=== PATIENT | male | born 1950 | race Caucasian/White ===

== ENCOUNTER → 2018-08-16 | Outpatient (CLI) | payer MEDICARE, BC ==
[~2018-08-16] MED LIST: ASPI-1471 PO; AZIT-17 PO; CALC-515 PO; FLU60SYR IM; FLUT10SP; FLUT16SP19 NS; FLUT16SP20 NS; LORA-629 PO; LORA-674 PO; MULT-817 PO; MULT1CAP59 PO; OMEP-218 PO; PANT40TA65 PO; PER PO; PRED20TA6 PO; SENN-187 PO; TAMS0.4C70 PO; TAMS0.4C76 PO
[2018-08-16 16:26] LABS: PLATELET COUNT, AUTOMATED 292 K/uL (150-450)
--- NOTE | 2018-08-16 16:27 | RADIOLOGY IMAGING REPORT ---
FACILITY: [facility] - [place] PATIENT NAME: Leon Villagomez : 1950 MR: [id number] V: [id number] EXAM DATE: [id number] ORDERING PHYSICIAN: ABDELRAHMAN MAURO TECHNOLOGIST: Location: [facility] Patient: Leon Villagomez : 1950 Visit/Account:[id number] Date of Sevice: 08/16/2018 Exam type: CHEST PA AND LAT History: Laryngitis, polio, cough, sore throat x2 months Comparison: January 10, 2017 Findings: Again noted is extensive scoliosis of the thoracic spine. The cardiac silhouette is normal in size. There is mild to moderate ectasia the thoracic aorta. There is hyperexpansion of the lung mcclelland. There is a subtle increase in the bronchovascular markin gs in the left lung base. There is no evidence of overt pulmonary edema or pleural effusions. IMPRESSION: 1. Subtle increase of the bronchovascular markings the left lung base. This could be projectional i n nature although the differential diagnosis would include subtle atelectasis or developing infiltrat e Report Dictated By: Donna Espinoza MD at 08/16/2018 4:20 PM Report E-Signed By: Donna Espinoza MD at 08/16/2018 4:22 PM WSN:[email or web address]
== END ==
LOC: LAB 15:49
PROVIDERS: ATTEND Internal Medicine
DX: J04.0 Acute laryngitis (principal); R09.02 Hypoxemia; A80.9 Acute poliomyelitis, unspecified
CPT/HCPCS: 71046; 82040; 82247; 82310; 82374; 82435; 82565; 82947; 84075; 84132; 84155; 84295; 84443; 84450; 84460; 84520; 85025

== ENCOUNTER 2018-08-21 11:17 | Inpatient (IN) | payer MEDICARE, BC ==
[~2018-08-21] VITALS: Ht 162.6 cm; Wt 46.8 kg
[2018-08-21] MEDS ORDERED: NS(*) 0.9% 1000 ML BAG 1,000 ML IV ONE ×2 (11:30→14:05)
[2018-08-21] MEDS ORDERED: ALBUTEROL/IPRATROPIUM 3 ML NEB ONE (11:33)
[2018-08-21 11:46] LABS: PLATELET COUNT, AUTOMATED 359 K/uL (150-450)
[2018-08-21] MEDS ORDERED: methylPREDNIS SUCC 125 MG/2ML IVP ONE (12:30)
--- NOTE | 2018-08-21 12:39 | EKG ---
FACILITY: [facility] [place] PATIENT NAME: TONIE BRODY : [id number] MR: [id number] V: [id number] EXAM DATE: ORDERING PHYSICIAN: WANDA ROWLAND TECHNOLOGIST: MEREDITH Morin Reason : RESPIARTORY Blood Pressure : / mmHG Vent. Rate : 117 BPM Atrial Rate : 117 BPM P-R Int : 122 ms QRS Dur : 080 ms QT Int : 340 ms P-R-T Axes : 073 070 061 degrees QTc Int : 474 ms Sinus tachycardia with occasional premature ventricular complexes Right atrial enlargement No obvious ST-T abnormalities, but some baseline artifact Compared to previous, now tachycardic and with PVC's Confirmed by EPIFANIO BROWN ([id number]) on 08/21/2018 1:31:26 PM Referred By: Confirmed By:EPIFANIO BROWN
--- NOTE | 2018-08-21 13:47 | RADIOLOGY IMAGING REPORT ---
FACILITY: [facility] PATIENT NAME: Leon Villagomez : 1950 MR: [id number] V: [id number] EXAM DATE: ORDERING PHYSICIAN: WANDA ROWLAND TECHNOLOGIST: [place] [facility] [place] Vill[place] : 1950 Visit/Account:[id number] Date of Sevice: 08/21/2018 Exam type: CHEST PA AND LAT History: SOB Comparison: August 16, 2018. Findings: Hyperexpansion of the lung mcclelland again seen. There is peribronchial thickening in the left lung bas e similar to the prior study. There is no evidence of focal infiltrates pleural effusions or pulmona ry edema the cardiac silhouette appears normal. There is mild to moderate ectasia the thoracic aorta . Extensive scoliosis thoracic spine again seen IMPRESSION: 1. Hyperexpansion the lung mcclelland. Peribronchial thickening the left lung base appears similar to the prior study Report Dictated By: Donna Espinoza MD at 08/21/2018 1:40 PM Report E-Signed By: Donna Espinoza MD at 08/21/2018 1:43 PM WSN:[email or web address]
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
[2018-08-21] MEDS ORDERED: IOPAMIDOL 76% 75 ML INFUS BTL 75 ML ONE (14:18)
[2018-08-21] MEDS ORDERED: NS(*) 0.9% 50 ML BAG 50 ML ONE (14:18)
--- NOTE | 2018-08-21 15:30 | RADIOLOGY IMAGING REPORT ---
FACILITY: [facility] [place] PATIENT NAME: Leon Villagomez : 1950 MR: [id number] V: [id number] EXAM DATE: ORDERING PHYSICIAN: WANDA ROWLAND TECHNOLOGIST: Location: [facility] [place] Patient: Leon Villagomez : 1950 Visit/Account:[id number] Date of Sevice: 08/21/2018 CTA CHEST WW/O CNTR (PULM ANG) COMPARISONS: None. ADDITIONAL PERTINENT HISTORY: Hypoxia and dyspnea TECHNIQUE: Multiple axial images are obtained from the lung apices through the upper abdomen during t he IV administration of contrast material. 2-D and 3-D reformatted images were obtained off the axial source data. One of the following dose optimization techniques was utilized in the performance of t his exam: Automated exposure control; adjustment of the mA and/or kV according to the patient's size; or use of an iterative reconstruction technique. Specific details can be referenced in the [facility]'s radiology CT exam operational policy. CONTRAST: 75mL of Isovue-370 FINDINGS: Lung parenchyma: Extensive background emphysematous change with scarring in both lung bases. Findings concerning for volume loss versus consolidation at the right lung base posteriorly Pleural spaces: Negative. Heart, mediastinum and raquel: Negative. Cardiopulmonary vasculature: The pulmonary arterial structures are well opacified with contrast mater ial and demonstrate no evidence of pulmonary emboli. Thoracic aorta demonstrates mild calcified and n oncalcified atherosclerotic plaque. Otherwise negative Central airways: Negative Thyroid, supra- clavicular, axillary regions: Negative. Surrounding soft tissues: Negative. Upper abdominal structures: Negative. Osseous structures: Scoliotic curvature convex to the left centered along the mid thoracic spine. No acute appearing bony abnormalities. IMPRESSION: 1. Extensive background emphysematous changes with findings concerning for potential developing infil trate at the right lung base. 2. No evidence of underlying pulmonary emboli. Report Dictated By: Troy Najera MD at 08/21/2018 3:16 PM Report E-Signed By: Troy Najera MD at 08/21/2018 3:26 PM WSN:[id number]
[2018-08-21 15:57] VITALS: BP_SYST 204; BP_SYST 205; BP_DIAS 116
[2018-08-21] MEDS ORDERED: ALBUTEROL 2.5 MG/3 ML NEB NEB PRN (16:05)
[2018-08-21] MEDS ORDERED: METOPROLOL TART 5 MG/5 ML VIAL IVP PRN (16:05)
[2018-08-21] MEDS ORDERED: ACETAMINOPHEN 325 MG TAB PO PRN (16:05)
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
[2018-08-21] MEDS: ALBUTEROL/IPRATROPIUM 3 ML NEB NEB SCH (17:19)
[2018-08-21] MEDS: TAMSULOSIN HCL 0.4 MG CAP PO SCH (17:55)
[2018-08-21] MEDS: methylPREDNIS SUCC 125 MG/2ML IVP SCH (17:55)
[2018-08-21 18:19] VITALS: BP 160/90
[2018-08-21] MEDS: LEVOFLOXACIN/D5W 750 MG/150 ML 150 ML IVPB SCH (18:44)
[2018-08-21] MEDS ORDERED: NS(*) 0.9% 250 ML BAG 250 ML ONE (18:47)
[2018-08-21] MEDS: guaiFENesin 600 MG TABCR PO SCH (19:51)
[2018-08-21 19:57] VITALS: BP 149/86
[2018-08-21 23:05] VITALS: BP 149/96
[2018-08-22] MEDS: methylPREDNIS SUCC 125 MG/2ML IVP SCH (01:26)
[2018-08-22 03:00] VITALS: BP 146/101
[2018-08-22] MEDS: ALBUTEROL/IPRATROPIUM 3 ML NEB NEB SCH ×2 (05:08→11:00)
[2018-08-22 05:49] LABS: PLATELET COUNT, AUTOMATED 291 K/uL (150-450)
[2018-08-22 07:06] VITALS: BP 140/96
[2018-08-22] MEDS: OXYMETAZOLINE SPRAY 15 ML BTL ENA PRN (09:47)
[2018-08-22] MEDS: TAMSULOSIN HCL 0.4 MG CAP PO SCH ×2 (09:49→20:28)
[2018-08-22] MEDS: PANTOPRAZOLE SOD 40 MG TABEC PO SCH (09:49)
[2018-08-22] MEDS: FLUTICASONE PROP 0.05% 16 GM SCH (09:49)
[2018-08-22] MEDS: predniSONE 20 MG TAB PO SCH (09:49)
[2018-08-22] MEDS: guaiFENesin 600 MG TABCR PO SCH ×2 (09:49→20:28)
[2018-08-22] MEDS: ENOXAPARIN 40 MG/0.4ML SYR SC SCH (09:54)
--- NOTE | 2018-08-22 10:43 | RADIOLOGY IMAGING REPORT ---
FACILITY: [facility] PATIENT NAME: Leon Villagomez : 1950 MR: [id number] V: [id number] EXAM DATE: ORDERING PHYSICIAN: EPIFANIO BROWN TECHNOLOGIST: Location: [facility] Patient: Leon Villagomez : 1950 Visit/Account:[id number] Date of Sevice: 08/22/2018 Chest with lateral, two views. HISTORY: Hypoxia. COMPARISON: 08/21/2018. The heart size is normal. The thoracic aorta is elongated and mildly ectatic. Central pulmonary art eries are enlarged. The lungs are voluminous. Interstitial markings are thickened bilaterally, unch anged. The right lateral and posterior costophrenic sulci are minimally blunted, unchanged. Moderat e scoliosis is present in the thoracolumbar spine. IMPRESSION: COPD. Aortic atherosclerosis. Small right pleural effusion or thickening, unchanged. Report Dictated By: Justin Braga MD at 08/22/2018 10:36 AM Report E-Signed By: Justin Braga MD at 08/22/2018 10:39 AM WSN:[id number]
[2018-08-22 10:53] VITALS: BP 148/91
[2018-08-22 13:43] VITALS: Ht 162.6 cm; Wt 46.8 kg
[2018-08-22 14:32] VITALS: BP 133/87
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
[2018-08-22] MEDS: LEVOFLOXACIN/D5W 750 MG/150 ML 150 ML IVPB SCH (17:22)
[2018-08-22] MEDS ORDERED: NS(*) 0.9% 1000 ML BAG 1,000 ML IV PRN (19:00)
[2018-08-22 20:07] VITALS: BP 154/111
[2018-08-22 23:16] VITALS: BP 161/100
[2018-08-23 03:26] VITALS: BP 169/105
[2018-08-23 06:02] LABS: PLATELET COUNT, AUTOMATED 281 K/uL (150-450)
[2018-08-23 07:36] VITALS: BP 140/93
[2018-08-23] MEDS: FLUTICASONE PROP 0.05% 16 GM SCH (08:47)
[2018-08-23] MEDS: ENOXAPARIN 40 MG/0.4ML SYR SC SCH (08:47)
[2018-08-23] MEDS: OXYMETAZOLINE SPRAY 15 ML BTL ENA PRN (08:47)
[2018-08-23] MEDS: TAMSULOSIN HCL 0.4 MG CAP PO SCH (08:48)
[2018-08-23] MEDS: guaiFENesin 600 MG TABCR PO SCH (08:48)
[2018-08-23] MEDS: predniSONE 20 MG TAB PO SCH (08:48)
[2018-08-23] MEDS: PANTOPRAZOLE SOD 40 MG TABEC PO SCH (08:48)
[2018-08-23] MEDS ORDERED: INFLUENZA VIRUS VAC 0.5ML SYR IM ONLY ONE (09:00)
[2018-08-23] MEDS ORDERED: DILTIAZEM CD 120 MG CAPCR PO SCH (09:40)
[2018-08-23 10:52] VITALS: BP 157/113
[2018-08-23] MEDS ORDERED: LEVO750T27 PO (16:12)
[2018-08-23] MEDS ORDERED: DILT120C18 PO (16:12)
[2018-08-23] MEDS ORDERED: PRED-1 PO (16:12)
[2018-08-23 16:19] VITALS: BP 143/121
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
[2018-08-23] MEDS: LEVOFLOXACIN/D5W 750 MG/150 ML 150 ML IVPB SCH (18:30)
--- NOTE | 2018-08-23 18:38 | Antimicrobial Stewardship ---
Antimicrobial Time Out Antimicrobial Stewardship MD Service: Hospitalist Indications: CAP (COPD EXACERBATION) Antimicrobial Used LEVAQUIN 750 MG IV DAILY Start Date: Aug 21, 2018 Culture Results: No Eligible for PO Conversion Eligable for PO Conversion: Yes Reviewed with Provider Reviewed w/ Provider on Rounds: No Comments Comments Patient is covered with Levaquin 750mg IV daily for COPD exacerbation and suspected pneumonia. Continue antibiotic therapy for 5-7 days and possible eval with EENT. JAMIL PHAN Aug 23, 2018 18:38
== END 2018-08-23 18:35 | disposition home or self-care (01) | DRG 194 ==
LOC: ER 11:51 → MED 15:30
PROVIDERS: ADMIT Internal Medicine; ATTEND Internal Medicine
DX: J15.9 Unspecified bacterial pneumonia (principal); J44.1 Chronic obstructive pulmonary disease with (acute) exacerbation; J44.0 Chronic obstructive pulmonary disease with (acute) lower respiratory infection; I10 Essential (primary) hypertension; R09.02 Hypoxemia; K21.9 Gastro-esophageal reflux disease without esophagitis; R00.0 Tachycardia, unspecified; N40.1 Benign prostatic hyperplasia with lower urinary tract symptoms; R33.8 Other retention of urine; T36.8X5A Adverse effect of other systemic antibiotics, initial encounter; M41.9 Scoliosis, unspecified; E78.5 Hyperlipidemia, unspecified; X08.8XXA Exposure to other specified smoke, fire and flames, initial encounter; Y92.230 Patient room in hospital as the place of occurrence of the external cause; Z86.12 Personal history of poliomyelitis; Z88.0 Allergy status to penicillin; Z88.8 Allergy status to other drugs, medicaments and biological substances; Z87.891 Personal history of nicotine dependence
CPT/HCPCS: 36415; 71046; 71275; 82040; 82247; 82310; 82374; 82435; 82565; 82947; 83880; 84075; 84132; 84155; 84295; 84450; 84460; 84484; 84520; 85025; 87040; 93005; 94640; 96361; 96374; 99285; J1650; J1956; J2930; J3490; J7030; J7050; J7512; Q9967

== ENCOUNTER 2018-09-02 03:37 | Inpatient (IN) | payer MEDICARE, BC ==
[2018-09-02] VITALS (31 sets, daily range): BP systolic 81–197; BP diastolic 51–131; Ht 162.6 cm; Wt 37.2 kg
[~2018-09-02] VITALS: Ht 162.6 cm; Wt 37.2 kg
[~2018-09-02 03:37] MED LIST changes: +DILT120C12 PO; +LEVO750T27 PO; +PRED-1 PO
--- NOTE | 2018-09-02 03:38 | ER Report ---
History and Physical Time Seen By MD: 03:38 HPI/ROS CHIEF COMPLAINT: Shortness of breath HISTORY OF PRESENT ILLNESS: 68-year-old male brought in by EMS from home. On arrival, he was cyanotic with a pulse ox in the 80s on his usual 4 L, which she was discharged on 10 days ago. Patient was treated for pneumonia and COPD exacerbation. He was discharged 3 days Levaquin and a prednisone taper. Patient was unable to speak to EMS about his symptoms. On arrival he is on EMS. BiPAP with a DuoNeb in progress. His color is improved significantly. Per EMS. His saturations are in the normal 90s. He is on 100% with a nebulizer in progress. Work of breathing is significantly improved per EMS. After approximately 40 minutes in the ER with serial nebulizer treatments. Patient able to speak with a hoarse voice. He states he did well after discharge until yesterday. He began to get short of breath. Patient denies chest pain REVIEW OF SYSTEMS: Respiratory: No cough, no dyspnea. Cardiovascular: No chest pain, no palpitations. Gastrointestinal: No vomiting, no abdominal pain. Musculoskeletal: No back pain. Allergies: Coded Allergies: Penicillins (Verified Allergy, Intermediate, HIVES, 09/06/11) meperidine (Verified Adverse Reaction, Intermediate, HARD TO URINATE, 09/06/11) Home Meds Active Scripts Prednisone 10 Mg Tab (PREDNISONE 10 MG TAB) 10 Mg Tablet, 10-40 MG PO QDAY, #30 TAB 4 pills daily for 3 days, then 3 a day for 3 days, then 2 a day for 3 days, then 1 a day for 3 days. Prov:EPIFANIO BROWN MD 08/23/18 Diltiazem Hcl (DILTIAZEM 24HR CD) 120 Mg Cap.er.24h, 120 MG PO QDAY, #30 Prov:EPIFANIO BROWN MD 08/23/18 Fluticasone Prop 50 Mcg Ns (FLONASE 50 MCG NS) 16 Gm [place].susp, 2 SPRAYS NS QDAY, #1 BOT Prov:ABDELRAHMAN MAURO MD 08/16/18 Pantoprazole Sodium (PANTOPRAZOLE SODIUM) 40 Mg Tablet.dr, 40 MG PO QDAY, #30 TAB.SR 2 Refills Prov:ABDELRAHMAN MAURO MD 07/24/18 Tamsulosin Hcl (TAMSULOSIN HCL) 0.4 Mg Cap.er.24h, 1 CAP PO BID, #180 CAP 4 Refills Patient must see provider for further refills Prov:ABDELRAHMAN MAURO MD 10/31/17 Reported Medications Multivitamin (DAILY ROXIE) 1 Each Tablet, 1 EACH PO QDAY 10/12/15 Discontinued Scripts Levofloxacin 750 Mg Tab (LEVOFLOXACIN 750 MG TAB) 750 Mg Tablet, 750 MG PO HS, #3 TAB Prov:EPIFANIO BROWN MD 08/23/18 Past Medical/Surgical History Recent bacterial pneumonia, COPD, GERD, hoarse voice Reviewed Nurses Notes: Yes Old Medical Records Reviewed: Yes Hx Smoking: Yes Smoking Status: Former Smoker Hx Substance Use Disorder: No Hx Alcohol Use: No Constitutional Vital Sign - Last 24 Hours 09/02/18 09/02/18 09/02/18 09/02/18 03:37 03:39 03:45 03:52 Temp 98.3 Pulse 113 123 110 Resp 18 22 17 B/P (MAP) 160/102 160/102 (121) Pulse Ox 92 98 O2 Delivery CPAP 09/02/18 09/02/18 09/02/18 09/02/18 03:57 04:04 04:07 04:22 Pulse 108 117 B/P (MAP) 139/100 (113) Pulse Ox 100 93 O2 Flow Rate 15.0 09/02/18 09/02/18 09/02/18 09/02/18 04:31 04:32 04:42 04:44 Pulse 111 120 Resp 36 18 B/P (MAP) 148/133 (138) Pulse Ox 96 O2 Flow Rate 10.0 09/02/18 09/02/18 09/02/18 09/02/18 04:57 05:00 05:12 05:20 Pulse 128 106 Resp 18 B/P (MAP) 133/80 (97) Pulse Ox 94 O2 Flow Rate 6.0 09/02/18 09/02/18 05:27 05:30 Pulse 100 B/P (MAP) 116/66 (83) Physical Exam Vital signs stable, tachycardia, mildly hypertensive, O2 saturation in the low 90s on 100%. Mom minimal work of breathing. EMS. BiPAP was continued General Appearance: The patient is alert, has no immediate need for airway protection and no current signs of toxicity. [ ] HEENT: Pupils equal and round no injection. Respiratory: Chest is non tender, decreased breath sounds bilaterally, faint expiratory wheezing noted, no Rales appreciated Cardiac: regular rate and rhythm, tachycardic Gastrointestinal: Abdomen is soft and non tender, no masses, bowel sounds normal. Musculoskeletal: Neck: Neck is supple and non tender. Extremities have full range of motion and are non tender. No edema, no calf tenderness Skin: No rashes or lesions. DIFFERENTIAL DIAGNOSIS: After history and physical exam differential diagnosis was considered for shortness of breath including but not limited to pulmonary infectious process, COPD, asthma, pulmonary embolus and congestive heart failure. Medical Decision Making Data Points Result Diagram: 09/02/18 1727 09/02/18 1727 Laboratory Hematology Test 09/02/18 03:25 D-Dimer Quantitative (PE/DVT) 0.48 ug/ml (0-0.50) B-Type Natriuretic Peptide 62 pg/ml (0-100) Chemistry Test 09/02/18 03:25 D-Dimer Quantitative (PE/DVT) 0.48 ug/ml (0-0.50) B-Type Natriuretic Peptide 62 pg/ml (0-100) Coagulation Test 09/02/18 03:25 D-Dimer Quantitative (PE/DVT) 0.48 ug/ml Microbiology Microbiology Date/Time Source Procedure Growth Status 09/02/18 04:33 Blood Peripheral Draw Blood Culture - Preliminary NO GROWTH SO FAR, SET LATE. REINCUBATED Resulted 09/02/18 04:26 Blood Peripheral Draw Blood Culture - Preliminary NO GROWTH SO FAR, SET LATE. REINCUBATED Resulted EKG/Imaging EKG Interpretation 12 lead EK 359 Rhythm: Sinus tachycardia, rate 1 24 bpm with premature superventricular complexes, occasional PVC [place]: normal QRS: normal ST segments: Diffuse nonspecific ST and T-wave changes, comparison to p revious EKG dated 08/21/18, no significant change Imaging X-ray: Single view portable chest x-ray was obtained. I viewed the images myself on the PACS system. My interpretation of the images is: There is a subtle infiltrate in the right lower lobe compared to previous chest x-ray dated 08/22/18. The radiologist interpretation had no clinically significant variation from this interpretation. ED Course/Re-evaluation Clinical Indication for ER IV: IV Access ED Course Patient was admitted to an examination room. H&P was done. The differential diagnoses was considered. On clinical examination. Patient with severe res piratory distress on arrival. He is on positive pressure ventilation by EMS. The DuoNeb and round and this improved his respiratory status. His saturations are in the 90s now. He was it, 70% on his 4 L on arrival of EMS. He was cyanotic for EMS. He's had IV Solu-Medrol 125 mg serial DuoNeb. Chest x-ray shows a hazy left lower lobe infiltrate that may be old or new., Patient has elevated white blood cell count, but likely secondary to steroids of 17,000. Patient was still significant work of breathing. He'll require admission. Case was discussed with hospitalist on-call 09/02/2018 5:04:57 am case discussed with Dr. Alex Manzo-Stephen hospitalist accepts the patient for admission. Decision to Disposition Date: Sep 02, 2018 Decision to Disposition Time: 04:13 Depart Departure Latest Vital Signs Vital Signs Date Time Temp Pulse Resp B/P (MAP) Pulse Ox O2 Delivery O2 Flow Rate FiO2 09/02/18 05:30 116/66 (83) 09/02/18 05:27 100 09/02/18 05:20 6.0 09/02/18 04:57 18 94 09/02/18 03:37 98.3 CPAP Impression: Primary Impression: COPD exacerbation Additional Impression: Respiratory distress Condition: Improved Disposition: Admitted from ER Referrals: ABDELRAHMAN MAURO MD (PCP) Problem Qualifiers ELSA DUFFY DO Sep 02, 2018 03:38
[2018-09-02] MEDS ORDERED: methylPREDNIS SUCC 125 MG/2ML IVP ONE (03:40)
[2018-09-02] MEDS: ALBUTEROL/IPRATROPIUM 3 ML NEB NEB SCH ×5 (03:45→12:37)
[2018-09-02 04:04] LABS: PLATELET COUNT, AUTOMATED 225 K/uL (150-450)
--- NOTE | 2018-09-02 04:55 | EKG ---
FACILITY: [facility] PATIENT NAME: TONIE BRODY : [id number] MR: [id number] V: [id number] EXAM DATE: ORDERING PHYSICIAN: ELSA DUFFY TECHNOLOGIST: BARBER Test Reason : DYSPNEA Blood Pressure : / mmHG Vent. Rate : 124 BPM Atrial Rate : 124 BPM P-R Int : 116 ms QRS Dur : 076 ms QT Int : 314 ms P-R-T Axes : 065 049 265 degrees QTc Int : 451 ms Sinus tachycardia with premature supraventricular complexes with occasional premature ventricular com plexes ST and T wave abnormality, consider inferior ischemia Abnormal ECG When compared with ECG of 02-SEP-2018 03:54, No significant change was found Confirmed by Alex Perdomo ([id number]) on 09/02/2018 6:05:40 AM Referred By: Confirmed By:Alex Mitchell
--- NOTE | 2018-09-02 05:01 | RADIOLOGY IMAGING REPORT ---
FACILITY: PATIENT NAME: Leon Villagomez : 1950 MR: [id number] V: [id number] EXAM DATE: ORDERING PHYSICIAN: ELSA DUFFY TECHNOLOGIST: Location: [facility] Patient: Leon Villagomez : 1950 Visit/Account:[id number] Date of Sevice: 09/02/2018 Exam type: CHEST SINGLE AP History: Respiratory distress Comparison: 08/22/2018. Findings: Patient is rotated with scoliosis. Lungs are well-expanded with some mild airspace disease at the right lung base potentially a small in filtrate. Small right-sided pleural effusion is chronic. No pneumothorax. Heart size is normal. Thoracic aorta is ectatic and rotated. The osseous structures demonstrate a scoliosis. IMPRESSION: 1. Small amount of airspace disease at the right lung base could represent a small infiltrate. 2. Chronic small right pleural effusion. 3. Ectatic thoracic aorta Report Dictated By: Driss Flowers MD at 09/02/2018 4:54 AM Report E-Signed By: Driss Flowers MD at 09/02/2018 4:57 AM WSN:[id number]
--- NOTE | 2018-09-02 05:47 | History & Physical ---
History of Present Illness Chief Complaint dyspnea History of Present Illness 68M presented with one day Hx of worsening dyspnea. Recently discharged on 08.23 after admission for COPD exacerbation secondary to pneumonia. Completed Levaquin and prednisone course on 08.26. Reports doing fairly well until day before admission, has increased SOB, cough productive brown sputum. Denies fever, shills, nausea, vomiting. He also is being worked up for profound hoarseness as an outpatient. In ER noted to be hypoxic requiring 10L by mask, some relief with breathing treatments. History Problems: (1) COPD (chronic obstructive pulmonary disease) Status: Chronic (2) Poliomyelitis Status: Chronic (3) Dysphagia Status: Chronic (4) Sore throat Status: Chronic Home Meds Active Scripts Levofloxacin 750 Mg Tab (LEVOFLOXACIN 750 MG TAB) 750 Mg Tablet, 750 MG PO HS, #3 TAB Prov:EPIFANIO BROWN MD 08/23/18 Prednisone 10 Mg Tab (PREDNISONE 10 MG TAB) 10 Mg Tablet, 10-40 MG PO QDAY, #30 TAB 4 pills daily for 3 days, then 3 a day for 3 days, then 2 a day for 3 days, then 1 a day for 3 days. Prov:EPIFANIO BROWN MD 08/23/18 Diltiazem Hcl (DILTIAZEM 24HR CD) 120 Mg Cap.er.24h, 120 MG PO QDAY, #30 Prov:EPIFANIO BROWN MD 08/23/18 Fluticasone Prop 50 Mcg Ns (FLONASE 50 MCG NS) 16 Gm [place].susp, 2 SPRAYS NS QDA Y, #1 BOT Prov:ABDELRAHMAN MAURO MD 08/16/18 Pantoprazole Sodium (PANTOPRAZOLE SODIUM) 40 Mg Tablet.dr, 40 MG PO QDAY, #30 TAB.SR 2 Refills Prov:ABDELRAHMAN MAURO MD 07/24/18 Tamsulosin Hcl (TAMSULOSIN HCL) 0.4 Mg Cap.er.24h, 1 CAP PO BID, #180 CAP 4 Refills Patient must see provider for further refills Prov:ABDELRAHMAN MAURO MD 10/31/17 Reported Medications Multivitamin (DAILY ROXIE) 1 Each Tablet, 1 EACH PO QDAY 10/12/15 Allergies: Coded Allergies: Penicillins (Verified Allergy, Intermediate, HIVES, 09/06/11) meperidine (Verified Adverse Reaction, Intermediate, HARD TO URINATE, 09/06/11) Patient History: FH: dementia MOTHER, , Age:85 FH: leukemia FATHER, , Age:75 Hx Smoking: Yes Smoking Status: Former Smoker Caffeine Intake: Coffee Caffeine/Cups Per Day: 2 CUPS PER DAY Hx Alcohol Use: No Hx Substance Use Disorder: No Review of Systems Constitutional: No Fever Cardiovascular: No Chest Pain, No Palpitations Respiratory: Shortness of Breath, Cough, Wheezing Exam Vital Signs Vital Signs Date Time Temp Pulse Resp B/P (MAP) Pulse Ox O2 Delivery O2 Flow Rate FiO2 09/02/18 05:20 6.0 09/02/18 04:44 120 18 09/02/18 04:22 93 09/02/18 03:57 139/100 (113) 09/02/18 03:37 98.3 CPAP General Appearance: Alert, Awake, Afebrile (increased work of breathing, chronically ill appearing, cachectic) Neuro: No Gross deficits (generalized weakness) ENT: Normal Cardiovascular: Other (tachycardic) Respiratory: Other (wheezing, L lower lobe rhonchi, 10L via mask) GI: Abd Soft and Non-Tender Extremities: Soft and Non Tender, Warm, Pulses Integumentary: Skin Intact without Lesion / Mass Medical Decision Making Data Points Result Diagram: 09/02/18 0325 09/02/18 0325 EKG / Imaging EKG Interpretation sinus tachycardia with 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 Small amount of airspace disease at the right lung base could represent a small infiltrate. 2. Chronic small right pleural effusion. 3. Ectatic thoracic aorta Assessment and Plan Problems: (1) Acute on chronic respiratory failure with hypoxemia Assessment & Plan: No acute process identified in chest xray, EKG no acute changes, afebrile. Increased sputum and O2 needs. Will begin breathing treatments, steroid and antibiotic. Swallow evaluation ordered, suspect that aspiration may be triggering exacerbation of COPD. (2) Dysphagia Status: Chronic Assessment & Plan: Swallow evaluation. (3) Poliomyelitis Status: Chronic Assessment & Plan: Chronic bilateral weakness. Venous Thromboembolism Antithrombotics Is Pt On Any Antithrombotics?: Yes Exam Sepsis Risk: No Definite Risk SMILEY DONELL CARPENTER DO Sep 02, 2018 05:47
[2018-09-02] MEDS ORDERED: FLUSH 10 ML SYR IVP PRN (05:50)
[2018-09-02] MEDS ORDERED: INFLUENZA VIRUS VAC 0.5ML SYR IM ONLY ONE (05:50)
[2018-09-02] MEDS ORDERED: ONDANSETRON 4 MG/2 ML VIAL IVP PRN (05:50)
[2018-09-02] MEDS ORDERED: ACETAMINOPHEN 325 MG TAB PO PRN (05:50)
[2018-09-02] MEDS ORDERED: ALBUTEROL 2.5 MG/3 ML NEB NEB PRN (06:05)
[2018-09-02] MEDS: NS(*) 0.9% 1000 ML BAG 1,000 ML IV PRN ×2 (06:23→15:41)
[2018-09-02] MEDS ORDERED: CEFEPIME HCL 2 GM VIAL IVP SCH (07:00)
[2018-09-02] MEDS: CEFEPIME HCL 2 GM VIAL IVP SCH ×2 (08:14→20:24)
[2018-09-02] MEDS: PANTOPRAZOLE SOD 40 MG TABEC PO SCH (08:21)
[2018-09-02] MEDS: DILTIAZEM CD 120 MG CAPCR PO SCH (08:25)
[2018-09-02] MEDS: TAMSULOSIN HCL 0.4 MG CAP PO SCH (08:25)
[2018-09-02] MEDS: ENOXAPARIN 30 MG/0.3 ML SYR SC SCH (08:25)
--- NOTE | 2018-09-02 08:35 | Miscellaneous Provider Note ---
Miscellaneous Provider Note Note He reports some minor improvements in his symptoms already this AM. He has cefepime ordered for possible healthcare associated pulmonary infection. He is listed as having an allergy to PCN (hives). Will monitor very closely for any potential reaction. JEANNE STEELE MD Sep 02, 2018 08:35
[2018-09-02] MEDS: methylPREDNIS SUCC 125 MG/2ML IVP SCH ×2 (12:15→20:24)
--- NOTE | 2018-09-02 13:31 | Medical Nutrition Therapy ---
Nutrition Anthropometrics Height (Inches): 64.00 Height (Calculated Centimeters: 162.696139 Weight (Pounds): 96 Weight (Calculated Kilograms): 43.602 Ezio Nutrition Score: Probably Inadequate Ezio Nutrition Risk Score: 18 Dietary Referral Nutrition Risk Factors: Significantly Underwt. Nutrition Risk Comment: Lives alone. Physical Findings Physical Appearance: Underweight BMI<19 Skin Appearance Skin Appearance: Edema Edema Location Modifier: Edema Location: Type of Edema: Degree of Edema: Gastrointestinal Symptoms GI Symtoms: Tube Present: Bowel Sounds: Recent Bowel Pattern: Stool Characteristics: Nutritional Diagnosis Nutritional Risk Acuity 2: Swallowing Problem Nutritional Risk Acuity 3: COPD Unstable Past Medical History: BPH (benign prostatic hyperplasia), Scoliosis, Hyperlipidemia, GERD, Poliomyelitis Nutritional Acuity: 2-Moderate Nutrition Diagnosis: Inadequate Food Intake Nutrition Etiology: Physiological Causes Nutrition Problem/Etiology/Sym: Inadequate oral intake related to physiological causes as evidenced by BMI 16.5. Adjusted Energy Requirement Re: 1610 ([id number] (HB: IBW X 1.3-1.5)) Protein Requirement: 60 (1 g/kg IBW) Fluid Requirement: 1770 Diet Type: Diet as Tolerated LIBAN/REG Nutrition Intervention: Encourage intake Nutrition Monitoring & Eval RD Patient Assessment Time: [address] Assessment Type: RD Assessment Patient Nutrition Acuity: 2-Moderate Follow Up Date: Sep 05, 2018 Nutritional Comment: 09/02 Pt readmitted from 08/23 when he was treated for bacterial pneumonia. He is now going to be treated for acute resp failure. Long time hx of smoking. Nursing reporting swallowing problems, so JEWELRY SALESPERSON has been consulted to determine if modifications to food textures is needed. Curretly on LIBAN with intake of 50% of one meal. BMI very low at 16.5. Notable labs include Na 135, creatinine .6 and glc 145. Will cont to monitor and encourage intake. -HARRISON AGUIRRE Sep 02, 2018 13:31
[2018-09-02] MEDS: FLUTICASONE PROP 0.05% 16 GM SCH (16:21)
--- NOTE | 2018-09-02 17:13 | Miscellaneous Provider Note ---
Miscellaneous Provider Note Note Mr. Villagomez developed tachycardia, tachypnea, increased O2 requirement. His exam is notable for diffuse expiratory wheezes with diminished air movement. He is unable to speak more than one very soft word. Will transfer to the ICU, place on BiPAP, modify respiratory treatments as needed. If he does not respond fairly qu ickly, may need to consider intubation/mechanical ventilation. JEANNE STEELE MD Sep 02, 2018 17:13
[2018-09-02] MEDS ORDERED: LEVALBUTEROL 0.63 MG/3 ML NEB ONE (17:21)
[2018-09-02 17:32] LABS: PLATELET COUNT, AUTOMATED 196 K/uL (150-450)
[2018-09-02] MEDS ORDERED: VANCOMYCIN(*) 1 GM VIAL 1 GM, VANCOMYCIN (*) 0.5 GM VIAL 0.25 GM in NS(*) 0.9% 250 ML B... IVPB ONE (18:00)
--- NOTE | 2018-09-02 18:05 | RADIOLOGY IMAGING REPORT ---
FACILITY: [facility] PATIENT NAME: Leon Villagomez : 1950 MR: [id number] V: [id number] EXAM DATE: ORDERING PHYSICIAN: JEANNE STEELE TECHNOLOGIST: Location: [facility] Patient: Leon Villagomez : 1950 Visit/Account:[id number] Date of Sevice: 09/02/2018 Examination: CHEST SINGLE AP Comparison: Same day and earlier. History: hypoxia/tachypnea Findings: Background chronic hyperexpansion and interstitial thickening. Increased streaky density in the right more so than left infrahilar lung. No pneumothorax or effusion. Cardiac and hilar contour size is unchanged. Thoracolumbar scoliosis. IMPRESSION: Increased streaky density in the right greater than left infrahilar lung. This could be atelectasis a lthough correlation with any evidence of a superimposed aspiration or worsening bronchitis is recomme nded. Report Dictated By: Sandro Mcfadden MD at 09/02/2018 5:59 PM Report E-Signed By: Sandro Mcfadden MD at 09/02/2018 6:02 PM WSN:[id number]
[2018-09-03] VITALS (56 sets, daily range): BP systolic 90–152; BP diastolic 56–102
[2018-09-03] MEDS ORDERED: VANCOMYCIN HCL(*) 0.750 GM ADD 0.75 GM in NS(*) 0.9% 250 ML ADDVAN BAG 250 ML IVPB SCH (02:00)
[2018-09-03] MEDS: methylPREDNIS SUCC 125 MG/2ML IVP SCH ×3 (04:08→19:55)
[2018-09-03 05:20] LABS: PLATELET COUNT, AUTOMATED 168 K/uL (150-450)
[2018-09-03] MEDS: PANTOPRAZOLE SOD 40 MG TABEC PO SCH (05:42)
[2018-09-03] MEDS: NS(*) 0.9% 1000 ML BAG 1,000 ML IV PRN ×2 (08:03→21:35)
[2018-09-03] MEDS: ENOXAPARIN 30 MG/0.3 ML SYR SC SCH (08:22)
[2018-09-03] MEDS: TAMSULOSIN HCL 0.4 MG CAP PO SCH (08:22)
[2018-09-03] MEDS: FLUTICASONE PROP 0.05% 16 GM SCH (08:22)
[2018-09-03] MEDS: DILTIAZEM CD 120 MG CAPCR PO SCH (08:22)
[2018-09-03] MEDS: CEFEPIME HCL 2 GM VIAL IVP SCH ×2 (08:23→19:54)
--- NOTE | 2018-09-03 10:07 | Hospitalist Progress Note ---
Subjective Progress Notes Subjective This patient was admitted for COPD. He was transferred to the ICU after developing increased respiratory distress. Patient Complains of: Cardiovascular: No: Chest Pain Respiratory: No: Shortness of Breath Physical Exam Vital Signs Date Time Temp Pulse Resp B/P (MAP) Pulse Ox O2 Delivery O2 Flow Rate FiO2 09/03/18 09:30 121 27 134/86 (102) 97 High-Flow Nasal Cannula 5.0 09/03/18 08:00 98.2 50.0 l Intake and Output 09/03/18 06:59 Intake Total 2409 ml Output Total 850 ml Balance 1559 ml Intake Oral 240 ml IV Total 2169 ml Output Urine Total 850 ml # Voids 100 Cardiovascular: Regular Rate and Rhythm Respiratory: Clear to Auscultation Result Diagram: 09/03/1815 09/03/18 05 Imaging Chest x-ray reviewed. Monitor Interpretation: Sinus Tachycardia Assessment and Plan Problems: (1) Acute on chronic respiratory failure with hypoxemia Assessment & Plan: He did develop increased respiratory distress shortly after admission. He was transferred to the ICU and placed on BiPAP. He responded wel l, and has now weaned to nasal canula. (2) COPD exacerbation Status: Acute Assessment & Plan: He is on treatment with nebulizers and IV steroids. He is also on empiric treatment with cefepime. (3) Dysphagia Status: Chronic Assessment & Plan: A speech therapy consult is ordered. He also has follow up with Dr. Thompson. (4) Poliomyelitis Status: Chronic Assessment & Plan: Chronic bilateral weakness. Exam Sepsis Risk: Sepsis Risk ROMAN SKELTON DO Sep 03, 2018 10:07
--- NOTE | 2018-09-03 11:49 | Antimicrobial Stewardship ---
Antimicrobial Stewardship Empiricly appropriate: Yes (Started on Vancomycin and Cefepime) Significant PMH: Yes (COPD, recent discharge from [facility] with pneumonia 08/21-08/23) Support empiric regimen: Yes Approriate Cultures done: Yes (Blood Cx x 2 are pending) Renal/Hepatic dosing: Yes Monitored for Toxicities: Yes Determine cumulative duration: Day 1- 09/02/18 Determine standard duration: COPD/Pneumonia - 5-7 days depending on progress Comment 68 yo M with history of pneumonia s/p inpatient stay 08/21 - 08/23, discharged on steroid taper and levofloxacin, who presented to the ED with SOB, cyanosis, sats in the 70s. Started on Vancomycin, cefepime (PCN allergy). Afebrile WBC 16-15 Chest xray shows infiltrates---could be from pneumonia earlier in August, may not be a new infiltrate Lactate 2.2, 2.1 Plan stop Vancomycin and continue Cefepime 2g IV Q12H, continue methylprednisone 80 mg IV Q8H. Plan for a minimum of 5-7 days. Jerri Whitfield, PharmD, BCOP JERRI WHITFIELD Sep 03, 2018 11:26
[2018-09-04] VITALS (34 sets, daily range): BP systolic 101–161; BP diastolic 68–110
[2018-09-04] MEDS ORDERED: SALINE 0.65% NAS SPR 44 ML BTL ONE (00:22)
[2018-09-04] MEDS: methylPREDNIS SUCC 125 MG/2ML IVP SCH (03:50)
[2018-09-04 05:16] LABS: PLATELET COUNT, AUTOMATED 153 K/uL (150-450)
--- NOTE | 2018-09-04 06:25 | RADIOLOGY IMAGING REPORT ---
FACILITY: [facility] [place] PATIENT NAME: Leon Villagomez : 1950 MR: [id number] V: [id number] EXAM DATE: [id number] ORDERING PHYSICIAN: ROMAN SKELTON TECHNOLOGIST: [place] [facility] [place] Patient: Leon Villagomez : 1950 Visit/Account:[id number] Date of Sevice: 09/04/2018 Exam type: CHEST SINGLE AP History: Pneumonia Comparison: 09/02/2018. Findings: There is improved aeration of the right lung base likely resolving infiltrate. Chronic pleural thicke christopher at the right lung base is noted. Left lung is well-expanded and clear. Patient is rotated but the heart size is normal. Thoracic aorta is ectatic. The osseous structures demonstrate a scoliosis. IMPRESSION: 1. Improved aeration at the right lung base likely a resolving infiltrate. 2. Chronic pleural thickening at the right lung base. Report Dictated By: Driss Flowers MD at 09/04/2018 6:18 AM Report E-Signed By: Driss Flowers MD at 09/04/2018 6:21 AM WSN:[id number]
[2018-09-04] MEDS: PANTOPRAZOLE SOD 40 MG TABEC PO SCH (06:38)
[2018-09-04] MEDS: CEFEPIME HCL 2 GM VIAL IVP SCH (08:46)
[2018-09-04] MEDS ORDERED: predniSONE 20 MG TAB PO SCH (09:00)
[2018-09-04] MEDS: FLUTICASONE PROP 0.05% 16 GM SCH (09:51)
[2018-09-04] MEDS: DILTIAZEM CD 120 MG CAPCR PO SCH (09:51)
[2018-09-04] MEDS: ENOXAPARIN 30 MG/0.3 ML SYR SC SCH (09:51)
[2018-09-04] MEDS: TAMSULOSIN HCL 0.4 MG CAP PO SCH (09:51)
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
[2018-09-04] MEDS: LEVALBUTEROL 0.63 MG/3 ML NEB NEB PRN ×2 (13:20→15:31)
--- NOTE | 2018-09-04 13:50 | Hospitalist Progress Note ---
Subjective Progress Notes Subjective 68M admitted with acute on chronic hypoxic respiratory failure. DIANA overnight, respiratory status improving. an to move out of ICU today. Patient Complains of: Neurological: Other Respiratory: Cough, Shortness of Breath Gastrointestinal: No Nausea, No Vomiting Physical Exam Vital Signs Date Time Temp Pulse Resp B/P (MAP) Pulse Ox O2 Delivery O2 Flow Rate FiO2 09/04/18 13:20 130 20 09/04/18 13:20 94 High-Flow Nasal Cannula 3.5 09/04/18 11:00 145/109 (121) 09/04/18 10:00 99.0 09/04/18 02:22 50.0 Intake and Output 09/04/18 06:59 Intake Total 2622 ml Output Total 1025 ml Balance 1597 ml Intake Oral 740 ml IV Total 1882 ml Output Urine Total 1025 ml General Appearance: Alert, Awake, Afebrile ENT: Normal Cardiovascular: Normal Rhythm & Peripheral Pulses (tachycardic) Respiratory: Other (4L visa NC) GI: Soft and Non-Tender Extremities: Soft and Non Tender, Warm, Pulses, Perfused; No Edema Integumentary: Skin Intact without Lesion / Mass Result Diagram: 09/04/18 0504 09/04/18 0504 Monitor Interpretation: Sinus Tachycardia Assessment and Plan Problems: (1) Acute on chronic respiratory failure with hypoxemia Assessment & Plan: He did develop increased respiratory distress shortly after admission. He was transferred to the ICU and placed on BiPAP. He responded well, and has now weaned to nasal canula[facility]one. (2) COPD exacerbation Status: Acute Assessment & Plan: He is on treatment with nebulizers and steroids. Will observe off antibiotics, plan to discharge tomorrow if no deterioration in clinical status. (3) Dysphagia Status: Chronic Assessment & Plan: A speech therapy consult is ordered, [facility] [place]. He also has follow up with Dr. Thompson 12.19 @ 1100. Plan to discharge if stable tomorrow to make appointment. (4) Poliomyelitis Status: Chronic Assessment & Plan: Chronic bilateral weakness. Exam Sepsis Risk: Sepsis Risk BALJIT CARPENTERDONELL Sep 04, 2018 13:50
[2018-09-04] MEDS ORDERED: IPRA4AER IH (14:00)
[2018-09-04] MEDS ORDERED: PRED-1 PO (14:00)
[2018-09-04] MEDS ORDERED: ALB18R INH (14:01)
--- NOTE | 2018-09-04 16:23 | EKG ---
FACILITY: [facility] - [place] PATIENT NAME: TONIE BRODY : [id number] MR: [id number] V: [id number] EXAM DATE: ORDERING PHYSICIAN: DONELL CARPENTER TECHNOLOGIST: Test Reason : Blood Pressure : / mmHG Vent. Rate : 121 BPM Atrial Rate : 121 BPM P-R Int : 126 ms QRS Dur : 080 ms QT Int : 326 ms P-R-T Axes : 061 041 204 degrees QTc Int : 462 ms Sinus tachycardia with occasional premature ventricular complexes ST and T wave abnormality, consider inferior ischemia Abnormal ECG When compared with ECG of 02-SEP-2018 03:55, premature supraventricular complexes are no longer present T wave inversion no longer evident in Anterior leads Confirmed by Donell Perdomo ([id number]) on 09/04/2018 10:55:38 PM Referred By: Confirmed By:Donell Carpenter
[2018-09-04] MEDS ORDERED: MELATONIN 3 MG TAB PO PRN (19:05)
[2018-09-05] VITALS (34 sets, daily range): BP systolic 99–162; BP diastolic 63–116
[2018-09-05] MEDS: PANTOPRAZOLE SOD 40 MG TABEC PO SCH (06:00)
[2018-09-05 07:18] LABS: PLATELET COUNT, AUTOMATED 146 K/uL (150-450)
--- NOTE | 2018-09-05 08:24 | Hospitalist Progress Note ---
Subjective Progress Notes Subjective He reports feeling overall better. He did get some sleep. No concerns from staff. Physical Exam Vital Signs Date Time Temp Pulse Resp B/P (MAP) Pulse Ox O2 Delivery O2 Flow Rate FiO2 09/05/18 07:38 93 Oxy Mask 6.0 09/05/18 07:31 97.9 09/05/18 07:30 94 15 135/99 (111) 09/05/18 00:57 45.0 Intake and Output 09/05/18 07:00 Intake Total 693 ml Output Total 825 ml Balance -132 ml Intake Oral 340 ml IV Total 353 ml Output Urine Total 825 ml # Voids 4 General Appearance: Alert, Awake, No Acute Distress Cardiovascular: Other (Regular, borderline tachy.) Respiratory: Other (Trace exp wheezing diffusely. Moving air to bases bilaterally) Extremities: No Edema Integumentary: No Jaundice, No Cyanosis Result Diagram: 09/05/18 0709/05/18 0709 Monitor Interpretation: Sinus Tachycardia Assessment and Plan Problems: (1) Acute on chronic respiratory failure with hypoxemia Assessment & Plan: He did develop increased respiratory distress shortly after admission. He was transferred to the ICU and placed on BiPAP. He initially did well and was moved to the floor, but was moved back yesterday to the ICU because of increased WOB/hypoxia. He is feeling better this morning. Will discuss with Radiology about appropriate imaging to evaluate the hoarseness for concern for more of an upper airway issue contributing to the respiratory distress. Also, will discuss with Dr. Thompson (ENT). (2) COPD exacerbation Status: Acute Assessment & Plan: He is on treatment with nebulizers and steroids. Will observe off antibiotics. See above. (3) Dysphagia Status: Chronic Assessment & Plan: A speech therapy has evaluated him and recommend a MBS, which has been ordered. (4) Tachycardia Status: Acute Assessment & Plan: He has had intermittent sinus tachycardia during a previous admission that was not been responsive to fluid boluses. Looking back at his PCP visits, he has had low grade tachycardia, also. He denies palpitations. We started diltiazem to treat the tachycardia and elevated BP. His TSH is wnl. He should get an echo as an outpatient, but will defer that to his PCP. (5) Poliomyelitis Status: Chronic Assessment & Plan: Chronic bilateral weakness. Exam Sepsis Risk: Sepsis Risk EPIFANIO BROWN MD Sep 05, 2018 08:24
[2018-09-05] MEDS: FLUTICASONE PROP 0.05% 16 GM SCH (08:28)
[2018-09-05] MEDS: DILTIAZEM CD 120 MG CAPCR PO SCH (08:28)
[2018-09-05] MEDS: TAMSULOSIN HCL 0.4 MG CAP PO SCH (08:28)
[2018-09-05] MEDS: predniSONE 20 MG TAB PO SCH (08:29)
[2018-09-05] MEDS: ENOXAPARIN 30 MG/0.3 ML SYR SC SCH (08:31)
[2018-09-05] MEDS ORDERED: IOPAMIDOL 76% 50 ML INFUS BTL 100 ML ONE (11:25)
[2018-09-05] MEDS: MORPHINE 2 MG/ML SYR IVP PRN (11:55)
--- NOTE | 2018-09-05 15:56 | RADIOLOGY IMAGING REPORT ---
[place] [facility] [place] NAME: Leon Villagomez : 1950 MR: [id number] V: [id number] EXAM DATE: ORDERING PHYSICIAN: EPIFANIO BROWN TECHNOLOGIST: Location: Patient: Loen Villagomez : 1950 Visit/Account:[id number] Date of Sevice: 09/05/2018 EXAMINATION: CT neck with IV contrast HISTORY: Hoarseness for 2 months, respiratory distress. COMPARISON: CTA chest from 08/21/2018. TECHNIQUE: Spiral scan was obtained from the hard palate through the upper chest during injection o f nonionic iodinated intravenous contrast. Sagittal and coronal reformatted images are also submitte d. CONTRAST: 75 mL of IV Isovue-370. One of the following dose optimization techniques was utilized in the performance of this exam: Autom ated exposure control; adjustment of the mA and/or kV according to the patient's size; or use of an i terative reconstruction technique. Specific details can be referenced in the facility's radiology C T exam operational policy. FINDINGS: Masses/lesions: There is an enhancing mass of the glottis involving the right vocal cord. Slight mot ion artifact through this area, but the lesion measures at least 2.9 x 1.7 cm (image 330 series 5) by 1.6 cm (image 37 series 3). There is abnormal thickening of the anterior commissure measuring 10 mm, and there is abnormal enhancement of the left vocal cord. The lesion extends slightly into the right laryngeal ventricle. There is enlargement of the right piriform sinus and medialization of the right aryepiglottic fold. There is patchy lysis of the right arytenoid cartilage and there is patchy scler osis and lysis of the right anterior tracheal cartilage. There is enhancement through the wall of the thyroid cartilage anteriorly, right greater than left. There is severe fatty atrophy of the right muscles of mastication. Airway: Normal. Vessels: Moderate atherosclerotic calcifications of the aortic arch and bilateral carotid bulbs. Vas cular structures are patent. Musculoskeletal/body wall: Rightward curvature the cervical spine and leftward curvature of the thora cic spine with extensive degenerative changes of the cervical spine. 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 Lymph nodes: Negative. Visualized orbits/brain/paranasal sinuses: Visualized intracranial contents are normal. There is nasa l septal deviation to the left. Upper chest: Moderate emphysema of the visualized lung apices. IMPRESSION: 1. Enhancing mass of the larynx, measuring at least 2.9 x 1.7 x 1.6 cm, centered in the right vocal c ord, with extension across the anterior commissure to the left vocal cord, into the right laryngeal v entricle, and through the thyroid cartilage anteriorly bilaterally, right greater than left. 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 2. No evidence of metastatic lymph nodes in the neck. 3. Severe fatty atrophy of the right muscles of mastication. A message regarding these findings was left with Merced[place], nurse for EPIFANIO BROWN at 09/05/2018 3:49 P M. Report Dictated By: Malka Hernandez MD at 09/05/2018 3:32 PM Report E-Signed By: Malka Hernandez MD at 09/05/2018 3:52 PM WSN:[id number]
--- NOTE | 2018-09-05 16:32 | CONSULTATION ---
EVENT DATE: September 05, 2018 REQUESTING PHYSICIAN Taye Corbett MD CONSULTING PHYSICIAN Cecil Thompson MD REASON FOR CONSULTATION Hoarseness. HISTORY OF PRESENT ILLNESS This is a 68-year-old gentleman with previous history of tobacco use and underlying COPD, who was readmitted to the hospital three days ago with a COPD exacerbation and possible pneumonia. The patient has had hoarseness for the past two months. He is tolerating a regular diet without difficulty. He underwent a bedside swallow evaluation here which was not concerning for aspiration. The patient has a history of polio. PAST MEDICAL HISTORY As above. 1. Hypercholesterolemia. 2. Gastroesophageal reflux. 3. Hypertension. 4. COPD. MEDICATIONS 1. Protonix. 2. Prednisone. 3. Xopenex. 4. Flonase. 5. Flomax. 6. Cardizem. 7. Lovenox. ALLERGIES PENICILLIN, MEPERIDINE. SOCIAL HISTORY As above. FAMILY HISTORY Noncontributory. REVIEW OF SYSTEMS As above. PHYSICAL EXAMINATION GENERAL: Frail. No acute distress. Tolerating oral secretions. Hoarse. No stridor. VITAL SIGNS: Temperature 98.1, pulse 102, blood pressure 142/86, oxygen saturation 91% on 6L. HEAD AND FACE: Normocephalic, atraumatic. No gross lesions or scars. EARS: External ears are unremarkable. EYES: Extraocular movements intact. Sclerae white. Conjunctivae pink. NOSE: External nose unremarkable. Midline septum. Moist mucous membranes. ORAL CAVITY AND PHARYNX: Edentulous. Moist mucous membranes. Floor of mouth, base of tongue soft. NECK: Soft, supple. Midline trachea. No palpable lymphadenopathy. PROCEDURE PERFORMED Flexible laryngoscopy. The patient verbally consented to the procedure. The right nasal cavity was initially decongested and anesthetized with lidocaine and Afrin spray. Scope was introduced into the right nasal cavity. The right nasal cavity, nasopharynx, oropharynx, and hypopharynx were clear. No pooled secretions. Diminutive epiglottis with mass effect. Right vocal fold immobile in medium position. Left fold mobile. Adequate glottic closure. RADIOLOGY CT of the neck with contrast. I evaluated the images with the radiologist, Dr. Espinoza. This is remarkable for a possible right glottic mass. There is no noted adenopathy. The film will be reviewed by the neuroradiologist for final report. ASSESSMENT 1. Dysphonia. 2. Possible right glottic mass. PLAN I recommended that we proceed to the operating room for direct laryngoscopy and tracheoscopy and possible biopsy. Risks of injury to the lips, oral cavity, pharynx, larynx, and those associated with anesthesia discussed. The patient would like to discuss this option more with his daughter and will let me know if they elect to proceed. We have tentatively scheduled OR time for Monday. Please call with any interval questions or concerns. BENYD
[2018-09-06] VITALS (36 sets, daily range): BP systolic 107–176; BP diastolic 47–105
[2018-09-06] MEDS: PANTOPRAZOLE SOD 40 MG TABEC PO SCH (06:28)
--- NOTE | 2018-09-06 08:18 | Hospitalist Progress Note ---
Subjective Progress Notes Subjective He reports no significant changes. Persistent dyspnea/weakness. Physical Exam Vital Signs Date Time Temp Pulse Resp B/P (MAP) Pulse Ox O2 Delivery O2 Flow Rate FiO2 09/06/18 06:30 109 44 176/79 (111) 90 Bi-PAP 45.0 09/06/18 03:30 97.8 09/05/18 19:00 6.0 Intake and Output 09/06/18 07:00 Intake Total 1310 ml Output Total 977 ml Balance 333 ml Intake Oral 1310 ml Output Urine Total 977 ml # Voids 1 # Bowel Movements 1 General Appearance: Alert, Awake Neuro: Other (chronic generalized weakness/atrophy in virtually all muscle groups) Neck: No Masses Cardiovascular: Regular Rate and Rhythm Respiratory: Other (expiratory wheezes throughout/diminished breath sounds bilaterally) GI: Soft and Non-Tender Extremities: Warm, Perfused Result Diagram: 09/05/18 0709/05/18 07 Monitor Interpretation: Other (Sinus tachycardia intermittently) Assessment and Plan Problems: (1) Acute on chronic respiratory failure with hypoxemia Assessment & Plan: He did develop increased respiratory distress shortly after admission. He was transferred to the ICU and placed on BiPAP. He initially did well and was moved to the floor, but was moved back to the ICU because of increased WOB/hypoxia. CT scan of soft-tissue neck shows changes worrisome for laryngeal malignancy and is probably a major component in his respiratory difficulties. Dr. Thompson (ENT) has seen Mr. Villagomez and plans on biopsy in OR tomorrow. (2) COPD exacerbation Status: Acute Assessment & Plan: He is on treatment with nebulizers and steroids. He is now off antibiotics. (3) Dysphagia Status: Chronic Assessment & Plan: Speech therapy has evaluated him and recommended a MBS, which was ordered, but Mr. Villagomez did not wish to pursue. (4) Tachycardia Status: Acute Assessment & Plan: Improved. Probably related to respiratory compromise/hypoxia. He has had intermittent sinus tachycardia. Looking back at his PCP visits, he has had low grade tachycardia, also. He denies palpitations. We started diltiazem to treat the tachycardia and elevated BP. His TSH is in normal range. May consider echocardiogram as well. (5) Poliomyelitis Status: Chronic Assessment & Plan: Chronic bilateral weakness. Exam Sepsis Risk: Sepsis Risk JEANNE STEELE MD Sep 06, 2018 08:18
[2018-09-06] MEDS: DILTIAZEM CD 120 MG CAPCR PO SCH (08:45)
[2018-09-06] MEDS: FLUTICASONE PROP 0.05% 16 GM SCH (08:46)
[2018-09-06] MEDS: TAMSULOSIN HCL 0.4 MG CAP PO SCH (08:46)
[2018-09-06] MEDS: predniSONE 20 MG TAB PO SCH (08:46)
--- NOTE | 2018-09-06 11:39 | Medical Nutrition Therapy ---
Nutrition Anthropometrics Height (Inches): 64.00 Height (Calculated Centimeters: 162.977796 Weight (Pounds): 91 Weight (Calculated Kilograms): 41.277 Ezio Nutrition Score: Probably Inadequate Ezio Nutrition Risk Score: 14 Dietary Referral Nutrition Risk Factors: Significantly Underwt. Nutrition Risk Comment: Lives alone. Physical Findings Physical Appearance: Underweight BMI<19 Skin Appearance Skin Appearance: Edema Edema Location Modifier: Edema Location: Type of Edema: Degree of Edema: Gastrointestinal Symptoms GI Symtoms: Tube Present: Bowel Sounds: Recent Bowel Pattern: Stool Characteristics: Nutritional Diagnosis Nutritional Risk Acuity 2: Pr Appetite > 3d Nutritional Risk Acuity 3: COPD Unstable Past Medical History: BPH (benign prostatic hyperplasia), Scoliosis, Hyperlipidemia, GERD, Poliomyelitis Nutritional Acuity: 2-Moderate Nutrition Diagnosis: Inadequate Food Intake Nutrition Etiology: Physiological Causes Nutrition Problem/Etiology/Sym: Inadequate oral intake related to physiological causes as evidenced by BMI 16.5. Adjusted Energy Requirement Re: 1610 ([id number] (HB: IBW X 1.3-1.5)) Protein Requirement: 60 (1 g/kg IBW) Fluid Requirement: 1770 Diet Type: Diet as Tolerated LIBAN/REG Nutrition Intervention: Encourage intake Additional Diet Restrictions: PROVIDE NUTR SUPPLMENT WITH EACH MEAL Diet Comment To RSA: PUT PROTEIN POWDER IN APPROPRIATE FOODS. Nutrition Monitoring & Eval Nutrition Goals: Eat 75-100% Meal, Drink > 1500 cc/day Nutrition Follow-Up: Poor Intake RD Patient Assessment Time: [address] Assessment Type: RD Assessment Patient Nutrition Acuity: 2-Moderate Follow Up Date: Sep 09, 2018 Nutritional Comment: 09/02 Pt readmitted from 08/23 when he was treated for bacterial pneumonia. He is now going to be treated for acute resp failure. Long time hx of smoking. Nursing reporting swallowing problems, so [employer] has been consulted to determine if modifications to food textures is needed. Curretly on LIBAN with intake of 50% of one meal. BMI very low at 16.5. Notable labs include Na 135, creatinine .6 and glc 145. Will cont to monitor and encourage intake. -EK 09/06 Pt cont on regular diet. Intake average 30% of small portions. will provide nutr supplment tid and protein powder in appropriate foods. Pt was evaluated by [facility] and no dietary modifications were recommended. Pt does hav increased respiratory distress and hypoxia which may be affecting intake. Alb has declined to 2.5 . Will attempt nutrtion physical assessment if pt allows. Cont to monitor and encourage intake. CHLOE MONTES Sep 06, 2018 11:39
[2018-09-06] MEDS: [UNRECOGNIZED DRUG - OTHER] TP SCH ×2 (12:04→21:17)
[2018-09-07] VITALS (43 sets, daily range): BP systolic 73–209; BP diastolic 49–193
[2018-09-07] MEDS: PANTOPRAZOLE SOD 40 MG TABEC PO SCH (05:22)
[2018-09-07 05:31] LABS: PLATELET COUNT, AUTOMATED 111 K/uL (150-450)
[2018-09-07] MEDS ORDERED: KCL (*) 20 MEQ/100 ML PREMIX 100 ML IV SCH (08:00)
[2018-09-07] MEDS ORDERED: NORMOSOL R SOLN(*) 1000 ML BAG 1,000 ML IV ONE ×2 (08:00→16:22)
[2018-09-07] MEDS: [UNRECOGNIZED DRUG - OTHER] TP SCH ×2 (08:41→19:37)
[2018-09-07] MEDS: FLUTICASONE PROP 0.05% 16 GM SCH (08:41)
[2018-09-07] MEDS ORDERED: PROPOFOL EMUL(*) 10MG/ML 20 ML 20 ML ONE (09:25)
[2018-09-07] MEDS ORDERED: LIDOCAINE MPF 1% 5 ML VIAL ONE (09:28)
[2018-09-07] MEDS ORDERED: NS 0.9% 20 ML SDV 20 ML ONE (09:32)
[2018-09-07] MEDS ORDERED: REMIFENTANIL HCL 1 MG VIAL ONE (09:38)
--- NOTE | 2018-09-07 09:45 | NUR ---
0945 SBAR RECEVED FROM MERVIN DECKER IN ICU, PT TRANSFERRED TO PREOP ROOM 5 VIA CART 0951 PT BECOMING MORE ANXIOUS, ASKING FOR BIPAP. SPOKE WITH MERVIN DECKER, PLAN MADE TO HAVE CARDIOPULMONARY BRING BIPAP TO PREOP ROOM FOR PT. 0953 DISCUSSED PLAN WITH PT, PT SAID, HE DOES NOT WANT THE SURGERY, JUST WANTS HIS BIPAP. 0955 IV INFILTRATED TO RIGHT AC, IV DC'D WITH CATH INTACT. DR TSE IN ROOM, DISCUSSING SURGERY PROCESS WITH PT, PT AND DR TSE DECIDED TO TALK TO DR GAXIOLA TO DISCUSS PROCEDURE AGAIN BEFORE PROCEEING. CARDIOPULMONARY IN ROOM, PT PLACED ON BIPAP 1005 18G IV STARTED IN RIGHT UPPER ARM WITH LIDOCAINE AT INSERTION SITE, IV INFUSING WELL, POTASSIUM RUNNING ON PUMP WITHOUT DIFFICULTY. 1006 DR G[address]A AND DR TSE AT PT'S BEDSIDE, DISCUSSING PLAN OF CARE/PROCEDURE WITH PT. AFTER DISCUSSION, PT AGREED TO PROCEDURE.
[2018-09-07] MEDS ORDERED: LIDOCAINE/SOD BICARB 8.4% SYR ONE (09:59)
--- NOTE | 2018-09-07 10:10 | Hospitalist Progress Note ---
Subjective Progress Notes Subjective This patient was admitted for COPD exacerbation. He had no acute events overnight. Patient Complains of: Cardiovascular: No: Chest Pain Respiratory: Shortness of Breath Physical Exam Vital Signs Date Time Temp Pulse Resp B/P (MAP) Pulse Ox O2 Delivery O2 Flow Rate FiO2 09/07/18 07:30 94 High-Flow Nasal Cannula 3.0 09/07/18 07:29 45.0 09/07/18 06:00 93 15 112/78 (89) 09/07/18 04:00 98.0 Intake and Output 09/07/18 07:00 Intake Total 900 ml Output Total 875 ml Balance 25 ml Intake Oral 900 ml Output Urine Total 875 ml Cardiovascular: Regular Rate and Rhythm Respiratory: Clear to Auscultation Result Diagram: 09/07/1851709/07/18517 Item Value Date Time Blood Culture - Final Complete 09/02/18 0433 Blood Peripheral Draw NO GROWTH AFTER 5 DAYS IN BOTH THE AE... Blood Culture - Final Complete 09/02/18 0426 Blood Peripheral Draw NO GROWTH AFTER 5 DAYS IN BOTH THE AE... Monitor Interpretation: Other (Sinus tachycardia intermittently) Assessment and Plan Problems: (1) Acute on chronic respiratory failure with hypoxemia Assessment & Plan: He did develop increased respiratory distress shortly after admission. He was transferred to the ICU and placed on BiPAP. He initially did well and was moved to the floor, but was moved back to the ICU because of increased hypoxia. (2) Laryngeal mass Assessment & Plan: This is likely contributing to his respiratory distress. A CT scan has shown the mass to be centered in the right vocal cord. He is scheduled for biopsy in the operating room today. (3) COPD exacerbation Status: Acute Assessment & Plan: He is on treatment with nebulizers and steroids. He is now off antibiotics. (4) Dysphagia Status: Chronic Assessment & Plan: Speech therapy has evaluated him and recommended a MBS, which was ordered, but Mr. Villagomez did not wish to pursue. (5) Tachycardia Status: Acute Assessment & Plan: Improved. Probably related to respiratory compromise/hypoxia. He has had intermittent sinus tachycardia. Looking back at his PCP visits, he has had low grade tachycardia, also. He denies palpitations. We started diltiazem to treat the tachycardia and elevated BP. (6) Poliomyelitis Status: Chronic Assessment & Plan: Chronic bilateral weakness. Exam Sepsis Risk: Sepsis Risk ROMAN SKELTON DO Sep 07, 2018 10:10
[2018-09-07] MEDS ORDERED: OXYMETAZOLINE SPRAY 15 ML BTL ONE ×2 (10:20→10:45)
[2018-09-07] MEDS ORDERED: DEXAMETHASONE SOD PHOS 10MG/ML ONE (10:37)
[2018-09-07] MEDS ORDERED: ONDANSETRON 4 MG/2 ML VIAL ONE (10:37)
--- NOTE | 2018-09-07 11:10 | Post Operative Note ---
Operative Note - ENT Operative Day Date: Sep 07, 2018 Physicians Surgeon: Jay Anesthesia: GETA Diagnosis Pre-Op Diagnosis: right glottic mass Post-Op Diagnosis: same Procedure Procedure(s): direct laryngoscopy and biopsy of right glottic mass Specimen Removed:(Maybe N/A): right glottic mass biopsy Complications: none Fluids Fluids: see anesthesia note Estimated Blood Loss: negligible NAZ GAXIOLA JR, MD Sep 07, 2018 11:10
[2018-09-07] MEDS ORDERED: METOPROLOL TART 5 MG/5 ML VIAL ONE (11:17)
[2018-09-07] MEDS ORDERED: NS(*) 0.9% 1000 ML BAG 1,000 ML ONE (11:21)
[2018-09-07] MEDS ORDERED: NALOXONE HCL 0.4 MG/ML VIAL ONE (11:29)
[2018-09-07] MEDS: DILTIAZEM(*) 5 MG/ML 5ML IVP 125 MG in NS(*) 0.9% 100 ML BAG 100 ML IV SCH (12:00)
--- NOTE | 2018-09-07 12:14 | OPERATIVE REPORT 1 ---
EVENT DATE: September 07, 2018 SURGEON: Cecil Thompson MD ANESTHESIOLOGIST: Tao Post MD ANESTHESIA: General endotracheal. PREOPERATIVE DIAGNOSIS Right glottic mass. POSTOPERATIVE DIAGNOSIS Right glottic mass. PROCEDURE PERFORMED Direct laryngoscopy and biopsy of right glottic mass. INDICATIONS Please refer to the preoperative note. DESCRIPTION OF PROCEDURE The patient was positively identified in the preoperative suite. Risks again explained including but are not limited to, injury to the lips, oral cavity, pharynx, larynx and those associated with anesthesia. He acknowledged understanding of those risks. He was then brought back to the operative suite, placed supine on the operating table, and anesthesia was administered. Once asleep, the patient was positioned, prepped and draped in the usual sterile fashion. A video direct laryngoscope was carefully introduced in the patient's oral cavity. The oral cavity was cleared. The base of the tongue and vallecula were clear. The bilateral pyriform sinuses were clear. The patient was noted to have a right glottic lesion incorporating the vocal cord and extending into the aryepiglottic fold with mass effect. The telescope was introduced through the vocal folds and the subglottis was evaluated. This was not notable for tumor extension. Shoe Repairer Helper biopsies of the right glottic mass were obtained and sent for permanent pathology. Hemostasis was obtained with a cottonoid containing Afrin solution. The patient was then turned to anesthesia for emergence. ESTIMATED BLOOD LOSS Negligible. COMPLICATIONS None. MTDD
--- NOTE | 2018-09-07 12:32 | NUR ---
1054- received call from or nurse that pt was to come straight from or to icu, icu nurse inquired why pt won't go to pacu first as pt isn't intubated and isn't trach per or report or nurse stated no pt is neither, or nurse informed that icu nurse is going to call housekeeper home to find out what the procedure is icu nurse obtained phone number to call back. 1056- attempted to call housekeeper home no answer, called jacek asked what is policy and procedure for or pt coming back to icu unintubated or trach and icu nurse was told pt has to go to recovery, at the same time jacek received a phone call from or asking same questions, and again or nurse instructed on policy and procedure.1057-called back to or nurse and told or nurse what was relayed to icu nurse per jacek or nurse stated ok we are extubating pt right now. and phone called 1058 - both housekeeper home and r.t. in icu , r.t. instructed from housekeeper home to go to or with bipap as or nurse naima had returned the machine after pt went into or procedure. r.t. left the icu with the bipap machine 1104-r.t came back to icu stating " the or crew is coming down the [place] with the pt right now." pt arrived to room 2260 with oxy mask in place with Dr Ortega and 4 or nurses who moved him from or bed to icu bed, pt placed on bipap as o2 sats 81% on oxy mask at 15 liters, pt placed on 100% fio2 with resp rate at 23 on pt's own breathing 15/6. Dr Ortega remained at bedside all nurses left except one pacu nurse, dr Srivastava notified of pt's return and condition heart rate 153 b/p 192/106 1115-metoprolol 5mg ivp given over 5 minutes, pt at this time eyes pinpoint pt not following commands no change in vs at this time. 1126- blood sugar 113 1129- narcan 0.2 mg ivp given at this time. 1132 pt more responsive following commands 1135-dr ortega left icu, dr srivastava at bedside. pacu nurse remains at bedside. recovering pt at this time. cardizem gtt started at 3mg/hr for heart rate in the 140's
--- NOTE | 2018-09-07 14:16 | NUR ---
1315 NOTICED THAT PT ABD VERY DISTENDED BLADDER SCAN > 200 ATTEMPTED MACKENZIE CATHETER NO SUCCESS ATTEMPTED CAUDA CATHETER STILL NO SUCCESS MODERATE BLOOD CLOTS PRESENT, ATTEMPTED TO IRRIGATE NO SUCCESS NOTIFIED DR SKELTON, AND NOTIFIED DR BOLANOS AWAITING ON DR BOLANOS'S ARRIVAL. PT CONTINUES TO GRAB AT PENIS AND IS THRASHING AROUND IN HIS BED. PT IS ABLE TO FOLLOW COMMANDS., Addendum: 09/07/18 at 1530 by MERVIN OZUNA RN bladder scan showed >999 x2
[2018-09-07] MEDS ORDERED: LIDOCAINE 2% 200MG/10ML UROJET TOP PRN (14:45)
[2018-09-07] MEDS ORDERED: LIDOCAINE 2% 200MG/10ML UROJET TP ONE (14:45)
--- NOTE | 2018-09-07 15:30 | NUR ---
called dr salmon's clinic awaiting his arrival
[2018-09-07] MEDS ORDERED: LEVOFLOXACIN/D5W 750 MG/150 ML 150 ML IVPB ONE (16:00)
--- NOTE | 2018-09-07 16:07 | NUR ---
DR BOLANOS AT BEDSIDE ATTEMPTED X2 TO GET A MACKENZIE IN NO SUCCESS DR OLEA NOTIFIED OF PT GOING BACK TO OR FOR A CYSTOSCOPE R.T. NOTIFIED AND ALSO CALLED ELIZABETH PT'S DAUGHTER. STARTED LEVOFLOXACIN PRE OP AWAITING OR'S ARRIVAL
--- NOTE | 2018-09-07 16:25 | NUR ---
PT TO OR
--- NOTE | 2018-09-07 16:45 | NUR ---
pt back from or, awake no pain medication given per anesthesia, dr salmon did a flexible cystoscopy placement of catheter via seldinger techinique
--- NOTE | 2018-09-07 17:14 | ENT Progress Note ---
Subjective Progress Notes Subjective Patient is status post direct laryngoscopy this morning. 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 Discussed treatment options with patient and his daughter, including total laryngectomy with postoperative chemoRT, tracheotomy with chemoRT with possible salvage laryngectomy, and comfort care. Discussed that total laryngectomy affords best prognosis. Patient elects for tracheotomy. Case discussed with Dr. Varma, who is covering surgery this weekend. He graciously agrees to visit the patient and place the tracheotomy tube in my absence. I will be out of town until 09/17. I will be happy to coordinate his outpatient chemoRT and follow up. Please do not hesitate to call me with questions [phone]. Plan discussed with Dr. Lamar. Exam Sepsis Risk: Sepsis Risk NAZ GAXIOLA JR, MD Sep 07, 2018 17:14
--- NOTE | 2018-09-07 17:18 | Hospitalist Progress Note ---
Physical Exam Vital Signs Date Time Temp Pulse Resp B/P (MAP) Pulse Ox O2 Delivery O2 Flow Rate FiO2 09/07/18 14:00 149 28 155/141 (146) 92 100.0 09/07/18 13:00 Bi-PAP 09/07/18 11:45 97.4 09/07/18 07:30 3.0 Intake and Output 09/07/18 07:00 Intake Total 900 ml Output Total 875 ml Balance 25 ml Intake Oral 900 ml Output Urine Total 875 ml Result Diagram: 09/07/1851709/07/18517 Monitor Interpretation: Other (Sinus tachycardia intermittently) Assessment and Plan Problems: (1) Acute on chronic respiratory failure with hypoxemia Assessment & Plan: He did develop increased respiratory distress shortly after admission. He was transferred to the ICU and placed on BiPAP. He initially did well and was moved to the floor, but was moved back to the ICU because of increased hypoxia. (2) Laryngeal mass Assessment & Plan: This is likely contributing to his respiratory distress. A CT scan has shown the mass to be centered in the right vocal cord. He is scheduled for biopsy in the operating room today. Dr. Thompson did speak with him this evening. The patient has squamous cell carcinoma. He has decided to have a tracheostomy and trial of radiation therapy. (3) COPD exacerbation Status: Acute Assessment & Plan: He is on treatment with nebulizers and steroids. He is now off antibiotics. (4) Dysphagia Status: Chronic Assessment & Plan: Speech therapy has evaluated him and recommended a MBS, wh ich was ordered, but Mr. Villagomez did not wish to pursue. (5) Tachycardia Status: Acute Assessment & Plan: Improved. Probably related to respiratory compromise/hypoxia. He has had intermittent sinus tachycardia. Looking back at his PCP visits, he has had low grade tachycardia, also. He denies palpitations. We started diltiazem to treat the tachycardia and elevated BP. (6) Poliomyelitis Status: Chronic Assessment & Plan: Chronic bilateral weakness. (7) Urinary retention Assessment & Plan: He did develop urinary retention and gross hematuria this afternoon. Nursing tried to pass a Espinosa without success. Dr. Kirkpatrick was consulted, and ended up having to take him back to the OR for cystoscopy guided catheter placement. He did recommend that we continue levofloxacin for a 3 day period. He also recommended checking with urology before removing the catheter. Exam Sepsis Risk: Sepsis Risk NAFISA,ROMAN DO Sep 07, 2018 17:18
--- NOTE | 2018-09-07 17:29 | CONSULTATION ---
EVENT DATE: September 07, 2018 REASON FOR CONSULTATION Espinosa catheter placement. HISTORY OF PRESENT ILLNESS The patient is a 68-year-old white male with a history of COPD who is currently in the ICU following biopsy of an epiglottal mass. The nurses attempted a Espinosa catheter and were unsuccessful. By report, it kept curling in his urethra. He has blood dripping from the penis per attempt. They have tried multiple sizes ranging from standard 16-Ku[place]i catheter up to 18-[place]i coude. The patient does have a history of BPH and is currently on Flomax. PAST MEDICAL HISTORY 1. COPD. 2. Gastroesophageal reflux disease. 3. Hypercholesterolemia. 4. Chronic back pain. 5. Right epiglottal mass. PAST SURGICAL HISTORY 1. Several orthopedic surgeries of wrist and bilateral feet. 2. Bilateral inguinal herniae. 3. Colonoscopy. 4. Removal of localized skin cancer. SOCIAL HISTORY Patient lives in [place], [place]. He is a smoker. PREADMISSION MEDICINES 1. Diltiazem. 2. Nystatin. 3. Protonix. 4. Flomax. 5. Multivitamins. 6. Albuterol inhaler. ALLERGIES PENICILLIN and DEMEROL. PHYSICAL EXAMINATION GENERAL: Patient is a thin, white male examined in the Intensive Care Unit. He is on a BiPAP machine and appears mildly tachypneic. ABDOMEN: Distended lower abdomen consistent with bladder. He had no upper abdominal masses. GENITOURINARY: His testes are descended bilaterally. His penis is without lesions. He does have blood at the meatus. PROCEDURE PERFORMED At this point, the patient was prepped and draped. Lidocaine jelly 10 mL was instilled into the urethra. I attempted to place 18-, 20-, and 14-Ku[place]i coude catheters. All advanced down the urethra to approximately the level of the bulbar urethra/membranous urethra where each curled and would not be advanced after multiple attempts. At this point, the procedure was abandoned, and we plan to move forward in the operating room. IMPRESSION A 68-year-old white male with a poor airway with laryngeal mass, status post biopsy today, now in acute urinary retention with Espinosa trauma to the urethra. It is unclear whether this is regular benign prostatic hypertrophy or stricture disease with current trauma and false passage. I had a discussion with the patient and his daughter, Dev, by phone, and informed both of the plan. We plan to go to the operating room for placement. PLAN We will proceed to the operating room where under IV sedation and observation, we will perform a flexible cystoscopy with attempt to pass this false passage into the bladder and then placed a Espinosa with the Seldinger technique. If this is unsuccessful, we will plan to do a punch suprapubic tube. The patient is currently not a candidate for general anesthetic to perform an open SP tube. If that would be required, he would need to be transferred to [place] for possible interventional radiologist placement of a suprapubic catheter. AMADOR
--- NOTE | 2018-09-07 17:50 | OPERATIVE REPORT 1 ---
EVENT DATE: September 07, 2018 SURGEON: Ehsan Kirkpatrick MD ANESTHESIOLOGIST: Tao Post MD ANESTHESIA: IV sedation and monitoring. PREOPERATIVE DIAGNOSES 1. Acute urinary retention. 2. History of Espinosa trauma and inability to place Espinosa catheter. POSTOPERATIVE DIAGNOSES 1. Acute urinary retention. 2. History of Espinosa trauma and inability to place Espinosa catheter. PROCEDURES PERFORMED 1. Flexible cystoscopy. 2. Espinosa catheter placement using Seldinger technique. ESTIMATED BLOOD LOSS 5 mL INTRAVENOUS FLUIDS Crystalloids. DRAINS 18-[place]i Councill Espinosa catheter. PATHOLOGY None. COMPLICATIONS None. CONDITION Patient taken back to ICU in a stable condition. STATEMENT OF MEDICAL NECESSITY Patient is a 68-year-old white male who is status post laryngeal biopsy and went into acute urinary retention. Nurses were unable to place a Espinosa catheter, and myself, I was unable to place a 14-, 18-, and 22-Omani coude. He is, therefore, being brought to the operating room for planned anesthetic cystoscopy with attempted Espinosa catheter placement and/or SP tube as indicated. DESCRIPTION OF OPERATION PERFORMED Patient was brought to the operating room. He was prepped and draped while on the [facility] in a supine position. Following this, the flexible cystoscope was introduced into the patient's urethra and under video imaging was guided down to the bulbar urethra. There was some shaggy-appearing mucosa and a small amount of bleeding. At this point, I was able to negotiate past this anteriorly into the prostatic urethra and into the bladder. At this point, an Amplatz Super Stiff wire was advanced into the lumen of the cystoscope. The scope was then removed, and this wire was used to place an 18-[place]i Councill- type catheter using the Seldinger technique into the bladder. He was noted to have good return of urine upon the catheter entering the bladder. Fluid 10 mL was placed in the balloon, and the wire was removed. His catheter was placed to gravity drainage. He had greater than 500 mL of dark yellow urine drained. The patient is symptomatically improved shortly after Espinosa catheter placement. At this point, he was transferred back to the ICU in stable condition. [facility]
[2018-09-07] MEDS: methylPREDNIS SUCC 125 MG/2ML IVP SCH (19:36)
[2018-09-08] VITALS (55 sets, daily range): BP systolic 100–160; BP diastolic 63–108
[2018-09-08] MEDS: methylPREDNIS SUCC 125 MG/2ML IVP SCH ×3 (00:52→17:45)
[2018-09-08] MEDS: NS(*) 0.9% 1000 ML BAG 1,000 ML IV PRN (04:39)
[2018-09-08 05:08] LABS: PLATELET COUNT, AUTOMATED 94 K/uL (150-450)
[2018-09-08] MEDS ORDERED: PANTOPRAZOLE SOD 40 MG IV VIAL IVP ONE (06:15)
[2018-09-08] MEDS ORDERED: NORMOSOL R SOLN(*) 1000 ML BAG 1,000 ML IV ONE (07:00)
[2018-09-08] MEDS: [UNRECOGNIZED DRUG - OTHER] TP SCH ×2 (08:57→21:00)
[2018-09-08] MEDS: FLUTICASONE PROP 0.05% 16 GM SCH (09:00)
[2018-09-08] MEDS ORDERED: PANTOPRAZOLE SOD 40 MG IV VIAL IVP SCH (09:00)
--- NOTE | 2018-09-08 09:24 | General Surgery Consultation ---
History of Present Illness Requesting Physician Dr. Cecil Thompson Reason for Consult Trach and PEG Chief Complaint Laryngeal cancer History of Present Illness This 68 year old male with COPD was admitted for exacerbation and found to be hoarse. He has had significant weight loss. He had CT neck that showed a laryngeal mass. He was evaluated by Dr. Thompson and found to have a T4A laryngeal cancer that is compromising his airway. Dr. Thompson discussed with patient and his family the options of laryngectomy versus tracheostomy and PEG followed by radiation therapy. Bill has decided he would like to have the Trach and PEG, followed by XRT. He has been on BiPAP overnight. He denies any complaints at this time but is hungry. History Unable To Obtain Past Medical: Unable to Obtain/Update (Patient on BiPAP) Home Meds Active Scripts Albuterol Sulfate (VENTOLIN HFA) 18 Gm Inh, 2 PUFF INH Q4-6H for 30 Days, #1 INH Prov:DONELL VALVERDE DO 09/04/18 Ipratropium/Albuterol Sulfate (COMBIVENT RESPIMAT INHAL SPRAY) 4 Gm Aer.w.adap, 1 EACH IH QID for 14 Days, #1 INHALER Prov:DONELL VALVERDE DO 09/04/18 Prednisone 10 Mg Tab (PREDNISONE 10 MG TAB) 10 Mg Tablet, 10 MG PO QDAY for 24 Days, #84 TAB Take 6 tablets x 4days then reduce dosage by 1 tablet every 4 days dosing 60, 50, 40, 30, 20, 10 mg respectively. Prov:DONELL VALVERDE DO 09/04/18 Diltiazem Hcl (DILTIAZEM 24HR CD) 120 Mg Cap.er.24h, 120 MG PO QDAY, #30 Prov:EPIFANIO BROWN MD 08/23/18 Fluticasone Prop 50 Mcg Ns (FLONASE 50 MCG NS) 16 Gm [place].susp, 2 SPRAYS NS QDA Y, #1 BOT Prov:ABDELRAHMAN MAURO MD 08/16/18 Pantoprazole Sodium (PANTOPRAZOLE SODIUM) 40 Mg Tablet.dr, 40 MG PO QDAY, #30 TAB.SR 2 Refills Prov:ABDELRAHMAN MAURO MD 07/24/18 Tamsulosin Hcl (TAMSULOSIN HCL) 0.4 Mg Cap.er.24h, 1 CAP PO BID, #180 CAP 4 Refills Patient must see provider for further refills Prov:ABDELRAHMAN MAURO MD 10/31/17 Reported Medications Multivitamin (DAILY ROXIE) 1 Each Tablet, 1 EACH PO QDAY 10/12/15 Discontinued Scripts Prednisone 10 Mg Tab (PREDNISONE 10 MG TAB) 10 Mg Tablet, 10-40 MG PO QDAY, #30 TAB 4 pills daily for 3 days, then 3 a day for 3 days, then 2 a day for 3 days, then 1 a day for 3 days. Prov:EPIFANIO BROWN MD 08/23/18 Levofloxacin 750 Mg Tab (LEVOFLOXACIN 750 MG TAB) 750 Mg Tablet, 750 MG PO HS, #3 TAB Prov:EPIFANIO BROWN MD 08/23/18 Allergies: Coded Allergies: Penicillins (Verified Allergy, Intermediate, HIVES, 09/06/11) meperidine (Verified Adverse Reaction, Intermediate, HARD TO URINATE, 09/06/11) Family History: FH: dementia MOTHER, , Age:85 FH: leukemia FATHER, , Age:75 Review of Systems Constitutional: Weight Loss ENT: Other (Hoarseness) Respiratory: Shortness of Breath, Wheezing Exam Vital Signs Vital Signs Date Time Temp Pulse Resp B/P (MAP) Pulse Ox O2 Delivery O2 Flow Rate FiO2 09/08/18 08:30 98.3 94 14 129/94 (106) 87 Bi-PAP 50.0 09/07/18 07:30 3.0 General Appearance: Alert, Awake, No Acute Distress, Afebrile Neuro: No Gross deficits Eyes: PERRLA ENT: Other (Not examined as patient had complete exam by Dr. 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 Thompson has discussed treatment options in detail with the patient and they have decided to proceed with tracheostomy followed by XRT rather than proceeding with laryngectomy at this time. I have discussed the procedure of tracheostomy and PEG with the patient as well as the risks and possible complications. Informed consent obtained. Time Spent: > 30 min Venous Thromboembolism VTE Risk Physician Assess for VTE Risk: Yes Patient's VTE Risk: High VTE Diagnostic Test 2 Days Prior to Admit: No Antithrombotics Is Pt On Any Antithrombotics?: No Prophylaxis Tx Contraindicated Pharmacological Contraindicati: Surgical Contraindication Problem Qualifiers (1) Malnutrition: Malnutrition type: protein-calorie malnutrition Protein-calorie malnutrition severity: severe Qualified Codes: E43 - Unspecified severe protein-calorie malnutrition EZRA FREITAS MD Sep 08, 2018 09:24
[2018-09-08] MEDS ORDERED: MIDAZOLAM 2 MG/2 ML VIAL ONE (11:56)
[2018-09-08] MEDS: DILTIAZEM(*) 5 MG/ML 5ML IVP 125 MG in NS(*) 0.9% 100 ML BAG 100 ML IV SCH (12:00)
--- NOTE | 2018-09-08 13:07 | Post Operative Progress Note ---
Post Operative Progress Note Date: Sep 08, 2018 Time: 13:04 Surgeon: leonides Clinical Coder: HA Anesthesia: Local and Sedation Pre-Op Diagnosis: Advanced SCC laryngeal cancer and severe malnutrition Post-Op Diagnosis: same Procedure(s): Awake tracheostomy under local PEG tube placement Specimen Removed:(May be N/A): none Complications: none Estimated Blood Loss: < 2 ml Date OP Note Dictated: Sep 08, 2018 EZRA FREITAS MD Sep 08, 2018 13:07
[2018-09-08] MEDS: MORPHINE 2 MG/ML SYR IVP PRN (13:23)
--- NOTE | 2018-09-08 14:05 | OPERATIVE REPORT 1 ---
EVENT DATE: September 08, 2018 SURGEON: Wil Varma MD GLASS PROCESSING WORKER: BRIANNE PREOPERATIVE DIAGNOSIS 1. Advanced laryngeal squamous cell carcinoma. 2. Severe malnutrition. POSTOPERATIVE DIAGNOSIS 1. Advanced laryngeal squamous cell carcinoma. 2. Severe malnutrition. PROCEDURE PERFORMED 1. Open, awake, tracheostomy utilizing an 8 mm Shiley cuffed tracheostomy tube. 2. Percutaneous endoscopic gastrostomy tube placement. DESCRIPTION OF PROCEDURE Mr. Villagomez was taken from the intensive care unit to the operating room on BiPAP in a sitting position. He was positioned on the operating room table. He was provided some IV sedation. The neck was then prepped and draped in the usual sterile fashion. Using 1% Xylocaine with Epinephrine, the skin and subcutaneous tissue were infiltrated. Once local anesthesia was obtained at this level, incision was made down to the platysma muscle area. Under direct visualization, the platysmal layer was infiltrated with local anesthesia. This was then incised with Bovie cauterization. A Weitlaner retractor was placed in the wound. The strap muscles were then infiltrated with local anesthetic. They were divided in the midline and retracted laterally. An anterior jugular branch was noted and it was controlled with Bovie cauterization. This then exposed the trachea below the thyroid isthmus. Using the Kittner the anterior surface of the trachea was better delineated. A trach hook was then placed in the first tracheal ring with superior cephalad traction. The tracheotomy was then performed between the second and third tracheal rings in an inferior based flap fashion. An 0 Silk suture was placed in the tracheal flap. The #8 Shiley cuffed tracheostomy tube was then inserted in the trachea. The inner cannula was placed. The balloon was inflated and the patient attached to the anesthesia circuit with good end title CO2 return. The patient tolerated this well. Adequate hemostasis was noted. The inferior tracheal flap suture was then tapped to his anterior chest. The tracheostomy tube was secured with 0 Silk sutures laterally. In addition a trach tie was placed. Once this was completed, attention was then turned towards percutaneous endoscopic gastrostomy tube placement. The abdomen was prepped and draped in the usual sterile fashion. Endoscope was then passed per os. There was some evidence of gastritis present. The stomach was fully insufflated. Good transillumination was noted in the left upper quadrant. The introducer needle and sheath were then inserted under direct visualization. The wire was then inserted through this catheter and a snare through the endoscope then grasped the wire. The wire was then brought out with the scope per os. The pull type gastrostomy tube was then secured to this wire and using the wire, the tube was then pulled per os through the abdominal wall until the bumper was against the anterior stomach. The securing device was attached. A clamp was attached to the tube and the tube cut and connected to the connecting tubing system. The patient tolerated this well. The G-tube will be left to drainage for the overnight and tube feeding will begin in the morning. The patient was then transported back to the intensive care unit in stable condition. AMADOR
--- NOTE | 2018-09-08 14:21 | Hospitalist Progress Note ---
Subjective Progress Notes Subjective 68M admitted for GOODMAN, DIANA overnight to have trach and PEG today. Patient Complains of: Respiratory: Shortness of Breath Gastrointestinal: No Nausea, No Vomiting Physical Exam Vital Signs Date Time Temp Pulse Resp B/P (MAP) Pulse Ox O2 Delivery O2 Flow Rate FiO2 09/08/18 14:00 100 12 128/85 (99) 79 CPAP 50.0 09/08/18 11:30 98.1 09/07/18 07:30 3.0 Intake and Output 09/08/18 07:00 Intake Total 2264.1 ml Output Total 1700 ml Balance 564.1 ml Intake Oral 0 ml IV Total 2264.1 ml Output Urine Total 1700 ml General Appearance: Alert, Awake, No Acute Distress Neuro: No Gross deficits ENT: Normal Cardiovascular: Normal Rhythm & Peripheral Pulses Respiratory: Other (On BiPAP) GI: Soft and Non-Tender Extremities: Soft and Non Tender, Warm, Pulses, Perfused Integumentary: Skin Intact without Lesion / Mass Result Diagram: 09/08/18 0459 09/08/18 0459 Monitor Interpretation: Other (Sinus tachycardia intermittently) Assessment and Plan Problems: (1) Acute on chronic respiratory failure with hypoxemia Assessment & Plan: He did develop increased respiratory distress shortly after admission. He was transferred to the ICU and placed on BiPAP. He initially did well and was moved to the floor, but was moved back to the ICU because of increased hypoxia. To OR for trach on 09.08.2018. (2) Laryngeal mass Assessment & Plan: This is likely contributing to his respiratory distress. A CT scan has shown the mass to be centered in the right vocal cord, underwent biopsy. Dr. Thompson did speak with him. The patient has squamous cell carcinoma. He has decided to have a tracheostomy, PEG and trial of radiation therapy. (3) COPD exacerbation Status: Acute Assessment & Plan: He is on treatment with nebulizers and steroids. He is now off antibiotics. (4) Dysphagia Status: Chronic Assessment & Plan: Speech therapy has evaluated him and recommended a MBS, which was ordered, but Mr. Villagomez did not wish to pursue. (5) Tachycardia Status: Acute Assessment & Plan: Improved. Probably related to respiratory compromise/hypoxia. He has had intermittent sinus tachycardia. Looking back at his PCP visits, he has had low grade tachycardia, also. He denies palpitations. We started diltiazem to treat the tachycardia and elevated BP. (6) Poliomyelitis Status: Chronic Assessment & Plan: Chronic bilateral weakness. (7) Urinary retention Assessment & Plan: He did develop urinary retention and gross hematuria. Nursing tried to pass a Espinosa without success. Dr. Kirkpatrick was consulted, and ended up having to take him back to the OR for cystoscopy guided catheter placement. He did recommend that we continue levofloxacin for a 3 day period through 12.24. He also recommended checking with urology before removing the catheter. Exam Sepsis Risk: No Definite Risk SMILEY DONELL CARPENTER DO Sep 08, 2018 14:21
[2018-09-08] MEDS: LEVOFLOXACIN/D5W 750 MG/150 ML 150 ML IVPB SCH (16:11)
[2018-09-09] VITALS (48 sets, daily range): BP systolic 111–158; BP diastolic 67–108
[2018-09-09] MEDS: methylPREDNIS SUCC 125 MG/2ML IVP SCH ×3 (00:33→17:49)
[2018-09-09] MEDS: NS(*) 0.9% 1000 ML BAG 1,000 ML IV PRN ×2 (00:37→19:33)
[2018-09-09 05:36] LABS: PLATELET COUNT, AUTOMATED 103 K/uL (150-450)
--- NOTE | 2018-09-09 08:16 | RADIOLOGY IMAGING REPORT ---
FACILITY: [facility] PATIENT NAME: Leon Villagomez : 1950 MR: [id number] V: [id number] EXAM DATE: ORDERING PHYSICIAN: EZRA FREITAS TECHNOLOGIST: Location: [facility] Patient: Leon Villagomez : 1950 Visit/Account:[id number] Date of Sevice: 09/08/2018 CHEST SINGLE AP Indication: s/p tracheostomy Comparison: Chest x-ray 09/04/2018. Findings: Lungs: There is a new tracheostomy tube which appears in good position. The lungs are clear. Mediastinum/pulmonary vasculature: Heart size and pulmonary vasculature are normal. Bones/soft tissues: Gastrostomy tube is noted. IMPRESSION: New tracheostomy tube, which appears in good position. Report Dictated By: Bjorn Marino at 09/09/2018 8:11 AM Report E-Signed By: Bjorn Marino at 09/09/2018 8:12 AM WSN:[id number]
[2018-09-09] MEDS ORDERED: HYDROGEN PEROXID 3% 473 ML BTL TP PRN (08:35)
--- NOTE | 2018-09-09 08:54 | Hospitalist Progress Note ---
Subjective Progress Notes Subjective He is wanting eat and wondering when he can go home. No problems overnight. Physical Exam Vital Signs Date Time Temp Pulse Resp B/P (MAP) Pulse Ox O2 Delivery O2 Flow Rate FiO2 09/09/18 06:30 87 12 146/83 (104) 96 T-piece 50.0 09/09/18 03:30 98.1 09/07/18 07:30 3.0 Intake and Output 09/09/18 07:00 Intake Total 815 ml Output Total 1050 ml Balance -235 ml IV Total 815 ml Output Urine Total 1050 ml General Appearance: Alert, Awake, No Acute Distress Neck: Other (Trach in place. Dressing covering surrounding skin) GI: Other (PEG tube in place without erythema extending past dressing) Extremities: No Edema Result Diagram: 09/09/1852209/09/18522 Monitor Interpretation: Other (Sinus tachycardia intermittently) Assessment and Plan Problems: (1) Acute on chronic respiratory failure with hypoxemia Assessment & Plan: He did develop increased respiratory distress shortly after admission. He was transferred to the ICU and placed on BiPAP. He initially did well and was moved to the floor, but was moved back to the ICU because of increased hypoxia and work of breathing. He is doing well with the tracheostomy. See below. (2) Laryngeal mass Assessment & Plan: This is likely contributing to his respiratory distress. A CT scan has shown the mass to be centered in the right vocal cord, and he underwent biopsy on 09/07. The patient has squamous cell carcinoma. Dr. Thompson did speak with him. He had decided to have a tracheostomy/PEG which was done on 09/08. He is interested in a trial of radiation therapy, which we will pursue tomorrow (Monday). (3) COPD exacerbation Status: Acute Assessment & Plan: He is on treatment with nebulizers and steroids. He is now off antibiotics and will decrease steroids. (4) Dysphagia Status: Chronic Assessment & Plan: Speech therapy has evaluated him and recommended a MBS, which was ordered, but Mr. Villagomez did not wish to pursue. (5) Tachycardia Status: Acute Assessment & Plan: Improved. Probably related to respiratory co mpromise/hypoxia. He has had intermittent sinus tachycardia. Looking back at his PCP visits, he has had low grade tachycardia, also. He denies palpitations. We started diltiazem to treat the tachycardia and elevated BP. (6) Poliomyelitis Status: Chronic Assessment & Plan: Chronic bilateral weakness. (7) Urinary retention Assessment & Plan: He did develop urinary retention and gross hematuria. Nursing tried to pass a Espinosa without success. Dr. Kirkpatrick was consulted, and ended up having to take him back to the OR for cystoscopy guided catheter placement on 09/07. He did recommend that we continue levofloxacin for a 3 day period through 09.10. He also recommended checking with urology before removing the catheter. Exam Sepsis Risk: No Definite Risk EPIFANIO BROWN MD Sep 09, 2018 08:54
[2018-09-09] MEDS ORDERED: PANTOPRAZOLE SOD 40 MG IV VIAL IVP SCH (09:00)
--- NOTE | 2018-09-09 09:13 | Medical Nutrition Therapy ---
Nutrition Anthropometrics Height (Inches): 64.00 Height (Calculated Centimeters: 162.877182 Weight (Pounds): 88 Weight (Calculated Kilograms): 39.916 Ezio Nutrition Score: Probably Inadequate Ezio Nutrition Risk Score: 14 Dietary Referral Nutrition Risk Factors: Significantly Underwt. Nutrition Risk Comment: Lives alone. Physical Findings Physical Appearance: Underweight BMI<19 Skin Appearance Skin Appearance: Edema Edema Location Modifier: Edema Location: Type of Edema: Degree of Edema: Gastrointestinal Symptoms GI Symtoms: Tube Present: PEG Bowel Sounds: Recent Bowel Pattern: Stool Characteristics: Nutritional Diagnosis Nutritional Risk Acuity 2: Pr Appetite > 3d, Tube Feed Stable Nutritional Risk Acuity 3: COPD Unstable Past Medical History: BPH (benign prostatic hyperplasia), Scoliosis, Hyperlipidemia, GERD, Poliomyelitis Nutritional Acuity: 2-Moderate Nutrition Diagnosis: Inadequate Food Intake Nutrition Etiology: Physiological Causes Nutrition Problem/Etiology/Sym: Inadequate oral intake related to physiological causes as evidenced by BMI 16.5. Energy Requirement: 1412.4 (Miff-St J. 1.2 stress factor (needs range from 9338-8002.5) recommend lower due to refeeding risk) Protein Requirement: 63 (47.90-79.832g (1 or 2 g/kg)) Fluid Requirement: 975 (25 mL/kcal (this is really low-may recommend increase in fluids)) Diet Type: NPO (Nothing by Mouth), Tube Feeding (TF) Additional Diet Restrictions: PROVIDE NUTR SUPPLMENT WITH EACH MEAL Diet Comment To RSA: PUT PROTEIN POWDER IN APPROPRIATE FOODS. Nutritional Support Recommended Enteral / Parental: Tube Feeding Recommended Tube Feeding Formu: Jevity 1cal/ml-Standard Recommended Feeding Route: PEG Recommended Rate: 44 mL/hr Recommended Goal Rate: 59 mL/hr Recommended Duration: 24 (24 hours) Recommended Feeding Comment: Start with a very low rate due to *refeeding* risk. Increase as tolerated Recommended Calories: 1412 Recommended Protein: 63 (recommend range of 47-79 g) Recommended Lipids Calories: 580 (respiratory failure guidelines recommend 1.5- 2 g/kg protein and rest of kcals even between CHO and fat) Total Recommended Calories: 1412 Nutrition Monitoring & Eval RD Patient Assessment Time: [address] Assessment Type: RD Assessment Patient Nutrition Acuity: 2-Moderate Follow Up Date: Sep 10, 2018 Nutritional Comment: 09/02 Pt readmitted from 12/6 when he was treated for bacterial pneumonia. He is now going to be treated for acute resp failure. Long time hx of smoking. Nursing reporting swallowing problems, so GLAZE HANDLER has been consulted to determine if modifications to food textures is needed. Curretly on LIBAN with intake of 50% of one meal. BMI very low at 16.5. Notable labs include Na 135, creatinine .6 and glc 145. Will cont to monitor and encourage intake. -EK 09/06 Pt cont on regular diet. Intake average 30% of small portions. will provide nutr supplment tid and protein powder in appropriate foods. Pt was evaluated by [facility] and no dietary modifications were recommended. Pt does hav increased respiratory distress and hypoxia which may be affecting intake. Alb has declined to 2.5 . Will attempt nutrtion physical assessment if pt allows. Cont to monitor and encourage intake. BK 09/09-MD recommends tubefeeding. PEG has been placed as of 09/08. Pt as risk of refeeding syndrome. Kcals needs range from 1177 to 1765.5. Recommend 1412 kcal using [place]-St. Jeor, 1.1 TEF, and 1.2 stress factor. Protein needs for respiratory failure are high, at 1.5-2 g/kg. Recommend 47-79 g protein, 63 g is the mean value between the two. Recommend TF goal rate of 59 mL/hr, begining with 44mL/hr (25% of recommended rate to meet needs) to reduce risk of refeeding syndrome. 44mL/hr will provide 1056 kcal and 46.5 g of protein. Increase rate as tolerated. Overfeeding during respiratory failure can be deleterious (Kirby Kaufman, and Chidi, 2012), so caution is advised. Labs of significance include: WBC 14.6 H, RBC 3.92, Hgb 13.0, and Hct 38.3, which are all low. Albumin of 2.5 and total protein of 5.0 are low and could indicate poor nutritional status or physiological stress. POC2 of 41 and HCO3 of 28 are both elevated. Creatinine of 0.5 is low, BUN of 36 is high CO2 of 31 and Cl of 109 are both high. Monitor: glucose, Mg, K, and Ph due to refeeding risk.-NAVDEEP JEFFERSON Sep 09, 2018 09:13
[2018-09-09] MEDS: FLUTICASONE PROP 0.05% 16 GM SCH (09:32)
[2018-09-09] MEDS: [UNRECOGNIZED DRUG - OTHER] TP SCH ×2 (09:32→21:08)
[2018-09-09] MEDS: DILTIAZEM(*) 5 MG/ML 5ML IVP 125 MG in NS(*) 0.9% 100 ML BAG 100 ML IV SCH (12:00)
--- NOTE | 2018-09-09 14:39 | General Surgery Progress Note ---
Subjective Progress Notes Subjective Feeling better, no complaints Physical Exam Vital Signs Date Time Temp Pulse Resp B/P (MAP) Pulse Ox O2 Delivery O2 Flow Rate FiO2 09/09/18 11:20 94 Heated Aerosol 30.0 09/09/18 10:30 77 15 137/91 (106) 09/09/18 08:00 98.0 09/07/18 07:30 3.0 Intake and Output 09/09/18 07:00 Intake Total 815 ml Output Total 1050 ml Balance -235 ml IV Total 815 ml Output Urine Total 1050 ml General Appearance: Alert, Awake, No Acute Distress, Afebrile Neck: Other (trach site looks good, small amount of serous drainage as expected for POD #!) GI: Soft and Non-Tender, Other (PEG site looks good. TF running.) Result Diagram: 09/09/1852209/09/18522 Monitor Interpretation: Other (Sinus tachycardia intermittently) Assessment and Plan Problems: (1) Malnutrition Assessment & Plan: 09/08/2018: Will place PEG and start tube feeding 09/09/2108: PEG site looks good, Nutritional therapist consult appreciated. Jevity running at 44 ml/hr. Check phos in am as he is at high risk for refeeding syndrome. Advance to TOP as tolerated. (2) Squamous cell carcinoma of larynx Status: Acute Assessment & Plan: 09/08/2018: Dr. Thompson has discussed treatment options in detail with the patient and they have decided to proceed with tracheostomy followed by XRT rather than proceeding with laryngectomy at this time. I have discussed the procedure of tracheostomy and PEG with the patient as well as the risks and possible complications. Informed consent obtained. 09/09/2018: Trach site looks good. On trach collar. Okay to deflate balloon since he is not on positive pressure. Hospitalist to contact radiation oncologist and oncologist tomorrow to discuss initiation of chemoXRT. Time Spent: < 30 min Exam Sepsis Risk: No Definite Risk Problem Qualifiers (1) Malnutrition: Malnutrition type: protein-calorie malnutrition Protein-calorie malnutrition severity: severe Qualified Codes: E43 - Unspecified severe protein-calorie malnutrition EZRA FREITAS MD Sep 09, 2018 14:39
[2018-09-09] MEDS: LEVOFLOXACIN/D5W 750 MG/150 ML 150 ML IVPB SCH (16:05)
[2018-09-10] VITALS (40 sets, daily range): BP systolic 86–166; BP diastolic 50–123
[2018-09-10] MEDS: methylPREDNIS SUCC 125 MG/2ML IVP SCH (00:36)
[2018-09-10] MEDS ORDERED: POTASSIUM CHL PWDR 20 MEQ PKT PO ONE (08:20)
--- NOTE | 2018-09-10 08:40 | Hospitalist Progress Note ---
Subjective Progress Notes Subjective 68M admitted with COPD exacerbation found to have laryngeal Ca. DIANA overnight tolerating trach and PEG well. Patient Complains of: Respiratory: Cough; No: Shortness of Breath Gastrointestinal: No Nausea, No Vomiting Physical Exam Vital Signs Date Time Temp Pulse Resp B/P (MAP) Pulse Ox O2 Delivery O2 Flow Rate FiO2 09/10/18 07:44 92 Heated Aerosol 30.0 09/10/18 06:30 97.8 91 20 144/89 (107) 09/07/18 07:30 3.0 Intake and Output 09/10/18 06:59 Intake Total 2569 ml Output Total 800 ml Balance 1769 ml IV Total 1439 ml Tube Feeding 1029 ml Tube Irrigant 101 ml Output Urine Total 800 ml General Appearance: Alert, Awake, No Acute Distress, Afebrile Neuro: No Gross deficits ENT: Normal Cardiovascular: Normal Rhythm & Peripheral Pulses Respiratory: Clear to Auscultation (30% FIO2) GI: Soft and Non-Tender Extremities: Soft and Non Tender, Warm, Pulses, Perfused Result Diagram: 09/09/18 0523 09/10/18 0503 Monitor Interpretation: Other (Sinus tachycardia intermittently) Assessment and Plan Problems: (1) Acute on chronic respiratory failure with hypoxemia Assessment & Plan: He did develop increased respiratory distress shortly after admission. He was transferred to the ICU and placed on BiPAP. He initially did well and was moved to the floor, but was moved back to the ICU because of increa sed hypoxia and work of breathing. He is doing well with the tracheostomy. See below. (2) Laryngeal mass Assessment & Plan: This is likely contributing to his respiratory distress. A CT scan has shown the mass to be centered in the right vocal cord, and he underwent biopsy on 09/07. The patient has squamous cell carcinoma. Dr. Thompson did speak with him. He had decided to have a tracheostomy/PEG which was done on 09/08. He is interested in a trial of radiation therapy, which we will pursue after the holidays if he chooses to remain in [place]. (3) COPD exacerbation Status: Acute Assessment & Plan: He is on treatment with nebulizers and steroids. He is now off antibiotics and will decrease steroids. (4) Dysphagia Status: Chronic Assessment & Plan: Speech therapy has evaluated him and recommended a MBS, w hich was ordered, but Mr. Hernando did not wish to pursue. (5) Tachycardia Status: Acute Assessment & Plan: Improved. Probably related to respiratory compromise/hypoxia. He has had intermittent sinus tachycardia. Looking back at his PCP visits, he has had low grade tachycardia, also. He denies palpitations. We started diltiazem to treat the tachycardia and elevated BP. (6) Poliomyelitis Status: Chronic Assessment & Plan: Chronic bilateral weakness. (7) Urinary retention Assessment & Plan: He did develop urinary retention and gross hematuria. Nursing tried to pass a Espinosa without success. Dr. Kirkpatrick was consulted, and ended up having to take him back to the OR for cystoscopy guided catheter placement on 09/07. He did recommend that we continue levofloxacin for a 3 day period through 09.10. He also recommended checking with urology before removing the catheter. Exam Sepsis Risk: No Definite Risk SMILEY DONELL CARPENTER DO Sep 10, 2018 08:40
[2018-09-10] MEDS: predniSONE 20 MG TAB PO SCH (08:47)
[2018-09-10] MEDS: ENOXAPARIN 30 MG/0.3 ML SYR SC SCH (08:49)
[2018-09-10] MEDS: FLUTICASONE PROP 0.05% 16 GM SCH (08:50)
[2018-09-10] MEDS ORDERED: PANTOPRAZOLE SOD 40 MG TABEC PO SCH (09:00)
--- NOTE | 2018-09-10 09:00 | General Surgery Progress Note ---
Subjective Progress Notes Subjective no complaints Physical Exam Vital Signs Date Time Temp Pulse Resp B/P (MAP) Pulse Ox O2 Delivery O2 Flow Rate FiO2 09/10/18 07:44 92 Heated Aerosol 30.0 09/10/18 06:30 97.8 91 20 144/89 (107) 09/07/18 07:30 3.0 Intake and Output 09/10/18 07:00 Intake Total 2569 ml Output Total 800 ml Balance 1769 ml IV Total 1439 ml Tube Feeding 1029 ml Tube Irrigant 101 ml Output Urine Total 800 ml General Appearance: Alert, Awake, No Acute Distress, Afebrile Neck: Other (trach site clean) GI: Soft and Non-Tender, Other (PEG tube site clean, TF's runnnin) Result Diagram: 09/09/18 0523 09/10/18 0503 Phos 2.1 Monitor Interpretation: Other (Sinus tachycardia intermittently) Assessment and Plan Problems: (1) Malnutrition Assessment & Plan: 09/08/2018: Will place PEG and start tube feeding 09/09/2108: PEG site looks good, Nutritional therapist consult appreciated. Jevity running at 44 ml/hr. Check phos in am as he is at high risk for refeeding syndrome. Advance to TOP as tolerated. 09/10/2018: Tolerating TF's. replace potassium and Phos (2) Squamous cell carcinoma of larynx Status: Acute Assessment & Plan: 09/08/2018: Dr. Thompson has discussed treatment options in detail with the patient and they have decided to proceed with tracheostomy followed by XRT rather than proceeding with laryngectomy at this time. I have discussed the procedure of tracheostomy and PEG with the patient as well as the risks and possible complications. Informed consent obtained. 09/09/2018: Trach site looks good. On trach collar. Okay to deflate balloon since he is not on positive pressure. Hospitalist to contact radiation oncologist and oncologist tomorrow to discuss initiation of chemoXRT. 09/10/2018: no new issues (3) Hypokalemia Assessment & Plan: replace and recheck (4) Hypophosphatemia Assessment & Plan: replace and recheck Exam Sepsis Risk: No Definite Risk Problem Qualifiers (1) Malnutrition: Malnutrition type: protein-calorie malnutrition Protein-calorie malnutrition severity: severe Qualified Codes: E43 - Unspecified severe protein-calorie malnutrition EZRA FREITAS MD Sep 10, 2018 09:00
--- NOTE | 2018-09-10 09:09 | Medical Nutrition Therapy ---
Nutrition Anthropometrics Height (Inches): 64.00 Height (Calculated Centimeters: 162.137234 Weight (Pounds): 86 Weight (Calculated Kilograms): 39.207 Ezio Nutrition Score: Probably Inadequate Ezio Nutrition Risk Score: 14 Dietary Referral Nutrition Risk Factors: Significantly Underwt. Nutrition Risk Comment: Lives alone. Physical Findings Physical Appearance: Underweight BMI<19 Skin Appearance Skin Appearance: Edema Edema Location Modifier: Edema Location: Type of Edema: Degree of Edema: Gastrointestinal Symptoms GI Symtoms: Tube Present: PEG Bowel Sounds: Recent Bowel Pattern: Stool Characteristics: Nutritional Diagnosis Nutritional Risk Acuity 2: Pr Appetite > 3d, Tube Feed Stable Nutritional Risk Acuity 3: COPD Unstable Past Medical History: BPH (benign prostatic hyperplasia), Scoliosis, Hyperlipidemia, GERD, Poliomyelitis Nutritional Acuity: 2-Moderate Nutrition Diagnosis: Inadequate Food Intake Nutrition Etiology: Physiological Causes Nutrition Problem/Etiology/Sym: Inadequate oral intake related to physiological causes as evidenced by BMI 16.5. Energy Requirement: 1412.4 (Miff-St J. 1.2 stress factor (needs range from 8056-7901.5) recommend lower due to refeeding risk) Protein Requirement: 63 (47.90-79.832g (1 or 2 g/kg)) Fluid Requirement: 1170 (30ml/kg) Diet Type: NPO (Nothing by Mouth), Tube Feeding (TF) Additional Diet Restrictions: PROVIDE NUTR SUPPLMENT WITH EACH MEAL Diet Comment To RSA: PUT PROTEIN POWDER IN APPROPRIATE FOODS. Nutritional Support Current Enteral / Parental: Tube Feeding Tube Feeding Formulas: Jevity 1cal/ml-Standard Tube Feeding Supplement Streng: Full Feeding Route: PEG Current Duration: 24 Current Calories: 1272 Current Protein: 53 Total Current Calories: 1272 Recommended Rate: recommend 50ml free H2O X 4 Nutrition Monitoring & Eval Nutritional Goals Comment: TF will meet nutr needs. RD Patient Assessment Time: [address] Assessment Type: RD Re-Assessment Patient Nutrition Acuity: 2-Moderate Follow Up Date: Sep 12, 2018 Nutritional Comment: 09/02 Pt readmitted from 08/23 when he was treated for bacterial pneumonia. He is now going to be treated for acute resp failure. Long time hx of smoking. Nursing reporting swallowing problems, so FRAUD REPRESENTATIVE has been consulted to determine if modifications to food textures is needed. Curretly on LIBAN with intake of 50% of one meal. BMI very low at 16.5. Notable labs include Na 135, creatinine .6 and glc 145. Will cont to monitor and encourage intake. -EK 09/06 Pt cont on regular diet. Intake average 30% of small portions. will provide nutr supplment tid and protein powder in appropriate foods. Pt was evaluated by SPL and no dietary modifications were recommended. Pt does hav increased respiratory distress and hypoxia which may be affecting intake. Alb has declined to 2.5 . Will attempt nutrtion physical assessment if pt allows. Cont to monitor and encourage intake. BK 09/09-MD recommends tubefeeding. PEG has been placed as of 09/08. Pt as risk of refeeding syndrome. Kcals needs range from 1177 to 1765.5. Recommend 1412 kcal using [place]-St. Jeor, 1.1 TEF, and 1.2 stress factor. Protein needs for respiratory failure are high, at 1.5-2 g/kg. Recommend 47-79 g protein, 63 g is the mean value between the two. Recommend TF goal rate of 59 mL/hr, begining with 44mL/hr (25% of recommended rate to meet needs) to reduce risk of refeeding syndrome. 44mL/hr will provide 1056 kcal and 46.5 g of protein. Increase rate as tolerated. Overfeeding during respiratory failure can be deleterious (Kirby Kaufman, and Chidi, 2012), so caution is advised. Labs of significance include: WBC 14.6 H, RBC 3.92, Hgb 13.0, and Hct 38.3, which are all low. Albumin of 2.5 and total protein of 5.0 are low and could indicate poor nutritional status or physiological stress. POC2 of 41 and HCO3 of 28 are both elevated. Creatinine of 0.5 is low, BUN of 36 is high CO2 of 31 and Cl of 109 are both high. Monitor: glucose, Mg, K, and Ph due to refeeding risk.-AKG 09/10 Pt recieving 50ml/hr Jevity tolerating well. Concur that 60ml/hr would be desired final rate however recommend cont at 50ml/hr at this time. Phos low at 2.1, K+ low at 3.3, possibly indicating refeeding syndrome. Alb declined to 2.2. Cont to monitor . Recommend check Mg for refeeding syndrom. If Phos, K+, Mg cont to decline, recommend reduce TF. Jevity at 50 ml/hr meets 90% est kcal needs, 84% est protein needs, 85% est fluid needs. Recommend additonal 20ml H2O if pt taken off IV fluids. CHLOE MONTES Sep 10, 2018 09:09
[2018-09-10] MEDS: [UNRECOGNIZED DRUG - OTHER] TP SCH ×2 (09:44→21:20)
[2018-09-10] MEDS ORDERED: NS 0.9% IVPB ONE (10:00)
[2018-09-10] MEDS ORDERED: POTASSIUM PHOS IVPB ONE (10:00)
[2018-09-10] MEDS: LEVOFLOXACIN/D5W 750 MG/150 ML 150 ML IVPB SCH (16:01)
[2018-09-11] VITALS (20 sets, daily range): BP systolic 115–159; BP diastolic 73–106
--- NOTE | 2018-09-11 07:23 | Hospitalist Progress Note ---
Subjective Progress Notes Subjective Doing very well this morning with no complaints. Tolerates tube feedings well. Breathing easily and minimal sputum. O2 is at 28%. Main issues are evaluation for ECF, Speech therapy eval and radiation oncology consult all of which will start tomorrow. Physical Exam Vital Signs Date Time Temp Pulse Resp B/P (MAP) Pulse Ox O2 Delivery O2 Flow Rate FiO2 09/11/18 06:00 78 16 118/91 (100) 95 Heated Aerosol 28.0 09/10/18 23:00 98.3 09/07/18 07:30 3.0 Intake and Output 09/11/18 07:00 Intake Total 1998 ml Output Total 4000 ml Balance -2002 ml IV Total 823 ml Tube Feeding 1030 ml Tube Irrigant 145 ml Output Urine Total 4000 ml General Appearance: Alert, Awake, No Acute Distress, Afebrile Cardiovascular: Other (S1S2 are soft. Occasional PVBs.) Respiratory: Other (Few scattered ronchi. ) GI: Soft and Non-Tender, Other (Good BS. ) Psych: Alert & Oriented X3, Appropriate Mood & Affect Result Diagram: 09/09/18 0523 09/11/18 0506 Monitor Interpretation: Other (Sinus tachycardia intermittently) Assessment and Plan Problems: (1) Acute on chronic respiratory failure with hypoxemia Assessment & Plan: He did develop increased respiratory distress shortly after admission. He was transferred to the ICU and placed on BiPAP. He initially did well and was moved to the floor, but was moved back to the ICU because of increased hypoxia and work of breathing. He is doing well with the tracheostom y. Resp status is excellent. Pending radiation oncology consult. (2) Laryngeal mass Assessment & Plan: This is contributing to his respiratory distress. A CT scan has shown the mass to be centered in the right vocal cord, and he underwent biopsy on 09/07. The patient has squamous cell carcinoma. Dr. Thompson did speak with him. He had decided to have a tracheostomy/PEG which was done on 09/08. He is interested in a trial of radiation therapy, which we will pursue after the holidays if he chooses to remain in [place]. (3) COPD exacerbation Status: Acute Assessment & Plan: He is on treatment with nebulizers and steroids. He is now off antibiotics and will decrease steroids. (4) Dysphagia Status: Chronic Assessment & Plan: Speech therapy has evaluated him and recommended a MBS, which was ordered, but Mr. Villagomez did not wish to pursue. (5) Tachycardia Status: Acute Assessment & Plan: Improved. Probably related to respiratory compromise/hypo dulce maria. He has had intermittent sinus tachycardia. Looking back at his PCP visits, he has had low grade tachycardia, also. He denies palpitations. We started diltiazem to treat the tachycardia and elevated BP. (6) Poliomyelitis Status: Chronic Assessment & Plan: Chronic bilateral weakness. (7) Urinary retention Assessment & Plan: He did develop urinary retention and gross hematuria. Simba grande tried to pass a Espinosa without success. Dr. Kirkpatrick was consulted, and ended up having to take him back to the OR for cystoscopy guided catheter placement on 09/07. He did recommend that we continue levofloxacin for a 3 day period through 09.10. He also recommended checking with urology before removing the catheter. Time Spent on Plan of Care: > 30 min Exam Sepsis Risk: No Definite Risk SUSY PERALTA MD FACP Sep 11, 2018 07:23
--- NOTE | 2018-09-11 07:57 | Medical Nutrition Therapy ---
Nutrition Anthropometrics Height (Inches): 64.00 Height (Calculated Centimeters: 162.938315 Weight (Pounds): 86 Weight (Calculated Kilograms): 39.207 Ezio Nutrition Score: Probably Inadequate Ezio Nutrition Risk Score: 14 Dietary Referral Nutrition Risk Factors: Significantly Underwt. Nutrition Risk Comment: Lives alone. Physical Findings Physical Appearance: Underweight BMI<19 Skin Appearance Skin Appearance: Edema Edema Location Modifier: Edema Location: Type of Edema: Degree of Edema: Gastrointestinal Symptoms GI Symtoms: Tube Present: PEG Bowel Sounds: Recent Bowel Pattern: Stool Characteristics: Nutritional Diagnosis Nutritional Risk Acuity 1: Tube Feed Unstable Nutritional Risk Acuity 2: Pr Appetite > 3d Nutritional Risk Acuity 3: COPD Unstable Past Medical History: BPH (benign prostatic hyperplasia), Scoliosis, Hyperlipidemia, GERD, Poliomyelitis Nutritional Acuity: 1-High Nutrition Diagnosis: Inadequate Food Intake Nutrition Etiology: Physiological Causes Nutrition Problem/Etiology/Sym: Inadequate oral intake related to physiological causes as evidenced by BMI 16.5. Energy Requirement: 1412.4 (Miff-St J. 1.2 stress factor (needs range from 1939-3173.5) recommend lower due to refeeding risk) Protein Requirement: 63 (47.90-79.832g (1 or 2 g/kg)) Fluid Requirement: 1170 (30ml/kg) Diet Type: NPO (Nothing by Mouth), Tube Feeding (TF) Nutritional Support Current Enteral / Parental: Tube Feeding Tube Feeding Formulas: Jevity 1cal/ml-Standard Tube Feeding Supplement Streng: Full Feeding Route: PEG Rate: 40 Current Duration: 24 Current Calories: 1018 Current Protein: 43 Total Current Calories: 1018 Recommended Tube Feeding Formu: Jevity 1cal/ml-Standard Recommended Tube Feeding Formu: gradually increase to final rate of 60 ml/hr Tube Feeding Supplement Streng: Full Recommended Feeding Route: PEG Recommended Duration: 24 Recommended Calories: 1526 Recommended Protein: 64 Nutrition Monitoring & Eval Nutritional Goals Comment: TF will meet nutr needs until oral intake can meet needs RD Patient Assessment Time: [address] Assessment Type: RD Re-Assessment Patient Nutrition Acuity: 1-High Follow Up Date: Sep 12, 2018 Nutritional Comment: 09/02 Pt readmitted from 08/23 when he was treated for bacterial pneumonia. He is now going to be treated for acute resp failure. Long time hx of smoking. Nursing reporting swallowing problems, so OPHTHALMOLOGY SURGICAL TECHNICIAN has been consulted to determine if modifications to food textures is needed. Curretly on LIBAN with intake of 50% of one meal. BMI very low at 16.5. Notable labs include Na 135, creatinine .6 and glc 145. Will cont to monitor and encourage intake. -EK 09/06 Pt cont on regular diet. Intake average 30% of small portions. will provide nutr supplment tid and protein powder in appropriate foods. Pt was evaluated by SPL and no dietary modifications were recommended. Pt does hav increased respiratory distress and hypoxia which may be affecting intake. Alb has declined to 2.5 . Will attempt nutrtion physical assessment if pt allows. Cont to monitor and encourage intake. BK 09/09-MD recommends tubefeeding. PEG has been placed as of 09/08. Pt as risk of refeeding syndrome. Kcals needs range from 1177 to 1765.5. Recommend 1412 kcal using [place]-St. Jeor, 1.1 TEF, and 1.2 stress factor. Protein needs for respiratory failure are high, at 1.5-2 g/kg. Recommend 47-79 g protein, 63 g is the mean value between the two. Recommend TF goal rate of 59 mL/hr, begining with 44mL/hr (25% of recommended rate to meet needs) to reduce risk of refeeding syndrome. 44mL/hr will provide 1056 kcal and 46.5 g of protein. Increase rate as tolerated. Overfeeding during respiratory failure can be deleterious (Kirby Kaufman and Chidi, 2012), so caution is advised. Labs of significance include: WBC 14.6 H, RBC 3.92, Hgb 13.0, and Hct 38.3, which are all low. Albumin of 2.5 and total protein of 5.0 are low and could indicate poor nutritional status or physiological stress. POC2 of 41 and HCO3 of 28 are both elevated. Creatinine of 0.5 is low, BUN of 36 is high CO2 of 31 and Cl of 109 are both high. Monitor: glucose, Mg, K, and Ph due to refeeding risk.-AKG 09/10 Pt recieving 50ml/hr Jevity tolerating well. Concur that 60ml/hr would be desired final rate however recommend cont at 50ml/hr at this time. Phos low at 2.1, K+ low at 3.3, possibly indicating refeeding syndrome. Alb declined to 2.2. Cont to monitor . Recommend check Mg for refeeding syndrom. If Phos, K+, Mg cont to decline, recommend reduce TF. Jevity at 50 ml/hr meets 90% est kcal needs, 84% est protein needs, 85% est fluid needs. Recommend additonal 20ml H2O if pt taken off IV fluids. CURLY 09/11 jevity reduced to 40ml/hr. pt tolerating well with no residuals. Mg cont WNR at 2 but declined sligjhtly. Phos is now WNR at 2.5. K+ cont low but improved to 3.4. Pt recieving K+/Hos suppplement. [facility] of Nutr/Dietetics care manual recommend 20-25kcal/kg for inital TF of potential refeeding syndrome. Pt currently receiveing 25kcal/kg. Recommend cont 40ml/hr today then gradually increase to 60ml/hr which meets nutr needs if no s/s of refeeding. 60 ml/hr of jevity will provide 1200 ml H20 to meet fluid needs. CHLOE MONTES Sep 11, 2018 07:57
[2018-09-11] MEDS: [UNRECOGNIZED DRUG - OTHER] TP SCH ×2 (08:41→20:28)
[2018-09-11] MEDS: predniSONE 20 MG TAB PO SCH (08:41)
[2018-09-11] MEDS: FLUTICASONE PROP 0.05% 16 GM SCH (08:41)
[2018-09-11] MEDS: ENOXAPARIN 30 MG/0.3 ML SYR SC SCH (08:41)
[2018-09-11] MEDS ORDERED: POTASSIUM CHL PWDR 20 MEQ PKT PO ONE (09:00)
[2018-09-11] MEDS ORDERED: NS 0.9% IVPB ONE (11:30)
[2018-09-11] MEDS ORDERED: POTASSIUM PHOS IVPB ONE (11:30)
[2018-09-12] VITALS (34 sets, daily range): BP systolic 95–161; BP diastolic 58–122
[2018-09-12] MEDS: [UNRECOGNIZED DRUG - OTHER] TP SCH ×2 (08:37→20:40)
[2018-09-12] MEDS: TAMSULOSIN HCL 0.4 MG CAP FT SCH (08:37)
[2018-09-12] MEDS: ENOXAPARIN 30 MG/0.3 ML SYR SC SCH (08:37)
[2018-09-12] MEDS: predniSONE 20 MG TAB FT SCH (08:37)
[2018-09-12] MEDS: DOCUSATE SOD LIQ 100 MG/10 ML UDC FT SCH ×2 (08:38→20:40)
[2018-09-12] MEDS: FLUTICASONE PROP 0.05% 16 GM SCH (08:38)
--- NOTE | 2018-09-12 10:58 | Medical Nutrition Therapy ---
Nutrition Anthropometrics Height (Inches): 64.00 Height (Calculated Centimeters: 162.814518 Weight (Pounds): 84 Weight (Calculated Kilograms): 38.244 BMI: 14.5 Ezio Nutrition Score: Adequate Ezio Nutrition Risk Score: 15 Dietary Referral Nutrition Risk Factors: Significantly Underwt. Nutrition Risk Comment: Lives alone. Physical Findings Physical Appearance: Underweight BMI<19 Skin Appearance Skin Appearance: Edema Edema Location Modifier: Edema Location: Type of Edema: Degree of Edema: Gastrointestinal Symptoms GI Symtoms: Tube Present: PEG Bowel Sounds: Recent Bowel Pattern: Stool Characteristics: Nutrition/Food History Decreased Appetite, Difficulty Swallowing Nutritional Diagnosis Nutritional Risk Acuity 2: Pr Appetite > 3d, Tube Feed Stable Nutritional Risk Acuity 3: Cancer, COPD Unstable Past Medical History: BPH (benign prostatic hyperplasia), Scoliosis, Hyperlipidemia, GERD, Poliomyelitis Nutritional Acuity: 1-High Nutrition Diagnosis: Inadequate Food Intake Nutrition Etiology: Physiological Causes Nutrition Problem/Etiology/Sym: Inadequate oral intake related to physiological causes as evidenced by BMI 16.5. Energy Requirement: 1412.4 (Miff-St J. 1.2 stress factor (needs range from 6135-1529.5) recommend lower due to refeeding risk) Protein Requirement: 63 (47.90-79.832g (1 or 2 g/kg)) Fluid Requirement: 1170 (30ml/kg) Diet Type: NPO (Nothing by Mouth), Tube Feeding (TF) Nutritional Support Current Enteral / Parental: Tube Feeding Tube Feeding Formulas: Jevity 1cal/ml-Standard Tube Feeding Supplement Streng: Full Feeding Route: PEG Rate: 60 Current Duration: 24 Current Calories: 1526 Current Protein: 64 Total Current Calories: 1526 Recommended Tube Feeding Formu: Jevity 1cal/ml-Standard Recommended Tube Feeding Formu: gradually increase to final rate of 60 ml/hr Tube Feeding Supplement Streng: Full Recommended Feeding Route: PEG Recommended Duration: 24 Recommended Calories: 1526 Recommended Protein: 64 Nutrition Monitoring & Eval RD Patient Assessment Time: [address] Assessment Type: RD Re-Assessment Patient Nutrition Acuity: 2-Moderate Follow Up Date: Sep 14, 2018 Nutritional Comment: 09/02 Pt readmitted from 08/23 when he was treated for bacterial pneumonia. He is now going to be treated for acute resp failure. Long time hx of smoking. Nursing reporting swallowing problems, so NIGHT CLEANER has been consulted to determine if modifications to food textures is needed. Curretly on LIBAN with intake of 50% of one meal. BMI very low at 16.5. Notable labs include Na 135, creatinine .6 and glc 145. Will cont to monitor and encourage intake. -EK 09/06 Pt cont on regular diet. Intake average 30% of small portions. will provide nutr supplment tid and protein powder in appropriate foods. Pt was evaluated by SPL and no dietary modifications were recommended. Pt does hav increased respiratory distress and hypoxia which may be affecting intake. Alb has declined to 2.5 . Will attempt nutrtion physical assessment if pt allows. Cont to monitor and encourage intake. BK 09/09-MD recommends tubefeeding. PEG has been placed as of 09/08. Pt as risk of refeeding syndrome. Kcals needs range from 1177 to 1765.5. Recommend 1412 kcal using [place]-St. Jeor, 1.1 TEF, and 1.2 stress factor. Protein needs for respiratory failure are high, at 1.5-2 g/kg. Recommend 47-79 g protein, 63 g is the mean value between the two. Recommend TF goal rate of 59 mL/hr, begining with 44mL/hr (25% of recommended rate to meet needs) to reduce risk of refeeding syndrome. 44mL/hr will provide 1056 kcal and 46.5 g of protein. Increase rate as tolerated. Overfeeding during respiratory failure can be deleterious (Kirby Kaufman, and Chidi, 2012), so caution is advised. Labs of significance include: WBC 14.6 H, RBC 3.92, Hgb 13.0, and Hct 38.3, which are all low. Albumin of 2.5 and total protein of 5.0 are low and could indicate poor nutritional status or physiological stress. POC2 of 41 and HCO3 of 28 are both elevated. Creatinine of 0.5 is low, BUN of 36 is high CO2 of 31 and Cl of 109 are both high. Monitor: glucose, Mg, K, and Ph due to refeeding risk.-AKG 09/10 Pt recieving 50ml/hr Jevity tolerating well. Concur that 60ml/hr would be desired final rate however recommend cont at 50ml/hr at this time. Phos low at 2.1, K+ low at 3.3, possibly indicating refeeding syndrome. Alb declined to 2.2. Cont to monitor . Recommend check Mg for refeeding syndrom. If Phos, K+, Mg cont to decline, recommend reduce TF. Jevity at 50 ml/hr meets 90% est kcal needs, 84% est protein needs, 85% est fluid needs. Recommend additonal 20ml H2O if pt taken off IV fluids. BK 09/11 jevity reduced to 40ml/hr. pt tolerating well with no residuals. Mg cont WNR at 2 but declined sligjhtly. Phos is now WNR at 2.5. K+ cont low but improved to 3.4. Pt recieving K+/Hos suppplement. [facility] Nut[facility]/Diet[facility] care manual recommend 20-25kcal/kg for inital TF of potential refeeding syndrome. Pt currently receiveing 25kcal/kg. Recommend cont 40ml/hr today then gradually increase to 60ml/hr which meets nutr needs if no s/s of refeeding. 60 ml/hr of jevity will provide 1200 ml H20 to meet fluid needs. BK 09/12/18 Glu 105, K 3.8, Ph 2.9, Mg 2.0, Alb 2.6. Jevity 1.0 tube feeding increased to 60mL/hr. This provides 1526 Kcal, 64 grams protein, and 1202mL free water per 24 hours. Pt tolerating tube feeding with no residuals. Labs pertaining to refeeding syndrome are WNR at present. Follow labs, tube feeding tolerance, etc. -GENE MACIEL Sep 12, 2018 10:58
[2018-09-12 11:23] LABS: PLATELET COUNT, AUTOMATED 103 K/uL (150-450)
--- NOTE | 2018-09-12 11:52 | Hospitalist Progress Note ---
Subjective Progress Notes Subjective 68M admitted for hypoxic respiratory failure SCC of larynx. DIANA overnight discussed plan with Brandyn who believes starting therapy here is best option. Contacted [facility]. Patient Complains of: Respiratory: Cough Gastrointestinal: No Nausea, No Vomiting Physical Exam Vital Signs Date Time Temp Pulse Resp B/P (MAP) Pulse Ox O2 Delivery O2 Flow Rate FiO2 09/12/18 10:44 116 09/12/18 09:00 15 108/83 (91) 95 Cool Aerosol 28.0 09/12/18 08:00 98.7 Intake and Output 09/12/18 07:00 Intake Total 1992 ml Output Total 1900 ml Balance 92 ml IV Total 265 ml Tube Feeding 1502 ml Tube Irrigant 225 ml Output Urine Total 1900 ml # Bowel Movements 2 General Appearance: Alert, Awake, No Acute Distress, Afebrile ENT: Normal (+ trach) Cardiovascular: Normal Rhythm & Peripheral Pulses (tachycardic) Respiratory: Other (trach with 28% FiO2) GI: Soft and Non-Tender (+ PEG) Extremities: Soft and Non Tender, Warm, Pulses, Perfused Result Diagram: 09/09/18 0523 09/12/18 0506 Monitor Interpretation: Other (Sinus tachycardia intermittently) Assessment and Plan Problems: (1) Acute on chronic respiratory failure with hypoxemia Assessment & Plan: He did develop increased respiratory distress shortly after admission. He was transferred to the ICU and placed on BiPAP. He initially did well and was moved to the floor, but was moved back to the ICU because of increased hypoxia and work of breathing. He is doing well with the t racheostomy. Resp status is excellent. Pending oncology and radiation oncology consult. (2) Laryngeal mass Assessment & Plan: This is contributing to his respiratory distress. A CT scan has shown the mass to be centered in the right vocal cord, and he underwent biopsy on 09/07. The patient has squamous cell carcinoma. Dr. Thompson did speak with him. He had decided to have a tracheostomy/PEG which was done on 09/08. He is interested in a trial of radiation therapy, contacted [facility]. Dr Curran to see today and radiation oncology tomorrow. Will evaluate for ECF. (3) COPD exacerbation Status: Acute Assessment & Plan: He is on treatment with nebulizers and steroids. He is now off antibiotics and will decrease steroids. (4) Dysphagia Status: Chronic Assessment & Plan: Speech therapy has evaluated him and recommended a MBS, which was ordered, but Mr. Villagomez did not wish to pursue. (5) Tachycardia Status: Acute Assessment & Plan: Improved. Probably related to respiratory compromise/hypoxia. He has had intermittent sinus tachycardia. Looking back at his PCP visits, he has had low grade tachycardia, also. He denies palpitations. We started diltiazem to treat the tachycardia and elevated BP. (6) Poliomyelitis Status: Chronic Assessment & Plan: Chronic bilateral weakness. (7) Urinary retention Assessment & Plan: He did develop urinary retention and gross hematuria. Nursing tried to pass a Espinosa without success. Dr. Kirkpatrick was consulted, and ended up having to take him back to the OR for cystoscopy guided catheter placement on 09/07. He did recommend that we continue levofloxacin for a 3 day period through 09.10. He also recommended checking with urology before removing the catheter. Exam Sepsis Risk: Sepsis Risk DONELL VALVERDE DO Sep 12, 2018 11:52
[2018-09-12] MEDS: NYSTATIN 5 ML UDCUP PO SCH ×3 (13:28→20:40)
--- NOTE | 2018-09-12 13:55 | NUR ---
Occupational Therapy Impression OT evaluation completed with PT. Pt. would benefit from OT services 5x/week to increase independence in ADL activities. Occupational Therapy Goals 1. Pt. to perform toileting activities with Min A. 2. Pt. to perform grooming activities with MILNER. 3. Pt. to perform dressing activities with Min A. 4. Pt. to perform showering activities with Min A. Patient's Goal
[2018-09-12] MEDS ORDERED: IOPAMIDOL 76% 50 ML INFUS BTL 100 ML ONE (13:56)
--- NOTE | 2018-09-12 15:30 | RADIOLOGY IMAGING REPORT ---
FACILITY: [facility] [place] PATIENT NAME: Leon Villagomez : 1950 MR: [id number] V: [id number] EXAM DATE: [id number] ORDERING PHYSICIAN: DONELL CARPENTER TECHNOLOGIST: [place] [facility] [place]: Leon Villagomez : 1950 Visit/Account:[id number] Date of Sevice: 09/12/2018 CHEST/AB/PELV W/CONTRAST HISTORY: SCC larynx, staging ADDITIONAL HISTORY: None. TECHNIQUE: Following administration of IV contrast axial images acquired through the chest during th e pulmonary arterial phase. Thereafter, axial imaging performed Abdomen and pelvis during the portal venous phase. Coronal and sagittal reformatting was also performed. One of the following dose opti mization techniques was utilized in the performance of this exam: Automated exposure control; adjustm ent of the mA and/or kV according to the patient's size; or use of an iterative reconstruction techn ique. Specific details can be referenced in the facility's radiology CT exam operational policy. CONTRAST: 75 mL Isovue-370 COMPARISON: Comparison CT chest 08/21/[address] abdomen/pelvis 10/03/2011 FINDINGS: CHEST: NECK: See neck CT regarding a central neck mass at the level of the hypopharynx/proximal trachea whic h is only partially captured within the field of view. It measures approximately 3.3 cm transverse b y 3.2 cm AP and is completely effacing or invading the hypopharynx/trachea and esophagus. There are multiple focal areas of enhancement with a cystic areas. A component of necrosis or even abscess can not be excluded. There is a tracheostomy tube in place subjacent to this mass. Lungs/Pleura: There is developing bibasilar dependent pulmonary consolidation which is developed sin ce the previous study. There is advanced emphysematous changes with bulla most extensive in the uppe r lung zones. No pulmonary nodules are seen. Small amount of debris is noted in the trachea. Mediastinum/lymph nodes: Negative. Heart/vessels: No filling defects are seen in the pulmonary arterial tree. Thoracic aorta and great vessels extending from the aortic arch are unremarkable. Bones/soft tissues: There is mild levoconvex thoracic rotatory curvature. No focal bone lesions leila ntified concerning for metastatic disease. ABDOMEN AND PELVIS: Hepatobiliary: There are several cystic nonenhancing lesions scattered through the liver, largest lo cated in the right lobe measuring 3.2 x 2.7 cm and 15 Hounsfield units. These are seen on the previo us study with minimal interval enlargement and are compatible with hepatic cysts. Spleen: Negative. Pancreas: Negative. Adrenals: Negative. Kidneys ureters and bladder : Kidneys and ureters normal. There is a Espinosa catheter in place in the bladder. Genitalia: Prostate is mildly enlarged. There is increased density or enhancement of the central por tion of the prostate. . GI: Prominent amount of fecal material seen in the cecum and ascending colon and rectal vault. Div erticulosis noted in the sigmoid colon. Large and small bowel otherwise unremarkable. Gastrostomy t ube in place. Vessels/spaces/nodes: No evidence of adenopathy or ascites. Bones/soft tissues: Mild levoconvex curvature the lumbar spine. There are no bone lesions concernin g for malignancy. Additional findings: 1.2 cm low-density left thyroid nodule. IMPRESSION: Central mass in the neck either invading or effacing the trachea and esophagus as described above com patible with reported history of squamous cell carcinoma. See CT neck for further discussion. Developing bibasilar pulmonary dependent consolidation. Atelectasis favored over pneumonia. Negative for pulmonary embolus. Advanced centrilobular emphysema. No evidence of metastatic disease in the chest/abdomen/pelvis. Multiple hepatic cysts. Fecal retention in the ascending colon and rectal vault. Correlate with bowel habits. Mild thoracic lumbar scoliosis. Additional benign findings per above. Report Dictated By: Magdy Jones MD at 09/12/2018 3:01 PM Report E-Signed By: Jcarlos Jones MD at 09/12/2018 3:25 PM WSN:[id number]
[2018-09-12] MEDS ORDERED: NS(*) 0.9% 1000 ML BAG 1,000 ML IV ONE (15:55)
[2018-09-13] VITALS (30 sets, daily range): BP systolic 98–134; BP diastolic 63–105
--- NOTE | 2018-09-13 08:56 | Hospitalist Progress Note ---
Subjective Progress Notes Subjective He denies pain or nausea. He tolerating the tube feedings. Physical Exam Vital Signs Date Time Temp Pulse Resp B/P (MAP) Pulse Ox O2 Delivery O2 Flow Rate FiO2 09/13/18 06:30 80 13 110/67 (81) 96 Cool Aerosol 28.0 09/13/18 04:00 96.9 Intake and Output 09/13/18 06:59 Intake Total 1810 ml Output Total 1400 ml Balance 410 ml Tube Feeding 1485 ml Tube Irrigant 325 ml Output Urine Total 1400 ml # Bowel Movements 3 General Appearance: Alert, Awake, No Acute Distress Result Diagram: 09/12/18 1119 09/12/18 1119 Monitor Interpretation: Other (Sinus tachycardia intermittently) Assessment and Plan Problems: (1) Laryngeal mass Assessment & Plan: This is contributing to his respiratory distress. A CT scan has shown the mass to be centered in the right vocal cord, and he underwent biopsy on 09/07. The patient has squamous cell carcinoma. Dr. Thompson did speak with him. He had decided to have a tracheostomy/PEG which was done on 09/08. Dr Curran (oncology) saw the patient on 09/12. Dr. Johnson (radiation oncology to see today). Once there is a plan going forward for possible treatment then will be able to determine disposition. (2) Acute on chronic respiratory failure with hypoxemia Assessment & Plan: He did develop increased respiratory distress shortly after admission. He was transferred to the ICU and placed on BiPAP. He initially did well and was moved to the floor, but was moved back to the ICU because of increased hypoxia and work of breathing. He is doing well with the tracheostomy. Resp status is excellent. Pending oncology and radiation oncology consult. (3) Urinary retention Assessment & Plan: He did develop urinary retention and gross hematuria. Nursing tried to pass a Espinosa without success. Dr. Kirkpatrick was consulted, and ended up having to take him back to the OR for cystoscopy guided catheter placement on 09/07. He did recommend that we continue levofloxacin for a 3 day period through 09/10, which was done. He also recommended checking with urology before removing the catheter. (4) COPD exacerbation Status: Acute Assessment & Plan: He is on treatment with nebulizers and steroids. He is now off antibiotics and currently on prednisone 40mg a day. (5) Dysphagia Status: Chronic Assessment & Plan: Speech therapy has evaluated him and recommended a MBS, which was ordered, but Mr. Villagomez did not wish to pursue. (6) Tachycardia Status: Acute Assessment & Plan: Improved after tracheostomy. Probably related to respiratory compromise/hypoxia. He has had intermittent sinus tachycardia. Looking back at his PCP visits, he has had low grade tachycardia, also. He denies palpitations. He had been started on diltiazem to treat the tachycardia, but it was stopped because he was getting bradycardic with sleeping. (7) Poliomyelitis Status: Chronic Assessment & Plan: Chronic bilateral weakness. Exam Sepsis Risk: Sepsis Risk EPIFANIO BROWN MD Sep 13, 2018 08:56
[2018-09-13] MEDS: FLUTICASONE PROP 0.05% 16 GM SCH ×2 (09:00→09:22)
[2018-09-13] MEDS: NYSTATIN 5 ML UDCUP PO SCH ×4 (09:19→20:48)
[2018-09-13] MEDS: ENOXAPARIN 30 MG/0.3 ML SYR SC SCH (09:19)
[2018-09-13] MEDS: predniSONE 20 MG TAB FT SCH (09:21)
[2018-09-13] MEDS: DOCUSATE SOD LIQ 100 MG/10 ML UDC FT SCH ×2 (09:22→20:48)
[2018-09-13] MEDS: [UNRECOGNIZED DRUG - OTHER] TP SCH ×2 (10:08→20:48)
[2018-09-13] MEDS: TAMSULOSIN HCL 0.4 MG CAP FT SCH (11:39)
--- NOTE | 2018-09-13 13:56 | NUR ---
Physical Therapy Impression co-treat with OT and 2 ICU nurses present. Time split for billing purposes. PT inspected R) lateral malleolus with redness and no drainage noted. Applied mepilex border 3x3 dressing for paddind and protection in order to don pt's hiking boots for support with standing. Pt requires Min/Mod assist for bed mobility and to transfer supine to sit at edge of bed. Following suctioning, pt attempted to stand and was not able to. Pt then scooted to edge of bed, with seat portion of bed deflated. 2 person Mod assist for sit to stand with assist to straighten knees and hips. With Mod/Max assist for support and weight shifting, as well as walker management, pt was able to take 2 side steps along edge of bed with poor coordination. Pt notes that some of this is related to polio, but is aware that he is also currently weaker. HR did increase to 140's with some of this activity and pt was assisted back to supine position where HR returned easily to 120's. Physical Therapy Goals Patient's Goals
[2018-09-14 02:59] VITALS: BP 124/89
[2018-09-14 06:28] LABS: PLATELET COUNT, AUTOMATED 127 K/uL (150-450)
[2018-09-14 07:36] VITALS: BP 115/84
--- NOTE | 2018-09-14 07:57 | Hospitalist Progress Note ---
Subjective Progress Notes Subjective He has no complaints this morning. He had no acute events overnight. Patient Complains of: Cardiovascular: No: Chest Pain Respiratory: No: Shortness of Breath Physical Exam Vital Signs Date Time Temp Pulse Resp B/P (MAP) Pulse Ox O2 Delivery O2 Flow Rate FiO2 09/14/18 07:36 98.6 105 13 115/84 (94) 95 Trans-Tracheal 5.0 09/14/18 02:59 28.0 Intake and Output 09/14/18 07:00 Intake Total 3002 ml Output Total 2400 ml Balance 602 ml Tube Feeding 1493 ml Tube Irrigant 1509 ml Output Urine Total 2400 ml # Bowel Movements 1 General Appearance: Alert, Awake, No Acute Distress, Afebrile Cardiovascular: Regular Rate and Rhythm Respiratory: No Respiratory Distress Extremities: Warm, Perfused; No Edema Psych: Alert & Oriented X3, Appropriate Mood & Affect Result Diagram: 09/14/18 0535 09/14/18 0535 Monitor Interpretation: Other (Sinus tachycardia intermittently) Assessment and Plan Problems: (1) Laryngeal mass Assessment & Plan: This is contributing to his respiratory distress. A CT scan has shown the mass to be centered in the right vocal cord, and he underwent biopsy on 09/07. The patient has squamous cell carcinoma. Dr. Thompson did speak with him. He had decided to have a tracheostomy/PEG which was done on 09/08. Dr Curran (oncology) saw the patient on 09/12. Dr. Johnson saw patient 09/13. He will be fitted for mask and get CT done today for radiation treatment. (2) Acute on chronic respiratory failure with hypoxemia Assessment & Plan: He did develop increased respiratory distress shortly after admission. He was transferred to the ICU and placed on BiPAP. He initially did well and was moved to the floor, but was moved back to the ICU because of increased hypoxia and work of breathing. He is doing well with the tracheostomy. Resp status is excellent. Pending oncology and radiation oncology consult. (3) Urinary retention Assessment & Plan: He did develop urinary retention and gross hematuria. Nursing tried to pass a Dietrich without success. Dr. Kirkpatrick was consulted, and ended up having to take him back to the OR for cystoscopy guided catheter placement on 09/07. He did recommend that we continue levofloxacin for a 3 day period through 09/10, which was done. Dr. Kirkpatrick recommends that when patient is ambulatory, remove the catheter on a weekday in the morning, in case he would require OR time to replace the dietrich. He also recommended checking with urology before removing the catheter. He is on Flomax. (4) COPD exacerbation Status: Acute Assessment & Plan: He is on treatment with nebulizers and steroids. He is now off antibiotics and currently on prednisone 40mg a day. (5) Dysphagia Status: Chronic Assessment & Plan: Speech therapy has evaluated him and recommended a MBS, which was ordered, but Mr. Villagomez did not wish to pursue. (6) Tachycardia Status: Acute Assessment & Plan: Improved after tracheostomy. Probably related to respiratory compromise/hypoxia. He has had intermittent sinus tachycardia. Looking back at his PCP visits, he has had low grade tachycardia, also. He denies palpitations. He had been started on diltiazem to treat the tachycardia, but it was stopped because he was getting bradycardic with sleeping. (7) Poliomyelitis Status: Chronic Assessment & Plan: Chronic bilateral weakness. Exam Sepsis Risk: No Definite Risk [id number] HUERTA HUMAN RELATIONS TEACHER Sep 14, 2018 07:57
--- NOTE | 2018-09-14 08:49 | Medical Nutrition Therapy ---
Nutrition Anthropometrics Height (Inches): 64.00 Height (Calculated Centimeters: 162.302594 Weight (Pounds): 82 Weight (Calculated Kilograms): 37.195 BMI: 14.5 Ezio Nutrition Score: Adequate Ezio Nutrition Risk Score: 15 Dietary Referral Nutrition Risk Factors: Significantly Underwt. Nutrition Risk Comment: Lives alone. Physical Findings Physical Appearance: Underweight BMI<19 Skin Appearance Skin Appearance: Edema Edema Location Modifier: Edema Location: Type of Edema: Degree of Edema: Gastrointestinal Symptoms GI Symtoms: Tube Present: PEG Bowel Sounds: Recent Bowel Pattern: Stool Characteristics: Nutritional Diagnosis Nutritional Risk Acuity 2: Pr Appetite > 3d, Tube Feed Stable Nutritional Risk Acuity 3: Cancer, COPD Unstable Past Medical History: BPH (benign prostatic hyperplasia), Scoliosis, Hyperlipidemia, GERD, Poliomyelitis Nutritional Acuity: 1-High Nutrition Diagnosis: Inadequate Food Intake Nutrition Etiology: Physiological Causes Nutrition Problem/Etiology/Sym: Inadequate oral intake related to physiological causes as evidenced by BMI 16.5. Energy Requirement: 1412.4 (Miff-St J. 1.2 stress factor (needs range from 5628-9809.5) recommend lower due to refeeding risk) Protein Requirement: 63 (47.90-79.832g (1 or 2 g/kg)) Fluid Requirement: 1170 (30ml/kg) Diet Type: NPO (Nothing by Mouth), Tube Feeding (TF) Nutritional Support Current Enteral / Parental: Tube Feeding Tube Feeding Formulas: Jevity 1cal/ml-Standard Tube Feeding Supplement Streng: Full Feeding Route: PEG Rate: 60 Current Duration: 24 Current Calories: 1526 Current Protein: 64 Total Current Calories: 1526 Nutrition Monitoring & Eval Nutritional Goals Comment: TF will meet nutr needs RD Patient Assessment Time: [address] Assessment Type: RD Re-Assessment Patient Nutrition Acuity: 2-Moderate Follow Up Date: Sep 24, 2018 Nutritional Comment: 09/02 Pt readmitted from 08/23 when he was treated for bacterial pneumonia. He is now going to be treated for acute resp failure. Long time hx of smoking. Nursing reporting swallowing problems, so MEDICAL SUPERINTENDENT has been consulted to determine if modifications to food textures is needed. Curretly on LIBAN with intake of 50% of one meal. BMI very low at 16.5. Notable labs include Na 135, creatinine .6 and glc 145. Will cont to monitor and encourage intake. -EK 09/06 Pt cont on regular diet. Intake average 30% of small portions. will provide nutr supplment tid and protein powder in appropriate foods. Pt was evaluated by SPL and no dietary modifications were recommended. Pt does hav increased respiratory distress and hypoxia which may be affecting intake. Alb has declined to 2.5 . Will attempt nutrtion physical assessment if pt allows. Cont to monitor and encourage intake. BK 09/09-MD recommends tubefeeding. PEG has been placed as of 09/08. Pt as risk of refeeding syndrome. Kcals needs range from 1177 to 1765.5. Recommend 1412 kcal using [place]-St. Jeor, 1.1 TEF, and 1.2 stress factor. Protein needs for respiratory failure are high, at 1.5-2 g/kg. Recommend 47-79 g protein, 63 g is the mean value between the two. Recommend TF goal rate of 59 mL/hr, begining with 44mL/hr (25% of recommended rate to meet needs) to reduce risk of refeeding syndrome. 44mL/hr will provide 1056 kcal and 46.5 g of protein. Increase rate as tolerated. Overfeeding during respiratory failure can be deleterious (Kirby Kaufman, and Chidi, 2012), so caution is advised. Labs of significance include: WBC 14.6 H, RBC 3.92, Hgb 13.0, and Hct 38.3, which are all low. Albumin of 2.5 and total protein of 5.0 are low and could indicate poor nutritional status or physiological stress. POC2 of 41 and HCO3 of 28 are both elevated. Creatinine of 0.5 is low, BUN of 36 is high CO2 of 31 and Cl of 109 are both high. Monitor: glucose, Mg, K, and Ph due to refeeding risk.-AKG 09/10 Pt recieving 50ml/hr Jevity tolerating well. Concur that 60ml/hr would be desired final rate however recommend cont at 50ml/hr at this time. Phos low at 2.1, K+ low at 3.3, possibly indicating refeeding syndrome. Alb declined to 2.2. Cont to monitor . Recommend check Mg for refeeding syndrom. If Phos, K+, Mg cont to decline, recommend reduce TF. Jevity at 50 ml/hr meets 90% est kcal needs, 84% est protein needs, 85% est fluid needs. Recommend additonal 20ml H2O if pt taken off IV fluids. BK 09/11 jevity reduced to 40ml/hr. pt tolerating well with no residuals. Mg cont WNR at 2 but declined sligjhtly. Phos is now WNR at 2.5. K+ cont low but improved to 3.4. Pt recieving K+/Hos suppplement. [facility] of Nutr/Dietetics care manual recommend 20-25kcal/kg for inital TF of potential refeeding syndrome. Pt currently receiveing 25kcal/kg. Recommend cont 40ml/hr today then gradually increase to 60ml/hr which meets nutr needs if no s/s of refeeding. 60 ml/hr of jevity will provide 1200 ml H20 to meet fluid needs. BK 09/12/ Glu 105, K 3.8, Ph 2.9, Mg 2.0, Alb 2.6. Jevity 1.0 tube feeding increased to 60mL/hr. This provides 1526 Kcal, 64 grams protein, and 1202mL free water per 24 hours. Pt tolerating tube feeding with no residuals. Labs pertaining to refeeding syndrome are WNR at present. Follow labs, tube feeding tolerance, etc. -DRT Pt cont on Jevity at 60ml/hr, meeting nutr needs. Pt tolerating TF with minimal residuals. Labs pretaining to refeeding syndrom are WNR. Alb declined to 2.4. Will cont to monitor. CHLOE MONTES Sep 14, 2018 08:49
[2018-09-14] MEDS: NYSTATIN 5 ML UDCUP PO SCH ×4 (09:33→21:20)
[2018-09-14] MEDS: DOCUSATE SOD LIQ 100 MG/10 ML UDC FT SCH ×2 (09:33→21:20)
[2018-09-14] MEDS: [UNRECOGNIZED DRUG - OTHER] TP SCH ×2 (09:33→21:20)
[2018-09-14] MEDS: FLUTICASONE PROP 0.05% 16 GM SCH (09:34)
[2018-09-14] MEDS: ENOXAPARIN 30 MG/0.3 ML SYR SC SCH (09:34)
[2018-09-14] MEDS: TAMSULOSIN HCL 0.4 MG CAP FT SCH (09:34)
[2018-09-14] MEDS: predniSONE 20 MG TAB FT SCH (09:34)
[2018-09-14 11:39] VITALS: BP 101/68
--- NOTE | 2018-09-14 13:00 | NUR ---
Physical Therapy Impression Late Entry for visit completed 09/12/18. PT/OT co-eval completed. Pt fatigues easily and HR increased to 140's with sitting at edge of bed x 5 minutes. Pt very agreeable to participate but requires rest breaks for safety. Physical Therapy Goals 1. Pt to be Min/CGA for bed mobility and sit to/from supine transfers 2. Pt to be Min/CGA for sit to/from stand transfers with appropriate support for post-polio symptoms. 3. Pt to complete [id number] transfers with Min/CGA 4. Pt to ambulate with least restrictive device x 100' Patient's Goals
[2018-09-14 15:07] VITALS: BP 103/70
--- NOTE | 2018-09-14 16:27 | NUR ---
Physical Therapy Impression Attempted to see pt at 1355 and 1426. Pt highly tearful and reporting he has a significant fear of falling due to his R knee hyperextending causing many falls at home. Pt asked that therapy returned when his daughter was present. Spoke with pt's daughter regarding D/C plan and a potential need for a knee brace to improve pt's comfort and stability with standing. Due to the small size of pt's leg it may be difficult to find a brace that will fit, but will continue to work on this. Pt plans to D/C to his daughter's home outside of [place], [place] when he is strong enough to do so. Pt's daughter reports that she has no stairs in her home. Will continue to follow and promote mobility as able. Physical Therapy Goals Patient's Goals
[2018-09-14 20:01] VITALS: BP 104/81
[2018-09-14 22:37] VITALS: BP 121/81
[2018-09-15 03:36] VITALS: BP 131/76
[2018-09-15 05:46] LABS: PLATELET COUNT, AUTOMATED 159 K/uL (150-450)
[2018-09-15] MEDS: FLUTICASONE PROP 0.05% 16 GM SCH (09:00)
[2018-09-15 09:23] VITALS: BP 103/85
[2018-09-15] MEDS: TAMSULOSIN HCL 0.4 MG CAP FT SCH (09:28)
[2018-09-15] MEDS: NYSTATIN 5 ML UDCUP PO SCH ×4 (09:29→20:52)
[2018-09-15] MEDS: ENOXAPARIN 30 MG/0.3 ML SYR SC SCH (09:29)
[2018-09-15] MEDS: [UNRECOGNIZED DRUG - OTHER] TP SCH ×2 (09:29→20:52)
[2018-09-15] MEDS: predniSONE 20 MG TAB FT SCH (09:29)
[2018-09-15] MEDS: DOCUSATE SOD LIQ 100 MG/10 ML UDC FT SCH ×2 (09:29→20:51)
--- NOTE | 2018-09-15 10:57 | Hospitalist Progress Note ---
Subjective Progress Notes Subjective He reports doing "OK". Physical Exam Vital Signs Date Time Temp Pulse Resp B/P (MAP) Pulse Ox O2 Delivery O2 Flow Rate FiO2 09/15/18 09:40 93 Trans-Tracheal 5.0 28.0 09/15/18 09:23 98.6 103 16 103/85 (91) Intake and Output 09/15/18 07:00 Intake Total 1782 ml Output Total 2150 ml Balance -368 ml Tube Feeding 1014 ml Tube Irrigant 768 ml Output Urine Total 2150 ml # Bowel Movements 3 General Appearance: Alert, Awake Neuro: Other (chronic atrophy/generalized weakness in virtually all groups) Neck: Other (tracheostomy site looks clean/dry) Cardiovascular: Regular Rate and Rhythm Respiratory: Other (diminished breath sounds throughout with a few scattered rhonchi) GI: Soft and Non-Tender, Other (PEG site is clean and dry) Extremities: Warm, Perfused Psych: Alert & Oriented X3 Result Diagram: 09/15/1852009/15/18520 Assessment and Plan Problems: (1) Laryngeal mass Assessment & Plan: This is contributing to his respiratory distress. CT scan has shown the mass to be centered in the right vocal cord. 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 He decided to have a tracheostomy/PEG which was done on 09/08. Dr. Curran (oncology) and Dr. Johnson (Radiation Oncology) have net with the patient. Plan is for initiation of radiation treatment early next week. (2) Acute on chronic respiratory failure with hypoxemia Assessment & Plan: He did develop increased respiratory distress shortly after admission. He was transferred to the ICU and placed on BiPAP. He initially did well and was moved to the floor, but was moved back to the ICU because of increased hypoxia and work of breathing. He is doing rather well with the tracheostomy. I discussed having him start learning on how to take care of the tracheostomy, but he was rather reluctant at this time. (3) Urinary retention Assessment & Plan: He did develop urinary retention and gross hematuria. Nursing tried to pass a Espinosa without success. Dr. Kirkpatrick was consulted and ended up having to take him back to the OR for cystoscopy guided catheter placement on 09/07. He did recommend that we continue levofloxacin for a 3 day period through 09/10, which was done. Dr. Kirkpatrick recommends that when patient is ambulatory, remove the catheter on a weekday in the morning, in case he would require OR time to replace the Espinosa cath. He also recommended checking with u deejay before removing the catheter. He is currently on Flomax. (4) COPD exacerbation Status: Acute Assessment & Plan: He is on treatment with nebulizers and steroids. He is now off antibiotics and currently on prednisone 40mg a day - will plan on weaning. (5) Dysphagia Status: Chronic Assessment & Plan: Speech therapy has evaluated him and recommended a MBS, which was ordered, but Mr. Villagomez did not wish to pursue. (6) Tachycardia Status: Acute Assessment & Plan: Improved after tracheostomy. Probably related to respiratory compromise/hypoxia. He had been started on diltiazem to treat the tachycardia, but it was stopped because he was getting bradycardic with sleeping. (7) Poliomyelitis Status: Chronic Assessment & Plan: Chronic bilateral weakness. Exam Sepsis Risk: No Definite Risk JEANNE STEELE MD Sep 15, 2018 10:57
--- NOTE | 2018-09-15 12:08 | NUR ---
Physical Therapy Impression Pt. completed bed exercises. SpO2 to 77% while on O2. With rest this returned to high 80's. Pt. HR to 120 while completing ther ex. Physical Therapy Goals Patient's Goals
[2018-09-15 16:21] VITALS: BP 98/66
[2018-09-15 19:30] VITALS: BP 99/79
[2018-09-15] MEDS: ACETAMINOPHEN 160 MG/5 ML UDC FT PRN (20:55)
[2018-09-16 02:47] VITALS: BP 105/95
[2018-09-16 07:47] VITALS: BP 119/79
[2018-09-16] MEDS: FLUTICASONE PROP 0.05% 16 GM SCH (09:00)
--- NOTE | 2018-09-16 09:32 | Hospitalist Progress Note ---
Subjective Progress Notes Subjective This patient was admitted for COPD and upper airway obstruction. He had no acute events overnight. Patient Complains of: Cardiovascular: No: Chest Pain Respiratory: No: Shortness of Breath Physical Exam Vital Signs Date Time Temp Pulse Resp B/P (MAP) Pulse Ox O2 Delivery O2 Flow Rate FiO2 09/16/18 07:47 98.8 96 119/79 (92) 92 Trans-Tracheal 5.0 09/16/18 02:47 20 09/15/18 19:30 28.0 Intake and Output 09/16/18 07:00 Intake Total 2607 ml Output Total 2150 ml Balance 457 ml Tube Feeding 1497 ml Tube Irrigant 1110 ml Output Urine Total 2150 ml # Bowel Movements 1 Cardiovascular: Regular Rate and Rhythm Respiratory: Clear to Auscultation Result Diagram: 09/15/1852009/15/18520 Assessment and Plan Problems: (1) Laryngeal mass Assessment & Plan: This was contributing to his respiratory distress. CT scan has shown the mass to be centered in the right vocal cord. 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 He decided to have a tracheostomy/PEG which was done on 09/08. Dr. Curran (oncology) and Dr. Johnson (Radiation Oncology) have net with the patient. Plan is for initiation of radiation treatment early next week. (2) Acute on chronic respiratory failure with hypoxemia Assessment & Plan: He did develop increased respiratory distress shortly after admission. He was transferred to the ICU and placed on BiPAP. He initially did well and was moved to the floor, but was moved back to the ICU because of increased hypoxia and work of breathing. He is doing rather well with the tracheostomy. (3) Urinary retention Assessment & Plan: He did develop urinary retention and gross hematuria. Nursing tried to pass a Espinosa without success. Dr. Kirkpatrick was consulted and ended up having to take him back to the OR for cystoscopy guided catheter placement on 09/07. He did recommend that we continue levofloxacin for a 3 day period through 09/10, which was done. Dr. Kirkpatrick recommends that when patient is ambulatory, remove the catheter on a weekday in the morning, in case he would require OR time to replace the Espinosa cath. He is currently on Flomax. (4) COPD exacerbation Status: Acute Assessment & Plan: He is on treatment with nebulizers and steroids. He is now off antibiotics and currently weaning down on the prednisone. (5) Dysphagia Status: Chronic Assessment & Plan: Speech therapy has evaluated him and recommended a MBS, which was ordered, but Mr. Villagomez did not wish to pursue. (6) Tachycardia Status: Acute Assessment & Plan: Improved after tracheostomy. (7) Poliomyelitis Status: Chronic Assessment & Plan: Chronic bilateral weakness. Exam Sepsis Risk: No Definite Risk ROMAN SKELTON DO Sep 16, 2018 09:32
[2018-09-16] MEDS: ENOXAPARIN 30 MG/0.3 ML SYR SC SCH (09:35)
[2018-09-16] MEDS: [UNRECOGNIZED DRUG - OTHER] TP SCH ×2 (09:35→20:32)
[2018-09-16] MEDS: NYSTATIN 5 ML UDCUP PO SCH ×4 (09:36→20:32)
[2018-09-16] MEDS: DOCUSATE SOD LIQ 100 MG/10 ML UDC FT SCH ×2 (09:39→20:32)
[2018-09-16] MEDS: predniSONE 10 MG TAB FT SCH (09:45)
[2018-09-16 13:48] VITALS: BP 110/71
[2018-09-16] MEDS: ACETAMINOPHEN 160 MG/5 ML UDC FT PRN (19:22)
[2018-09-16 19:25] VITALS: BP 118/88
[2018-09-16] MEDS: TERAZOSIN HCL 1 MG CAP FT SCH (20:33)
[2018-09-16 22:53] VITALS: BP 113/68
--- NOTE | 2018-09-16 23:24 | NUR ---
0: Dietrich emptied, output averaged to 80ml/hr for last 6 hours, yellow color, cloudy. Catheter care performed. 2224: SHOEMAKING FINISHER emptied dietrich, urine bloody, approximate volume of 25ml for last 3 hours. 2239: Bladder scan of 0ml, catheter flushed easily, IV started.
[2018-09-16 23:55] VITALS: BP 120/69
[2018-09-17] MEDS: ACETAMINOPHEN 160 MG/5 ML UDC FT PRN (00:44)
[2018-09-17 05:49] LABS: PLATELET COUNT, AUTOMATED 205 K/uL (150-450)
[2018-09-17 06:33] VITALS: BP 90/73
--- NOTE | 2018-09-17 08:32 | Hospitalist Progress Note ---
Subjective Progress Notes Subjective Patient denies new complaints. Physical Exam Vital Signs Date Time Temp Pulse Resp B/P (MAP) Pulse Ox O2 Delivery O2 Flow Rate FiO2 09/17/18 06:33 97.9 114 20 90/73 (79) 94 Trans-Tracheal 5.0 09/16/18 23:55 28.0 Intake and Output 09/17/18 07:00 Intake Total 3286 ml Output Total 2225 ml Balance 1061 ml Tube Feeding 1401 ml Tube Irrigant 1885 ml Output Urine Total 2225 ml # Bowel Movements 2 General Appearance: Alert, Awake, No Acute Distress, Afebrile, Other (Cachectic.) Neuro: No Gross deficits Neck: Other (Trach site appeared clean and dry without redness or discharge.) Cardiovascular: Other (Tachycardic. Heart sounds were distant.) Respiratory: No Respiratory Distress, Clear to Auscultation (Anteriorly.) GI: Soft and Non-Tender, Other (PEG tube L upper abdomen appears clean and dry without redness or discharge.) Extremities: Warm, Perfused, Other (No edema.) Integumentary: Skin Intact without Lesion / Mass Psych: Alert & Oriented X3, Appropriate Mood & Affect Result Diagram: 09/17/1853609/17/18536 Assessment and Plan Problems: (1) Laryngeal mass Assessment & Plan: This was contributing to his respiratory distress. CT scan has shown the mass to be centered in the right vocal cord. 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 He decided to have a tracheostomy/PEG which was done on 09/08. Dr. Curran (oncology) and Dr. Johnson (Radiation Oncology) have net with the patient. Plan is set for initiation of radiation treatment Monday. He will go to have radiation and then go to ECF for ongoing ECF. (2) Acute on chronic respiratory failure with hypoxemia Assessment & Plan: He did develop increased respiratory distress shortly after admission. He was transferred to the ICU and placed on BiPAP. He initially did well and was moved to the floor, but was moved back to the ICU because of increased hypoxia and work of breathing. He is doing rather well with the tracheostomy. (3) Urinary retention Assessment & Plan: He did develop urinary retention and gross hematuria. Nursing tried to pass a Espinosa without success. Dr. Kirkpatrick was consulted and ended up having to take him back to the OR for cystoscopy guided catheter placement on 09/07. He did recommend that we continue levofloxacin for a 3 day period through 09/10, which was done. Dr. Kirkpatrick recommends that when patient i s ambulatory, remove the catheter on a weekday in the morning, in case he would require OR time to replace the Espinosa cath. He is currently on Hytrin. (4) COPD exacerbation Status: Acute Assessment & Plan: He is on treatment with nebulizers and steroids. He is now off antibiotics and currently weaning down on the prednisone. He was decreased to 30mg daily on 09/16 and will continue that dose today. Consider a decrease to 25mg on 09/18/18. (5) Dysphagia Status: Chronic Assessment & Plan: Speech therapy has evaluated him and recommended a MBS, which was ordered, but Mr. Villagomez did not wish to pursue. (6) Tachycardia Status: Acute Assessment & Plan: Persistent but slightly improved. (7) Poliomyelitis Status: Chronic Assessment & Plan: Chronic bilateral weakness. (8) Decreased urine output Status: Acute Assessment & Plan: The patient had decreased urine output overnight. He free water per PEG was increased and his urine output has picked up. Will need to monitor closely. Time Spent on Plan of Care: < 30 min Exam Sepsis Risk: No Definite Risk IVORY STEELE MD Sep 17, 2018 08:32
[2018-09-17] MEDS ORDERED: TAMSULOSIN HCL 0.4 MG CAP PO SCH (09:00)
[2018-09-17] MEDS: DOCUSATE SOD LIQ 100 MG/10 ML UDC FT SCH ×2 (09:12→21:07)
[2018-09-17] MEDS: predniSONE 10 MG TAB FT SCH (09:12)
[2018-09-17] MEDS: NYSTATIN 5 ML UDCUP PO SCH ×4 (09:12→21:07)
[2018-09-17] MEDS: [UNRECOGNIZED DRUG - OTHER] TP SCH ×2 (09:13→21:07)
[2018-09-17] MEDS: FLUTICASONE PROP 0.05% 16 GM SCH (09:13)
[2018-09-17] MEDS: ENOXAPARIN 30 MG/0.3 ML SYR SC SCH (09:13)
--- NOTE | 2018-09-17 11:28 | Medical Nutrition Therapy ---
Nutrition Anthropometrics Height (Inches): 64.00 Height (Calculated Centimeters: 162.162512 Weight (Pounds): 82 Weight (Calculated Kilograms): 37.195 BMI: 14.1 Ezio Nutrition Score: Adequate Ezio Nutrition Risk Score: 14 Dietary Referral Nutrition Risk Factors: Significantly Underwt. Nutrition Risk Comment: Lives alone. Physical Findings Physical Appearance: Underweight BMI<19 Skin Appearance Skin Appearance: Edema Edema Location Modifier: Edema Location: Type of Edema: Degree of Edema: Gastrointestinal Symptoms GI Symtoms: Constipation Tube Present: PEG Bowel Sounds: Recent Bowel Pattern: Stool Characteristics: Nutritional Diagnosis Nutritional Risk Acuity 2: Pr Appetite > 3d, Head/Neck/GI Cancer, Tube Feed Stable Nutritional Risk Acuity 3: Cancer, COPD Unstable Past Medical History: BPH (benign prostatic hyperplasia), Scoliosis, Hyperlipidemia, GERD, Poliomyelitis Nutritional Acuity: 1-High Nutrition Diagnosis: Inadequate Food Intake Nutrition Etiology: Physiological Causes Nutrition Problem/Etiology/Sym: Inadequate oral intake related to physiological causes as evidenced by BMI 16.5. Energy Requirement: 1412.4 (Miff-St J. 1.2 stress factor (needs range from 6785-2658.5) recommend lower due to refeeding risk) Protein Requirement: 63 (47.90-79.832g (1 or 2 g/kg)) Fluid Requirement: 1170 (30ml/kg) Diet Type: NPO (Nothing by Mouth), Tube Feeding (TF) Nutritional Support Current Enteral / Parental: Tube Feeding Tube Feeding Formulas: Jevity 1cal/ml-Standard Tube Feeding Supplement Streng: Full Feeding Route: PEG Rate: 60 Current Duration: 24 Current Calories: 1526 Current Protein: 64 Total Current Calories: 1526 Automatic H2O Flush (_ml every: 250 cc q 4 hours Nutrition Monitoring & Eval RD Patient Assessment Time: [address] Assessment Type: RD Re-Assessment Patient Nutrition Acuity: 2-Moderate Follow Up Date: Sep 24, 2018 Nutritional Comment: 09/02 Pt readmitted from 08/23 when he was treated for bacterial pneumonia. He is now going to be treated for acute resp failure. Long time hx of smoking. Nursing reporting swallowing problems, so VOICE NETWORK ENGINEER has been consulted to determine if modifications to food textures is needed. Curretly on LIBAN with intake of 50% of one meal. BMI very low at 16.5. Notable labs include Na 135, creatinine .6 and glc 145. Will cont to monitor and encourage intake. -EK 09/06 Pt cont on regular diet. Intake average 30% of small portions. will provide nutr supplment tid and protein powder in appropriate foods. Pt was evaluated by SPL and no dietary modifications were recommended. Pt does hav increased respiratory distress and hypoxia which may be affecting intake. Alb has declined to 2.5 . Will attempt nutrtion physical assessment if pt allows. Cont to monitor and encourage intake. BK 09/09-MD recommends tubefeeding. PEG has been placed as of 09/08. Pt as risk of refeeding syndrome. Kcals needs range from 1177 to 1765.5. Recommend 1412 kcal using [place]-St. Jeor, 1.1 TEF, and 1.2 stress factor. Protein needs for respiratory failure are high, at 1.5-2 g/kg. Recommend 47-79 g protein, 63 g is the mean value between the two. Recommend TF goal rate of 59 mL/hr, begining with 44mL/hr (25% of recommended rate to meet needs) to reduce risk of refeeding syndrome. 44mL/hr will provide 1056 kcal and 46.5 g of protein. Increase rate as tolerated. Overfeeding during respiratory failure can be deleterious (Kirby Kaufman, and Chidi, 2012), so caution is advised. Labs of significance include: WBC 14.6 H, RBC 3.92, Hgb 13.0, and Hct 38.3, which are all low. Albumin of 2.5 and total protein of 5.0 are low and could indicate poor nutritional status or physiological stress. POC2 of 41 and HCO3 of 28 are both elevated. Creatinine of 0.5 is low, BUN of 36 is high CO2 of 31 and Cl of 109 are both high. Monitor: glucose, Mg, K, and Ph due to refeeding risk.-AKG 09/10 Pt recieving 50ml/hr Jevity tolerating well. Concur that 60ml/hr would be desired final rate however recommend cont at 50ml/hr at this time. Phos low at 2.1, K+ low at 3.3, possibly indicating refeeding syndrome. Alb declined to 2.2. Cont to monitor . Recommend check Mg for refeeding syndrom. If Phos, K+, Mg cont to decline, recommend reduce TF. Jevity at 50 ml/hr meets 90% est kcal needs, 84% est protein needs, 85% est fluid needs. Recommend additonal 20ml H2O if pt taken off IV fluids. BK 09/11 jevity reduced to 40ml/hr. pt tolerating well with no residuals. Mg cont WNR at 2 but declined sligjhtly. Phos is now WNR at 2.5. K+ cont low but improved to 3.4. Pt recieving K+/Hos suppplement. [facility] of Nutr/Dietetics care manual recommend 20-25kcal/kg for inital TF of potential refeeding syndrome. Pt currently receiveing 25kcal/kg. Recommend cont 40ml/hr today then gradually increase to 60ml/hr which meets nutr needs if no s/s of refeeding. 60 ml/hr of jevity will provide 1200 ml H20 to meet fluid needs. BK 09/12/18 Glu 105, K 3.8, Ph 2.9, Mg 2.0, Alb 2.6. Jevity 1.0 tube feeding increased to 60mL/hr. This provides 1526 Kcal, 64 grams protein, and 1202mL free water per 24 hours. Pt tolerating tube feeding with no residuals. Labs pertaining to refeeding syndrome are WNR at present. Follow labs, tube feeding tolerance, etc. -KALA 1212/28 Pt cont on Jevity at 60ml/hr, meeting nutr needs. Pt tolerating TF with minimal residuals. Labs pretaining to refeeding syndrom are WNR. Alb declined to 2.4. Will cont to monitor. BK 09/17/18 Alb 2.3, Prealbumin 17.4, Low Na+. Continues to tolerate tube feeding without residuals. Follow TF tolerance, labs, etc. -GENE MACIEL Sep 17, 2018 11:28
--- NOTE | 2018-09-17 13:14 | ENT Progress Note ---
Subjective Progress Notes Subjective Patient is status post trach and PEG 09/08. He is much more comfortable. Biopsy from 09/07 SCC. Radiation and medical oncology consulted. Plan to transfer to extended care and begin RT on Mon. 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 He is status post trach and PEG on 09/08. Plan to transfer to extended care and start RT on Mon. Patient should follow up with me for man agement and surveillance following completion of RT. Please call with questions. Time Spent: < 30 min Exam Sepsis Risk: No Definite Risk NAZ GAXIOLA JR, MD Sep 17, 2018 13:14
--- NOTE | 2018-09-17 14:26 | NUR ---
Physical Therapy Impression Pt continues to demonstrate fear of falling but was agreeable to allow PT and OT to assist with transfer to commode using RW. Pt required Min A for supine<>sit and CGA to stand and pivot to commode using RW. Noted elevated HR throughout treatment from 120s-140s. Pt also with variable SO2 saturation with minimum noted in 70s, however, poor reading from puls-ox at times. Nursing present during PT treatment. Recommend short-term rehabilitation prior to returning home. Marjorie Skelton PTA has been attempting to find an appropriate knee brace, however, difficult due to Pt's need for a very small brace. PT will continue to look, however, may require custom brace. Physical Therapy Goals 1. Pt to be Min/CGA for bed mobility and sit to/from supine transfers 2. Pt to be Min/CGA for sit to/from stand transfers with appropriate support for post-polio symptoms. 3. Pt to complete hpehq-[id number]-[id number] transfers with Min/CGA 4. Pt to ambulate with least restrictive device x 100' Patient's Goals
--- NOTE | 2018-09-17 15:22 | NUR ---
Occupational Therapy Impression Pt progressing well towards OT goals. Assist x2 stand pivot to BSC and for toileting. Nursing present throughout. HR 120-140s, SpO2 WNL (difficult to obtain accurate reading). Continue POC. Occupational Therapy Goals 1. Pt. to perform toileting activities with Min A. 2. Pt. to perform grooming activities with MILNER. 3. Pt. to perform dressing activities with Min A. 4. Pt. to perform showering activities with Min A. Patient's Goal
--- NOTE | 2018-09-17 16:02 | SLP EVALUATION SUMMARY REPORT ---
SPEECH THERAPY EVALUATION The patient is a good candidate for Passy Eleno speech valve (PMV) following tracheostomy. The pt is not using a ventilator at this time. A physicians's order was obtained and ST submitted order request to materials for PMV 2000 (clear for home use) and PMV 2001 (purple for hospital use) on 09/12/18 and received today 09/17/18. Respiratory therapy present throughout the trial. Pt requested ST obtain verbal clarification from physician that cuff deflation was recommended saying he "would feel better." Verbal clarification was obtained from Dr. Aicha Nath. The pt was repositioned to semi-reclined. Suctioning was performed. Trach cuff was deflated and PMV 2001 was placed on the trach hub for approximately 1.5 minutes. Pt SPO2 decreased during this time from 100% to 94%. Pt instructed to breath in through trach and out through mouth but had difficulty coordinating and instead appeared to attempt inhale and exhaled through the mouth. He indicated that inhalation was easier than exhalation. Upon request, the patient attempted to phonate and was successful at producing a quiet, phonation for approximately 1-2 seconds. At approximately 1.5min the patient requested that the PMV be removed. Secretions management was good and no further suctioning was required. RT re-inflated the the trach cuff. The patient was provided with additional education and agreed to continue with PMV trials. The patient is expected to increase tolerance of PMV for speech and to improve functional swallow. ST will continue to work with patient for increasing use tolerance and indep use of PMV POC STG Pt will demonstrate indep. with application and removal of PMV given education Pt will demonstrate tolerance of PMV placement for at least 1 hour LTG Pt will demonstrate functional communication and safe swallow using PMV 2000 or 2001 Thank you for referring this patient Shameka Oliver MS, CCC-SENIOR WEB ARCHITECT Speech Therapy MTDD
[2018-09-17 16:40] VITALS: BP 125/75
[2018-09-17 19:14] VITALS: BP 100/70
[2018-09-17] MEDS: TERAZOSIN HCL 1 MG CAP FT SCH (21:08)
[2018-09-18] VITALS (8 sets, daily range): BP systolic 88–140; BP diastolic 42–82
[2018-09-18] MEDS: NYSTATIN 5 ML UDCUP PO SCH ×4 (08:52→21:21)
[2018-09-18] MEDS: ENOXAPARIN 30 MG/0.3 ML SYR SC SCH (08:52)
[2018-09-18] MEDS: predniSONE 20 MG TAB FT SCH (08:52)
[2018-09-18] MEDS: [UNRECOGNIZED DRUG - OTHER] TP SCH ×2 (08:53→21:21)
[2018-09-18] MEDS: FLUTICASONE PROP 0.05% 16 GM SCH (08:53)
[2018-09-18] MEDS: DOCUSATE SOD LIQ 100 MG/10 ML UDC FT SCH ×2 (09:02→21:21)
--- NOTE | 2018-09-18 10:33 | NUR ---
Physical Therapy Impression PT/OT co treat for patient safety. Pt required Chuck x2 for stand pivot transfer to/from chair, with assistance required for walker negotiation. Pt with a few instances of R) knee buckling, requiring block by PT. PT instruction for seated LE ther-ex in order to improve LE strength and endurance. Pt completed exercises against gravity with no difficulty, HR 120-140 bpm throughout session. SpO2 WNL. Physical Therapy Goals 1. Pt to be Min/CGA for bed mobility and sit to/from supine transfers 2. Pt to be Min/CGA for sit to/from stand transfers with appropriate support for post-polio symptoms. 3. Pt to complete ojeno-tjua-ephom transfers with Min/CGA 4. Pt to ambulate with least restrictive device x 100' Patient's Goals
--- NOTE | 2018-09-18 10:36 | Hospitalist Progress Note ---
Subjective Progress Notes Subjective This patient was admitted for COPD and upper airway obstruction. He had no acute events overnight. Patient Complains of: Cardiovascular: No: Chest Pain Respiratory: No: Shortness of Breath Physical Exam Vital Signs Date Time Temp Pulse Resp B/P (MAP) Pulse Ox O2 Delivery O2 Flow Rate FiO2 09/18/18 08:37 96 Trans-Tracheal 6.5 28.0 09/18/18 08:37 98.3 101 18 105/72 (83) Intake and Output 09/18/18 07:00 Intake Total 2986 ml Output Total 2025 ml Balance 961 ml Tube Feeding 1411 ml Tube Irrigant 1575 ml Output Urine Total 2025 ml # Bowel Movements 2 Cardiovascular: Regular Rate and Rhythm Respiratory: Clear to Auscultation Result Diagram: 09/17/1853609/17/18536 Assessment and Plan Problems: (1) Laryngeal mass Assessment & Plan: This was contributing to his respiratory distress. CT scan has shown the mass to be centered in the right vocal cord. 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 He decided to have a tracheostomy/PEG which was done on 09/08. Dr. Curran (oncology) and Dr. Johnson (Radiation Oncology) have net with the patient. Plan is set for initiation of radiation treatment Monday. He will go to have radiation and then go to [facility] for ongoing care. (2) Acute on chronic respiratory failure with hypoxemia Assessment & Plan: He did develop increased respiratory distress shortly after admission. He was transferred to the ICU and placed on BiPAP. He initially did well and was moved to the floor, but was moved back to the ICU because of increased hypoxia and work of breathing. He is doing rather well with the tracheostomy. (3) Urinary retention Assessment & Plan: He did develop urinary retention and gross hematuria. Nursing tried to pass a Espinosa without success. Dr. Kirkpatrick was consulted and ended up having to take him back to the OR for cystoscopy guided catheter placement on 09/07. He did recommend that we continue levofloxacin for a 3 day period through 09/10, which was done. Dr. Kirkpatrick recommends that when patient is ambulatory, remove the catheter on a weekday in the morning, in case he would require OR time to replace the Espinosa cath. He is currently on Hytrin. (4) COPD exacerbation Status: Acute Assessment & Plan: He is on treatment with nebulizers and steroids. He is now off antibiotics and currently weaning down on the prednisone. He was decreased to 30mg daily on 09/16 and will continue that dose today. Consider a decrease to 25mg on 09/18/18. (5) Dysphagia Status: Chronic Assessment & Plan: Speech therapy has evaluated him and recommended a MBS, which was ordered, but Mr. Villagomez did not wish to pursue. (6) Tachycardia Status: Acute Assessment & Plan: Persistent but slightly improved. (7) Poliomyelitis Status: Chronic Assessment & Plan: Chronic bilateral weakness. (8) Decreased urine output Status: Acute Assessment & Plan: Resolved. Exam Sepsis Risk: No Definite Risk ROMAN SKELTON DO Sep 18, 2018 10:36
--- NOTE | 2018-09-18 12:51 | NUR ---
Occupational Therapy Impression Pt progressing well towards OT goals. Assist x2 stand pivot to chair. Nursing present throughout. HR 120-140s, SpO2 WNL. Continue POC. Occupational Therapy Goals 1. Pt. to perform toileting activities with Min A. 2. Pt. to perform grooming activities with MILNER. 3. Pt. to perform dressing activities with Min A. 4. Pt. to perform showering activities with Min A. Patient's Goal
[2018-09-18] MEDS ORDERED: WATER STERILE IRRIG(*) 1000ML 1,000 ML ONE (16:03)
[2018-09-18] MEDS: TERAZOSIN HCL 1 MG CAP FT SCH (21:21)
[2018-09-19 04:01] VITALS: BP 99/73
[2018-09-19 08:00] VITALS: BP 103/62
[2018-09-19] MEDS: DOCUSATE SOD LIQ 100 MG/10 ML UDC FT SCH ×2 (09:06→21:00)
[2018-09-19] MEDS: ENOXAPARIN 30 MG/0.3 ML SYR SC SCH (09:06)
[2018-09-19] MEDS: [UNRECOGNIZED DRUG - OTHER] TP SCH (09:06)
[2018-09-19] MEDS: predniSONE 20 MG TAB FT SCH (09:06)
[2018-09-19] MEDS: FLUTICASONE PROP 0.05% 16 GM SCH (09:07)
[2018-09-19 11:03] VITALS: BP 100/42
--- NOTE | 2018-09-19 12:00 | NUR ---
Occupational Therapy Impression Pt politely declined PT/OT this date. Will follow-up tomorrow, pt agreeable with plan. Pt declined further needs at this time. Occupational Therapy Goals 1. Pt. to perform toileting activities with Min A. 2. Pt. to perform grooming activities with MILNER. 3. Pt. to perform dressing activities with Min A. 4. Pt. to perform showering activities with Min A. Patient's Goal
--- NOTE | 2018-09-19 12:53 | NUR ---
Physical Therapy Impression Pt politely declined PT tx today. Will follow-up tomorrow. Physical Therapy Goals 1. Pt to be Min/CGA for bed mobility and sit to/from supine transfers 2. Pt to be Min/CGA for sit to/from stand transfers with appropriate support for post-polio symptoms. 3. Pt to complete jsndj-ogjj-qhlul transfers with Min/CGA 4. Pt to ambulate with least restrictive device x 100' Patient's Goals
--- NOTE | 2018-09-19 13:24 | Hospitalist Progress Note ---
Subjective Progress Notes Subjective 68M admitted for acute hypoxic respiratory failure. Had mucous plug with hypoxia yesterday. Will watch today and possibly to ECF tomorrow or Monday. Patient Complains of: Cardiovascular: No: Chest Pain Respiratory: No: Cough, Congestion, Shortness of Breath Physical Exam Vital Signs Date Time Temp Pulse Resp B/P (MAP) Pulse Ox O2 Delivery O2 Flow Rate FiO2 09/19/18 11:03 99.1 111 14 100/42 (61) 96 Heated Aerosol 10.0 28.0 Intake and Output 09/19/18 07:00 Intake Total 2912 ml Output Total 1925 ml Balance 987 ml Tube Feeding 1534 ml Tube Irrigant 1378 ml Output Urine Total 1925 ml # Bowel Movements 1 General Appearance: Alert, Awake, No Acute Distress, Afebrile Neuro: No Gross deficits ENT: Normal Neck: Other (trach) Cardiovascular: Normal Rhythm & Peripheral Pulses Respiratory: No Respiratory Distress, Clear to Auscultation GI: Soft and Non-Tender Extremities: Soft and Non Tender, Warm, Pulses, Perfused; No Edema Integumentary: Skin Intact without Lesion / Mass Result Diagram: 09/17/1853609/17/18536 Assessment and Plan Problems: (1) Laryngeal mass Assessment & Plan: This was contributing to his respiratory distress. CT scan has shown the mass to be centered in the right vocal cord. 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 He decided to have a tracheostomy/PEG which was done on 09/08. Dr. Curran (oncology) and Dr. Johnson (Radiation Oncology) have net with the patient. Plan is set for initiation of radiation treatment September 24. We will discharge to EC after stabilized and before radiation begins. (2) Acute on chronic respiratory failure with hypoxemia Assessment & Plan: He did develop increased respiratory distress shortly after admission. He was transferred to the ICU and placed on BiPAP, now post tracheostomy. He is doing rather well with the tracheostomy other than one incident of mucous plugging.. (3) Urinary retention Assessment & Plan: He did develop urinary retention and gross hematuria. Nursing tried to pass a Espinosa without success. Dr. Kirkpatrick was consulted and ended up having to take him back to the OR for cystoscopy guided catheter placement on 09/07. He did recommend that we continue levofloxacin for a 3 day period through 09/10, which was done. Dr. Kirkpatrick recommends that when patient is ambulatory, remove the catheter on a weekday in the morning, in case he would require OR time to replace the Espinosa cath. He is currently on Hytrin. (4) COPD exacerbation Status: Acute Assessment & Plan: He is on treatment with nebulizers and steroids. He is now off antibiotics and currently weaning down on the prednisone. (5) Dysphagia Status: Chronic Assessment & Plan: Speech therapy has evaluated him and recommended a MBS, which was ordered, but Mr. Villagomez did not wish to pursue. Now post PEG placement. (6) Tachycardia Status: Acute Assessment & Plan: Persistent but slightly improved. (7) Poliomyelitis Status: Chronic Assessment & Plan: Chronic bilateral weakness. (8) Decreased urine output Status: Acute Assessment & Plan: Resolved. Exam Sepsis Risk: No Definite Risk DONELL VALVERDE DO Sep 19, 2018 13:24
[2018-09-19 15:18] VITALS: BP 111/62
[2018-09-19] MEDS: NS 0.9% NEB 3 ML SOLN INH SCH ×3 (17:27→21:39)
[2018-09-19 19:47] VITALS: BP 111/69
[2018-09-19] MEDS: TERAZOSIN HCL 1 MG CAP FT SCH (21:00)
[2018-09-19] MEDS: ACETAMINOPHEN 160 MG/5 ML UDC FT PRN (21:01)
[2018-09-20 02:20] VITALS: BP 101/64
[2018-09-20] MEDS ORDERED: WATER STERILE IRRIG(*) 1000ML 1,000 ML ONE (07:00)
[2018-09-20 07:41] VITALS: BP 111/77
[2018-09-20] MEDS ORDERED: Hydrogen Peroxide TP (08:15)
[2018-09-20] MEDS ORDERED: ENOX30DI5 SC (08:15)
[2018-09-20] MEDS ORDERED: DOCU50LI30 FT (08:15)
[2018-09-20] MEDS ORDERED: ACEEL FT (08:15)
[2018-09-20] MEDS ORDERED: LEVA0.6320 NEB (08:15)
[2018-09-20] MEDS ORDERED: PRED-1 FT (08:15)
[2018-09-20] MEDS ORDERED: TERA1CAP38 FT (08:15)
--- NOTE | 2018-09-20 08:22 | Transfer Summary (ECF/SWB) ---
Transfer Summary (F/[facility]) Problems: (1) Laryngeal mass Assessment & Plan: This was contributing to his respiratory distress. CT scan has shown the mass to be centered in the right vocal cord. 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 He decided to have a tracheostomy/PEG which was done on 09/08/18. Dr. Curran (oncology) and Dr. Johnson (Radiation Oncology) have met with the patient/family. Plan is set for initiation of radiation treatment September 24. We will transfer to [facility]. (2) Acute on chronic respiratory failure with hypoxemia Assessment & Plan: He did develop increased respiratory distress shortly after admission. He was transferred to the ICU and placed on BiPAP. He has now had tracheostomy placed prior to radiation. He is doing rather well with the tracheostomy other than one incident of mucous plugging. Cardiopulmonary has been working with him. General Surgery will follow as well. (3) Urinary retention Assessment & Plan: He did develop urinary retention and gross hematuria. Nursing tried to pass a Espinosa cath without success. Dr. Kirkpatrick was consulted and ended up having to take him back to the OR for cystoscopy guided catheter placement on 09/07. He did recommend that we continue levofloxacin for a 3 day period through 09/10, which was done. Dr. Kirkpatrick recommends that when patient is ambulatory, remove the catheter on a weekday in the morning, in case he would require OR time to replace the Espinosa cath. He is currently on Flomax. (4) COPD exacerbation Status: Acute Assessment & Plan: He is on treatment with nebulizers and steroids. He is now off antibiotics and currently weaning down on the prednisone. (5) Dysphagia Status: Chronic Assessment & Plan: Speech therapy has evaluated him and recommended a MBS, which was ordered, but Mr. Villagomez did not wish to pursue. Now post PEG placement. (6) Tachycardia Status: Acute Assessment & Plan: Persistent but slightly improved. (7) Poliomyelitis Status: Chronic Assessment & Plan: Chronic bilateral weakness. (8) Decreased urine output Status: Acute Assessment & Plan: Resolved. Latest Vital Signs Vital Signs Date Time Temp Pulse Resp B/P (MAP) Pulse Ox O2 Delivery O2 Flow Rate FiO2 09/20/18 07:41 97.5 110 111/77 (88) 95 Heated Aerosol 10.0 21.0 09/20/18 02:20 16 Result Diagram: 09/17/18 0537 09/20/18 0535 Condition: Improved Current Condition Stable. Time Spent: > 30 min Disposition: [facility] Treatment Goals and Plan Patient requires long term and is ready for admission to [facility]. Any change in condition is described below. Services Required: PT, OT, Other (Radiation therapy. group home for tracheostomy care.) JEANNE STEELE MD Sep 20, 2018 08:22
[2018-09-20] MEDS: DOCUSATE SOD LIQ 100 MG/10 ML UDC FT SCH (08:45)
[2018-09-20] MEDS: ENOXAPARIN 30 MG/0.3 ML SYR SC SCH (08:45)
[2018-09-20] MEDS: FLUTICASONE PROP 0.05% 16 GM SCH ×2 (08:46→08:52)
[2018-09-20] MEDS ORDERED: predniSONE 10 MG TAB FT SCH (09:00)
== END 2018-09-20 10:20 | DRG 11 ==
LOC: ER 03:59 → MED 05:32 → ICU 15:01 → MED 09-04 11:15 → ICU 09-04 17:30 → MED 09-13 14:40
PROVIDERS: ADMIT Internal Medicine; ATTEND Internal Medicine
PROC: 5A09457 Assistance with Respiratory Ventilation, 24-96 Consecutive Hours, Continuous Positive Airway Pressure (ICD-10-PCS; 2018-09-02)
PROC: 0CJS8ZZ Inspection of Larynx, Via Natural or Artificial Opening Endoscopic (ICD-10-PCS; 2018-09-05)
PROC: 0T9B80Z Drainage of Bladder with Drainage Device, Via Natural or Artificial Opening Endoscopic (ICD-10-PCS; 2018-09-07)
PROC: 0CBS8ZX Excision of Larynx, Via Natural or Artificial Opening Endoscopic, Diagnostic (ICD-10-PCS; principal; 2018-09-07 10:21)
PROC: 0DH63UZ Insertion of Feeding Device into Stomach, Percutaneous Approach (ICD-10-PCS; 2018-09-08)
PROC: 3E0G76Z Introduction of Nutritional Substance into Upper GI, Via Natural or Artificial Opening (ICD-10-PCS; 2018-09-08)
PROC: 0B110F4 Bypass Trachea to Cutaneous with Tracheostomy Device, Open Approach (ICD-10-PCS; 2018-09-08 12:01)
DX: C32.0 Malignant neoplasm of glottis (principal); J96.21 Acute and chronic respiratory failure with hypoxia; E43 Unspecified severe protein-calorie malnutrition; J44.1 Chronic obstructive pulmonary disease with (acute) exacerbation; I47.1 Supraventricular tachycardia; Z68.1 Body mass index [BMI] 19.9 or less, adult; K21.9 Gastro-esophageal reflux disease without esophagitis; R31.9 Hematuria, unspecified; E87.6 Hypokalemia; E83.39 Other disorders of phosphorus metabolism; I10 Essential (primary) hypertension; N40.1 Benign prostatic hyperplasia with lower urinary tract symptoms; R33.8 Other retention of urine; E78.5 Hyperlipidemia, unspecified; T17.990A Other foreign object in respiratory tract, part unspecified in causing asphyxiation, initial encounter; R49.0 Dysphonia; R13.10 Dysphagia, unspecified; B91 Sequelae of poliomyelitis; M62.81 Muscle weakness (generalized); Z88.0 Allergy status to penicillin; Z88.8 Allergy status to other drugs, medicaments and biological substances; Z87.891 Personal history of nicotine dependence
CPT/HCPCS: 31575; 36415; 36416; 36600; 70491; 71045; 71260; 74177; 82040; 82247; 82310; 82374; 82435; 82565; 82803; 82947; 82948; 83605; 83735; 83880; 84075; 84100; 84132; 84134; 84155; 84295; 84450; 84460; 84484; 84520; 85025; 85379; 86850; 86900; 86901; 87040; 88305; 88331; 93005; 94640; 94660; 97162; 97167; 99201; 99284; A4218; A4338; C1758; C1769; C9113; J0692; J1100; J1650; J1956; J2001; J2250; J2270; J2310; J2405; J2704; J2930; J3370; J3480; J3490; J7030; J7050; J7512; J7613; J7614; Q9967

== ENCOUNTER 2018-09-12 11:42 | Outpatient (RCR) | payer MEDICARE, BC ==
[2018-09-02 13:18] VITALS: BMI 16.5
[~2018-09-12 11:42] MED LIST changes: +ALB18R INH; +IPRA4AER IH
--- NOTE | 2018-09-12 14:55 | ONCOLOGY CONSULTATION ---
EVENT DATE: September 12, 2018 CONSULTING PROVIDER Alex Mitchell, DO REASON FOR CONSULTATION Newly diagnosed head and neck cancer (squamous cell carcinoma). CHIEF COMPLAINT Weakness, shortness of breath. HISTORY OF PRESENT ILLNESS Mr. Villagomez is a 68-year-old gentleman with a history of polio as well as COPD. Upon review of the records, he had been hospitalized and subsequently discharged on August 23 after treatment for COPD exacerbation/pneumonia. He had completed a course of antibiotic and corticosteroid on August 26. There is also note of him undergoing outpatient workup for hoarseness. In any case, the patient again presented on September 02 with worsened shortness of breath. He was found to be hypoxic in the Emergency Department, requiring 10L of O2. He underwent a CT of the neck on September 05, and this study, unfortunately, revealed an enhancing mass of the larynx measuring at least 2.9 x 1.7 x 1.6 cm, centered in the right vocal cord. There was extension across the anterior commissure to the left vocal cord and into the right laryngeal ventricle and through the thyroid cartilage anteriorly bilaterally. 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 There is no evidence of metastatic lymph nodes in the neck. The patient subsequently underwent placement of a trach tube as well as a feeding tube. He is currently in the Intensive Care Unit, receiving tube feeds and close attention to his airway. Today, the patient reports that he is in no significant pain. He feels that he is now breathing much more comfortably. He states that his weight usually runs about 100 pounds, and per staff, he has lost about 10 pounds while here. PAST MEDICAL HISTORY 1. History of smoking. 2. COPD with recent exacerbation and pneumonia. 3. Polio myelitis. CURRENT MEDICATIONS 1. Albuterol. 2. Combivent. 3. Prednisone. 4. Diltiazem. 5. Fluticasone. 6. Pantoprazole. 7. Tamsulosin. 8. Multivitamin. ALLERGIES PENICILLINS and DEMEROL. SOCIAL HISTORY Patient does have a history of smoking. I am unaware of any history of alcohol abuse or illicit drug use. FAMILY HISTORY There is a reported family history of dementia in his mother and leukemia in his father. VITAL SIGNS Patient is afebrile at 98.7, blood pressure 108/83, respirations 15, heart rate 116, oxygen saturation 95% on 28% FiO2 by trach collar. PHYSICAL EXAMINATION GENERAL: Patient is alert and oriented times three, in no apparent distress, lying in the ICU bed. He is interactive and seems to be mentating well. He is unable to phonate due to trach. He does mouth words. He is cachectic. HEENT: Anicteric sclerae. NEUROLOGIC: Chronic contractures and generalized weakness. MUSCULOSKELETAL: No edema, clubbing, or cyanosis. Extremity exam reveals wasted extremities, without erythema or tenderness. LABORATORY STUDIES AND IMAGING Reviewed per the [facility] record. 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 I had a good visit with Mr. Villagomez at bedside today. We were joined by nursing staff for the entirety of our visit, and they helped very much with communication. We spent time today reviewing his medical history as well as his recent surgical procedure for placement of tracheostomy, biopsy of the laryngeal mass, and placement of feeding tube. He seems to have done quite well with all of these. We discussed his new diagnosis of squamous cell carcinoma and that despite having what appears to be a right locally advanced primary tumor, he does not have obvious lymphadenopathy in the neck on his recent CT scan. We discussed staging as it relates to prognosis and treatment decision making. I have recommended that he undergo a CT scan of the chest, abdomen, and pelvis for this purpose. We moved on to discuss potential treatment. At this point, I am very concerned about his poor performance status. He has lost a significant percentage of his body weight, which was not substantial to begin with. I am uncertain about his baseline status in terms of activities of daily living with his history of polio. At this point, I would gauge his reserve to be very poor, and systemic therapy for treatment of his newly diagnosed squamous cell carcinoma is not currently advisable. That said, he is now with a more stable airway and with a feeding tube, actively getting tube feeds. There is potential for general improvement in his performance status. I am skeptical that he will ever be able to receive cytotoxic chemotherapy, though we could consider cetuximab if the patient is deemed to be a treatment candidate from a radiation oncology standpoint. I have recommended that he visit with Radiation Oncology as soon as possible and that he continue on his current dose of steroid for the time being unless there is substantial contraindication from a medical perspective. I will plan to see the patient again when I am back in [place], and we will be sure that Cancer Center staff is aware of his situation. When the time comes, I will review any plan for treatment with Radiation Oncology, but the patient will certainly have a long road to recovery from here, and this will be made more difficult by active anticancer therapy. Thank you very much, Dr. Anais Mitchell, for allowing me to take part in the care of this very pleasant gentleman. Please do not hesitate to call with any questions or concerns. AMADOR
[2018-09-20] MEDS ORDERED: ACEEL FT (08:15)
[2018-09-20] MEDS ORDERED: Hydrogen Peroxide TP (08:15)
[2018-09-20] MEDS ORDERED: TERA1CAP38 FT (08:15)
[2018-09-20] MEDS ORDERED: PRED-1 FT (08:15)
[2018-09-20] MEDS ORDERED: LEVA0.6320 NEB (08:15)
[2018-09-20] MEDS ORDERED: ENOX30DI5 SC (08:15)
[2018-09-20] MEDS ORDERED: DOCU50LI30 FT (08:15)
--- NOTE | 2018-09-21 09:43 | NUR ---
Pt could not complete the HADS form as it is, instead, SW asked the patient to rate levels of anxiety and depression on scale from 0 (worst) to 10 (best). Pt stated 0 for both measures.
--- NOTE | 2018-10-12 12:00 | NUR ---
SW faxed referral for follow up care to [facility].
[2018-10-21] MEDS ORDERED: TAMS0.4C70 PO (14:18)
== END 2018-10-26 11:50 | disposition home or self-care (01) ==
LOC: ONC 11:42
PROVIDERS: ATTEND Internal Medicine Medical Oncology
DX: C32.9 Malignant neoplasm of larynx, unspecified (principal); Z93.0 Tracheostomy status; Z96.89 Presence of other specified functional implants; R53.1 Weakness; R06.02 Shortness of breath; J44.9 Chronic obstructive pulmonary disease, unspecified; Z87.891 Personal history of nicotine dependence

== ENCOUNTER 2018-09-20 10:20 | Inpatient (IN) | payer MEDICARE, BC ==
[~2018-09-20] VITALS: Ht 162.6 cm; Wt 41.7 kg
[~2018-09-20 10:20] MED LIST changes: +ACEEL FT; +DOCU50LI30 FT; +ENOX30DI5 SC; +Hydrogen Peroxide TP; +LEVA0.6320 NEB; +PRED-1 FT; +TERA1CAP38 FT
[2018-09-20] MEDS ORDERED: HYDROGEN PEROXID 3% 473 ML BTL TP PRN (11:04)
[2018-09-20] MEDS ORDERED: LEVALBUTEROL 0.63 MG/3 ML NEB NEB PRN (11:10)
[2018-09-20 11:14] VITALS: BP 117/73
--- NOTE | 2018-09-20 11:26 | Consultant Pharmacy Review ---
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 IVORY CARIAS Sep 20, 2018 11:26
--- NOTE | 2018-09-20 11:57 | General Surgery Progress Note ---
Subjective Progress Notes Subjective no acute events. pt tolerating trach and tube feeds well. i was asked to see the pt to exchange the trach. Physical Exam Vital Signs Date Time Temp Pulse Resp B/P (MAP) Pulse Ox O2 Delivery O2 Flow Rate FiO2 09/20/18 11:14 98.3 109 14 117/73 (88) 95 Trans-Tracheal 10.0 21.0 General Appearance: Alert, Awake, No Acute Distress Neck: Other (trach in place) GI: Other (abd soft/nd, peg in place) Assessment and Plan Problems: (1) Laryngeal mass Assessment & Plan: pt tolerating the trach well and communicating fine. will wait at least 2 wks for tract to mature prior to considering replacement. will further discuss goals of replacement trach prior to replacement. KARI REDD Sep 20, 2018 11:57
--- NOTE | 2018-09-20 12:52 | ECF H&P BLANK ---
[facility] H&P UPDATE History of Present Illness Chief Complaint dyspnea History of Present Illness 68M presented with one day Hx of worsening dyspnea. Recently discharged on 08.23 after admission for COPD exacerbation secondary to pneumonia. Completed Levaquin and prednisone course on 08.26. Reports doing fairly well until day before admission, has increased SOB, cough productive brown sputum. Denies fever, shills, nausea, vomiting. He also is being worked up for profound hoarseness as an outpatient. In ER noted to be hypoxic requiring 10L by mask, some relief with breathing treatments. History Problems: (1) COPD (chronic obstructive pulmonary disease) Status: Chronic (2) Poliomyelitis Status: Chronic (3) Dysphagia Status: Chronic (4) Sore throat Status: Chronic Home Meds Active Scripts Levofloxacin 750 Mg Tab (LEVOFLOXACIN 750 MG TAB) 750 Mg Tablet, 750 MG PO HS, #3 TAB Prov:EPIFANIO BROWN MD 08/23/18 Prednisone 10 Mg Tab (PREDNISONE 10 MG TAB) 10 Mg Tablet, 10-40 MG PO QDAY, #30 TAB 4 pills daily for 3 days, then 3 a day for 3 days, then 2 a day for 3 days, then 1 a day for 3 days. Prov:EPIFANIO BROWN MD 08/23/18 Diltiazem Hcl (DILTIAZEM 24HR CD) 120 Mg Cap.er.24h, 120 MG PO QDAY, #30 Prov:EPIFANIO BROWN MD 08/23/18 Fluticasone Prop 50 Mcg Ns (FLONASE 50 MCG NS) 16 Gm [place].susp, 2 SPRAYS NS QDAY, #1 BOT Prov:ABDELRAHMAN MAURO MD 08/16/18 Pantoprazole Sodium (PANTOPRAZOLE SODIUM) 40 Mg Tablet.dr, 40 MG PO QDAY, #30 TAB.SR 2 Refills Prov:ABDELRAHMAN MAURO MD 07/24/18 Tamsulosin Hcl (TAMSULOSIN HCL) 0.4 Mg Cap.er.24h, 1 CAP PO BID, #180 CAP 4 Refills Patient must see provider for further refills Prov:ABDELRAHMAN MAURO MD 10/31/17 Reported Medications Multivitamin (DAILY ROXIE) 1 Each Tablet, 1 EACH PO QDAY 10/12/15 Allergies: Coded Allergies: Penicillins (Verified Allergy, Intermediate, HIVES, 09/06/11) meperidine (Verified Adverse Reaction, Intermediate, HARD TO URINATE, 09/06/11) Patient History: FH: dementia MOTHER, , Age:85 FH: leukemia FATHER, , Age:75 Hx Smoking: Yes Smoking Status: Former Smoker Caffeine Intake: Coffee Caffeine/Cups Per Day: 2 CUPS PER DAY Hx Alcohol Use: No Hx Substance Use Disorder: No Review of Systems Constitutional: No Fever Cardiovascular: No Chest Pain, No Palpitations Respiratory: Shortness of Breath, Cough, Wheezing Exam Vital Signs Vital Signs Date Time Temp Pulse Resp B/P (MAP) Pulse Ox O2 Delivery O2 Flow Rate FiO2 09/02/18 05:20 6.0 09/02/18 04:44 120 18 09/02/18 04:22 93 09/02/18 03:57 139/100 (113) 09/02/18 03:37 98.3 CPAP General Appearance: Alert, Awake, Afebrile (increased work of breathing, chronically ill appearing, cachectic) Neuro: No Gross deficits (generalized weakness) ENT: Normal Cardiovascular: Other (tachycardic) Respiratory: Other (wheezing, L lower lobe rhonchi, 10L via mask) GI: Abd Soft and Non-Tender Extremities: Soft and Non Tender, Warm, Pulses Integumentary: Skin Intact without Lesion / Mass Medical Decision Making Data Points Result Diagram: 09/02/18 0325 09/02/18 0325 EKG / Imaging EKG Interpretation 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 Small amount of airspace disease at the right lung base could represent a small infiltrate. 2. Chronic small right pleural effusion. 3. Ectatic thoracic aorta Assessment and Plan Problems: (1) Acute on chronic respiratory failure with hypoxemia Assessment & Plan: No acute process identified in chest xray, EKG no acute changes, afebrile. Increased sputum and O2 needs. Will begin breathing treatment s, steroid and antibiotic. Swallow evaluation ordered, suspect that aspiration may be triggering exacerbation of COPD. (2) Dysphagia Status: Chronic Assessment & Plan: Swallow evaluation. (3) Poliomyelitis Status: Chronic Assessment & Plan: Chronic bilateral weakness. Venous Thromboembolism Antithrombotics Is Pt On Any Antithrombotics?: Yes Exam Sepsis Risk: No Definite Risk DONELL VALVERDE DO Sep 02, 2018 05:47 <Electronically signed by DONELL CARPENTER DO> D/ [id number] MARC/ERIKA CC: Mr. Villagomez will be admitted to [facility] for ongoing care with tracheostomy care, radiation therapy, rehabilitative therapy, nutritional therapy. JEANNE STEELE MD Sep 20, 2018 12:52
--- NOTE | 2018-09-20 14:45 | NUR ---
Physical Therapy Impression PT ECF eval complete. Pt requires Chuck x2 for stand pivot and STS transfers with one person assist at the patient's R) knee to prevent hyperextension. Pt requires Chuck for walker negotiation with pivot transfers. Pt tolerated ambulation x5' with use of RW and assist at the R) knee to prevent hyperextension. Pt on 2L O2 via trach with SpO2 WNL throughout session. Pt reports fear of LOB d/t R) knee instability as a limiting factor for mobility. Pt will benefit from skilled rehab to include PT services in order to increase tolerance to functional mobility and decrease need of assistance from others prior to d/c. Physical Therapy Goals 1: Pt to complete bed mobility with Fabricio and no use of bed rail 2: Pt to complete transfers with Fabricio and least restrictive AD from a variety of surfaces. 3: Pt to ambulate 100' with Fabricio and least restrictive AD 4: Pt to asc/desc 4 steps with railing and CGA 5: Pt to asc/desc 1 platform step with CGA. Patient's Goals
[2018-09-20 15:40] VITALS: BP 148/80
--- NOTE | 2018-09-20 16:12 | NUR ---
Occupational Therapy Impression OT evaluation completed with PT. Please refer to reports for details regarding plan of care and goals. Occupational Therapy Goals 1. Pt. to perform LB dressing activities with Min A. 2. Pt. to perform toileting activities with Mod I. 3. Pt. to perform showering activities with Min A. 4. Pt. to improve Jayme Index of ADL score by 2 points. 5. Pt. to grooming activities with I. Patient's Goal
--- NOTE | 2018-09-20 16:24 | PT ECF NOTE ---
Type of Note: Initial Note Primary Medical Diagnosis: Acute respiratory failure, squamous cell carcinoma with laryngeal mass Physical Therapy Evaluation Date: 09/20/18 SUBJECTIVE: Prior Hospitalization: 09/02/18-09/20/18 Prior Level of Function: I) with no AD Prior Living Status: Multilevel house, Alone Community Services: Support adequate Home Accessibility: One step into home, 2 steps in home Equipment Owned: None per patient report Medical Complications/Past Medical History: Poliomyelitis, COPD, see EMR for details Psychosocial Support: Supportive daughter, living in [place] Pain Scale (0-10): 0 OBJECTIVE: Strength: Right Lower Extremity: DF: 3+/4 Knee flexion: 3+/5 Knee extension: 3+/5 Hip flexion: <3/5 Left Lower Extremity: DF: 3+/4 Knee flexion: 3+/5 Knee extension: 3+/5 Hip flexion: <3/5 ROM: WFL, pt reports frequent hyperextension of R) knee at baseline Sensation: WNL Other Neuro findings: Poliomyelitis Bed Mobility: SBA with bed rail Transfers: Chuck x 2 with RW Gait: 5' with RW, Chuck x 2 Stairs: Not tested ASSESSMENT: PT/OT ECF co eval complete. Pt requires Chuck x2 for stand pivot and STS transfers with one person assist at the patient's R) knee to prevent hyperextension. Pt requires Chuck for walker negotiation with pivot transfers. Pt tolerated ambulation x5' with use of RW and assist at the R) knee to prevent hyperextension. Pt on 2L O2 via trach with SpO2 WNL throughout session. Pt reports fear of LOB d/t R) knee instability as a limiting factor for mobility. Pt will benefit from skilled rehab to include PT services in order to increase tolerance to functional mobility and decrease need of assistance from others prior to d/c. Problem List/Current Limitations: Decreased activity doroteo Decreased strength Decreased ROM Decreased balance Short Term Goals: 1: Pt to complete bed mobility with Fabricio and no use of bed rail 2: Pt to complete transfers with Fabricio and least restrictive AD from a variety of surfaces. 3: Pt to ambulate 100' with Fabricio and least restrictive AD 4: Pt to asc/desc 4 steps with railing and CGA 5: Pt to asc/desc 1 platform step with CGA. Senior Living Goals: Pt to demonstrate increased independence with functional mobility and decreased need of assistance from others Patient Goals: "Return home alone for a bit and then go to my daughter's home in [place]" Rehabilitation Prognosis: Fair Barriers for Discharge: Mobility impairments as baseline level of function, new cancer diagnosis PLAN: The patient will benefit from skilled physical therapy services 5 times per week for 2 weeks including: Therapeutic Exercise Therapeutic Activities Transfer Training Gait Training Stair Training Manual Therapy Safety Training Neuromuscular Re-educ. Pt/Caregiver Training Bed Mobility Thank you for this referral. If you have any questions, concerns, or comments about this report or plan, please contact me at . Merary Jorge, PT, DPT MTDD
--- NOTE | 2018-09-20 16:32 | OT ECF NOTE ---
Type of Note: Initial Note Primary Medical Diagnosis: Squamous Cell Carcinoma, laryngeal mass (PEG tube placement/ trach placement). Occupational Therapy Evaluation Date: 09-20-18 SUBJECTIVE: Prior Hospitalization: [facility] Med/ICU from 09/02/18 to 09/20/18. Prior Level of Function: Pt. states that he was living alone prior to admission to [facility] Med/ ICU. Prior Living Status: Multilevel house Alone Community Services: Support adequate Home Accessibility: One step into home Equipment Owned: Unknown at this time. Medical Complications/Past Medical History: Please refer to reports for details. Psychosocial Support: Supportive daughter. Pain Scale (0-10): No pain noted during IE. OBJECTIVE: Strength: MMT: Right Left Shoulder Flexion [*] [*] Elbow Flexion [*] [*] Wrist Extension [*] [*] Heading And Priming Operator [*] [*] (5= normal, 4= good, 3= fair, 2= poor, 1= trace) ROM: Both upper extremities WFL Functional Transfer: Assistive Device: Front wheeled walker Gait belt Transfer Ability: Minimum assistance 2-person assist ADL: Upper body dressing: Assistive device: Upper body dressing ability: Lower body dressing: Assistive device: Lower body dressing ability: Moderate assistance Toileting: Assistive device: Bedside Commode Toileting ability: Maximum assistance Grooming/hygiene: N/T Assistive device: Grooming ability: Bathing: N/T Assistive device: Bathing ability: Standardized Assessment: Jayme Index of Activities of Daily Living- Pt. scored 3/20 on this Index upon initial evaluation. ASSESSMENT: Pt. is a 68 year old male who has recently been diagnosed with squamous cell carcinoma (laryngeal mass). Pt. was admitted to [facility] ICU on 09/02/18 and has undergone a PEG tube placement and a tracheostomy. Pt. admitted to [facility] ECF for continued rehab and to undergo 7 weeks of radiation through the [facility]. Pt. states that he will d/c to home alone 'for a bit," before moving to daughter's home in [place] to reside. Pt. will reside on one level at daughter's home. Problem List/Current Limitations: Decreased activity tolerance Decreased strength Decreased ROM Decreased balance Generalized weakness Short Term Goals: 1. Pt. to perform LB dressing activities with Min A. 2. Pt. to perform toileting activities with Mod I. 3. Pt. to perform showering activities with Min A. 4. Pt. to improve Jayme Index of ADL score by 2 points. 5. Pt. to grooming activities with I. Granite Countertop Installer Goals: Return home. Patient Goals: "return home alone for a bit" and then to daughters home in [place]. Rehabilitation Prognosis: Fair Barriers to Discharge: medical issues PLAN: The patient will benefit from skilled occupational therapy services 5 times per week for 2 weeks including: Thank you for this referral. If you have any questions, concerns, or comments about this report or plan, please contact me at . Geno Corbett, OTR/L Occupational Therapist [facility]
[2018-09-20] MEDS: TERAZOSIN HCL 1 MG CAP FT SCH (20:42)
[2018-09-20] MEDS: DOCUSATE SOD LIQ 100 MG/10 ML UDC FT SCH (20:42)
[2018-09-21 07:30] VITALS: BP 107/57
[2018-09-21 08:20] VITALS: Ht 162.6 cm; Wt 41.7 kg
--- NOTE | 2018-09-21 08:46 | Medical Nutrition Therapy ---
Nutrition Anthropometrics Height (Inches): 64 (from med unit) Weight (Pounds): 84 Weight (Calculated Kilograms): 38.329 BMI: 14.4 Ezio Nutrition Score: Probably Inadequate Ezio Nutrition Risk Score: 15 Dietary Referral Nutrition Risk Factors: Significantly Underwt., Tube Feeding Nutrition Risk Comment: Lives alone. Physical Findings Physical Appearance: Underweight BMI<19 Skin Appearance Skin Appearance: Edema Edema Location Modifier: Edema Location: Type of Edema: Degree of Edema: Gastrointestinal Symptoms GI Symtoms: Weight Changes Tube Present: PEG Bowel Sounds: Recent Bowel Pattern: Stool Characteristics: Nutritional Diagnosis Nutritional Risk Acuity 1: %IBW < 74% Nutritional Risk Acuity 2: Pr Appetite > 3d, Tube Feed Stable Nutritional Risk Acuity 3: Cancer, COPD Unstable Past Medical History: BPH (benign prostatic hyperplasia), Scoliosis, Hyperlipidemia, GERD, Poliomyelitis Nutritional Acuity: 1-High Nutrition Diagnosis: Inadequate Food Intake, Increased Nutrient Needs Nutrition Etiology: Physiological Causes Nutrition Problem/Etiology/Sym: Inadequate oral intake related to physiological causes as evidenced by BMI 14.4. 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 Energy Requirement: 1700 (M- St J 1-1.5 SF = 4193-1121) Protein Requirement: 68 (1.5- 3gm/kg = 59-76gm) Fluid Requirement: 1140 (30ml/kg) Diet Type: NPO (Nothing by Mouth), Tube Feeding (TF) Nutrition Intervention: Cont diet as ordered, Nutrition support Nutritional Support Current Enteral / Parental: Tube Feeding Tube Feeding Formulas: Jevity 1cal/ml-Standard Current Tube Feeding Formula C: 60 ml/hr Tube Feeding Supplement Streng: Full Feeding Route: PEG Current Duration: 24 Current Calories: 1526 Current Protein: 64 Recommended Tube Feeding Formu: Jevity 1cal/ml-Standard Tube Feeding Supplement Streng: Full Recommended Feeding Route: PEG Recommended Rate: Jevity 70 ml/hr Recommended Duration: 24 Recommended Calories: 1780 Recommended Protein: 74 Nutrition Monitoring & Eval Nutritional Goals Comment: TF will meet nutr needs. RD Patient Assessment Time: [address] Assessment Type: RD Assessment Patient Nutrition Acuity: 1-High Follow Up Date: Sep 25, 2018 Nutritional Comment: 09/21 Pt admitted with dx laryngeal CA. Pt currently NPO with TF. BMI sinificantly underwt with dx of malnutrition per Dr Varma ( 09/08). Pt was placed on TF and monitored for s/s refeeding syndrome. Pt was started slowly on TF and did not show s/s of refeeding. Pt has lost significant wt since admission to med floor. Admitted at 96#, current wt 84#. (12.5%) Recommend increase TF to avoid further wt loss and ensure nutr needs are being met. Will cont to monitor. depending on where pt discharges, pt may be able to handle bolis feeding for home use better that pump infusion. CHLOE MONTES Sep 21, 2018 08:20
[2018-09-21] MEDS: FLUTICASONE PROP 0.05% 16 GM SCH ×2 (09:00→09:03)
[2018-09-21] MEDS: DOCUSATE SOD LIQ 100 MG/10 ML UDC FT SCH ×2 (09:02→20:55)
[2018-09-21] MEDS: predniSONE 10 MG TAB FT SCH (09:03)
[2018-09-21] MEDS: ENOXAPARIN 30 MG/0.3 ML SYR SC SCH (09:03)
--- NOTE | 2018-09-21 12:50 | Medical Nutrition Therapy ---
Nutrition Anthropometrics Height (Inches): 64 (from med unit) Height (Calculated Centimeters: 162.815554 Weight (Pounds): 84 Weight (Calculated Kilograms): 38.329 BMI: 14.4 Ezio Nutrition Score: Probably Inadequate Ezio Nutrition Risk Score: 15 Dietary Referral Nutrition Risk Factors: Significantly Underwt., Tube Feeding Nutrition Risk Comment: Lives alone. Physical Findings Physical Appearance: Underweight BMI<19 Skin Appearance Skin Appearance: Edema Edema Location Modifier: Edema Location: Type of Edema: Degree of Edema: Gastrointestinal Symptoms GI Symtoms: Weight Changes Tube Present: PEG Bowel Sounds: Recent Bowel Pattern: Stool Characteristics: Nutritional Diagnosis Nutritional Risk Acuity 1: %IBW < 74% Nutritional Risk Acuity 2: Pr Appetite > 3d, Tube Feed Stable Nutritional Risk Acuity 3: Cancer, COPD Unstable Past Medical History: BPH (benign prostatic hyperplasia), Scoliosis, Hyperlipidemia, GERD, Poliomyelitis Nutritional Acuity: 1-High Nutrition Diagnosis: Inadequate Food Intake, Increased Nutrient Needs Nutrition Etiology: Physiological Causes Nutrition Problem/Etiology/Sym: Inadequate oral intake related to physiological causes as evidenced by BMI 14.4. 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 Energy Requirement: 1700 (M- St J 1-1.5 SF = 8868-6145) Protein Requirement: 68 (1.5- 3gm/kg = 59-76gm) Fluid Requirement: 1140 (30ml/kg) Diet Type: NPO (Nothing by Mouth), Tube Feeding (TF) Nutrition Intervention: Cont diet as ordered, Nutrition support Nutritional Support Current Enteral / Parental: Tube Feeding Tube Feeding Formulas: Jevity 1cal/ml-Standard Current Tube Feeding Formula C: Jevity 70 ml/hr Tube Feeding Supplement Streng: Full Feeding Route: PEG Current Duration: 24 Current Calories: 1780 Current Protein: 74 Recommended Rate: Jevity 70 ml/hr Nutrition Monitoring & Eval RD Patient Assessment Time: [address] Assessment Type: Nutrition Support Consult Patient Nutrition Acuity: 1-High Follow Up Date: Sep 25, 2018 Nutritional Comment: 09/21 Pt admitted with dx laryngeal CA. Pt currently NPO with TF. BMI sinificantly underwt with dx of malnutrition per Dr Varma ( 09/08). Pt was placed on TF and monitored for s/s refeeding syndrome. Pt was started slowly on TF and did not show s/s of refeeding. Pt has lost significant wt since admission to med floor. Admitted at 96#, current wt 84#. (12.5%) Recommend increase TF to avoid further wt loss and ensure nutr needs are being met. Will cont to monitor. Depending on where pt discharges, pt may be able to handle bolis feeding for home use better that pump infusion. BK 09/21 TF increased to 70ml/hr. This will meet 100% of kcal and protein needs in the mid-range of his est nutritional needs. Will cont to monitor. CHLOE MONTES Sep 21, 2018 12:50
--- NOTE | 2018-09-21 14:24 | NUR ---
Physical Therapy Impression Pt with improving tolerance to activity and less fear with mobility. This PT able to find an elbow sleeve which way work to brace R knee to provide improved stability during ambulation. Will order and try. Physical Therapy Goals 1: Pt to complete bed mobility with Fabricio and no use of bed rail 2: Pt to complete transfers with Fabricio and least restrictive AD from a variety of surfaces. 3: Pt to ambulate 100' with Fabricio and least restrictive AD 4: Pt to asc/desc 4 steps with railing and CGA 5: Pt to asc/desc 1 platform step with CGA. Patient's Goals
[2018-09-21 16:10] VITALS: BP 102/61
[2018-09-21] MEDS: TERAZOSIN HCL 1 MG CAP FT SCH (20:55)
[2018-09-22 07:32] VITALS: BP 107/64
[2018-09-22] MEDS: FLUTICASONE PROP 0.05% 16 GM SCH (08:58)
[2018-09-22] MEDS: predniSONE 10 MG TAB FT SCH (08:59)
[2018-09-22] MEDS: ENOXAPARIN 30 MG/0.3 ML SYR SC SCH (08:59)
[2018-09-22] MEDS: DOCUSATE SOD LIQ 100 MG/10 ML UDC FT SCH ×2 (08:59→20:44)
[2018-09-22 16:05] VITALS: BP 113/69
[2018-09-22] MEDS: TERAZOSIN HCL 1 MG CAP FT SCH (20:44)
[2018-09-23 07:39] VITALS: BP 105/66
[2018-09-23] MEDS: FLUTICASONE PROP 0.05% 16 GM SCH (08:34)
[2018-09-23] MEDS: DOCUSATE SOD LIQ 100 MG/10 ML UDC FT SCH ×2 (08:34→21:32)
[2018-09-23] MEDS: predniSONE 10 MG TAB FT SCH (08:34)
[2018-09-23] MEDS: ENOXAPARIN 30 MG/0.3 ML SYR SC SCH (08:35)
[2018-09-23 15:42] VITALS: BP 103/63
[2018-09-23] MEDS: ACETAMINOPHEN 160 MG/5 ML UDC FT PRN (21:35)
[2018-09-23] MEDS: TERAZOSIN HCL 1 MG CAP FT SCH (21:35)
[2018-09-23] MEDS: NYSTATIN 100,000 U/GM PWD 15GM TP SCH (21:35)
[2018-09-24 07:25] VITALS: BP 118/63
[2018-09-24] MEDS: FLUTICASONE PROP 0.05% 16 GM SCH (08:42)
[2018-09-24] MEDS: DOCUSATE SOD LIQ 100 MG/10 ML UDC FT SCH ×2 (08:50→21:12)
[2018-09-24] MEDS: predniSONE 10 MG TAB FT SCH (08:50)
[2018-09-24] MEDS: ENOXAPARIN 30 MG/0.3 ML SYR SC SCH (08:51)
[2018-09-24] MEDS: NYSTATIN 100,000 U/GM PWD 15GM TP SCH ×2 (08:51→21:12)
--- NOTE | 2018-09-24 14:53 | NUR ---
Occupational Therapy Impression Min A bed mobility. Min Ax2 sit<>stand with RW. CGA ambulation 2x20ft with RW. Pt with significant improvement for ambulation tolerance this date. Continue POC. Occupational Therapy Goals 1. Pt. to perform LB dressing activities with Min A. 2. Pt. to perform toileting activities with Mod I. 3. Pt. to perform showering activities with Min A. 4. Pt. to improve Jayme Index of ADL score by 2 points. 5. Pt. to grooming activities with I. Patient's Goal
--- NOTE | 2018-09-24 15:28 | NUR ---
Physical Therapy Impression Pt required Min A for bed mobility, Min-Mod A to stand from bed and wheelchair. Pt ambulated total of 40' with 1 seated rest break. Noted bilateral knee hyperextension. Pt requesting knee brace for R knee which has been ordered. Pt may also benefit from bilateral custom AFOs. Will evaluate for this. Pt with improved tolerance to activity today. Physical Therapy Goals 1: Pt to complete bed mobility with Fabricio and no use of bed rail 2: Pt to complete transfers with Fabricio and least restrictive AD from a variety of surfaces. 3: Pt to ambulate 100' with Fabricio and least restrictive AD 4: Pt to asc/desc 4 steps with railing and CGA 5: Pt to asc/desc 1 platform step with CGA. Patient's Goals
[2018-09-24 19:10] VITALS: BP 109/73
[2018-09-24] MEDS: TERAZOSIN HCL 1 MG CAP FT SCH (21:12)
[2018-09-25] MEDS: ACETAMINOPHEN 160 MG/5 ML UDC FT PRN ×2 (00:28→17:50)
[2018-09-25 08:00] VITALS: BP 104/71
[2018-09-25] MEDS: ENOXAPARIN 30 MG/0.3 ML SYR SC SCH (08:52)
[2018-09-25] MEDS: predniSONE 10 MG TAB FT SCH (08:52)
[2018-09-25] MEDS: DOCUSATE SOD LIQ 100 MG/10 ML UDC FT SCH ×2 (08:52→21:23)
[2018-09-25] MEDS: NYSTATIN 100,000 U/GM PWD 15GM TP SCH ×2 (08:53→21:23)
[2018-09-25] MEDS: FLUTICASONE PROP 0.05% 16 GM SCH (09:00)
--- NOTE | 2018-09-25 09:30 | Medical Nutrition Therapy ---
Nutrition Anthropometrics Height (Inches): 64.00 Height (Calculated Centimeters: 162.434606 Weight (Pounds): 85 Weight (Calculated Kilograms): 38.754 BMI: 14.4 Ezio Nutrition Score: Probably Inadequate Ezio Nutrition Risk Score: 15 Dietary Referral Nutrition Risk Factors: Significantly Underwt., Tube Feeding Nutrition Risk Comment: Lives alone. Physical Findings Physical Appearance: Underweight BMI<19 Skin Appearance Skin Appearance: Edema Edema Location Modifier: Edema Location: Type of Edema: Degree of Edema: Gastrointestinal Symptoms GI Symtoms: Weight Changes Tube Present: PEG Bowel Sounds: Recent Bowel Pattern: Stool Characteristics: Nutritional Diagnosis Nutritional Risk Acuity 1: %IBW < 74% Nutritional Risk Acuity 2: Pr Appetite > 3d, Tube Feed Stable Nutritional Risk Acuity 3: Cancer, COPD Unstable Past Medical History: BPH (benign prostatic hyperplasia), Scoliosis, Hyperlipidemia, GERD, Poliomyelitis Nutritional Acuity: 1-High Nutrition Diagnosis: Inadequate Food Intake, Increased Nutrient Needs Nutrition Etiology: Physiological Causes Nutrition Problem/Etiology/Sym: Inadequate oral intake related to physiological causes as evidenced by BMI 14.4. 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 Energy Requirement: 1700 (M- St J 1-1.5 SF = 2629-2616) Protein Requirement: 68 (1.5- 3gm/kg = 59-76gm) Fluid Requirement: 1140 (30ml/kg) Diet Type: NPO (Nothing by Mouth), Tube Feeding (TF) Nutrition Intervention: Cont diet as ordered, Nutrition support Nutritional Support Current Enteral / Parental: Tube Feeding Tube Feeding Formulas: Jevity 1cal/ml-Standard Current Tube Feeding Formula C: Jevity 70 ml/hr Tube Feeding Supplement Streng: Full Feeding Route: PEG Current Duration: 24 Current Calories: 1780 Current Protein: 74 Recommended Enteral / Parental: Tube Feeding Recommended Tube Feeding Formu: Jevity 1cal/ml-Standard Recommended Tube Feeding Formu: zjevity at80ml/hr Recommended Rate: Jevity 70 ml/hr Recommended Duration: 24 Recommended Calories: 2035 Recommended Protein: 85 Nutrition Monitoring & Eval RD Patient Assessment Time: [address] Assessment Type: RD Re-Assessment Patient Nutrition Acuity: 1-High Follow Up Date: Oct 02, 2018 Nutritional Comment: 09/21 Pt admitted with dx laryngeal CA. Pt currently NPO with TF. BMI sinificantly underwt with dx of malnutrition per Dr Varma ( 09/08). Pt was placed on TF and monitored for s/s refeeding syndrome. Pt was started slowly on TF and did not show s/s of refeeding. Pt has lost significant wt since admission to med floor. Admitted at 96#, current wt 84#. (12.5%) Recommend increase TF to avoid further wt loss and ensure nutr needs are being met. Will cont to monitor. Depending on where pt discharges, pt may be able to handle bolis feeding for home use better that pump infusion. BK 09/21 TF increased to 70ml/hr. This will meet 100% of kcal and protein needs in the mid-range of his est nutritional needs. Will cont to monitor. BK 09/25 Pt cont TF@ 70 ml/hr. Wt is stable but cont significanlty underwt. Pt tolerating TF with 0-10ml residuals. Recommend increase to 80l/hr to meet upper range of est kcal needs and protein at 2.1gm/kg. Will cont to monitor. CHLOE MONTES Sep 25, 2018 09:30
--- NOTE | 2018-09-25 11:15 | NUR ---
Physical Therapy Impression PT/OT co treat for pt safety. Pt demonstrating improved tolerance to functional activities. Pt tolerated ambulation 2x60' with use of RW and close w/c follow. Nikhil provided when pt demonstrated mild LOB d/t R) knee instability. SPO2 94% on 2L and pulse rate 124 bpm with activity. Pulse returned to 90-100 bpm after short rest break. Physical Therapy Goals 1: Pt to complete bed mobility with Fabricio and no use of bed rail 2: Pt to complete transfers with Fabricio and least restrictive AD from a variety of surfaces. 3: Pt to ambulate 100' with Fabricio and least restrictive AD 4: Pt to asc/desc 4 steps with railing and CGA 5: Pt to asc/desc 1 platform step with CGA. Patient's Goals
--- NOTE | 2018-09-25 11:47 | NUR ---
Occupational Therapy Impression SBA bed mobility. CGA/Min Ax1 sit<>stand with RW. CGA ambulation 2x60ft with RW. Occasional Min A during ambulation to maintain balance. VSS WNL. Occupational Therapy Goals 1. Pt. to perform LB dressing activities with Min A. 2. Pt. to perform toileting activities with Mod I. 3. Pt. to perform showering activities with Min A. 4. Pt. to improve Jayme Index of ADL score by 2 points. 5. Pt. to grooming activities with I. Patient's Goal
[2018-09-25 15:20] VITALS: BP 104/52
[2018-09-25] MEDS: TERAZOSIN HCL 1 MG CAP FT SCH (21:23)
[2018-09-26 07:40] VITALS: BP 122/64
[2018-09-26] MEDS: FLUTICASONE PROP 0.05% 16 GM SCH (09:00)
[2018-09-26] MEDS: predniSONE 10 MG TAB FT SCH (09:19)
[2018-09-26] MEDS: ENOXAPARIN 30 MG/0.3 ML SYR SC SCH (09:19)
[2018-09-26] MEDS: DOCUSATE SOD LIQ 100 MG/10 ML UDC FT SCH ×2 (09:19→20:32)
[2018-09-26] MEDS: NYSTATIN 100,000 U/GM PWD 15GM TP SCH ×2 (09:19→20:32)
--- NOTE | 2018-09-26 10:11 | NUR ---
Physical Therapy Impression Pt continues to improve with tolerance to activity. Initially Pt required Mod A to stand, however, this improved to CGA with verbal cueing for technique. Pt tolerated ambulating 110' x2 with RW, CGA, and 1 seated rest break. HR 130s and SO2 >90% on 2 L. Discussed with Pt that AFO evaluation will be closer to or just after discharge from ECF. Pt agreeable. Pt able to show this PT a online picture of previous AFO which was an in-shoe with metal uprights extending to just distal to knee. Physical Therapy Goals 1: Pt to complete bed mobility with Fabricio and no use of bed rail 2: Pt to complete transfers with Fabricio and least restrictive AD from a variety of surfaces. 3: Pt to ambulate 100' with Fabricio and least restrictive AD 4: Pt to asc/desc 4 steps with railing and CGA 5: Pt to asc/desc 1 platform step with CGA. Patient's Goals
--- NOTE | 2018-09-26 13:37 | NUR ---
Occupational Therapy Impression SBA supine to sit. CGA ambulation x70ft with RW. Mod A to manage LB clothing over catheter. CGA to pull clothing over hips in standing. Continue POC. Occupational Therapy Goals 1. Pt. to perform LB dressing activities with Min A. 2. Pt. to perform toileting activities with Mod I. 3. Pt. to perform showering activities with Min A. 4. Pt. to improve Jayme Index of ADL score by 2 points. 5. Pt. to grooming activities with I. Patient's Goal
--- NOTE | 2018-09-26 15:51 | General Surgery Progress Note ---
Subjective Progress Notes Subjective 68 yo m s/p trach placement. speech therapy would like this changed to a fenestrated trach. Physical Exam Vital Signs Date Time Temp Pulse Resp B/P (MAP) Pulse Ox O2 Delivery O2 Flow Rate FiO2 09/26/18 07:45 96 Heated Aerosol 10.0 21.0 09/26/18 07:40 99.1 98 12 122/64 (83) Intake and Output 09/26/18 07:00 Intake Total 3038 ml Output Total 2200 ml Balance 838 ml Tube Feeding 1513 ml Tube Irrigant 1525 ml Output Urine Total 2200 ml # Bowel Movements 1 General Appearance: No Acute Distress Neck: Other (trach in place) Assessment and Plan Problems: (1) Laryngeal mass Assessment & Plan: pt tolerating the trach well and communicating fine. will wait at least 2 wks for tract to mature prior to considering replacement. will further discuss goals of replacement trach prior to replacement. 09/26: spoke with speech therapy. they would like a fenestrated trach. i will exchange trach likely tomorrow. KARI REDD Sep 26, 2018 15:51
--- NOTE | 2018-09-26 15:58 | Hospitalist Progress Note ---
Subjective Progress Notes Subjective No new complaints. Physical Exam Vital Signs Date Time Temp Pulse Resp B/P (MAP) Pulse Ox O2 Delivery O2 Flow Rate FiO2 09/26/18 07:45 96 Heated Aerosol 10.0 21.0 09/26/18 07:40 99.1 98 12 122/64 (83) Intake and Output 09/26/18 06:59 Intake Total 3038 ml Output Total 2200 ml Balance 838 ml Tube Feeding 1513 ml Tube Irrigant 1525 ml Output Urine Total 2200 ml # Bowel Movements 1 General Appearance: Alert, Awake, No Acute Distress, Afebrile Neuro: No Gross deficits Neck: Other (Trach site clean and dry.) Cardiovascular: Regular Rate and Rhythm Respiratory: Clear to Auscultation GI: Soft and Non-Tender, Other (PEG site clean and dry.) Extremities: Warm, Perfused Psych: Alert & Oriented X3, Appropriate Mood & Affect Assessment and Plan Problems: (1) Laryngeal mass Status: Acute Assessment & Plan: This was contributing to his respiratory distress. CT scan has shown the mass to be centered in the right vocal cord. 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 He decided to have a tracheostomy/PEG which was done on 09/08/18. Dr. Curran (oncology) and Dr. Johnson (Radiation Oncology) have met with the patient/family. The patient started treatment September 24. He was transferred to [facility] for ongoing treatments and PT/OT. (2) Acute on chronic respiratory failure with hypoxemia Status: Acute Assessment & Plan: He did develop increased respiratory distress shortly after admission. He was transferred to the ICU and placed on BiPAP. He has now had tracheostomy placed prior to radiation. He is doing rather well with the tracheostomy other than one incident of mucous plugging. Cardiopulmonary has been working with him. General Surgery will follow as well. (3) Urinary retention Status: Acute Assessment & Plan: He did develop urinary retention and gross hematuria. Nursing tried to pass a Espinosa cath without success. Dr. Kirkpatrick was consulted and ended up having to take him back to the OR for cystoscopy guided catheter placement on 09/07. He did recommend that we continue levofloxacin for a 3 day period through 09/10, which was done. Dr. Kirkpatrick recommends that when patient is ambulatory, remove the catheter on a weekday in the morning, in case he would require OR time to replace the Espinosa cath. He is currently on Flomax. (4) COPD exacerbation Status: Acute Assessment & Plan: He is on treatment with nebulizers and steroids. He is now off antibiotics and currently weaning down on the prednisone. Currently on 5mg daily. (5) Dysphagia Status: Chronic Assessment & Plan: Speech therapy has evaluated him and recommended a MBS, which was ordered, but Mr. Villagomez did not wish to pursue. Now post PEG placement. (6) Tachycardia Status: Acute Assessment & Plan: Improved. Heart rate has been in the 90s on ECF. (7) Poliomyelitis Status: Chronic Assessment & Plan: Chronic bilateral weakness. Time Spent on Plan of Care: < 30 min IVORY STEELE MD Sep 26, 2018 15:58
[2018-09-26 17:30] VITALS: BP 103/68
[2018-09-26] MEDS: ACETAMINOPHEN 160 MG/5 ML UDC FT PRN (19:04)
[2018-09-26] MEDS: TERAZOSIN HCL 1 MG CAP FT SCH (20:32)
[2018-09-27 06:14] LABS: PLATELET COUNT, AUTOMATED 193 K/uL (150-450)
[2018-09-27 07:50] VITALS: BP 126/64
[2018-09-27] MEDS: FLUTICASONE PROP 0.05% 16 GM SCH (09:00)
--- NOTE | 2018-09-27 09:58 | NUR ---
Occupational Therapy Impression Min A supine to sit. CGA ambulation 4x25ft with RW. Incorporating turns and O2 tubing management. Mod A to thread LB clothing. CGA pulling clothing over hips. Mod A toileting. Improved tolerance and (I) for ambulation this date. Pt declining further needs at this time. Continue POC. Occupational Therapy Goals 1. Pt. to perform LB dressing activities with Min A. 2. Pt. to perform toileting activities with Mod I. 3. Pt. to perform showering activities with Min A. 4. Pt. to improve Jayme Index of ADL score by 2 points. 5. Pt. to grooming activities with I. Patient's Goal
[2018-09-27] MEDS: predniSONE 5 MG TAB PO SCH (10:00)
[2018-09-27] MEDS: ENOXAPARIN 30 MG/0.3 ML SYR SC SCH (10:00)
[2018-09-27] MEDS: NYSTATIN 100,000 U/GM PWD 15GM TP SCH ×2 (10:01→21:00)
[2018-09-27] MEDS: DOCUSATE SOD LIQ 100 MG/10 ML UDC FT SCH ×2 (10:01→21:00)
[2018-09-27] MEDS: ACETAMINOPHEN 160 MG/5 ML UDC FT PRN ×2 (10:08→19:23)
--- NOTE | 2018-09-27 10:36 | General Surgery Progress Note ---
Subjective Progress Notes Subjective no acute events. speech therapy feels pt would be more comfortable with a fenestrated trach. Physical Exam Vital Signs Date Time Temp Pulse Resp B/P (MAP) Pulse Ox O2 Delivery O2 Flow Rate FiO2 09/27/18 07:50 98.9 110 12 126/64 (84) 92 Heated Aerosol 10.0 21.0 Intake and Output 09/27/18 07:00 Intake Total 3454 ml Output Total 2175 ml Balance 1279 ml Tube Feeding 1991 ml Tube Irrigant 1463 ml Output Urine Total 2175 ml # Bowel Movements 1 General Appearance: No Acute Distress Neck: Other (trach in place) Result Diagram: 09/27/1860609/27/18606 Assessment and Plan Problems: (1) Laryngeal mass Status: Acute Assessment & Plan: pt tolerating the trach well and communicating fine. will wait at least 2 wks for tract to mature prior to considering replacement. will further discuss goals of replacement trach prior to replacement. 09/26: spoke with speech therapy. they would like a fenestrated trach. i will exchange trach likely tomorrow. 09/27: i exchanged trach for a fenestrated #8. no complications. KARI REDD Sep 27, 2018 10:36
--- NOTE | 2018-09-27 13:39 | NUR ---
Physical Therapy Impression Pt initially required modA to rise to stand from W/C with RW. PT provided step by step instruction with emphasis on pushing up from chair and patient was able to stand with CGA. Emphasis on obstacle negotiation and turns with ambulation today with trial of brace on R) knee, x100'. Pt with fair tolerance overall, but pt did have major LOB/buckling at end of ambulation bout, requiring mod-maxA to prevent fall. Pt reports overall fatigue as reason for imbalance today. He reports that he would prefer all therapy sessions prior to radiation if possible. Physical Therapy Goals 1: Pt to complete bed mobility with Fabricio and no use of bed rail 2: Pt to complete transfers with Fabricio and least restrictive AD from a variety of surfaces. 3: Pt to ambulate 100' with Fabricio and least restrictive AD 4: Pt to asc/desc 4 steps with railing and CGA 5: Pt to asc/desc 1 platform step with CGA. Patient's Goals
[2018-09-27 16:40] VITALS: BP 114/58
[2018-09-27] MEDS: CARBAMIDE PEROX 6.5% OT SOLN EACH EAR SCH (21:00)
[2018-09-27] MEDS: TERAZOSIN HCL 1 MG CAP FT SCH (21:00)
[2018-09-28 07:50] VITALS: BP 119/61
[2018-09-28] MEDS: ACETAMINOPHEN 160 MG/5 ML UDC FT PRN ×2 (08:05→16:22)
[2018-09-28] MEDS: NYSTATIN 100,000 U/GM PWD 15GM TP SCH ×2 (08:43→20:37)
[2018-09-28] MEDS: ENOXAPARIN 30 MG/0.3 ML SYR SC SCH (08:44)
[2018-09-28] MEDS: CARBAMIDE PEROX 6.5% OT SOLN EACH EAR SCH ×2 (08:44→20:37)
[2018-09-28] MEDS: DOCUSATE SOD LIQ 100 MG/10 ML UDC FT SCH ×2 (08:44→20:37)
[2018-09-28] MEDS: predniSONE 5 MG TAB PO SCH (08:44)
[2018-09-28] MEDS: FLUTICASONE PROP 0.05% 16 GM SCH (09:00)
--- NOTE | 2018-09-28 10:32 | NUR ---
Occupational Therapy Impression Pt agreeable to OT tx. Reporting "yesterday was too much for some reason." UB ther ex. CGA<>Min A sit<>stands x5. Improved sequencing with sit<>stands. Continue POC. Occupational Therapy Goals 1. Pt. to perform LB dressing activities with Min A. 2. Pt. to perform toileting activities with Mod I. 3. Pt. to perform showering activities with Min A. 4. Pt. to improve Jayme Index of ADL score by 2 points. 5. Pt. to grooming activities with I. Patient's Goal
--- NOTE | 2018-09-28 10:54 | Medical Nutrition Therapy ---
Nutrition Anthropometrics Height (Inches): 64.00 Height (Calculated Centimeters: 162.566534 Weight (Pounds): 86 Weight (Calculated Kilograms): 39.009 BMI: 14.4 Ezio Nutrition Score: Probably Inadequate Ezio Nutrition Risk Score: 15 Dietary Referral Nutrition Risk Factors: Significantly Underwt., Tube Feeding Nutrition Risk Comment: Lives alone. Physical Findings Physical Appearance: Underweight BMI<19 Skin Appearance Skin Appearance: Edema Edema Location Modifier: Both Edema Location: Foot Type of Edema: Degree of Edema: Gastrointestinal Symptoms GI Symtoms: Weight Changes Tube Present: PEG Bowel Sounds: Recent Bowel Pattern: Stool Characteristics: Nutritional Diagnosis Nutritional Risk Acuity 1: %IBW < 74% Nutritional Risk Acuity 2: Pr Appetite > 3d, Tube Feed Stable Nutritional Risk Acuity 3: Cancer, COPD Unstable Past Medical History: BPH (benign prostatic hyperplasia), Scoliosis, Hyperlipidemia, GERD, Poliomyelitis Nutritional Acuity: 1-High Nutrition Diagnosis: Inadequate Food Intake, Increased Nutrient Needs Nutrition Etiology: Physiological Causes Nutrition Problem/Etiology/Sym: Inadequate oral intake related to physiological causes as evidenced by BMI 14.4. 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 Energy Requirement: 1700 (M- St J 1-1.5 SF = 0198-1018) Protein Requirement: 68 (1.5- 3gm/kg = 59-76gm) Fluid Requirement: 1140 (30ml/kg) Diet Type: NPO (Nothing by Mouth), Tube Feeding (TF) Nutrition Intervention: Cont diet as ordered, Nutrition support Nutritional Support Current Enteral / Parental: Tube Feeding Tube Feeding Formulas: Jevity 1cal/ml-Standard Current Tube Feeding Formula C: Jevity 80 ml/hr Tube Feeding Supplement Streng: Full Feeding Route: PEG Current Duration: 24 Current Calories: 2034 Current Protein: 85 Recommended Enteral / Parental: Tube Feeding Recommended Tube Feeding Formu: Jevity 1cal/ml-Standard Recommended Tube Feeding Formu: zjevity at80ml/hr Recommended Rate: Jevity 70 ml/hr Recommended Duration: 24 Recommended Calories: 2034 Recommended Protein: 85 Nutrition Monitoring & Eval Nutritional Goals Comment: TF will meet nutrtional needs. RD Patient Assessment Time: [address] Assessment Type: RD Re-Assessment Patient Nutrition Acuity: 1-High Follow Up Date: Oct 02, 2018 Nutritional Comment: / Pt admitted with dx laryngeal CA. Pt currently NPO with TF. BMI sinificantly underwt with dx of malnutrition per Dr Varma ( 09/08). Pt was placed on TF and monitored for s/s refeeding syndrome. Pt was started slowly on TF and did not show s/s of refeeding. Pt has lost significant wt since admission to med floor. Admitted at 96#, current wt 84#. (12.5%) Recommend increase TF to avoid further wt loss and ensure nutr needs are being met. Will cont to monitor. Depending on where pt discharges, pt may be able to handle bolis feeding for home use better that pump infusion. BK 09/21 TF increased to 70ml/hr. This will meet 100% of kcal and protein needs in the mid-range of his est nutritional needs. Will cont to monitor. BK 09/25 Pt cont TF@ 70 ml/hr. Wt is stable but cont significanlty underwt. Pt tolerating TF with 0-10ml residuals. Recommend increase to 80l/hr to meet upper range of est kcal needs and protein at 2.1gm/kg. Will cont to monitor. BK 09/28 TF increased to 80l/hr which meets upper range of est kcal needs and protein at 2.1gm/kg. Pt tolerating TF well with 0-10ml residuals. Wt is stable at 86#. Pt cont very underwt. Goal is to ensure pt tolerating TF and recieving adequate TF to stablize wt with slow wt gain. Will cont to monitor. CHLOE MONTES Sep 28, 2018 10:54
--- NOTE | 2018-09-28 13:48 | SPEECH INITIAL EVALUATION ---
SPEECH THERAPY VOICE (PMV) EVALUATION Patient: Leon Villagomez : 1950 Date of Eval: 09-28-18 The patient's trach tube was replaced with an 8mm Shiley fenestrated tube on 09/27/18. This trach tube is not cuffed. He reports no pain with voice or swallow but did reports that the tube replacement "wore me out." Prior to receiving a fenestrated tube, the patient declined to trial the PMV as he had difficulty tolerating the increased respiratory effort required with valve in place. Nursing assisted with suctioning. Pt performed diaphragmatic breathing and relaxed breathing techniques with ST. A Daniele [place] (purple) 2001 speaking valve was placed on the trach hub without difficulty. The patient 's oxygen was monitored during relaxed breathing for approximately 1 minute. SP02 remained stable at 95-98%. Per ST instruction pt instructed to phonate 'ahh' on exhale which was difficulty for the patient to coordinate with breathing Patient asked direct questions and encouraged to answer verbally instead of in writing. Pt voice noticeably louder and more intelligible than without PMV. Very little to no actual phonation produced. Voice hoarse and largely aphonic which is consistent with vocal quality prior to trach placement Pt tolerated PMV for approximately 12min before requesting it be removed and reporting that "breathing is harder." SPO2 remained high between 95-98. Pt appeared fatigued following PMV trial. Secretions management throughout trial was good. Pt currently receiving all nutrition NPO. He reports he is hungry and would like to eat. An MBS is recommended prior to return to PO meals. Pt agrees to MBS and this will be tentatively scheduled for Monday10-01-18 . A physicians verbal order was received by ST from Dr. Corbett. SUMMARY The patient is expected to increase tolerance of PMV for speech and to improve functional swallow. ST will continue to work with patient for increasing use tolerance and indep use of PMV. Pt instructed to attempt 10-15minutes of PMV placement Sat/Sun. Education provided to patient regarding care and placement. An MBS is recommended. Prognosis: Excellent. Pt demonstrated increased tolerance of PMV with tube replacement. RECOMMENDATIONS 1. Modified Barium Swallow 2. ST 4xwk POC STG Pt will demonstrate indep. with application and removal of PMV given education Pt will demonstrate tolerance of PMV placement for at least 1 hour LTG Pt will demonstrate improved functional communication and safe swallow using PMV 1999 or 2000 Please contact extension [phone] to contact the [employer] Thank you for referring this patient Shameka Oliver MS, CCC-[employer] Speech Therapy [facility]
[2018-09-28 15:35] VITALS: BP 96/60
--- NOTE | 2018-09-28 16:47 | NUR ---
Physical Therapy Impression Pt participated in functional strengthening and endurance exercises in order to increase tolerance to activities of daily living. Physical Therapy Goals 1: Pt to complete bed mobility with Fabricio and no use of bed rail 2: Pt to complete transfers with Fabricio and least restrictive AD from a variety of surfaces. 3: Pt to ambulate 100' with Fabricio and least restrictive AD 4: Pt to asc/desc 4 steps with railing and CGA 5: Pt to asc/desc 1 platform step with CGA. Patient's Goals
[2018-09-28] MEDS: TERAZOSIN HCL 1 MG CAP FT SCH (20:37)
[2018-09-29] MEDS: ACETAMINOPHEN 160 MG/5 ML UDC FT PRN ×4 (01:18→21:05)
[2018-09-29 07:39] VITALS: BP 118/59
[2018-09-29] MEDS: FLUTICASONE PROP 0.05% 16 GM SCH (09:00)
[2018-09-29] MEDS: predniSONE 5 MG TAB PO SCH (09:15)
[2018-09-29] MEDS: CARBAMIDE PEROX 6.5% OT SOLN EACH EAR SCH ×2 (09:15→21:02)
[2018-09-29] MEDS: NYSTATIN 100,000 U/GM PWD 15GM TP SCH ×2 (09:16→21:02)
[2018-09-29] MEDS: DOCUSATE SOD LIQ 100 MG/10 ML UDC FT SCH ×2 (09:16→21:02)
[2018-09-29] MEDS: ENOXAPARIN 30 MG/0.3 ML SYR SC SCH (09:16)
[2018-09-29 15:30] VITALS: BP 103/65
[2018-09-29] MEDS: TERAZOSIN HCL 1 MG CAP FT SCH (21:02)
[2018-09-30] MEDS: ACETAMINOPHEN 160 MG/5 ML UDC FT PRN ×3 (04:14→20:46)
[2018-09-30 07:47] VITALS: BP 102/60
[2018-09-30] MEDS: CARBAMIDE PEROX 6.5% OT SOLN EACH EAR SCH ×2 (08:51→20:45)
[2018-09-30] MEDS: NYSTATIN 100,000 U/GM PWD 15GM TP SCH ×2 (08:52→20:45)
[2018-09-30] MEDS: ENOXAPARIN 30 MG/0.3 ML SYR SC SCH (08:52)
[2018-09-30] MEDS: DOCUSATE SOD LIQ 100 MG/10 ML UDC FT SCH ×2 (08:52→20:45)
[2018-09-30] MEDS: FLUTICASONE PROP 0.05% 16 GM SCH (08:52)
[2018-09-30] MEDS: predniSONE 5 MG TAB PO SCH (08:52)
[2018-09-30 17:10] VITALS: BP 113/71
[2018-09-30] MEDS: TERAZOSIN HCL 1 MG CAP FT SCH (20:45)
[2018-10-01 07:44] VITALS: BP 128/66
[2018-10-01] MEDS: DOCUSATE SOD LIQ 100 MG/10 ML UDC FT SCH ×2 (08:53→21:34)
[2018-10-01] MEDS: predniSONE 5 MG TAB PO SCH (08:53)
[2018-10-01] MEDS: CARBAMIDE PEROX 6.5% OT SOLN EACH EAR SCH ×2 (08:53→21:34)
[2018-10-01] MEDS: ENOXAPARIN 30 MG/0.3 ML SYR SC SCH (08:54)
[2018-10-01] MEDS: FLUTICASONE PROP 0.05% 16 GM SCH (08:54)
[2018-10-01] MEDS: NYSTATIN 100,000 U/GM PWD 15GM TP SCH ×2 (08:54→21:34)
[2018-10-01] MEDS: ACETAMINOPHEN 160 MG/5 ML UDC FT PRN ×3 (08:57→21:35)
[2018-10-01] MEDS ORDERED: BARIUM SULFATE 148 GM POWDER ONE (09:40)
[2018-10-01] MEDS ORDERED: BARIUM SULFATE 240 ML ORAL SUS (NECTAR) ONE (09:40)
--- NOTE | 2018-10-01 12:56 | SLP MODIFIED BARIUM SWALLOW ---
Speech Language Pathology Modified Barium Swallow Evaluation Report Date of Evaluation: 10-01-18 Patient Name: Leon Villagomez Patient :1950 Physician: Hospitalist Clinician: Shameka Oliver M.S., CCC-[employer] BACKGROUND The patient is a 68yr old male. Referred for an MBS by his physician to assess swallow structure and function for recommendation for return to PO intake following tracheostomy. Oxygen Supplementation: No Level of Consciousness: Non altered Cognitive/Linguistic: WNL Orientation: x4 Language: -expressive: nonaphasic -receptive: nonaphasic Speech: -non-apraxic -non-dysarthric Voice aphonic Non-verbal Oral Structure and Function: Full dentures. Pt wore upper/lowers during MBS MODIFIED BARIUM SWALLOW In conjunction with radiology, lateral view with trials of the following consistencies: thin barium liquid noncarbonated, nectar thick barium liquid, barium marked pureed, mechanical soft, and regular food consistencies, and a 1/2 cm barium pill. ORAL STAGE Thin Liquids: no evidence of dysphagia . WNL [place] Thick Liquids: no evidence of dysphagia. WNL. Pureed Foods: no evidence of dysphagia. WNL. Mechanical Soft Foods: no evidence of dysphagia . Regular Foods: no evidence of dysphagia. WNL . PHARYNGEAL STAGE Thin Liquid: significant stasis in pyriform sinus. Cleared with 2-3 cued effortful swallows. Pt reported no sensory awareness of stasis. Compensatory: 2-3 effortful swallows [place] Thick Liquids: stasis in pyriform sinus though quantity is stasis is reduced as compated to thin liquid trials. Majority cleared with 2-3 cued effortful swallows. Pt reported no sensory awareness of stasis. Compensatory:2-3 effortful swallows Pureed Food: stasis in pyriform sinus with quantity reduced as compared to liquid trials. Clears more successfully. Majority cleared with 1-2 cued effortful swallows over liquid trials. Cleared with 1-2 cued effortful swallows Compensatory: 1-2 effortful swallows Mechanical Soft Foods: stasis in pyriform sinus. Quantity similar to pureed trails. Clears with 2-3 cued effortful swallows Cleared with 1-2 cued effortful swallows Compensatory :1-2 effortful swallows. Regular Food Consistency: not trialed Successful Compensatory: multiple effortful swallows Unsuccessful Compensatory: chin tuck, PMV placement Penetration/Aspiration Scale (Rosenbek et al. 1996) All trials: Score of 1= Contrast does not enter airway ESOPHAGEAL STAGE Peristaltic movement appears to be WNL Cervical Esophagus: Materials witnessed clearing from cervical esophagus WNL. 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 Materials cleared with additional time and multiple swallows. GRACE: none witnessed. BARIUM PILL: 1/2 of 1cm barium pill taken with pureed solids. No oral. Cleared pharynx with cued 2nd swallows. Narrowing in middle 1/3 of esophagus caused pill and puree to hang. Cleared with cued 2-3 swallows. SUMMARY Aspiration Risk: Elevated d/t significant stasis in pyriform sinus following all liquids/food swallows and barium pill consistent with decreased UES opening d/t reduced anterior hyolaryngeal complex movement. . Patient reported no sensory awareness of stasis. Clears with cued 1-3 effortful swallows. Application of PMV (tach valve) did not improve swallow function. No laryngeal penetration or aspiration witnessed. Dysphagia Severity Rating Scale (Gramigna, 2006; Juan Luis et. al., 1990): 4- Moderate Dysphagia: significant potential for aspiration exists. Patient may eat certain consistencies (soft mechanical, wet, small bite size) by using specific techniques (multiple effortful swallows) to minimize potential for aspiration Supervision at mealtimes required to cue pt for multiple effortful swallows until he demonstrates consistent independence with this. Time for eating is significantly increased thus supplemental nutrition may be indicated. RECOMMENDATIONS 1. Diet Modifications: Food: Soft Mechanical: Soft/wet foods. Small bite size. Liquids: [place] thickened liquids with foods. H2O ok between meals following oral hygiene. 2. Pills: with purees 3. Supervision at mealtimes required to cue pt for multiple effortful swallows until he demonstrates consistent independence with this. 3. Speech Therapy: 4x week for pharyngeal dysphagia therapy program and pt education of compensatory strategies. Verbal and written education provided to pt and staff following evaluation. PLAN OF CARE Short Term Goals 1. Patient will receive education regarding safe swallow precautions, diet modification, and compensatory techniques and provide verbal demonstration of comprehension. 2.The patient will participate in pharyngeal dysphagia exercise based therapy program to address to improve swallow function and decrease penetration/aspiration risk as demonstrated on repeat MBS. Thank you for this referral. Please call [phone] (outpatient rehab) or [phone] (inpatient rehab) to contact the [employer]. Respectfully, Shameka Oliver M.S., [facility]-[employer] [facility]
--- NOTE | 2018-10-01 15:21 | NUR ---
Physical Therapy Impression Pt performed 2 sit<>stand transfers from the chair with CGA and good power generation noted in quads. Pt reports feeling stronger. Pt ambulated 170' with RW and CGA with wheelchair follow for Pt safety/comfort. Pt ambulated on 2 L O2 via trach. Pt's SO2 >90% and HR in 130s. Pt showed NuStep and encouraged him to try. Pt responded, "maybe tomorrow". Pt reports fatigue and requests session to end. Pt left in room with stationary bike. Physical Therapy Goals 1: Pt to complete bed mobility with Fabricio and no use of bed rail 2: Pt to complete transfers with Fabricio and least restrictive AD from a variety of surfaces. 3: Pt to ambulate 100' with Fabricio and least restrictive AD 4: Pt to asc/desc 4 steps with railing and CGA 5: Pt to asc/desc 1 platform step with CGA. Patient's Goals
[2018-10-01 15:27] VITALS: BP 111/66
--- NOTE | 2018-10-01 16:05 | Medical Nutrition Therapy ---
Nutrition Anthropometrics Height (Inches): 64.00 Height (Calculated Centimeters: 162.578167 Weight (Pounds): 91 Weight (Calculated Kilograms): 41.277 BMI: 15.6 Ezio Nutrition Score: Probably Inadequate Ezio Nutrition Risk Score: 15 Dietary Referral Nutrition Risk Factors: Significantly Underwt., Tube Feeding Nutrition Risk Comment: Lives alone. Physical Findings Physical Appearance: Underweight BMI<19 Skin Appearance Skin Appearance: Edema Edema Location Modifier: Both Edema Location: Foot Type of Edema: Degree of Edema: Gastrointestinal Symptoms GI Symtoms: Weight Changes Tube Present: PEG Bowel Sounds: Recent Bowel Pattern: Stool Characteristics: Nutritional Diagnosis Nutritional Risk Acuity 1: %IBW < 74% Nutritional Risk Acuity 2: Pr Appetite > 3d, Head/Neck/GI Cancer, Tube Feed Stable Nutritional Risk Acuity 3: COPD Unstable Past Medical History: BPH (benign prostatic hyperplasia), Scoliosis, Hyperlipidemia, GERD, Poliomyelitis Nutritional Acuity: 1-High Nutrition Diagnosis: Inadequate Food Intake, Increased Nutrient Needs Nutrition Etiology: Physiological Causes Nutrition Problem/Etiology/Sym: Inadequate oral intake related to physiological causes as evidenced by BMI 14.4. 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 Energy Requirement: 1700 (M- St J 1-1.5 SF = 4308-1180) Protein Requirement: 68 (1.5- 3gm/kg = 59-76gm) Fluid Requirement: 1140 (30ml/kg) Diet Type: Soft Mechanical, Thickened Liquid, Tube Feeding (TF) Nutrition Intervention: Cont diet as ordered, Nutrition support Food Likes: soft poached egg, soft scramled egg with cheese & katchup Additional Diet Restrictions: OFFER NUTR SUPPLEMENT Nutritional Support Current Enteral / Parental: Tube Feeding Tube Feeding Formulas: Jevity 1cal/ml-Standard Current Tube Feeding Formula C: Jevity 80 ml/hr Tube Feeding Supplement Streng: Full Feeding Route: PEG Current Duration: 24 Current Calories: 2035 Current Protein: 85 Nutrition Monitoring & Eval Nutrition Goals: Eat 50-100% Meal RD Patient Assessment Time: [address] Assessment Type: RD Re-Assessment Patient Nutrition Acuity: 1-High Follow Up Date: Oct 09, 2018 Nutritional Comment: 09/21 Pt admitted with dx laryngeal CA. Pt currently NPO with TF. BMI sinificantly underwt with dx of malnutrition per Dr Varma ( 09/08). Pt was placed on TF and monitored for s/s refeeding syndrome. Pt was started slowly on TF and did not show s/s of refeeding. Pt has lost significant wt since admission to med floor. Admitted at 96#, current wt 84#. (12.5%) Recommend increase TF to avoid further wt loss and ensure nutr needs are being met. Will cont to monitor. Depending on where pt discharges, pt may be able to handle bolis feeding for home use better that pump infusion. BK 09/21 TF increased to 70ml/hr. This will meet 100% of kcal and protein needs in the mid-range of his est nutritional needs. Will cont to monitor. BK 09/25 Pt cont TF@ 70 ml/hr. Wt is stable but cont significanlty underwt. Pt tolerating TF with 0-10ml residuals. Recommend increase to 80l/hr to meet upper range of est kcal needs and protein at 2.1gm/kg. Will cont to monitor. BK 09/28 TF increased to 80l/hr which meets upper range of est kcal needs and protein at 2.1gm/kg. Pt tolerating TF well with 0-10ml residuals. Wt is stable at 86#. Pt cont very underwt. Goal is to ensure pt tolerating TF and recieving adequate TF to stablize wt with slow wt gain. Will cont to monitor. BK 10/01 Diet advanced to mech soft, thicken liquids. Pt eating small amounts. Pt cont on TF. Wt is up 7% which is desired d/t BMI within underwt range. Recommend cont TF to ensure pt recieving adequate kcal and protein and to assist with wt gain. As pt able to eat more oral intake, may want to change TF to nocturnal feeding to increase daytime appeite. Will cont to monitor. CHLOE MONTES Oct 01, 2018 16:05
--- NOTE | 2018-10-01 16:06 | RADIOLOGY IMAGING REPORT ---
FACILITY: [facility] PATIENT NAME: Leon Villagomez : 1950 MR: [id number] V: [id number] EXAM DATE: ORDERING PHYSICIAN: EPIFANIO BROWN TECHNOLOGIST: Location: [facility] [place] Patient: Leon Villagomez : 1950 Visit/Account:[id number] Date of Sevice: 10/01/2018 Exam type: ESOPH VIDEO SWALLOWING History: Dysphagia Comparison: None. Findings: The modified barium swallow was performed by the speech pathologist. Fluoroscopic assistance was pro vided. The patient received thin barium and nectar thick barium barium tablet and various solids sub stances. The patient demonstrated moderate pharyngeal dysphasia. Please see speech pathologist repo rt for complete details. The fluoroscopy dose area product was 311.14 micro-Giang per meter squared IMPRESSION: 1. As above Report Dictated By: Donna Espinoza MD at 10/01/2018 4:02 PM Report E-Signed By: Donna Espinoza MD at 10/01/2018 4:02 PM WSN:[email or web address]
[2018-10-01] MEDS: TERAZOSIN HCL 1 MG CAP FT SCH (21:35)
[2018-10-02 08:00] VITALS: BP 117/64
[2018-10-02] MEDS: CARBAMIDE PEROX 6.5% OT SOLN EACH EAR SCH ×3 (09:00→20:29)
[2018-10-02] MEDS: FLUTICASONE PROP 0.05% 16 GM SCH (09:00)
[2018-10-02] MEDS: DOCUSATE SOD LIQ 100 MG/10 ML UDC FT SCH ×2 (09:31→20:30)
[2018-10-02] MEDS: ENOXAPARIN 30 MG/0.3 ML SYR SC SCH (09:32)
[2018-10-02] MEDS: predniSONE 5 MG TAB PO SCH (09:32)
[2018-10-02] MEDS: NYSTATIN 100,000 U/GM PWD 15GM TP SCH ×2 (09:33→20:29)
[2018-10-02] MEDS: ACETAMINOPHEN 160 MG/5 ML UDC FT PRN ×3 (09:46→23:45)
--- NOTE | 2018-10-02 11:47 | NUR ---
Occupational Therapy Impression UB ther ex with red theraband. CGA sit<>stands x5. Improved sequencing and (I) with sit<>stands. Min A step up to scale for weight. Continue POC. Occupational Therapy Goals 1. Pt. to perform LB dressing activities with Min A. 2. Pt. to perform toileting activities with Mod I. 3. Pt. to perform showering activities with Min A. 4. Pt. to improve Jayme Index of ADL score by 2 points. 5. Pt. to grooming activities with I. Patient's Goal
[2018-10-02 15:45] VITALS: BP 107/70
--- NOTE | 2018-10-02 15:46 | NUR ---
Physical Therapy Impression Pt declined mobility this am, requesting therapist return after radiation. Pt agreeable to participate in pm. Pt completed stand step transfers anabela chair <> W/C and W/C <> Nustep with FWW and CGA. Pt tolerated the Nustep at workload level one using B LE's only x 2:30 with a rest break after one minute. Pt seemingly frustrated by his lack of endurance, but was encouraged with his ability to perform transfers after ther. ex without difficulty. Cont. to progress LE strength and overall activity tolerance as able. Physical Therapy Goals 1: Pt to complete bed mobility with Fabricio and no use of bed rail 2: Pt to complete transfers with Fabricio and least restrictive AD from a variety of surfaces. 3: Pt to ambulate 100' with Fabricio and least restrictive AD 4: Pt to asc/desc 4 steps with railing and CGA 5: Pt to asc/desc 1 platform step with CGA. Patient's Goals
[2018-10-02] MEDS: TERAZOSIN HCL 1 MG CAP FT SCH (20:30)
[2018-10-03] MEDS: ACETAMINOPHEN 160 MG/5 ML UDC FT PRN ×3 (07:08→23:54)
[2018-10-03 08:00] VITALS: BP 96/58
[2018-10-03] MEDS: predniSONE 5 MG TAB PO SCH (08:23)
[2018-10-03] MEDS: ENOXAPARIN 30 MG/0.3 ML SYR SC SCH (08:23)
[2018-10-03] MEDS: DOCUSATE SOD LIQ 100 MG/10 ML UDC FT SCH ×2 (08:23→20:24)
[2018-10-03] MEDS: CARBAMIDE PEROX 6.5% OT SOLN EACH EAR SCH ×2 (09:00→20:24)
[2018-10-03] MEDS: NYSTATIN 100,000 U/GM PWD 15GM TP SCH ×2 (09:00→20:24)
[2018-10-03] MEDS: FLUTICASONE PROP 0.05% 16 GM SCH (09:00)
--- NOTE | 2018-10-03 14:29 | NUR ---
Physical Therapy Impression Pt requires extra time for functional mobility due to management of all lines/tubes safely. Pt able to perform multiple sit<>stand transfers with CGA each time demonstrating improved functional strength. Pt able to increase tolerance to NuStep to 4 minutes using both UEs and LEs. PT to continue to address functional strength and endurance in order to build tolerance to ADLs. Physical Therapy Goals 1: Pt to complete bed mobility with Fabricio and no use of bed rail 2: Pt to complete transfers with Fabricio and least restrictive AD from a variety of surfaces. 3: Pt to ambulate 100' with Fabricio and least restrictive AD 4: Pt to asc/desc 4 steps with railing and CGA 5: Pt to asc/desc 1 platform step with CGA. Patient's Goals
--- NOTE | 2018-10-03 14:54 | NUR ---
Ears irrigated with warmed NS, utilizing a syringe and angiocath catheter. No clumps of cerumen noted, ear canal visualized, some redness noted both ears, no occlusion noted. Will get MD to evaluate tomorrow.
--- NOTE | 2018-10-03 15:55 | NUR ---
Occupational Therapy Impression CGA sit<>stands x2. Dynamic standing balance [id number] reaching for items at various heights. Pt requiring extended rest breaks between bouts. No loss of balance. Set-up UB dressing. Continue POC. Occupational Therapy Goals 1. Pt. to perform LB dressing activities with Min A. 2. Pt. to perform toileting activities with Mod I. 3. Pt. to perform showering activities with Min A. 4. Pt. to improve Jayme Index of ADL score by 2 points. 5. Pt. to grooming activities with I. Patient's Goal
[2018-10-03 16:00] VITALS: BP 124/73
[2018-10-03] MEDS: TERAZOSIN HCL 1 MG CAP FT SCH (20:24)
[2018-10-04 05:57] LABS: PLATELET COUNT, AUTOMATED 283 K/uL (150-450)
[2018-10-04] MEDS: CARBAMIDE PEROX 6.5% OT SOLN EACH EAR SCH ×2 (09:00→19:05)
[2018-10-04] MEDS: FLUTICASONE PROP 0.05% 16 GM SCH (09:00)
[2018-10-04] MEDS: predniSONE 5 MG TAB PO SCH (09:10)
[2018-10-04] MEDS: ENOXAPARIN 30 MG/0.3 ML SYR SC SCH (09:11)
[2018-10-04] MEDS: DOCUSATE SOD LIQ 100 MG/10 ML UDC FT SCH ×2 (09:12→20:25)
[2018-10-04] MEDS: ACETAMINOPHEN 160 MG/5 ML UDC FT PRN ×2 (09:12→15:06)
[2018-10-04 11:00] VITALS: BP 111/69
--- NOTE | 2018-10-04 11:07 | NUR ---
Physical Therapy Impression PT agreeable to therapy session, but he seems slightly down today. Pt reports that his mood is "fine". Pt demonstrating slight improvement in dynamic balance with ambulation, with no LOB noted today. Pt requested seated rest break d/t difficulty breathing, SpO2 92% on 2L O2, pt requested suctioning from RN. After suctioning, PT instructed patient is seated LE ther-ex with addition of 1# weight in order to improve LE strength. Emphasis on eccentric control during LAQ in order to facilitate quad strengthening. Physical Therapy Goals 1: Pt to complete bed mobility with Fabricio and no use of bed rail 2: Pt to complete transfers with Fabricio and least restrictive AD from a variety of surfaces. 3: Pt to ambulate 100' with Fabricio and least restrictive AD 4: Pt to asc/desc 4 steps with railing and CGA 5: Pt to asc/desc 1 platform step with CGA. Patient's Goals
--- NOTE | 2018-10-04 12:59 | PT ECF NOTE ---
Type of Note: Progress Note Primary Medical Diagnosis: Acute respiratory failure, squamous cell carcinoma with laryngeal mass Physical Therapy Evaluation Date: 09/20/18 SUBJECTIVE: Prior Hospitalization: 09/02/18-09/20/18 Prior Level of Function: I) with no AD Prior Living Status: Multilevel house, Alone Community Services: Support adequate Home Accessibility: One step into home, 2 steps in home Equipment Owned: None per patient report Medical Complications/Past Medical History: Poliomyelitis, COPD, see EMR for details Psychosocial Support: Supportive daughter, living in [place] Pain Scale (0-10): 0 OBJECTIVE: Strength: Right Lower Extremity: DF: 3+/4 Knee flexion: 3+/5 Knee extension: 3+/5 Hip flexion: 3/5 Left Lower Extremity: DF: 3+/4 Knee flexion: 3+/5 Knee extension: 3+/5 Hip flexion: 3/5 ROM: WFL, pt reports frequent hyperextension of R) knee at baseline Sensation: WNL Other Neuro findings: Poliomyelitis Bed Mobility: SBA with bed rail Transfers: CGA with RW Gait: 170' with RW and CGA Stairs: Not tested ASSESSMENT: Pt is progressing well with functional mobility and is making gains towards functional goals. He is able to consistently complete transfers and ambulate with use of RW and CGA of one person. The patient still lacks adequate endurance and safety with functional mobility to allow for d/c home. He will benefit from further skilled PT services in order to increase independence and safety prior to d.c. The patient's progress with rehab may also be affected by radiation treatments and subsequent fatigue, continue with POC. Problem List/Current Limitations: Decreased activity doroteo Decreased strength Decreased ROM Decreased balance Short Term Goals: (making progress) 1: Pt to complete bed mobility with Fabricio and no use of bed rail 2: Pt to complete transfers with Fabricio and least restrictive AD from a variety of surfaces. 3: Pt to ambulate 100' with Fabricio and least restrictive AD 4: Pt to asc/desc 4 steps with railing and CGA 5: Pt to asc/desc 1 platform step with CGA. Mission Support Specialist Goals: Pt to demonstrate increased independence with functional mobility and decreased need of assistance from others Patient Goals: "Return home alone for a bit and then go to my daughter's home in [place]" Rehabilitation Prognosis: Fair Barriers for Discharge: Mobility impairments as baseline level of function, new cancer diagnosis, effects of radiation therapy PLAN: The patient will benefit from skilled physical therapy services 5 times per week for 2 weeks including: Therapeutic Exercise Therapeutic Activities Transfer Training Gait Training Stair Training Manual Therapy Safety Training Neuromuscular Re-educ. Pt/Caregiver Training Bed Mobility Thank you for this referral. If you have any questions, concerns, or comments about this report or plan, please contact me at . Merary Jorge, PT, DPT MTDD
--- NOTE | 2018-10-04 14:24 | Hospitalist Progress Note ---
Subjective Progress Notes Subjective The patient is feeling much better. Nursing reports he is eating some now. He has had some pain above both ears on his scalp. He had this before and Dr. Bowman game him gabapentin which helped. Physical Exam Vital Signs Date Time Temp Pulse Resp B/P (MAP) Pulse Ox O2 Delivery O2 Flow Rate FiO2 10/04/18 11:00 96 Heated Aerosol 10.0 21.0 10/04/18 11:00 99.8 96 16 111/69 (83) Intake and Output 10/04/18 06:59 Intake Total 3450 ml Output Total 2250 ml Balance 1200 ml Intake Oral 1040 ml Tube Feeding 1743 ml Tube Irrigant 667 ml Output Urine Total 2250 ml Gastric Drainage Total 0 ml # Bowel Movements 1 General Appearance: Alert, Awake, No Acute Distress Neuro: No Gross deficits Eyes: PERRLA Cardiovascular: Other (Tachy, regular.) Respiratory: Other (Decreased BS with some mild scattered rhonchi. Occasional expiratory wheeze.) Extremities: Warm, Perfused Psych: Appropriate Mood & Affect Result Diagram: 10/04/1852310/04/18523 Assessment and Plan Problems: (1) Laryngeal mass Status: Acute Assessment & Plan: This was contributing to his respiratory distress. CT scan has shown the mass to be centered in the right vocal cord. 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 He decided to have a tracheostomy/PEG which was done on 09/08/18. Dr. Curran (oncology) and Dr. Johnson (Radiation Oncology) met with the patient/family. The patient started radiation treatment September 24. He was transferred to [facility] for ongoing treatments and PT/OT. (2) Acute on chronic respiratory failure with hypoxemia Status: Acute Assessment & Plan: He did develop increased respiratory distress shortly after admission. He was transferred to the ICU and placed on BiPAP. He has now had tracheostomy placed prior to radiation. He is doing rather well with the trache ostomy other than one incident of mucous plugging. Cardiopulmonary has been working with him. General Surgery will follow as well. (3) Urinary retention Status: Acute Assessment & Plan: He did develop urinary retention and gross hematuria. Nursing tried to pass a Espinosa cath without success. Dr. Kirkpatrick was consulted and ended up having to take him back to the OR for cystoscopy guided catheter placement on 09/07. He did recommend that we continue levofloxacin for a 3 day period through 09/10, which was done. Dr. Kirkpatrick recommends that when patient is ambulatory, remove the catheter on a weekday in the morning, in case he would require OR time to replace the Espinosa cath. He is currently on Flomax. (4) COPD exacerbation Status: Acute Assessment & Plan: He is on treatment with nebulizers and steroids. He is now off antibiotics and currently weaning down on the prednisone. Currently on 5mg daily. (5) Dysphagia Status: Chronic Assessment & Plan: Speech therapy has evaluated him and recommended a MBS, which was ordered, but Mr. Villagomez did not wish to pursue. Now post PEG placement. He is now eating some as well. (6) Tachycardia Status: Acute Assessment & Plan: Improved. Heart rate has been in the 90s on ECF. (7) Poliomyelitis Status: Chronic Assessment & Plan: Chronic bilateral weakness. Time Spent on Plan of Care: < 30 min IVORY STEELE MD Oct 04, 2018 14:24
[2018-10-04] MEDS ORDERED: NYSTATIN 100,000 U/GM PWD 15GM TP PRN (14:30)
--- NOTE | 2018-10-04 14:51 | NUR ---
Occupational Therapy Impression CGA ambulation x120ft with RW. Improved balance, no knee buckling. Pt reports feeling improved strength. Self-propelling w/c x 100ft prior to fatigue with B UE, no use of LE. Pt demonstrating good safety awareness. Pt declined further tx at this time, fatigued and requesting to up in chair. Continue POC. Occupational Therapy Goals 1. Pt. to perform LB dressing activities with Min A. 2. Pt. to perform toileting activities with Mod I. 3. Pt. to perform showering activities with Min A. 4. Pt. to improve Jayme Index of ADL score by 2 points. 5. Pt. to grooming activities with I. Patient's Goal
--- NOTE | 2018-10-04 15:00 | OT ECF NOTE ---
Type of Note: 2-week progress note Primary Medical Diagnosis: Squamous Cell Carcinoma, laryngeal mass (PEG tube placement/ trach placement). Occupational Therapy Evaluation Date: 09-20-18 SUBJECTIVE: Prior Hospitalization: [facility] [place] Med/ICU from 09/02/18 to 09/20/18. Prior Level of Function: Pt. states that he was living alone prior to admission to [facility] Med/ ICU. Prior Living Status: Multilevel house,Alone Community Services: Support adequate Home Accessibility: One step into home Equipment Owned: Unknown at this time. Medical Complications/Past Medical History: Please refer to reports for details. Psychosocial Support: Supportive daughter. Pain Scale (0-10): No pain noted during IE. OBJECTIVE: Strength: MMT: Right Left Shoulder Flexion 3/5 3/5 Elbow Flexion WFL WFL Wrist Extension WFL WFL Marketing And Development Coordinator WFL WFL (5= normal, 4= good, 3= fair, 2= poor, 1= trace) ROM: Both upper extremities, Significantly limited secondary to hx of polio Functional Transfer: Assistive Device: Front wheeled walker, Gait belt Transfer Ability: CGAx1. Ambulation x120 ft with RW. ADL: Upper body dressing: Assistive device: None Upper body dressing ability: Set-up Lower body dressing: Assistive device: None Lower body dressing ability: Moderate assistance pulling clothing over hips, Min A threading LB clothing. Toileting: Assistive device: Bedside Commode Toileting ability: Maximum assistance Grooming/hygiene: Assistive device: Seated Grooming ability: Set-up Bathing: Assistive device: Bathing ability: N/T Standardized Assessment: Jayme Index of Activities of Daily Living- Pt. scored 3/20 on this Index upon initial evaluation. 9/20 upon 4-[id number]-[id number] note. ASSESSMENT: Pt. is a 68 year old male who has recently been diagnosed with squamous cell carcinoma (laryngeal mass). Pt. was admitted to [facility] ICU on 09/02/18 and has undergone a PEG tube placement and a tracheostomy. Pt. admitted to [facility] for continued rehab and to undergo 7 weeks of radiation through the [facility]. Pt. states that he will d/c to home alone 'for a bit," before moving to daughter's home in [place] to reside. Pt. will reside on one level at daughter's home. He will continue to benefit from skilled OT services to improve endurance and optimize (I) for ADLs/IADLs. Problem List/Current Limitations: Decreased activity tolerance Decreased strength Decreased ROM Decreased balance Generalized weakness Short Term Goals: 1. Pt. to perform LB dressing activities with Min A. Progressing towards. 2. Pt. to perform toileting activities with Mod I. Progressing towards. 3. Pt. to perform showering activities with Min A. Progressing towards. 4. Pt. to improve Jayme Index of ADL score by 2 points. Goal met. 5. Pt. to grooming activities with I. Progressing towards. Director Index Goals: Return home. Patient Goals: "return home alone for a bit" and then to daughters home in [place]. Rehabilitation Prognosis: Fair Barriers to Discharge: medical issues PLAN: The patient will benefit from skilled occupational therapy services 5 times per week for 2 weeks including: Thank you for this referral. If you have any questions, concerns, or comments about this report or plan, please contact me at . Rocio Paredes MS, OTR/L Occupational Therapist [facility]
[2018-10-04 16:30] VITALS: BP 108/66
[2018-10-04] MEDS: GABAPENTIN 100 MG CAP PO SCH (20:25)
[2018-10-04] MEDS: TERAZOSIN HCL 1 MG CAP FT SCH (20:25)
[2018-10-05] MEDS: ACETAMINOPHEN 160 MG/5 ML UDC FT PRN ×4 (00:18→20:31)
[2018-10-05] MEDS: DOCUSATE SOD LIQ 100 MG/10 ML UDC FT SCH ×2 (08:43→20:31)
[2018-10-05] MEDS: predniSONE 5 MG TAB PO SCH (08:43)
[2018-10-05] MEDS: ENOXAPARIN 30 MG/0.3 ML SYR SC SCH (08:45)
[2018-10-05 09:00] VITALS: BP 96/70
[2018-10-05] MEDS: CARBAMIDE PEROX 6.5% OT SOLN EACH EAR SCH ×2 (09:00→19:14)
[2018-10-05 15:50] VITALS: BP 100/62
[2018-10-05] MEDS: TERAZOSIN HCL 1 MG CAP FT SCH (20:31)
[2018-10-05] MEDS: GABAPENTIN 100 MG CAP PO SCH (20:31)
[2018-10-06 08:04] VITALS: BP 126/62
[2018-10-06] MEDS: ACETAMINOPHEN 160 MG/5 ML UDC FT PRN ×3 (08:11→18:43)
[2018-10-06] MEDS: DOCUSATE SOD LIQ 100 MG/10 ML UDC FT SCH ×2 (08:11→21:43)
[2018-10-06] MEDS: predniSONE 5 MG TAB PO SCH (08:11)
[2018-10-06] MEDS: ENOXAPARIN 30 MG/0.3 ML SYR SC SCH (08:11)
[2018-10-06] MEDS: CARBAMIDE PEROX 6.5% OT SOLN EACH EAR SCH ×3 (09:00→21:45)
[2018-10-06 15:40] VITALS: BP 110/71
[2018-10-06] MEDS: GABAPENTIN 100 MG CAP PO SCH (21:43)
[2018-10-06] MEDS: TERAZOSIN HCL 1 MG CAP FT SCH (21:44)
[2018-10-07] MEDS: ACETAMINOPHEN 160 MG/5 ML UDC FT PRN ×4 (00:46→18:33)
[2018-10-07 08:16] VITALS: BP 117/56
[2018-10-07] MEDS: ENOXAPARIN 30 MG/0.3 ML SYR SC SCH (08:28)
[2018-10-07] MEDS: predniSONE 5 MG TAB PO SCH (08:28)
[2018-10-07] MEDS: DOCUSATE SOD LIQ 100 MG/10 ML UDC FT SCH ×2 (08:28→21:36)
[2018-10-07] MEDS: CARBAMIDE PEROX 6.5% OT SOLN EACH EAR SCH ×2 (08:29→21:00)
[2018-10-07 15:55] VITALS: BP 115/53
[2018-10-07] MEDS: GABAPENTIN 100 MG CAP PO SCH (21:36)
[2018-10-07] MEDS: TERAZOSIN HCL 1 MG CAP FT SCH (21:36)
[2018-10-08] MEDS: ACETAMINOPHEN 160 MG/5 ML UDC FT PRN ×5 (00:45→19:18)
[2018-10-08 07:55] VITALS: BP 105/65
[2018-10-08] MEDS: CARBAMIDE PEROX 6.5% OT SOLN EACH EAR SCH ×2 (09:00→20:44)
[2018-10-08] MEDS: DOCUSATE SOD LIQ 100 MG/10 ML UDC FT SCH ×2 (09:23→20:44)
[2018-10-08] MEDS: predniSONE 5 MG TAB PO SCH (09:23)
[2018-10-08] MEDS: ENOXAPARIN 30 MG/0.3 ML SYR SC SCH (09:24)
--- NOTE | 2018-10-08 13:55 | NUR ---
Physical Therapy Impression Attempted to see pt for therapy at 1130 and 1330. Pt politely declined both attempts. Will discuss with primary PT re: pt's overall tolerance for therapy due to continual refusals from not feeling well with radiation. Physical Therapy Goals 1: Pt to complete bed mobility with Fabricio and no use of bed rail 2: Pt to complete transfers with Fabricio and least restrictive AD from a variety of surfaces. 3: Pt to ambulate 100' with Fabricio and least restrictive AD 4: Pt to asc/desc 4 steps with railing and CGA 5: Pt to asc/desc 1 platform step with CGA. Patient's Goals
--- NOTE | 2018-10-08 15:22 | NUR ---
Occupational Therapy Impression Close CGA/SBA ambulation x20ft with RW. Pt demonstrating fair tolerance for ambulation to bathroom toilet. Pt declining further mobility secondary to fatigue. Continue POC. Occupational Therapy Goals 1. Pt. to perform LB dressing activities with Min A. 2. Pt. to perform toileting activities with Mod I. 3. Pt. to perform showering activities with Min A. 4. Pt. to grooming activities with I. Patient's Goal
[2018-10-08 15:40] VITALS: BP 117/70
--- NOTE | 2018-10-08 16:19 | Medical Nutrition Therapy ---
Nutrition Anthropometrics Height (Inches): 64.00 Height (Calculated Centimeters: 162.022713 Weight (Pounds): 92 Weight (Calculated Kilograms): 41.730 BMI: 15.6 Ezio Nutrition Score: Probably Inadequate Ezio Nutrition Risk Score: 15 Dietary Referral Nutrition Risk Factors: Significantly Underwt., Tube Feeding Nutrition Risk Comment: Lives alone. Nutritional Diagnosis Nutritional Risk Acuity 1: %IBW < 74% Nutritional Risk Acuity 2: Pr Appetite > 3d, Head/Neck/GI Cancer, Tube Feed Stable Nutritional Risk Acuity 3: COPD Unstable Past Medical History: BPH (benign prostatic hyperplasia), Scoliosis, Hyperlipidemia, GERD, Poliomyelitis Nutritional Acuity: 1-High Nutrition Diagnosis: Inadequate Food Intake, Increased Nutrient Needs Nutrition Etiology: Physiological Causes Nutrition Problem/Etiology/Sym: Inadequate oral intake related to physiological causes as evidenced by BMI 14.4. 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 Energy Requirement: 1700 (M- St J 1-1.5 SF = [id number]) Protein Requirement: 68 (1.5- 3gm/kg = 59-76gm) Fluid Requirement: 1140 (30ml/kg) Diet Type: Soft Mechanical, Thickened Liquid, Tube Feeding (TF) Nutrition Intervention: Cont diet as ordered, Nutrition support Food Likes: pancakes/xtra butter/syrup; oatmeal 1/2&1/2/brn sugar; biscuit/xtra gravy Additional Diet Restrictions: OFFER NUTR SUPPLEMENT Nutritional Support Current Enteral / Parental: Tube Feeding Tube Feeding Formulas: Jevity 1cal/ml-Standard Current Tube Feeding Formula C: Jevity 80 ml/hr Tube Feeding Supplement Streng: Full Feeding Route: PEG Current Duration: 24 Current Calories: 2035 Current Protein: 85 Nutrition Monitoring & Eval Nutrition Follow-Up: Poor Intake RD Patient Assessment Time: [address] Assessment Type: RD Re-Assessment Patient Nutrition Acuity: 1-High Follow Up Date: Oct 16, 2018 Nutritional Comment: 09/21 Pt admitted with dx laryngeal CA. Pt currently NPO with TF. BMI sinificantly underwt with dx of malnutrition per Dr Varma ( 09/08). Pt was placed on TF and monitored for s/s refeeding syndrome. Pt was started slowly on TF and did not show s/s of refeeding. Pt has lost significant wt since admission to med floor. Admitted at 96#, current wt 84#. (12.5%) Recommend increase TF to avoid further wt loss and ensure nutr needs are being met. Will cont to monitor. Depending on where pt discharges, pt may be able to handle bolis feeding for home use better that pump infusion. BK 09/21 TF increased to 70ml/hr. This will meet 100% of kcal and protein needs in the mid-range of his est nutritional needs. Will cont to monitor. BK 09/25 Pt cont TF@ 70 ml/hr. Wt is stable but cont significanlty underwt. Pt tolerating TF with 0-10ml residuals. Recommend increase to 80l/hr to meet upper range of est kcal needs and protein at 2.1gm/kg. Will cont to monitor. BK 09/28 TF increased to 80l/hr which meets upper range of est kcal needs and protein at 2.1gm/kg. Pt tolerating TF well with 0-10ml residuals. Wt is stable at 86#. Pt cont very underwt. Goal is to ensure pt tolerating TF and recieving adequate TF to stablize wt with slow wt gain. Will cont to monitor. BK 10/01 Diet advanced to mech soft, thicken liquids. Pt eating small amounts. Pt cont on TF. Wt is up 7% which is desired d/t BMI within underwt range. Recommend cont TF to ensure pt recieving adequate kcal and protein and to assist with wt gain. As pt able to eat more oral intake, may want to change TF to nocturnal feeding to increase daytime appeite. Will cont to monitor. BK 10/08 PT cont on TF which is meeting nutr needs. Pt is tolerating TF well with minimal residuals. Wt stable last week at 92#. Pt taking small amounts of oral intake. Intake averaged 40% of 1-2 items/meal. Pt may benefit from nocturnal TF to increase appetite during day time. Will cont to monitor and encourage intake. CHLOE MONTES Oct 08, 2018 16:19
[2018-10-08] MEDS: TERAZOSIN HCL 1 MG CAP FT SCH (20:44)
[2018-10-08] MEDS: GABAPENTIN 100 MG CAP PO SCH (20:44)
[2018-10-09] MEDS: ACETAMINOPHEN 160 MG/5 ML UDC FT PRN ×5 (03:49→22:31)
[2018-10-09 07:30] VITALS: BP 106/58
[2018-10-09] MEDS: ENOXAPARIN 30 MG/0.3 ML SYR SC SCH (08:34)
[2018-10-09] MEDS: DOCUSATE SOD LIQ 100 MG/10 ML UDC FT SCH ×2 (08:34→21:40)
[2018-10-09] MEDS: predniSONE 5 MG TAB PO SCH (08:35)
--- NOTE | 2018-10-09 09:17 | NUR ---
Physical Therapy Impression Pt reporting "radiation kicked my butt yesterday", very politely refusing treatment this date secondary to fatigue. PT talked with patient regarding current plan of care and discussed the option of changing treatment plan to 3-5x/week. The patient reported he would like to change to 3-5x/week to allow for flexibility with his response to radiation treatments and subsequent fatigue. PT will adjust pt's POC to accommodate pt's changing medical status. Physical Therapy Goals 1: Pt to complete bed mobility with Fabricio and no use of bed rail 2: Pt to complete transfers with Fabricio and least restrictive AD from a variety of surfaces. 3: Pt to ambulate 100' with Fabricio and least restrictive AD 4: Pt to asc/desc 4 steps with railing and CGA 5: Pt to asc/desc 1 platform step with CGA. Patient's Goals
--- NOTE | 2018-10-09 10:23 | PT ECF NOTE ---
Type of Note: Progress Note (10/09/18, d/t change in POC) Primary Medical Diagnosis: Acute respiratory failure, squamous cell carcinoma with laryngeal mass Physical Therapy Evaluation Date: 09/20/18 SUBJECTIVE: Prior Hospitalization: 09/02/18-09/20/18 Prior Level of Function: I) with no AD Prior Living Status: Multilevel house, Alone Community Services: Support adequate Home Accessibility: One step into home, 2 steps in home Equipment Owned: None per patient report Medical Complications/Past Medical History: Poliomyelitis, COPD, see EMR for details Psychosocial Support: Supportive daughter, living in [place] Pain Scale (0-10): 0 OBJECTIVE: Strength: Right Lower Extremity: DF: 3+/4 Knee flexion: 3+/5 Knee extension: 3+/5 Hip flexion: 3/5 Left Lower Extremity: DF: 3+/4 Knee flexion: 3+/5 Knee extension: 3+/5 Hip flexion: 3/5 ROM: WFL, pt reports frequent hyperextension of R) knee at baseline Sensation: WNL Other Neuro findings: Poliomyelitis Bed Mobility: SBA with bed rail Transfers: CGA with RW Gait: 170' with RW and CGA Stairs: Not tested ASSESSMENT: The patient has continued to make progress as noted in PN completed on 10/04/18. Today (10/09/18) the patient is reporting "radiation kicked my butt yesterday", very politely refusing treatment this date secondary to fatigue. PT talked with patient regarding current plan of care and discussed the option of changing treatment plan to 3-5x/week. The patient reported he would like to change to 3-5x/week to allow for flexibility with his response to radiation treatments and subsequent fatigue. PT will adjust pt's POC to accommodate pt's changing medical status. Problem List/Current Limitations: Decreased activity doroteo Decreased strength Decreased ROM Decreased balance Short Term Goals: (making progress) 1: Pt to complete bed mobility with Fabricio and no use of bed rail 2: Pt to complete transfers with Fabricio and least restrictive AD from a variety of surfaces. 3: Pt to ambulate 100' with Fabricio and least restrictive AD 4: Pt to asc/desc 4 steps with railing and CGA 5: Pt to asc/desc 1 platform step with CGA. Jail Goals: Pt to demonstrate increased independence with functional mobility and decreased need of assistance from others Patient Goals: "Return home alone for a bit and then go to my daughter's home in [place]" Rehabilitation Prognosis: Fair Barriers for Discharge: Mobility impairments as baseline level of function, new cancer diagnosis, effects of radiation therapy PLAN: The patient will benefit from skilled physical therapy services 3-5 times per week for 2 weeks including: Therapeutic Exercise Therapeutic Activities Transfer Training Gait Training Stair Training Manual Therapy Safety Training Neuromuscular Re-educ. Pt/Caregiver Training Bed Mobility Thank you for this referral. If you have any questions, concerns, or comments about this report or plan, please contact me at . Merary Jorge, PT, DPT MTDD
--- NOTE | 2018-10-09 11:43 | OT ECF NOTE ---
Type of Note: Progress Note (Updated POC 10/09/18). 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 Occupational Therapy Evaluation Date: 09-20-18 SUBJECTIVE: Prior Hospitalization: [facility] Med/ICU from 09/02/18 to 09/20/18. Prior Level of Function: Pt. states that he was living alone prior to admission to [facility] Med/ ICU. Prior Living Status: Multilevel house,Alone Community Services: Support adequate Home Accessibility: One step into home Equipment Owned: Unknown at this time. Medical Complications/Past Medical History: Please refer to reports for details. Psychosocial Support: Supportive daughter. Pain Scale (0-10): No pain noted during IE. 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 Ambulation x120 ft with RW. ADL: Upper body dressing: Assistive device: None Upper body dressing ability: Set-up Lower body dressing: Assistive device: None Lower body dressing ability: Moderate assistance pulling clothing over hips, Min A threading LB clothing. Toileting: Assistive device: Bedside Commode Toileting ability: Moderate assistance Grooming/hygiene: Assistive device: Seated Grooming ability: Set-up Bathing: Assistive device: Bathing ability: N/T Standardized Assessment: Jayme Index of Activities of Daily Living- Pt. scored 3/20 on this Index upon initial evaluation. 9/20 upon 2-hore-hkmtyyvr note. ASSESSMENT: Pt. is a 68 year old male who has recently been diagnosed with squamous cell carcinoma (laryngeal mass). Pt. was admitted to [facility] ICU on 09/02/18 and has undergone a PEG tube placement and a tracheostomy. Pt. admitted to [facility] ECF for continued rehab and to undergo 7 weeks of radiation through the [facility]. Pt. states that he will d/c to home alone 'for a bit," before moving to daughter's home in [place] to reside. Pt. will reside on one level at daughter's home. Pt requesting alteration to POC due to fatigue from radiation and difficulty engaging in PT/OT daily. (Please see plan for updates). He will continue to benefit from skilled OT services to improve endurance and optimize (I) for ADLs/IADLs. Problem List/Current Limitations: Decreased activity tolerance Decreased strength Decreased ROM Decreased balance Generalized weakness Short Term Goals: 1. Pt. to perform LB dressing activities with Min A. Progressing towards. 2. Pt. to perform toileting activities with Mod I. Progressing towards. 3. Pt. to perform showering activities with Min A. Progressing towards. 4. Pt. to improve Jayme Index of ADL score by 2 points. Goal met. 5. Pt. to grooming activities with I. Progressing towards. 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 Patient Goals: "return home alone for a bit" and then to daughters home in [place]. Rehabilitation Prognosis: Fair Barriers to Discharge: medical issues PLAN: The patient will benefit from skilled occupational therapy services 2-5 times per week for 2 weeks including: Thank you for this referral. If you have any questions, concerns, or comments about this report or plan, please contact me at . Rocio Paredes MS, OTR/L Occupational Therapist [facility]
[2018-10-09 15:25] VITALS: BP 113/74
[2018-10-09] MEDS: TERAZOSIN HCL 1 MG CAP FT SCH (21:40)
[2018-10-09] MEDS: GABAPENTIN 100 MG CAP PO SCH (21:40)
[2018-10-10] MEDS: ACETAMINOPHEN 160 MG/5 ML UDC FT PRN ×2 (06:00→10:53)
[2018-10-10 08:00] VITALS: BP 100/66
[2018-10-10] MEDS: DOCUSATE SOD LIQ 100 MG/10 ML UDC FT SCH (09:23)
[2018-10-10] MEDS: ENOXAPARIN 30 MG/0.3 ML SYR SC SCH (09:24)
[2018-10-10] MEDS: predniSONE 5 MG TAB PO SCH (09:24)
--- NOTE | 2018-10-10 10:09 | Medical Nutrition Therapy ---
Nutrition Anthropometrics Height (Inches): 64.00 Height (Calculated Centimeters: 162.707370 Weight (Pounds): 92 Weight (Calculated Kilograms): 41.730 BMI: 15.6 Ezio Nutrition Score: Probably Inadequate Ezio Nutrition Risk Score: 15 Dietary Referral Nutrition Risk Factors: Significantly Underwt., Tube Feeding Nutrition Risk Comment: Lives alone. Nutritional Diagnosis Nutritional Risk Acuity 1: %IBW < 74% Nutritional Risk Acuity 2: Pr Appetite > 3d, Head/Neck/GI Cancer, Tube Feed Stable Nutritional Risk Acuity 3: COPD Unstable Past Medical History: BPH (benign prostatic hyperplasia), Scoliosis, Hyperlipidemia, GERD, Poliomyelitis Nutritional Acuity: 1-High Nutrition Diagnosis: Inadequate Food Intake, Increased Nutrient Needs Nutrition Etiology: Physiological Causes Nutrition Problem/Etiology/Sym: Inadequate oral intake related to physiological causes as evidenced by BMI 14.4. 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 Energy Requirement: 1700 (M- St J 1-1.5 SF = [id number]) Protein Requirement: 68 (1.5- 3gm/kg = 59-76gm) Fluid Requirement: 1140 (30ml/kg) Diet Type: Soft Mechanical, Thickened Liquid, Tube Feeding (TF) Nutrition Intervention: Cont diet as ordered, Nutrition support Food Likes: pancakes/xtra butter/syrup; oatmeal 1/2&1/2/brn sugar; biscuit/xtra gravy Additional Diet Restrictions: OFFER NUTR SUPPLEMENT Nutritional Support Current Enteral / Parental: Tube Feeding Tube Feeding Formulas: Jevity 1cal/ml-Standard Current Tube Feeding Formula C: Jevity 80 ml/hr Tube Feeding Supplement Streng: Full Feeding Route: PEG Current Duration: 24 Current Calories: 5 Current Protein: 85 Recommended Enteral / Parental: Tube Feeding Recommended Tube Feeding Formu: Osmolite 1.5cal/ml-Hi Jose Angel (1 week Osmolit 1.5 then change to Jevity 1.5) Tube Feeding Supplement Streng: Full Recommended Rate: 100 ml/hr Recommended Duration: 14 Recommended Calories: 2100 Recommended Protein: 88 Nutrition Monitoring & Eval Nutritional Goals Comment: TF will meet nutritional needs. Nutrition Follow-Up: Poor Intake RD Patient Assessment Time: [address] Assessment Type: Nutrition Support Consult Patient Nutrition Acuity: 1-High Follow Up Date: Oct 16, 2018 Nutritional Comment: /4 Pt admitted with dx laryngeal CA. Pt currently NPO with TF. BMI sinificantly underwt with dx of malnutrition per Dr Varma ( 09/08). Pt was placed on TF and monitored for s/s refeeding syndrome. Pt was started slowly on TF and did not show s/s of refeeding. Pt has lost significant wt since admission to med floor. Admitted at 96#, current wt 84#. (12.5%) Recommend increase TF to avoid further wt loss and ensure nutr needs are being met. Will cont to monitor. Depending on where pt discharges, pt may be able to handle bolis feeding for home use better that pump infusion. BK 09/21 TF increased to 70ml/hr. This will meet 100% of kcal and protein needs in the mid-range of his est nutritional needs. Will cont to monitor. BK 09/25 Pt cont TF@ 70 ml/hr. Wt is stable but cont significanlty underwt. Pt tolerating TF with 0-10ml residuals. Recommend increase to 80l/hr to meet upper range of est kcal needs and protein at 2.1gm/kg. Will cont to monitor. BK 09/28 TF increased to 80l/hr which meets upper range of est kcal needs and protein at 2.1gm/kg. Pt tolerating TF well with 0-10ml residuals. Wt is stable at 86#. Pt cont very underwt. Goal is to ensure pt tolerating TF and recieving adequate TF to stablize wt with slow wt gain. Will cont to monitor. BK 10/01 Diet advanced to mech soft, thicken liquids. Pt eating small amounts. Pt cont on TF. Wt is up 7% which is desired d/t BMI within underwt range. Recommend cont TF to ensure pt recieving adequate kcal and protein and to assist with wt gain. As pt able to eat more oral intake, may want to change TF to nocturnal feeding to increase daytime appeite. Will cont to monitor. BK 10/08 PT cont on TF which is meeting nutr needs. Pt is tolerating TF well with minimal residuals. Wt stable last week at 92#. Pt taking small amounts of oral intake. Intake averaged 40% of 1-2 items/meal. Pt may benefit from nocturnal TF to increase appetite during day time. Will cont to monitor and encourage intake. BK 10/10 Pt tolerating TF with minimal residuals. Pt eating small amounts of oral intake with c/o eating causes mucus in mouth. Recommend change to noctural feeding to allow pt more freedom, encouage increased oral intake, and help with transition to home. Recommend start with Osmolite 1.5 as a more concentrated formula which is Isomotic and may be easier to tolerate at a higher rate. After pt demonstrates tolerance to 1.5 kcal formula, recommend change to jevity 1.5 to provide fiber for long-term use. Pt will need to be encoauged to drink as he will only recieve 1050ml water from Osmolite and Jevity 1.5. BK Copies To Copies to: IVORY STEELE MD ; CHLOE HIGGINS Oct 10, 2018 10:09
--- NOTE | 2018-10-10 11:44 | NUR ---
Occupational Therapy Impression CGA/Close SBA ambulation x30ft and x80ft with extended rest break and RW. Set-up UB dressing. Min a LB dressing. Pt declining further tx, requesting to rest prior to radiation at 1145. Occupational Therapy Goals 1. Pt. to perform LB dressing activities with Min A. 2. Pt. to perform toileting activities with Mod I. 3. Pt. to perform showering activities with Min A. 4. Pt. to grooming activities with I. Patient's Goal
[2018-10-10] MEDS ORDERED: ACETAMINOPHEN 325 MG TAB PO PRN (14:25)
--- NOTE | 2018-10-10 14:43 | NUR ---
Physical Therapy Impression Pt with steady improvement in independence with functional mobility. Physical Therapy Goals 1: Pt to complete bed mobility with Fabricio and no use of bed rail 2: Pt to complete transfers with Fabricio and least restrictive AD from a variety of surfaces. 3: Pt to ambulate 100' with Fabricio and least restrictive AD 4: Pt to asc/desc 4 steps with railing and CGA 5: Pt to asc/desc 1 platform step with CGA. Patient's Goals
[2018-10-10 15:13] VITALS: BP 178/71
[2018-10-10] MEDS ORDERED: ACETAMINOPHEN ADULT 160 MG/5ML 160 MG/5 ML UDBTL PO PRN ×2 (15:20→15:50)
[2018-10-10] MEDS ORDERED: ACETAMINOPHEN 160 MG/5 ML UDC PO PRN ×2 (15:25→15:45)
--- NOTE | 2018-10-10 15:32 | Hospitalist Progress Note ---
Subjective Progress Notes Subjective Called to see the patient with shaking chill, fever and hypoxia. He complains of some shortness of breath. Physical Exam Vital Signs Date Time Temp Pulse Resp B/P (MAP) Pulse Ox O2 Delivery O2 Flow Rate FiO2 10/10/18 15:13 100.7 178/71 (106) 10/10/18 11:00 94 Heated Aerosol 10.0 21.0 10/10/18 08:00 108 16 Intake and Output 10/10/18 07:00 Intake Total 3184 ml Output Total 3000 ml Balance 184 ml Intake Oral 170 ml Tube Feeding 1879 ml Tube Irrigant 1135 ml Output Urine Total 3000 ml # Bowel Movements 2 General Appearance: Alert, Awake, Other (Shaking.) Cardiovascular: Other (Tachycardic.) Respiratory: Other (Scattered rhonchi bilaterally.) GI: Soft and Non-Tender Extremities: Warm, Perfused Psych: Appropriate Mood & Affect Assessment and Plan Problems: (1) Fever and chills Status: Acute Assessment & Plan: The patient acutely developed rigors and fever. With this he had worsening of his tachycardia and some hypoxia. His BP was elevated as well. He complains of mild dyspnea. He does have a Espinosa catheter in place. He denies abdominal pain and has a soft abdomen on exam. Will order stat CXR and labs. Tylenol given for fever. RT here working on improving his oxygenation currently. (2) Laryngeal mass Status: Acute Assessment & Plan: This was contributing to his respiratory distress. CT scan has shown the mass to be centered in the right vocal cord. 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 He decided to have a tracheostomy/PEG which was done on 09/08/18. Dr. Curran (oncology) and Dr. Johnson (Radiation Oncology) met with the patient/family. The patient started radiation treatment September 24. He was transferred to [facility] for ongoing treatments and PT/OT. (3) Acute on chronic respiratory failure with hypoxemia Status: Acute Assessment & Plan: He did develop increased respiratory distress shortly after admission. He was transferred to the ICU and placed on BiPAP. He has now had tracheostomy placed prior to radiation. He is doing rather well with the tracheostomy other than one incident of mucous plugging. Cardiopulmonary has been working with him. General Surgery will follow as well. (4) Urinary retention Status: Acute Assessment & Plan: He did develop urinary retention and gross hematuria. Nursing tried to pass a Espinosa cath without success. Dr. Kirkpatrick was consulted and ended up having to take him back to the OR for cystoscopy guided catheter placement on 09/07. He did recommend that we continue levofloxacin for a 3 day period through 09/10, which was done. Dr. Kirkpatrick recommends that when patient is ambulatory, remove the catheter on a weekday in the morning, in case he would require OR time to replace the Espinosa cath. He is currently on Flomax. (5) COPD exacerbation Status: Acute Assessment & Plan: He is on treatment with nebulizers and steroids. He is now off antibiotics and currently weaning down on the prednisone. Currently on 5mg daily. (6) Dysphagia Status: Chronic Assessment & Plan: Speech therapy has evaluated him and recommended a MBS, which was ordered, but Mr. Villagomez did not wish to pursue. Now post PEG placement. He is now eating some as well. (7) Tachycardia Status: Acute Assessment & Plan: Improved. Heart rate has been in the 90s on ECF. (8) Poliomyelitis Status: Chronic Assessment & Plan: Chronic bilateral weakness. Time Spent on Plan of Care: < 30 min IVORY STEELE MD Oct 10, 2018 15:32
[2018-10-10 15:39] LABS: PLATELET COUNT, AUTOMATED 328 K/uL (150-450)
[2018-10-10 15:45] VITALS: BP 155/88
[2018-10-10] MEDS ORDERED: ACETAMINOPHEN ADULT 160 MG/5ML 160 MG/5 ML UDBTL FT PRN (15:45)
[2018-10-10] MEDS ORDERED: ACETAMINOPHEN 160 MG/5 ML UDC FT PRN (15:45)
--- NOTE | 2018-10-10 16:00 | NUR ---
Discharge notice not given due to emergent transfer to ICU. Per Wil Holt Plan is to readmit once medically stable.
--- NOTE | 2018-10-10 16:04 | RADIOLOGY IMAGING REPORT ---
[facility] PATIENT NAME: Leon Villagomez : 1950 MR: [id number] V: [id number] EXAM DATE: ORDERING PHYSICIAN: IVORY STEELE TECHNOLOGIST: Location: [facility] [place] Patient: Leon Villagomez : 1950 Visit/Account:[id number] Date of Sevice: 10/10/2018 Exam type: CHEST SINGLE AP History: fever, hypoxia Comparison: September 08, 2018. Findings: Tracheostomy tube appears unchanged. There is increasing patchy airspace consolidation in the lung b ases, right greater than left consistent with atelectasis and or infiltrates. There is no evidence o f overt pulmonary edema. The cardiac silhouette appears normal. There is marked ectasia the thoraci c aorta. Gastrostomy tube projects in left upper quadrant of abdomen. S-shaped scoliosis of the tho racic spine. IMPRESSION: 1. Interval development of patchy airspace consolidation in the lower lobes, right greater than left consistent with atelectasis and or developing infiltrates Report Dictated By: Donna Espinoza MD at 10/10/2018 3:56 PM Report E-Signed By: Donna Espinoza MD at 10/10/2018 4:00 PM WSN:SILVESTRE
--- NOTE | 2018-10-10 16:10 | Hospitalist Depart ---
Discharge Summary Reason for Hosp/Final Diag: (1) Pneumonia Status: Acute Hospital Course & Plan: The patient was on ECF for ongoing radiation of his laryngeal cancer when he acutely developed rigors and fever. With this he had worsening of his tachycardia and hypoxia. His BP was elevated as well. He complained of mild dyspnea. A CXR was performed and showed new infiltrate in the right base and possibly L base as well. The patient required 100% O2 per his trach as well as oxygen per nasal cannula to maintain an O2 saturation in the high 80s. He was transferred to ICU due to his significant hypoxia, tachycardia and possible sepsis. (2) Laryngeal mass Status: Acute Hospital Course & Plan: This was contributing to his respiratory distress initially on admisson to the medical floor. CT scan showed a mass to be centered in the right vocal cord. He underwent biopsy on 09/07 and was found to have squamous cell carcinoma. He decided to have a tracheostomy/PEG which was done on 09/08/18. Dr. Curran (oncology) and Dr. Johnson (Radiation Onc ology) met with the patient/family. The patient started radiation treatment September 24. He was transferred to [facility] for ongoing treatments and PT/OT. He developed pneumonia and possible sepsis on 10/10/18 and was transferred to ICU. (3) Acute on chronic respiratory failure with hypoxemia Status: Acute Hospital Course & Plan: He did develop increased respiratory distress shortly after admission. He was transferred to the ICU and placed on BiPAP. He had a tracheostomy placed prior to radiation. He was doing rather well with the t racheostomy other than one incident of mucous plugging prior to developing pneumonia. (4) Urinary retention Status: Acute Hospital Course & Plan: He did develop urinary retention and gross hematuria. Nursing tried to pass a Espinosa cath without success. Dr. Kirkpatrick was consulted and ended up having to take him back to the OR for cystoscopy guided catheter placement on 09/07. Dr. Kirkpatrick recommended that we continue levofloxacin for a 3 day period through 09/10, which was done. The patient was started on Flomax. (5) COPD exacerbation Status: Acute Hospital Course & Plan: He was continued on treatment with as needed nebulizers and steroids. He finished a course of antibiotics and was weaning down on the prednisone at the time of transfer to ICU for pneumonia and sepsis. (6) Dysphagia Status: Chronic Hospital Course & Plan: Speech therapy evaluated him and recommended an MBS, which was ordered, but Mr. Villagomez did not wish to pursue. PEG was placed. He did start eating some food prior to developing pneumonia on 10/10/18. (7) Tachycardia Status: Acute Hospital Course & Plan: Improved. Heart rate has been in the 90s on ECF. (8) Poliomyelitis Status: Chronic Hospital Course & Plan: Chronic bilateral weakness. Departure Weight (Pounds): 92 Weight (Ounces): 9.0 Result Diagram: 10/10/18 1530 10/04/18 0524 Condition: Critical Discharge: Other Facility Time Spent: < 30 min Discharge Instructions Home Meds Active Scripts Terazosin Hcl (TERAZOSIN HCL) 1 Mg Capsule, 2 MG FT QHS for 30 Days, CAPSULE Prov:JEANNE STEELE MD 09/20/18 Prednisone 10 Mg Tab (PREDNISONE 10 MG TAB) 10 Mg Tablet, 10 MG FT QDAY for 30 Days, TAB Prov:JEANNE STEELE MD 09/20/18 Levalbuterol Hcl (XOPENEX) 0.63 Mg/3 Ml Vial.neb, 0.63 MG NEB Q2HR PRN for SHORTNESS OF BREATH for 30 Days, VIAL Prov:JEANNE STEELE MD 09/20/18 [Hydrogen Peroxid(*) 3% 473 Ml] 120 ML SOLN No Conflict Check, 0 ML TP PRN PRN for SEE COMMENT for 30 Days, BOT Prov:JEANNE STEELE MD 09/20/18 Enoxaparin Sodium (ENOXAPARIN SODIUM) 30 Mg/0.3 Ml Disp.syrin, 30 MG SC QDAY for 30 Days, SYR Prov:JEANNE STEELE MD 09/20/18 Docusate Sodium (DOCU LIQUID) 50 Mg/5 Ml Liquid, 100 MG FT BID for 30 Days, BOT Prov:JEANNE STEELE MD 09/20/18 Acetaminophen (ACETAMINOPHEN) 160 Mg/5 Ml Soln, 650 MG FT Q4H PRN for FEVER/PAIN for 30 Days, BOTTLE Prov:JEANNE STEELE MD 09/20/18 Fluticasone Prop 50 Mcg Ns (FLONASE 50 MCG NS) 16 Gm [place].susp, 2 SPRAYS NS QDAY, #1 BOT Prov:ABDELRAHMAN MAURO MD 08/16/18 Copies to: ABDELRAHMAN MAURO MD ; Venous Thromboembolism Antithrombotics Is Pt On Any Antithrombotics?: Yes IVORY STEELE MD Oct 10, 2018 16:10
[2018-10-10] MEDS ORDERED: HYDROCORTISONE 100 MG/2 ML IVP ONE (16:15)
[2018-10-10] MEDS ORDERED: CEFEPIME HCL 2 GM VIAL 2 GM in NS(*) 0.9% 100 ML BAG 100 ML IVPB SCH (17:00)
--- NOTE | 2018-10-11 09:21 | OT ECF NOTE ---
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 Occupational Therapy Evaluation Date: 09-20-18 SUBJECTIVE: Prior Hospitalization: [facility] Med/ICU from 09/02/18 to 09/20/18. Prior Level of Function: Pt. states that he was living alone prior to admission to [facility] Med/ ICU. Prior Living Status: Multilevel house,Alone Community Services: Support adequate Home Accessibility: One step into home Equipment Owned: Unknown at this time. Medical Complications/Past Medical History: Please refer to reports for details. Psychosocial Support: Supportive daughter. Pain Scale (0-10): No pain noted during IE. OBJECTIVE: Strength: MMT: Right Left Shoulder Flexion 3/5 3/5 Elbow Flexion WFL WFL Wrist Extension WFL WFL Signal Processing Engineer WFL WFL (5= normal, 4= good, 3= fair, 2= poor, 1= trace) ROM: Both upper extremities, Significantly limited secondary to hx of polio Functional Transfer: Assistive Device: Front wheeled walker, Gait belt Transfer Ability: CGAx1. Ambulation x120 ft with RW. ADL: Upper body dressing: Assistive device: None Upper body dressing ability: Set-up Lower body dressing: Assistive device: None Lower body dressing ability: Moderate assistance pulling clothing over hips, Min A threading LB clothing. Toileting: Assistive device: Bedside Commode Toileting ability: Moderate assistance Grooming/hygiene: Assistive device: Seated Grooming ability: Set-up Bathing: Assistive device: Bathing ability: N/T Standardized Assessment: Jayme Index of Activities of Daily Living- Pt. scored 3/20 on this Index upon initial evaluation. 9/20 upon [id number] note. ASSESSMENT: Pt. is a 68 year old male who has recently been diagnosed with squamous cell carcinoma (laryngeal mass). Pt. was admitted to [facility] ICU on 09/02/18 and has undergone a PEG tube placement and a tracheostomy. Pt. admitted to [facility] ECF for continued rehab and to undergo 7 weeks of radiation through the [facility]. Pt. states that he will d/c to home alone 'for a bit," before moving to daughter's home in [place] to reside. Pt. will reside on one level at daughter's home. Pt developed fever and rigors on ECF 10/10/18. Pt was transferred to [facility] ICU for further medical care. Discharge skilled OT services at this time. Problem List/Current Limitations: Decreased activity tolerance Decreased strength Decreased ROM Decreased balance Generalized weakness Short Term Goals: 1. Pt. to perform LB dressing activities with Min A. Progressing towards. 2. Pt. to perform toileting activities with Mod I. Progressing towards. 3. Pt. to perform showering activities with Min A. Progressing towards. 4. Pt. to improve Jayme Index of ADL score by 2 points. Goal met. 5. Pt. to grooming activities with I. Progressing towards. Mcc Goals: Return home. Patient Goals: "return home alone for a bit" and then to daughters home in [place]. Rehabilitation Prognosis: Fair Barriers to Discharge: medical issues PLAN: Pt was transferred to [facility] ICU for further medical care. Discharge skilled OT services at this time. Thank you for this referral. If you have any questions, concerns, or comments about this report or plan, please contact me at . Rocio Paredes MS, OTR/L Occupational Therapist [facility]
--- NOTE | 2018-10-11 16:34 | PT ECF NOTE ---
Type of Note: Discharge note (Pt admitted to Med/Surg for pneumonia) Primary Medical Diagnosis: Acute respiratory failure, squamous cell carcinoma with laryngeal mass Physical Therapy Evaluation Date: 09/20/18 SUBJECTIVE: Prior Hospitalization: 09/02/18-09/20/18 Prior Level of Function: I) with no AD Prior Living Status: Multilevel house, Alone Community Services: Support adequate Home Accessibility: One step into home, 2 steps in home Equipment Owned: None per patient report Medical Complications/Past Medical History: Poliomyelitis, COPD, see EMR for details Psychosocial Support: Supportive daughter, living in [place] Pain Scale (0-10): 0 OBJECTIVE: Strength: Right Lower Extremity: DF: 3+/4 Knee flexion: 3+/5 Knee extension: 3+/5 Hip flexion: 3/5 Left Lower Extremity: DF: 3+/4 Knee flexion: 3+/5 Knee extension: 3+/5 Hip flexion: 3/5 ROM: WFL, pt reports frequent hyperextension of R) knee at baseline Sensation: WNL Other Neuro findings: Poliomyelitis Bed Mobility: SBA with bed rail Transfers: CGA with RW Gait: 170' with RW and CGA Stairs: Not tested ASSESSMENT: Pt transferred back to [facility] Med/Surg unit due to pneumonia. PT will completed re-eval if appropriate on that unit, and re-eval upon return to [facility] for further rehab when appropriate. Problem List/Current Limitations: Decreased activity doroteo Decreased strength Decreased ROM Decreased balance Short Term Goals: (making progress) 1: Pt to complete bed mobility with Fabricio and no use of bed rail 2: Pt to complete transfers with Fabricio and least restrictive AD from a variety of surfaces. 3: Pt to ambulate 100' with Fabricio and least restrictive AD 4: Pt to asc/desc 4 steps with railing and CGA 5: Pt to asc/desc 1 platform step with CGA. Employment Program Representative Goals: Pt to demonstrate increased independence with functional mobility and decreased need of assistance from others Patient Goals: "Return home alone for a bit and then go to my daughter's home in [place]" Rehabilitation Prognosis: Fair Barriers for Discharge: Mobility impairments as baseline level of function, new cancer diagnosis, effects of radiation therapy PLAN: Eval on med/surg to continue rehab as pt tolerates. Thank you for this referral. If you have any questions, concerns, or comments about this report or plan, please contact me at . H. Sandy Pereira, PT, MPT, OMS MTDD
== END 2018-10-10 16:20 | disposition still patient (30) | DRG 146 ==
LOC: ECF 10:20
PROVIDERS: ADMIT Internal Medicine; ATTEND Internal Medicine
DX: C32.9 Malignant neoplasm of larynx, unspecified (principal); J96.21 Acute and chronic respiratory failure with hypoxia; J18.9 Pneumonia, unspecified organism; A41.9 Sepsis, unspecified organism; T17.490A Other foreign object in trachea causing asphyxiation, initial encounter; J44.1 Chronic obstructive pulmonary disease with (acute) exacerbation; R13.10 Dysphagia, unspecified; R53.1 Weakness; B91 Sequelae of poliomyelitis; R33.9 Retention of urine, unspecified; R00.0 Tachycardia, unspecified; Z93.0 Tracheostomy status
CPT/HCPCS: 36415; 71045; 74230; 82040; 82247; 82310; 82374; 82435; 82565; 82947; 84075; 84132; 84155; 84295; 84450; 84460; 84520; 85025; 87040; 97161; 97165; 99201; 99211; J1650; J7512

== ENCOUNTER 2018-10-10 16:20 | Inpatient (IN) | payer MEDICARE, BC ==
[~2018-10-10] VITALS: Ht 162.6 cm; Wt 43.1 kg
[2018-10-10] VITALS (19 sets, daily range): BP systolic 89–159; BP diastolic 54–86
[2018-10-10] MEDS ORDERED: HYDROCORTISONE 100 MG/2 ML IVP ONE (16:45)
[2018-10-10] MEDS: ACETAMINOPHEN ADULT 160 MG/5ML 160 MG/5 ML UDBTL FT PRN (16:52)
[2018-10-10] MEDS ORDERED: CEFEPIME HCL 2 GM VIAL IVP SCH (17:00)
[2018-10-10] MEDS ORDERED: NS(*) 0.9% 1000 ML BAG 1,000 ML IV ONE (17:05)
[2018-10-10] MEDS ORDERED: INFLUENZA VIRUS VAC 0.5ML SYR IM ONLY ONE (17:15)
[2018-10-10] MEDS ORDERED: LEVALBUTEROL 1.25 MG/3 ML NEB NEB PRN (17:15)
[2018-10-10] MEDS ORDERED: ONDANSETRON 4 MG/2 ML VIAL IVP PRN (17:15)
--- NOTE | 2018-10-10 17:41 | History & Physical ---
History of Present Illness History of Present Illness 68 yo male on ECF for ongoing radiation of his laryngeal cancer when he acutely developed rigors and fever. With this he had worsening of his tachycardia and hypoxia. His BP was elevated as well. He complained of mild dyspnea. A CXR was performed and showed new infiltrate in the right base and possibly L base as well. The patient required 100% O2 per his trach as well as oxygen per nasal cannula to maintain an O2 saturation in the high 80s. He was transferred to ICU due to his significant hypoxia, tachycardia and possible sepsis. 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 (7) Hyperlipidemia Status: Chronic (8) Poliomyelitis Status: Chronic (9) Dysphagia Status: Chronic Home Meds Active Scripts Terazosin Hcl (TERAZOSIN HCL) 1 Mg Capsule, 2 MG FT QHS for 30 Days, CAPSULE Prov:JEANNE STEELE MD 09/20/18 Prednisone 10 Mg Tab (PREDNISONE 10 MG TAB) 10 Mg Tablet, 10 MG FT QDAY for 30 Days, TAB Prov:JEANNE STEELE MD 09/20/18 Levalbuterol Hcl (XOPENEX) 0.63 Mg/3 Ml Vial.neb, 0.63 MG NEB Q2HR PRN for SHORTNESS OF BREATH for 30 Days, VIAL Prov:JEANNE STEELE MD 09/20/18 [Hydrogen Peroxid(*) 3% 473 Ml] 120 ML SOLN No Conflict Check, 0 ML TP PRN PRN for SEE COMMENT for 30 Days, BOT Prov:JEANNE STEELE MD 09/20/18 Enoxaparin Sodium (ENOXAPARIN SODIUM) 30 Mg/0.3 Ml Disp.syrin, 30 MG SC QDAY for 30 Days, SYR Prov:JEANNE STEELE MD 09/20/18 Docusate Sodium (DOCU LIQUID) 50 Mg/5 Ml Liquid, 100 MG FT BID for 30 Days, BOT Prov:JEANNE STEELE MD 09/20/18 Acetaminophen (ACETAMINOPHEN) 160 Mg/5 Ml Soln, 650 MG FT Q4H PRN for FEVER/PAIN for 30 Days, BOTTLE Prov:JEANNE STEELE MD 09/20/18 Fluticasone Prop 50 Mcg Ns (FLONASE 50 MCG NS) 16 Gm Starbuck.susp, 2 SPRAYS NS QDAY, #1 BOT Prov:ABDELRAHMAN MAURO MD 08/16/18 Allergies: Coded Allergies: Penicillins (Verified Allergy, Intermediate, HIVES, 09/06/11) meperidine (Verified Adverse Reaction, Intermediate, HARD TO URINATE, 09/06/11) Patient History: FH: dementia MOTHER, , Age:85 FH: leukemia FATHER, , Age:75 Hx Smoking: Yes Smoking Status: Former Smoker Caffeine Intake: Coffee Caffeine/Cups Per Day: 2 CUPS PER DAY Hx Alcohol Use: No Hx Substance Use Disorder: No Review of Systems All Systems Reviewed/Normal: Yes, Except as Noted Exam General Appearance: Alert, Awake, Other (mildly tachypneic) Cardiovascular: Other (Tachy, regular, no m/r/g) Respiratory: Clear to Auscultation (Decreased BS in the right base) GI: Abd Soft and Non-Tender (PEG tube without surrounding erythema) Extremities: No Edema Integumentary: No Jaundice, No Cyanosis Medical Decision Making Data Points Item Value Date Time White Blood Count 13.0 k/uL H 10/10/18 1530 Hemoglobin 12.1 g/dL L 10/10/18 1530 Neutrophils (%) (Auto) 91.1 % H 10/10/18 1530 Lymphocytes (%) (Auto) 1.4 % L 10/10/18 1530 Monocytes (%) (Auto) 6.8 % 10/10/18 1530 Eosinophils (%) (Auto) 0.3 % L 10/10/18 1530 Sodium Level 134 mmol/L L 10/10/18 1530 Potassium Level 4.5 mmol/L 10/10/18 1530 Chloride Level 103 mmol/L 10/10/18 1530 Blood Urea Nitrogen 16 mg/dl 10/10/18 1530 Carbon Dioxide Level 29 mmol/L 10/10/18 1530 Creatinine 0.40 mg/dl L 10/10/18 1530 Random Glucose 113 mg/dl H 10/10/18 1530 Calcium Level 8.8 mg/dl 10/10/18 1530 Total Bilirubin 0.5 mg/dl 10/10/18 1530 Aspartate Amino Transf (AST/SGOT) 19 U/L 10/10/18 1530 Alanine Aminotransferase (ALT/SGPT) 34 U/L 10/10/18 1530 Alkaline Phosphatase 75 U/L 10/10/18 1530 EKG / Imaging Imaging CXR - 1. Interval development of patchy airspace consolidation in the lower lobes, right greater than left consistent with atelectasis and or developing infiltrates Assessment and Plan Problems: (1) Hospital-acquired pneumonia Status: Acute Assessment & Plan: The patient was on ECF for ongoing radiation of his laryngeal cancer when he acutely developed rigors and fever. With this he had worsening of his tachycardia and hypoxia. His BP was elevated as well. He complained of mild dyspnea. A CXR was performed and showed new infiltrate in the right base and possibly L base as well. The patient required 100% O2 per his trach as well as oxygen per nasal cannula to maintain an O2 saturation in the high 80s. He was transferred to ICU due to his significant hypoxia, tachycardia and possible sepsis. Blood cultures and a lactate pending. He is getting bolused a liter of NS and was given 100mg of hydrocortisone IV. He will be started on Cefepime 2g IV q12h. (2) COPD (chronic obstructive pulmonary disease) Status: Chronic Assessment & Plan: No wheezing on exam. Will use Xopenex prn. 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 CT scan showed a mass to be centered in the right vocal cord. He underwent biopsy on 09/07 and was found to have squamous cell carcinoma. He decided to have a tracheostomy/PEG which was done on 09/08/18. Dr. Curran (oncology) and Dr. Johnson (Radiation Oncology) met with the patient/family. The patient started radiation treatment September 24. He was transferred to [facility] for ongoing treatments and PT/OT. He developed pneumonia and possible sepsis on 10/10/18 and was transferred to ICU. (4) Urine retention Status: Chronic Assessment & Plan: He did develop urinary retention and gross hematuria. Nursing tried to pass a Espinosa cath without success. Dr. Kirkpatrick was consulted and ended up having to take him back to the OR for cystoscopy guided catheter placement on 09/07. Dr. Kirkpatrick recommended that we continue levofloxacin for a 3 day period through 09/10, which was done. The patient's Flomax will be held for now and the catheter remains in place. (5) Dysphagia Status: Chronic Assessment & Plan: Speech therapy evaluated him and recommended an MBS, which was ordered, but Mr. Villagomez did not wish to pursue. PEG was placed. He did start eating some food prior to developing pneumonia on 10/10/18. Will make him NPO for now and ask ST to see him. (6) Poliomyelitis Status: Chronic Assessment & Plan: Chronic bilateral weakness. When more medically stable, he will need to have OT/PT start seeing him again. (7) Tachycardia Status: Acute Venous Thromboembolism Antithrombotics Is Pt On Any Antithrombotics?: Yes EPIFANIO BROWN MD Oct 10, 2018 17:41
[2018-10-10] MEDS: CEFEPIME HCL 2 GM VIAL 2 GM in NS(*) 0.9% 100 ML BAG 100 ML IVPB SCH (17:57)
--- NOTE | 2018-10-10 18:00 | EKG ---
FACILITY: [facility] [place] PATIENT NAME: TONIE BRODY : [id number] MR: [id number] V: [id number] EXAM DATE: ORDERING PHYSICIAN: EPIFANIO BROWN TECHNOLOGIST: ANNELISE Test Reason : IRR HR Blood Pressure : / mmHG Vent. Rate : 149 BPM Atrial Rate : 149 BPM P-R Int : 114 ms QRS Dur : 072 ms QT Int : 278 ms P-R-T Axes : 057 078 041 degrees QTc Int : 437 ms Sinus tachycardia with occasional premature ventricular complexes No ST-T abnormalities Relatively unchanged from previous Confirmed by EPIFANIO BROWN ([id number]) on 10/10/2018 6:26:00 PM Referred By: IVETTE Calderón Confirmed By:EPIFANIO BROWN
[2018-10-10] MEDS: NS(*) 0.9% 1000 ML BAG 1,000 ML IV PRN (18:04)
[2018-10-11] VITALS (18 sets, daily range): BP systolic 88–151; BP diastolic 53–100
[2018-10-11] MEDS: CEFEPIME HCL 2 GM VIAL 2 GM in NS(*) 0.9% 100 ML BAG 100 ML IVPB SCH ×2 (05:12→17:09)
[2018-10-11 05:37] LABS: PLATELET COUNT, AUTOMATED 267 K/uL (150-450)
[2018-10-11] MEDS ORDERED: HYDROGEN PEROXID 3% 473 ML BTL TP ONE ×2 (07:24→08:43)
[2018-10-11] MEDS: predniSONE 5 MG TAB PO SCH (08:40)
[2018-10-11] MEDS: ENOXAPARIN 30 MG/0.3 ML SYR SC SCH (08:40)
--- NOTE | 2018-10-11 09:16 | Hospitalist Progress Note ---
Subjective Progress Notes Subjective This patient was readmitted for aspiration. He had no acute events overnight. Patient Complains of: Cardiovascular: No: Chest Pain Respiratory: No: Shortness of Breath Physical Exam Vital Signs Date Time Temp Pulse Resp B/P (MAP) Pulse Ox O2 Delivery O2 Flow Rate FiO2 10/11/18 08:45 93 Nasal Cannula 4.5 10/11/18 08:00 98.9 122 36 119/84 (96) Intake and Output 10/11/18 07:00 Intake Total 3824 ml Output Total 1125 ml Balance 2699 ml Intake IV Total 1940 ml Tube Feeding 884 ml Tube Irrigant 1000 ml Output Urine Total 1125 ml # Bowel Movements 1 Cardiovascular: Regular Rate and Rhythm Respiratory: Clear to Auscultation Result Diagram: 10/11/1851910/11/18519 Assessment and Plan Problems: (1) Hospital-acquired pneumonia Status: Acute Assessment & Plan: He was on ECF for ongoing radiation of his laryngeal cancer when he developed rigors and fever. With this he had worsening of his tachycardia and hypoxia. A CXR showed a new infiltrate in the right base and possibly L base as well. He was transferred to the ICU and was started on cefepime. Cultures are pending. (2) COPD (chronic obstructive pulmonary disease) Status: Chronic Assessment & Plan: He is on treatment with Xopenex. He received a dose of IV steroids on admission, but is now back on his chronic dose of oral prednisone. 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 CT scan showed a mass to be centered in the right vocal cord. He underwent biopsy on 09/07 and was found to have squamous cell carcinoma. He decided to have a tracheostomy/PEG which was done on 09/08/18. Dr. Curran (oncology) and Dr. Johnson (Radiation Oncology) met with the patient/family. The patient started radiation treatment September 24. (4) Urine retention Status: Chronic Assessment & Plan: He did develop urinary retention and gross hematuria. Nursing tried to pass a Espinosa cath without success. Dr. Kirkpatrick was consulted and ended up having to take him back to the OR for cystoscopy guided catheter placement on 09/07. Dr. Kirkpatrick recommended that we continue levofloxacin for a 3 day period through 12/24, which was done. The patient's Flomax will be held for now and the catheter remains in place. (5) Dysphagia Status: Chronic Assessment & Plan: Speech therapy evaluated him and recommended an MBS, which was ordered, but Mr. Villagomez did not wish to pursue. PEG was placed. He did start eating some food prior to developing pneumonia on 10/10/18. Will make him NPO for now and ask ST to see him. (6) Poliomyelitis Status: Chronic Assessment & Plan: Chronic bilateral weakness. When more medically stable, he will need to have OT/PT start seeing him again. (7) Tachycardia Status: Acute Exam Sepsis Risk: No Definite Risk ROMAN SKELTON DO Oct 11, 2018 09:16
--- NOTE | 2018-10-11 10:13 | Medical Nutrition Therapy ---
Nutrition Anthropometrics Height (Inches): 64 Weight (Pounds): 95 Weight (Calculated Kilograms): 43.120 BMI: 16.3 Ezio Nutrition Score: Probably Inadequate Ezio Nutrition Risk Score: 15 Dietary Referral Nutrition Risk Factors: Significantly Underwt. Nutrition Risk Comment: works with dietary already Physical Findings Physical Appearance: Underweight BMI<19 Skin Appearance Skin Appearance: Edema Edema Location Modifier: Edema Location: Type of Edema: Degree of Edema: Gastrointestinal Symptoms GI Symtoms: Tube Present: PEG, Feeding Bowel Sounds: Recent Bowel Pattern: Stool Characteristics: Soft Nutritional Diagnosis Nutritional Risk Acuity 1: %IBW < 74% (73% IBW) Nutritional Risk Acuity 2: Pr Appetite > 3d, Head/Neck/GI Cancer, Tube Feed Stable, Swallowing Problem Nutritional Risk Acuity 3: Cancer Past Medical History: BPH (benign prostatic hyperplasia), Scoliosis, Hyperlipidemia, GERD, Poliomyelitis, carcinoma of larynx Nutritional Acuity: 1-High Nutrition Diagnosis: Increased Nutrient Needs, Swallowing Difficulties Nutrition Etiology: Physiological Causes Nutrition Problem/Etiology/Sym: R/t carcinoma of larynx AEB poor intake > 3 days, enteral nutrition Energy Requirement: 2034 (M- StJ X 1.5 SF) Protein Requirement: 86 (2gm/kg) Fluid Requirement: 1300 (30ml/kg) Diet Type: NPO (Nothing by Mouth), Tube Feeding (TF) Nutrition Intervention: Nutrition support Nutritional Support Current Enteral / Parental: Tube Feeding Tube Feeding Formulas: Jevity 1cal/ml-Standard Tube Feeding Supplement Streng: Full Feeding Route: PEG Rate: 80ml/kg Current Duration: 24 Current Calories: 5 Current Protein: 85 Nutrition Monitoring & Eval Nutritional Goals Comment: Enteral nutrtion will meet nutr needs RD Patient Assessment Time: [address] Assessment Type: RD Assessment Patient Nutrition Acuity: 1-High Follow Up Date: Oct 14, 2018 Nutritional Comment: 10/11 Pt admitted with pneumonia. Pt currently undergoing RO tx for Ca of larynx. Pt has been eating small amounts of oral intake but kcal needs are being met thru enteral nutrition. TF has been stable on Jevity @ 80ml/hr with minimal residuals. Awaiting SPL eval of dyspagia. BMI cont in underwt range with recent nutr physical assessment indicating malnutriton AEB muscle wasting to clavical, arms, legs. Wt has increased 15% from a low of 82# 09/14. Alb cont low at 2.1. Will cont to monitor. CHLOE MONTES Oct 11, 2018 09:46
--- NOTE | 2018-10-11 12:23 | NUR ---
Physical Therapy Impression PT/OT co-eval completed for pt safety due to numerous lines. Pt notes that he feels significantly better as compared to yesterday. Pt completed a [id number] transfer from BSC to recliner with CGA/SBA. Physical Therapy Goals 1: Pt to complete bed mobility with Fabricio and no use of bed rail 2: Pt to complete transfers with Fabricio and least restrictive AD from a variety of surfaces. 3: Pt to ambulate 100' with Fabricio and least restrictive AD 4: Pt to asc/desc 4 steps with railing and CGA 5: Pt to asc/desc 1 platform step with CGA. Patient's Goals
--- NOTE | 2018-10-11 14:53 | NUR ---
Occupational Therapy Impression OT evaluation completed with PT. Pt. would benefit from OT services 5x/ week to increase independence in ADL. Pt. to d/c to [facility] for continued rehab and radation treatments when medically stable. Occupational Therapy Goals 1. Pt. to perform dressing activities with Min A. 2. Pt. to perform grooming activities with I. 3. Pt. to perform toileting activities with Min A. 4. Pt. to perform showering activities with Min A. Patient's Goal
[2018-10-12] MEDS: NS(*) 0.9% 1000 ML BAG 1,000 ML IV PRN ×2 (00:46→16:12)
[2018-10-12 03:19] VITALS: BP 141/83
[2018-10-12] MEDS: CEFEPIME HCL 2 GM VIAL 2 GM in NS(*) 0.9% 100 ML BAG 100 ML IVPB SCH ×2 (04:40→17:00)
[2018-10-12 06:22] LABS: PLATELET COUNT, AUTOMATED 302 K/uL (150-450)
[2018-10-12 07:20] VITALS: BP 128/79
--- NOTE | 2018-10-12 08:46 | Hospitalist Progress Note ---
Subjective Progress Notes Subjective He was admitted with aspiration pneumonia. He had no acute events overnight. He denies any complaints this morning. Patient Complains of: Cardiovascular: No: Chest Pain Respiratory: No: Shortness of Breath Physical Exam Vital Signs Date Time Temp Pulse Resp B/P (MAP) Pulse Ox O2 Delivery O2 Flow Rate FiO2 10/12/18 07:20 99.3 102 22 128/79 (95) 96 Nasal Cannula 4.0 70.0 Intake and Output 10/12/18 06:59 Intake Total 3236 ml Output Total 1280 ml Balance 1956 ml Intake IV Total 1120 ml Tube Feeding 1116 ml Tube Irrigant 1000 ml Output Urine Total 1280 ml # Bowel Movements 3 General Appearance: Alert, Awake, No Acute Distress, Afebrile Neuro: No Gross deficits Cardiovascular: Regular Rate and Rhythm Respiratory: No Respiratory Distress, Other (right sided rhonchi worse than left) GI: Soft and Non-Tender Extremities: Warm, Perfused; No Edema Psych: Alert & Oriented X3, Appropriate Mood & Affect Result Diagram: 10/12/18 0559 10/11/18 0520 Assessment and Plan Problems: (1) Hospital-acquired pneumonia Status: Acute Assessment & Plan: He was on ECF for ongoing radiation of his laryngeal cancer when he developed rigors and fever. With this he had worsening of his tachycardia and hypoxia. A CXR showed a new infiltrate in the right base and possibly L base as well. He was transferred to the ICU and was started on cefepime. Cultures are pending, show no growth currently. (2) COPD (chronic obstructive pulmonary disease) Status: Chronic Assessment & Plan: He is on treatment with Xopenex. He received a dose of IV steroids on admission, but is now back on his chronic dose of oral prednisone. 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 CT scan showed a mass to be centered in the right vocal cord. He underwent biopsy on 09/07 and was found to have squamous cell carcinoma. He decided to have a tracheostomy/PEG which was done on 09/08/18. Dr. Curran (oncology) and Dr. Johnson (Radiation Oncology) met with the patient/family. The patient started radiation treatment September 24. (4) Urine retention Status: Chronic Assessment & Plan: He did develop urinary retention and gross hematuria. Nursing tried to pass a Espinosa cath without success. Dr. Kirkpatrick was consulted and ended up having to take him back to the OR for cystoscopy guided catheter placement on 09/07. Dr. Kirkpatrick recommended that we continue levofloxacin for a 3 day period through 09/10, which was done. The patient's Flomax will be held for now and the catheter remains in place. (5) Dysphagia Status: Chronic Assessment & Plan: Speech therapy evaluated him and recommended an MBS, which was ordered, but Mr. Villagomez did not wish to pursue. He has agreed to do MBS today. PEG was placed. He did start eating some food prior to developing pneum onia on 10/10/18. Will make him NPO for now and ask ST to see him. (6) Poliomyelitis Status: Chronic Assessment & Plan: Chronic bilateral weakness. When more medically stable, he will need to have OT/PT start seeing him again. (7) Tachycardia Status: Acute Exam Sepsis Risk: Sepsis Risk VENKATESH HUERTA Oct 12, 2018 08:45
[2018-10-12] MEDS: predniSONE 5 MG TAB PO SCH (09:01)
[2018-10-12] MEDS: ENOXAPARIN 30 MG/0.3 ML SYR SC SCH (09:01)
[2018-10-12 09:40] VITALS: Ht 162.6 cm; Wt 43.1 kg
--- NOTE | 2018-10-12 09:53 | NUR ---
Physical Therapy Impression Pt politely declined stating he was tired. Pt is scheduled for a swallow study at 11am. PT to follow as Pt is able to tolerate. Physical Therapy Goals 1: Pt to complete bed mobility with Fabricio and no use of bed rail 2: Pt to complete transfers with Fabricio and least restrictive AD from a variety of surfaces. 3: Pt to ambulate 100' with Fabricio and least restrictive AD 4: Pt to asc/desc 4 steps with railing and CGA 5: Pt to asc/desc 1 platform step with CGA. Patient's Goals
--- NOTE | 2018-10-12 10:02 | SWALLOW EVALUATION ---
SPEECH THERAPY SWALLOW EVAL Patient: Leon Villagomez : 1950 Date of Eval: 10-11-18 The patient readmitted to inpatient from ECF d/t pneumonia. Feeding tube in place. Pt PO diet on ECF as follows: Food: Soft Mechanical: Soft/wet foods. Small bite size. Liquids: [place] thickened liquids with foods. H2O ok between meals following oral hygiene. Pt currently NPO with feeding tube Complains of mucus build up which increases when he eats. He is receiving radiation tx for throat cancer. FOOD/LIQUID TRIALS Liquids: Water from cup rim x5. Pt independently takes small sips and good bolus control demonstrated. Delayed swallow initiation witnessed. No coughing/choking or other s/s of aspiration. O2 levels and heart rate remain consistent. No SOB. Foods: Not trialed d/t concerns with aspiration. SUMMARY D/T recurring pneumonia and trach risk, follow-up MBS is recommended. Pt agrees. Prognosis: Good RECOMMENDATIONS 1. Modified Barium Swallow 2. ST 3-4xwk 3. Remain NPO with water from cup rim OK Thank you for this referral. Please call [phone] (outpatient rehab) or [phone] (inpatient rehab) to contact the FIRST AID DIRECTOR. Respectfully, Shameka Oliver M.S., CCC-FIRST AID DIRECTOR [place]
[2018-10-12] MEDS ORDERED: BARIUM SULFATE 148 GM POWDER ONE (11:40)
[2018-10-12] MEDS ORDERED: BARIUM SULFATE 240 ML ORAL SUS (NECTAR) ONE (11:40)
--- NOTE | 2018-10-12 12:13 | NUR ---
MBS CX d/t Pt desat with removal of humidifier to 77% with 4L nasal cannula and did not recover quickly. Respiratory consulted and they placed transtracheal oxygen. Pt was fatigued at this point and it was recommended the MBS be cx and rescheduled when pt is medically stronger. Pt agrees. Recommend pt remain NPO with the exception of water from cup rim until follow-up MBS can be completed. Pt agrees. Shameka Oliver M.S., CCC-DATABASE REPORTING CONSULTANT Speech Therapy
[2018-10-12 12:15] VITALS: BP 135/85
[2018-10-12 15:25] VITALS: BP 130/72
--- NOTE | 2018-10-12 16:23 | Antimicrobial Stewardship ---
Antimicrobial Stewardship Empiricly appropriate: Yes (HAP - From ECF) Significant PMH: Yes (Laryngeal Cancer, undergoing radiation) Support empiric regimen: Yes Approriate Cultures done: Yes (Blood Cx NGTD) Renal/Hepatic dosing: Yes (Reviewed) Determine cumulative duration: day 3 Determine standard duration: 7 days Comment 68 yo M with a history of polio, laryngeal cancer, COPD who was on ECF who aspirated/developed a pneumonia. He became tachycardic, sob, and CXR showed a R and L lower infiltrate. Antibiotics: Cefepime 2g IV q12h - today is day 3 Continue antibiotics for 7 days for HAP/aspiration pneumonia. Jerri Whitfield, PharmD, BCOP JERRI WHITFIELD Oct 12, 2018 16:12
[2018-10-12] MEDS: ACETAMINOPHEN ADULT 160 MG/5ML 160 MG/5 ML UDBTL FT PRN (18:34)
[2018-10-12 19:15] VITALS: BP 124/74
[2018-10-12] MEDS ORDERED: SALINE 0.65% NAS SPR 44 ML BTL PRN (19:20)
[2018-10-12 22:42] VITALS: BP 109/70
[2018-10-13 03:54] VITALS: BP 108/78
[2018-10-13] MEDS: CEFEPIME HCL 2 GM VIAL 2 GM in NS(*) 0.9% 100 ML BAG 100 ML IVPB SCH ×2 (04:34→17:19)
[2018-10-13] MEDS: ACETAMINOPHEN ADULT 160 MG/5ML 160 MG/5 ML UDBTL FT PRN ×4 (05:06→20:01)
[2018-10-13 06:14] LABS: PLATELET COUNT, AUTOMATED 299 K/uL (150-450)
[2018-10-13 07:45] VITALS: BP 118/79
[2018-10-13] MEDS: NS(*) 0.9% 1000 ML BAG 1,000 ML IV PRN (07:52)
[2018-10-13] MEDS ORDERED: FLUSH 10 ML SYR IVP PRN (09:25)
[2018-10-13] MEDS: ENOXAPARIN 30 MG/0.3 ML SYR SC SCH (09:36)
[2018-10-13] MEDS: predniSONE 5 MG TAB PO SCH (09:36)
--- NOTE | 2018-10-13 09:49 | Hospitalist Progress Note ---
Subjective Progress Notes Subjective He denies any new problems other than a mild GONZÁLES. He does state he wants "out" of the hospital. No fever. Physical Exam Vital Signs Date Time Temp Pulse Resp B/P (MAP) Pulse Ox O2 Delivery O2 Flow Rate FiO2 10/13/18 08:14 95 Nasal Cannula 70.0 10/13/18 07:45 98.9 84 20 118/79 (92) 10/12/18 19:15 3.5 Intake and Output 10/13/18 07:00 Intake Total 4833 ml Output Total 4525 ml Balance 308 ml Intake Oral 100 ml IV Total 1183 ml Tube Feeding 1995 ml Tube Irrigant 1555 ml Output Urine Total 4525 ml General Appearance: Alert, Awake Neuro: Other (chronic mild paresis involving virtually all groups) Neck: Other (tracheostomy site looks good/no drainage or erythema) Cardiovascular: Regular Rate and Rhythm Respiratory: Other (scattered rhonchi and some coarse breath sounds) Chest: No Tenderness GI: Soft and Non-Tender, Other (PEG site clean) Extremities: Warm, Perfused Result Diagram: 10/13/1851710/13/18517 Assessment and Plan Problems: (1) Hospital-acquired pneumonia Status: Acute Assessment & Plan: He was on ECF for ongoing radiation of his laryngeal cancer when he developed rigors and fever. He also had worsening of his tachycardia and hypoxia. A CXR showed a new infiltrate in the right base and possibly left base as well. He was initially transferred to the ICU and was started on IV cefepime. He has since stabilized and transferred to medical floor. Blood cultures show no growth currently. (2) COPD (chronic obstructive pulmonary disease) Status: Chronic Assessment & Plan: He is on treatment with Xopenex. He received a dose of IV steroids on admission, but is now back on his chronic dose of oral prednisone. 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 CT scan showed a mass to be centered in the right vocal cord. He underwent biopsy on 09/07 and was found to have squamous cell carcinoma. He decided to have a tracheostomy/PEG which was done on 09/08/18. Dr. Curran (oncology) and Dr. Johnson (Radiation Oncology) met with the patient/family. The patient started radiation treatment Lilia 7th. It may have contributed to his aspiration. Will have the cuff on his tracheostomy inflated for now, while recovering from the aspiration pneumonia (and possibly while receiving remainder of radiation). (4) Urine retention Status: Chronic Assessment & Plan: He did develop urinary retention and gross hematuria. Nursing tried to pass a Espinosa cath without success. Dr. Kirkpatrick was consulted and ended up having to take him to the OR for cystoscopy guided catheter placement on 09/07. Dr. Kirkpatrick recommended that we continue levofloxacin for a 3 day period through 09/10, which was done. The patient's Flomax will be restarted now. The catheter remains in place for now, but may consider trying cath removal on Monday or Monday - will need to notify Dr. Kirkpatrick. (5) Dysphagia Status: Chronic Assessment & Plan: Speech therapy evaluated him and recommended an MBS, which was ordered, but Mr. Villagomez did not wish to pursue. PEG was placed. He did start eating some food prior to developing pneumonia on 10/10/18. Will keep him NPO for now, inflate tracheostomy cuff, and ask ST to see him. (6) Poliomyelitis Status: Chronic Assessment & Plan: Chronic bilateral weakness. He will need to have OT/PT start seeing him again. (7) Tachycardia Status: Acute Assessment & Plan: Improved/improving with treatment of his pneumonia. Exam Sepsis Risk: No Definite Risk JEANNE STEELE MD Oct 13, 2018 09:49
[2018-10-13 12:14] VITALS: BP 112/74
--- NOTE | 2018-10-13 12:45 | NUR ---
Physical Therapy Impression Pt. politely declined therapy today, stating he is tired. PT to follow as pt. is able to tolerate. Physical Therapy Goals 1: Pt to complete bed mobility with Fabricio and no use of bed rail 2: Pt to complete transfers with Fabricio and least restrictive AD from a variety of surfaces. 3: Pt to ambulate 100' with Fabricio and least restrictive AD 4: Pt to asc/desc 4 steps with railing and CGA 5: Pt to asc/desc 1 platform step with CGA. Patient's Goals
--- NOTE | 2018-10-13 12:58 | Medical Nutrition Therapy ---
Nutrition Anthropometrics Height (Inches): 64.00 Height (Calculated Centimeters: 162.689765 Weight (Pounds): 95 Weight (Calculated Kilograms): 43.120 BMI: 16.3 Ezio Nutrition Score: Probably Inadequate Ezio Nutrition Risk Score: 15 Dietary Referral Nutrition Risk Factors: Significantly Underwt. Nutrition Risk Comment: works with dietary already Physical Findings Physical Appearance: Underweight BMI<19 Skin Appearance Skin Appearance: Edema Edema Location Modifier: Edema Location: Type of Edema: Degree of Edema: Gastrointestinal Symptoms GI Symtoms: Tube Present: PEG Bowel Sounds: Recent Bowel Pattern: Stool Characteristics: Soft Nutritional Diagnosis Nutritional Risk Acuity 1: %IBW < 74% Nutritional Risk Acuity 2: Pr Appetite > 3d, Head/Neck/GI Cancer, Tube Feed Stable, Swallowing Problem Nutritional Risk Acuity 3: Cancer Past Medical History: BPH (benign prostatic hyperplasia), Scoliosis, Hyperlipidemia, GERD, Poliomyelitis, carcinoma of larynx Nutritional Acuity: 1-High Nutrition Diagnosis: Increased Nutrient Needs, Swallowing Difficulties Nutrition Etiology: Physiological Causes Nutrition Problem/Etiology/Sym: R/t carcinoma of larynx AEB poor intake > 3 days, enteral nutrition Energy Requirement: 2034 (M- StJ X 1.5 SF) Protein Requirement: 86 (2gm/kg) Fluid Requirement: 1300 (30ml/kg) Diet Type: NPO (Nothing by Mouth), Tube Feeding (TF) Nutrition Intervention: Nutrition support Food Likes: salmon, tuna, pineapple, chicken broth, beef broth Additional Diet Restrictions: NO CAFFEINE: OFFER DECAF COKE, DECAF TEA WITH LEMON OR HONEY Diet Comment To RSA: NO DAIRY, RED MEAT/PROCESSED MEAT (LUNCH MEAT, HOTDOGS), BREAD/PASTA Nutritional Support Current Enteral / Parental: Tube Feeding Tube Feeding Formulas: Jevity 1cal/ml-Standard Tube Feeding Supplement Streng: Full Feeding Route: PEG Rate: 80ml/kg Current Duration: 24 Current Calories: 2034 Current Protein: 85 Nutrition Monitoring & Eval Nutritional Goals Comment: Enteral nutrition will meet nutr needs until oral intake can meet needs. RD Patient Assessment Time: [address] Assessment Type: RD Re-Assessment Patient Nutrition Acuity: 1-High Follow Up Date: Oct 14, 2018 Nutritional Comment: 10/11 Pt admitted with pneumonia. Pt currently undergoing RO tx for Ca of larynx. Pt has been eating small amounts of oral intake but kcal needs are being met thru enteral nutrition. TF has been stable on Jevity @ 80ml/hr with minimal residuals. Awaiting SPL eval of dyspagia. BMI cont in underwt range with recent nutr physical assessment indicating malnutriton AEB muscle wasting to clavical, arms, legs. Wt has increased 15% from a low of 82# 09/14. Alb cont low at 2.1. Will cont to monitor. CURLY 10/12/18-Updated to add notes to RSA on diet recommendations and restrictions after consultation with VENDING MACHINE SERVICER.-AKG 10/13 SPL unable to conduct barruim swallow. Pt cont NPO with Enteral nutrition meeting nutr needs. Nursing reporting pt tolerating well with minimal residuals. Will cont to monitor. CHLOE MONTES Oct 13, 2018 12:58
[2018-10-13 15:55] VITALS: BP 117/73
[2018-10-13 18:54] VITALS: BP 112/74
[2018-10-13 23:33] VITALS: BP 112/74
[2018-10-14 03:00] VITALS: BP 139/60
[2018-10-14] MEDS: ACETAMINOPHEN ADULT 160 MG/5ML 160 MG/5 ML UDBTL FT PRN ×4 (04:06→20:56)
[2018-10-14] MEDS: CEFEPIME HCL 2 GM VIAL 2 GM in NS(*) 0.9% 100 ML BAG 100 ML IVPB SCH ×2 (04:44→16:26)
[2018-10-14 06:45] VITALS: BP 120/79
[2018-10-14] MEDS ORDERED: TAMSULOSIN HCL 0.4 MG CAP PO SCH (09:00)
[2018-10-14] MEDS ORDERED: TERAZOSIN HCL 1 MG CAP PO ONE (09:00)
[2018-10-14] MEDS: ENOXAPARIN 30 MG/0.3 ML SYR SC SCH (10:11)
[2018-10-14] MEDS: predniSONE 5 MG TAB PO SCH (10:11)
[2018-10-14 11:31] VITALS: BP 140/86
--- NOTE | 2018-10-14 12:18 | Medical Nutrition Therapy ---
Nutrition Anthropometrics Height (Inches): 64.00 Height (Calculated Centimeters: 162.663672 Weight (Pounds): 95 Weight (Calculated Kilograms): 43.120 BMI: 16.3 Ezio Nutrition Score: Probably Inadequate Ezio Nutrition Risk Score: 15 Dietary Referral Nutrition Risk Factors: Significantly Underwt. Nutrition Risk Comment: works with dietary already Physical Findings Physical Appearance: Underweight BMI<19 Skin Appearance Skin Appearance: Edema Edema Location Modifier: Edema Location: Type of Edema: Degree of Edema: Gastrointestinal Symptoms GI Symtoms: Tube Present: PEG Bowel Sounds: Recent Bowel Pattern: Stool Characteristics: Soft Nutritional Diagnosis Nutritional Risk Acuity 1: %IBW < 74% Nutritional Risk Acuity 2: Pr Appetite > 3d, Head/Neck/GI Cancer, Tube Feed Stable, Swallowing Problem Nutritional Risk Acuity 3: Cancer Past Medical History: BPH (benign prostatic hyperplasia), Scoliosis, Hyperlipidemia, GERD, Poliomyelitis, carcinoma of larynx Nutritional Acuity: 1-High Nutrition Diagnosis: Increased Nutrient Needs, Swallowing Difficulties Nutrition Etiology: Physiological Causes Nutrition Problem/Etiology/Sym: R/t carcinoma of larynx AEB poor intake > 3 days, enteral nutrition Energy Requirement: 2034 (M- StJ X 1.5 SF) Protein Requirement: 86 (2gm/kg) Fluid Requirement: 1300 (30ml/kg) Diet Type: NPO (Nothing by Mouth), Tube Feeding (TF) Nutrition Intervention: Nutrition support Food Likes: salmon, tuna, pineapple, chicken broth, beef broth Additional Diet Restrictions: NO CAFFEINE: OFFER DECAF COKE, DECAF TEA WITH LEMON OR HONEY Diet Comment To RSA: NO DAIRY, RED MEAT/PROCESSED MEAT (LUNCH MEAT, HOTDOGS), BREAD/PASTA Nutritional Support Current Enteral / Parental: Tube Feeding Tube Feeding Formulas: Jevity 1cal/ml-Standard Tube Feeding Supplement Streng: Full Feeding Route: PEG Rate: 80ml/kg Current Duration: 24 Current Calories: 2034 Current Protein: 85 Nutrition Monitoring & Eval RD Patient Assessment Time: [address] Assessment Type: RD Re-Assessment Patient Nutrition Acuity: 1-High Follow Up Date: Oct 17, 2018 Nutritional Comment: 10/11 Pt admitted with pneumonia. Pt currently undergoing RO tx for Ca of larynx. Pt has been eating small amounts of oral intake but kcal needs are being met thru enteral nutrition. TF has been stable on Jevity @ 80ml/hr with minimal residuals. Awaiting SPL eval of dyspagia. BMI cont in underwt range with recent nutr physical assessment indicating malnutriton AEB muscle wasting to clavical, arms, legs. Wt has increased 15% from a low of 82# 09/14. Alb cont low at 2.1. Will cont to monitor. CURLY 10/12/18-Updated to add notes to RSA on diet recommendations and restrictions after consultation with HISTOLOGY TEACHER.-AKG 10/13 SPL unable to conduct barruim swallow. Pt cont NPO with Enteral nutrition meeting nutr needs. Nursing reporting pt tolerating well with minimal residuals. Will cont to monitor. CHLOE MONTES Oct 14, 2018 12:18
[2018-10-14 15:33] VITALS: BP 110/70
[2018-10-14] MEDS ORDERED: HYDROGEN PEROXID 3% 473 ML BTL TP ONE (15:33)
[2018-10-14] MEDS ORDERED: WATER STERILE IRRIG(*) 1000ML 1,000 ML ONE (15:33)
--- NOTE | 2018-10-14 16:13 | Hospitalist Progress Note ---
Subjective Progress Notes Subjective 68M admitted for aspiration PNA. DIANA overnight, doing well this am. Physical Exam Vital Signs Date Time Temp Pulse Resp B/P (MAP) Pulse Ox O2 Delivery O2 Flow Rate FiO2 10/14/18 15:33 99.0 86 16 110/70 (83) 93 Trans-Tracheal 80.0 10/12/18 19:15 3.5 Intake and Output 10/14/18 07:00 Intake Total 5143 ml Output Total 3775 ml Balance 1368 ml Intake Oral 100 ml IV Total 1318 ml Tube Feeding 2000 ml Tube Irrigant 1725 ml Output Urine Total 3775 ml # Voids 0 # Bowel Movements 3 General Appearance: Alert, Awake, No Acute Distress, Afebrile Neuro: No Gross deficits ENT: Other (+ Trach) Cardiovascular: Normal Rhythm & Peripheral Pulses Respiratory: No Respiratory Distress (coarse breath sounds) GI: Soft and Non-Tender Result Diagram: 10/13/1851710/13/18517 Assessment and Plan Problems: (1) Hospital-acquired pneumonia Status: Acute Assessment & Plan: He was on ECF for ongoing radiation of his laryngeal cancer when he developed rigors and fever. He also had worsening of his tachycardia and hypoxia. A CXR showed a new infiltrate in the right base and possibly left base as well. He was initially transferred to the ICU and was started on IV cefepime. He has since stabilized and transferred to medical floor. Blood cultures show no growth currently. (2) COPD (chronic obstructive pulmonary disease) Status: Chronic Assessment & Plan: He is on treatment with Xopenex. He received a dose of IV steroids on admission, but is now back on his chronic dose of oral prednisone. 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 CT scan showed a mass to be centered in the right vocal cord. He underwent biopsy on 09/07 and was found to have squamous cell carcinoma. He decided to have a tracheostomy/PEG which was done on 09/08/18. Dr. Curran (oncology) and Dr. Johnson (Radiation Oncology) met with the patient/family. The patient started radiation treatment September 24. It may have contributed to his aspiration. Will have the cuff on his tracheostomy inflated for now, while recovering from the aspiration pneumonia (and possibly while receiving remainder of radiation). (4) Urine retention Status: Chronic Assessment & Plan: He did develop urinary retention and gross hematuria. Nursing tried to pass a Espinosa cath without success. Dr. Kirkpatrick was consulted and ended up having to take him to the OR for cystoscopy guided catheter placement on 09/07. Dr. Kirkpatrick recommended that we continue levofloxacin for a 3 day period through 09/10, which was done. The patient's Flomax can not be put through PEG, will begin terazosin. The catheter remains in place for now, but may consider trying cath removal on Monday or Monday - will need to notify Dr. Kirkpatrick. (5) Dysphagia Status: Chronic Assessment & Plan: Speech therapy evaluated him and recommended an MBS, which was ordered, but Mr. Villagomez did not wish to pursue. PEG was placed. He did start eating some food prior to developing pneumonia on 10/10/18. Will keep him NPO for now, inflate tracheostomy cuff, and ask ST to see him. (6) Poliomyelitis Status: Chronic Assessment & Plan: Chronic bilateral weakness. He will need to have OT/PT start seeing him again. (7) Tachycardia Status: Acute Assessment & Plan: Improved/improving with treatment of his pneumonia. Exam Sepsis Risk: No Definite Risk SMILEY DONELL CARPENTER DO Oct 14, 2018 16:13
[2018-10-14 18:33] VITALS: BP 120/75
[2018-10-14] MEDS ORDERED: TERAZOSIN HCL 1 MG CAP PO SCH (21:00)
[2018-10-15] MEDS: CEFEPIME HCL 2 GM VIAL 2 GM in NS(*) 0.9% 100 ML BAG 100 ML IVPB SCH (05:15)
[2018-10-15 06:55] VITALS: BP 120/80
[2018-10-15] MEDS: ENOXAPARIN 30 MG/0.3 ML SYR SC SCH (08:19)
[2018-10-15] MEDS: ACETAMINOPHEN ADULT 160 MG/5ML 160 MG/5 ML UDBTL FT PRN (08:19)
[2018-10-15] MEDS: predniSONE 5 MG TAB PO SCH (08:19)
--- NOTE | 2018-10-15 11:10 | Transfer Summary (ECF/SWB) ---
Transfer Summary (ECF/B) Problems: (1) Hospital-acquired pneumonia Status: Acute Assessment & Plan: He was on ECF for ongoing radiation of his laryngeal cancer when he developed rigors and fever. He also had worsening of his tachycardia and hypoxia. A CXR showed a new infiltrate in the right base and possibly left base as well. He was initially transferred to the ICU and was started on IV cefepime, which has been completed. He has since stabilized and transferred to medical floor. Blood cultures show no growth currently. He will transfer back to ECF for ongoing radiation treatments. (2) COPD (chronic obstructive pulmonary disease) Status: Chronic Assessment & Plan: He is on treatment with Xopenex. He received a dose of IV steroids on admission, but is now back on his chronic dose of oral prednisone. 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 CT scan showed a mass to be centered in the right vocal cord. He underwent biopsy on 09/07 and was found to have squamous cell carcinoma. He decided to have a tracheostomy/PEG which was done on 09/08/18. Dr. Curran (oncology) and Dr. Johnosn (Radiation Oncology) met with the patient/family. The patient started radiation treatment September 24. It may have contributed to his aspiration. Will have the cuff on his tracheostomy inflated for now, while recovering from the aspiration pneumonia (and possibly while receiving remainder of radiation). (4) Urine retention Status: Chronic Assessment & Plan: He did develop urinary retention and gross hematuria. Nursing tried to pass a Espinosa cath without success. Dr. Kirkpatrick was consulted and ended up having to take him to the OR for cystoscopy guided catheter placement on 09/07. Dr. Kirkpatrick recommended that we continue levofloxacin for a 3 day period through 09/10, which was done. The patient's Flomax can not be put through PEG, will begin terazosin. The catheter remains in place for now, but will try removal on Monday - Dr. Kirkpatrick has been notified. (5) Dysphagia Status: Chronic Assessment & Plan: Speech therapy evaluated him and recommended an MBS, which was ordered, but Mr. Villagomez did not wish to pursue. PEG was placed. He did start eating some food prior to developing pneumonia on 10/10/18. Will keep him NPO for now, inflate tracheostomy cuff, and ask ST to see him on ECF. (6) Poliomyelitis Status: Chronic Assessment & Plan: Chronic bilateral weakness. He will need to have OT/PT start seeing him again. (7) Tachycardia Status: Acute Assessment & Plan: Improved/improving with treatment of his pneumonia. Latest Vital Signs Vital Signs Date Time Temp Pulse Resp B/P (MAP) Pulse Ox O2 Delivery O2 Flow Rate FiO2 10/15/18 10:29 Trans-Tracheal 10/15/18 06:55 99.4 115 16 120/80 (93) 95 10/15/18 03:53 10.0 60.0 Result Diagram: 10/13/18 0518 10/15/18 0533 Condition: Improved Disposition: SNF/NH Treatment Goals and Plan The above acute care issues are resolving and/or stable. Patient requires jail and/or skilled rehabilitation and is ready for admission to Extended Care. Any change in condition is described below. Any change in condition is described below. Services Required: PT, OT, INSTRUMENTATION ENGINEERING TECHNICIAN VENKATESH HUERTA Oct 15, 2018 11:10
[2018-10-15 11:15] VITALS: BP 110/71
[2018-10-15] MEDS ORDERED: WATER STERILE IRRIG(*) 1000ML 1,000 ML ONE (13:05)
== END 2018-10-15 13:30 | DRG 178 ==
LOC: ICU 16:20 → MED 10-11 09:15
PROVIDERS: ADMIT Internal Medicine; ATTEND Internal Medicine
DX: J69.0 Pneumonitis due to inhalation of food and vomit (principal); E46 Unspecified protein-calorie malnutrition; Z68.1 Body mass index [BMI] 19.9 or less, adult; R09.02 Hypoxemia; N40.1 Benign prostatic hyperplasia with lower urinary tract symptoms; R33.8 Other retention of urine; C32.9 Malignant neoplasm of larynx, unspecified; J44.9 Chronic obstructive pulmonary disease, unspecified; R13.10 Dysphagia, unspecified; B91 Sequelae of poliomyelitis; R00.0 Tachycardia, unspecified; I10 Essential (primary) hypertension; E78.5 Hyperlipidemia, unspecified; Z87.891 Personal history of nicotine dependence; Z88.0 Allergy status to penicillin; Z88.8 Allergy status to other drugs, medicaments and biological substances
CPT/HCPCS: 36415; 81001; 82040; 82247; 82310; 82374; 82435; 82565; 82947; 83605; 84075; 84132; 84155; 84295; 84450; 84460; 84520; 85025; 87040; 93005; 97161; 97165; J0692; J1650; J1720; J7030; J7050; J7512

== ENCOUNTER 2018-10-15 01:30 | Inpatient (IN) | payer MEDICARE, BC ==
[2018-10-12 09:40] VITALS: Ht 162.6 cm; Wt 42.4 kg
[~2018-10-15] VITALS: Ht 162.6 cm; Wt 42.4 kg
[2018-10-15] MEDS ORDERED: LEVALBUTEROL 1.25 MG/3 ML NEB NEB PRN (13:46)
[2018-10-15] MEDS ORDERED: FLUSH 10 ML SYR IVP PRN (13:46)
[2018-10-15] MEDS ORDERED: ONDANSETRON 4 MG/2 ML VIAL IVP PRN (13:46)
[2018-10-15] MEDS ORDERED: SALINE 0.65% NAS SPR 44 ML BTL PRN (13:46)
--- NOTE | 2018-10-15 14:38 | Consultant Pharmacy Review ---
Airport Sales Agent Review Medication Review Do All Mecications have a Diag: Yes Beers Criteria Medication 2014 Alpha 1 Blockers: Terazosin Other General Cautions Lexicomp Interaction Analysis A = No known interaction C = Monitor therapy X = Avoid combination B = No action needed D = Consider therapy modification Drugs in this analysis: Acetaminophen; Hytrin (CAN); Lovenox; [place] Nasal [place] [OTC]; PredniSONE; Xopenex; Zofran * Drug-Drug Interactions B Acetaminophen Zofran (Antiemetics (5HT3 Antagonists)) B PredniSONE (Corticosteroids) Xopenex (Beta2-Agonists) B Xopenex (QT-prolonging Agents (Indeterminate Risk - Caution)) Zofran (Ondansetron) Depends on Route Pneumococcal Vaccine HX Pneumo Vac ([id number]): Yes (2015) HX Pneumo Vac (Pneumovax): Yes (2015) Comments Regarding the Review Patient is up to date on vaccinations. COCO HAGAN Oct 15, 2018 14:38
[2018-10-15 15:36] VITALS: BP 145/89
[2018-10-15 15:41] VITALS: BP 135/62
[2018-10-15] MEDS: ACETAMINOPHEN ADULT 160 MG/5ML 160 MG/5 ML UDBTL FT PRN (18:08)
[2018-10-15] MEDS: TERAZOSIN HCL 1 MG CAP PO SCH (21:36)
[2018-10-16 07:45] VITALS: BP 124/69
[2018-10-16] MEDS: ACETAMINOPHEN ADULT 160 MG/5ML 160 MG/5 ML UDBTL FT PRN ×3 (08:52→20:18)
[2018-10-16] MEDS: predniSONE 5 MG TAB PO SCH (08:52)
[2018-10-16] MEDS: ENOXAPARIN 30 MG/0.3 ML SYR SC SCH (08:53)
--- NOTE | 2018-10-16 09:28 | Medical Nutrition Therapy ---
Nutrition Anthropometrics Height (Inches): 64 Weight (Pounds): 95 (from medical unit) BMI: 16.3 Ezio Nutrition Score: Probably Inadequate Ezio Nutrition Risk Score: 18 Dietary Referral Nutrition Risk Factors: Unplanned Loss >10lbs, Diff. Swallowing, Recent Nutrition Impact, Tube Feeding Nutrition Risk Comment: Has tracheostomy; has PEG tube for continuous Jevity feeding Physical Findings Physical Appearance: Underweight BMI<19 Skin Appearance Skin Appearance: Edema Edema Location Modifier: Edema Location: Type of Edema: Degree of Edema: Gastrointestinal Symptoms GI Symtoms: Weight Changes Tube Present: PEG, Feeding Bowel Sounds: Recent Bowel Pattern: Stool Characteristics: Brown, Soft Nutritional Diagnosis Nutritional Risk Acuity 1: %IBW < 74% Nutritional Risk Acuity 2: Pr Appetite > 3d, Head/Neck/GI Cancer, Tube Feed Stable, Swallowing Problem Nutritional Risk Acuity 3: Cancer Past Medical History: BPH (benign prostatic hyperplasia), Scoliosis, Hyperlipidemia, GERD, Poliomyelitis, carcinoma of larynx Nutritional Acuity: 1-High Nutrition Diagnosis: Swallowing Difficulties Nutrition Etiology: Physiological Causes Nutrition Problem/Etiology/Sym: R/t carcinoma of larynx AEB poor intake > 3 days, and on enteral nutrition Energy Requirement: 2034 (M- StJ X 1.5) Protein Requirement: 86 (2gm/kg) Fluid Requirement: 1300 (30ml/kg) Diet Type: NPO (Nothing by Mouth), Tube Feeding (TF) Nutrition Intervention: Nutrition support Nutritional Support Current Enteral / Parental: Tube Feeding Tube Feeding Formulas: Jevity 1cal/ml-Standard Tube Feeding Supplement Streng: Full Feeding Route: PEG Rate: 80 ml/hr Current Duration: 24 Current Calories: 5 Current Protein: 80 Nutrition Monitoring & Eval Nutritional Goals Comment: Enteral nutrition will meet nutr needs. RD Patient Assessment Time: [address] Assessment Type: RD Assessment Patient Nutrition Acuity: 1-High Follow Up Date: Oct 23, 2018 Nutritional Comment: 10/16 Pt readmitted s/p pneumonia. Pt cont on TF, tolerating well with minimum residuals. TF is meeting 100% est kcal and 93% est protein needs based on 2gm/kg. Pt is NPO and awaiting SPL eval for oral intake. BMI cont in underwt range but wt is up from initial admitting wt of 82# (16%) . Goal is to stablize wt and encourage contued wt gain. A Alb/prealbumin cont low at 2.1/17.4. Will cont to monitor. CHLOE MONTES Oct 16, 2018 09:28
[2018-10-16] MEDS ORDERED: LIDOCAINE 2% 200MG/10ML UROJET ONE (09:49)
--- NOTE | 2018-10-16 14:24 | NUR ---
Physical Therapy Impression PT eval complete. Pt was discharged to [facility] Med Surg floor for treatment of pneumonia and has since been re-admitted to [facility] for ongoing rehab- see EMR for details. The pt required encouragement to participate secondary to pain from removal of urinary catheter. Pt completed transfers with CGA, ambulation x10' with one turn completed with CGA and use of RW. Pt plans to continue with radiation treatment in [place] with plans to d/c to SNF or [facility] in [place] when appropriate. He will benefit from skilled PT rehab services in order to increase tolerance to functional mobility and decrease need of assistance from others. Physical Therapy Goals 1: Pt to complete bed mobility with SBA and no use of bed rail 2: Pt to complete transfers with SBA and least restrictive AD from a variety of surfaces. 3: Pt to ambulate 3x100' with SBA and least restrictive AD 4: Pt to asc/desc 4 steps with railing and CGA 5: Pt to asc/desc 1 platform step with CGA. Patient's Goals
--- NOTE | 2018-10-16 15:10 | PT ECF NOTE ---
Type of Note: Initial Note Primary Medical Diagnosis: Acute respiratory failure, squamous cell carcinoma with laryngeal mass, pneumonia Physical Therapy Evaluation Date: 10/16/18 SUBJECTIVE: Prior Hospitalization: [facility] med surg 09/02/18-09/20/18 , [facility] 09/20/18-10/10/18, [facility] surg 10/10/18-10/15/18 Prior Level of Function: I) with no AD Prior Living Status: Multilevel house, Alone Community Services: Support adequate Home Accessibility: One step into home, 2 steps in home Equipment Owned: None per patient report Medical Complications/Past Medical History: Poliomyelitis, COPD, see EMR for details Psychosocial Support: Supportive daughter, living in [place] Pain Scale (0-10): 6/10 d/t catheter removal OBJECTIVE: Strength: Right Lower Extremity: DF: 3+/4 Knee flexion: 3+/5 Knee extension: 3+/5 Hip flexion: <3/5 Left Lower Extremity: DF: lacking AROM Knee flexion: 3+/5 Knee extension: 3+/5 Hip flexion: <3/5 ROM: WFL, pt reports frequent hyperextension of R) knee at baseline Sensation: WNL Other Neuro findings: Poliomyelitis Bed Mobility: Not tested at eval, pt up in chair Transfers: CGA with RW Gait: 10' with RW and CGA Stairs: Not tested ASSESSMENT: PT eval complete. Pt was discharged to [facility] floor for treatment of pneumonia and has since been re-admitted to [facility] for ongoing rehab- see EMR for details. The pt required encouragement to participate secondary to pain from removal of urinary catheter. Pt completed transfers with CGA, ambulation x10' with one turn completed with CGA and use of RW. Pt plans to continue with radiation treatment in [place] with plans to d/c to SNF or RETIREMENT in [place] when appropriate. He will benefit from skilled PT rehab services in order to increase tolerance to functional mobility and decrease need of assistance from others. Problem List/Current Limitations: Decreased activity doroteo Decreased strength Decreased ROM Decreased balance Short Term Goals: 1: Pt to complete bed mobility with SBA and no use of bed rail 2: Pt to complete transfers with SBA and least restrictive AD from a variety of surfaces. 3: Pt to ambulate 3x100' with SBA and least restrictive AD 4: Pt to asc/desc 4 steps with railing and CGA 5: Pt to asc/desc 1 platform step with CGA. Sole Leveling Machine Operator Goals: Pt to demonstrate increased independence with functional mobility and decreased need of assistance from others Patient Goals: "Complete radiation and transfer to a facility in [place]" Rehabilitation Prognosis: Fair Barriers for Discharge: Mobility impairments as baseline level of function, new cancer diagnosis PLAN: The patient will benefit from skilled physical therapy services 5 times per week for 2 weeks including: Therapeutic Exercise Therapeutic Activities Transfer Training Gait Training Stair Training Manual Therapy Safety Training Neuromuscular Re-educ. Pt/Caregiver Training Bed Mobility Thank you for this referral. If you have any questions, concerns, or comments about this report or plan, please contact me at . Merary Jorge, PT, DPT MTDD
--- NOTE | 2018-10-16 15:28 | OT ECF NOTE ---
Type of Note: Initial Evaluation Primary Medical Diagnosis: Squamous Cell Carcinoma, laryngeal mass (PEG tube placement/ trach placement). Occupational Therapy Evaluation Date: 09-20-18 SUBJECTIVE: Prior Hospitalization: [facility] Med/ICU from 09/02/18 to 09/20/18. Prior Level of Function: Pt. states that he was living alone prior to admission to [facility] Med/ ICU. Prior Living Status: Multilevel house,Alone Community Services: Support adequate Home Accessibility: One step into home Equipment Owned: Unknown at this time. Medical Complications/Past Medical History: Please refer to reports for details. Psychosocial Support: Supportive daughter. Pain Scale (0-10): No pain noted during IE. OBJECTIVE: Strength: MMT: Right Left Shoulder Flexion 3/5 3/5 Elbow Flexion WFL WFL Wrist Extension WFL WFL Manager Privacy WFL WFL (5= normal, 4= good, 3= fair, 2= poor, 1= trace) ROM: Both upper extremities, Significantly limited secondary to hx of polio Functional Transfer: Assistive Device: Front wheeled walker, Gait belt Transfer Ability: CGAx1. Ambulation with RW. ADL: Upper body dressing: Assistive device: None Upper body dressing ability: Set-up Lower body dressing: Assistive device: None Lower body dressing ability: Moderate assistance pulling clothing over hips, Min A threading LB clothing. Toileting: Assistive device: Bedside Commode Toileting ability: Moderate assistance Grooming/hygiene: Assistive device: Seated Grooming ability: Minimum Assistance Bathing: Assistive device: Bathing ability: N/T Standardized Assessment: Jayme Index of Activities of Daily Living- Pt. scored 9/20 upon initial evaluation (10/16/18). ASSESSMENT: Pt. is a 68 year old male who has recently been diagnosed with squamous cell carcinoma (laryngeal mass). Pt. was admitted to [facility] ICU on 09/02/18 and has undergone a PEG tube placement and a tracheostomy. Pt. admitted to [facility] for continued rehab and to undergo 7 weeks of radiation through the [facility]. Pt developed fever and rigors on ECF 10/10/18. Pt was transferred to [facility] acute floor for further medical care. He returned to [facility] 10/15/18 for continued radiation and PT/OT to improve strength/endurance for engagement in ADLs. Problem List/Current Limitations: Decreased activity tolerance Decreased strength Decreased ROM Decreased balance Generalized weakness Short Term Goals: 1. Pt. to perform LB dressing activities with Min A. 2. Pt. to perform toileting activities with Mod I. 3. Pt. to perform showering activities with Min A. 4. Pt. to improve Jayme Index of ADL score by 2 points. 5. Pt. to grooming activities with I. Binding Printer Goals: Return home. Patient Goals: Discharge to [place] to be closer to family. May consider [facility] or long-term rehab in [place] after radiation is completed. Rehabilitation Prognosis: Fair Barriers to Discharge: Medical issues PLAN: Pt was transferred to [facility] ICU for further medical care. Discharge skilled OT services at this time. Thank you for this referral. If you have any questions, concerns, or comments about this report or plan, please contact me at . Rocio Paredes MS, OTR/L Occupational Therapist AMADOR
[2018-10-16 16:45] VITALS: BP 118/48
[2018-10-16] MEDS ORDERED: LIDOCAINE 2% 200MG/10ML UROJET TP ONE (17:20)
--- NOTE | 2018-10-16 19:37 | OPERATIVE REPORT 1 ---
EVENT DATE: October 16, 2018 SURGEON: Ehsan Kirkpatrick MD PREOPERATIVE DIAGNOSIS Inability to remove Espinosa catheter. POSTOPERATIVE DIAGNOSIS Encrusted Espinosa catheter PROCEDURE PERFORMED Difficult removal of Espinosa catheter with encrusted catheter and balloon. ESTIMATED BLOOD LOSS Minimal. DRAINS None. COMPLICATIONS None. CONDITION Patient stable at the conclusion of the procedure. STATEMENT OF MEDICAL NECESSITY Patient is a 68-year-old white male recently diagnosed with laryngeal cancer who was in the extended care facility for radiation treatments. He was originally in the hospital in mid August for laryngeal biopsy and at that time was noted to have a difficult Espinosa catheter placement while in the ICU. He subsequently was taken to the operating room on September 07 for Espinosa catheter placement after a flexible cystoscopy was performed to enter the bladder, and Councill-tip catheter was placed over a wire using the Seldinger technique. This chronic catheter has been in place since, and current plan was to remove the catheter and have the patient start a voiding trial. However, after multiple attempts by nurses on the floor, they were unsuccessful in removing the catheter. I discussed possible options with Mr. Villagomez including replacing a wire and removing the catheter that way versus more vigorous traction to remove his catheter. He likely had encrustation along the catheter and/or balloon with only partial to complete decompression of a balloon given its history of being in place for approximately 5-1/2 weeks. DESCRIPTION OF PROCEDURE PERFORMED The procedure was performed in the [facility]. A sterile dressing was placed around the penis. The penis and distal indwelling catheter were prepped with Betadine solution, and 5 mL of 1% lidocaine jelly were infiltrated around the catheter in the urethra. Prior to the procedure being performed, I personally removed all the fluid out of the balloon, which measured approximately 12 mL. At this time with a gentle twisting motion and a fair amount of pressure, I was able to eventually remove the catheter intact. He had minimal bleeding during the procedure. Upon inspecting the catheter, it was intact, as well as the balloon. He had a significant amount of encrustation along the distal end of the catheter which was in the bladder and the balloon. At the conclusion of the procedure, the patient was in stable condition. PLAN The plan will be to have the patient start a voiding trial this afternoon and ambulating as needed. AMADOR
--- NOTE | 2018-10-16 19:57 | CONSULTATION ---
EVENT DATE: October 16, 2018 LOCATION OF CONSULTATION Extended care facility in [facility]. REASON FOR CONSULTATION Inability to remove Espinosa catheter. HISTORY OF PRESENT ILLNESS Patient is a 68-year-old white male who has a Espinosa catheter that has been in place for approximately 5-1/2 weeks. I originally placed the catheter in the operating room using flexible cystoscopy, followed by the Seldinger technique secondary to inability to place a catheter at the bedside. When originally evaluated, patient had a significant amount of Espinosa trauma in the ICU with a large amount of blood from the meatus. I was unable to place several different types of catheters in the ICU and, therefore, he was taken to the operating room where he underwent flexible cystoscopy. The patient has been in the hospital undergoing treatment for laryngeal cancer with radiation and has had his Espinosa catheter in place. He was now ready to try a voiding trial. The nurses attempted to remove the catheter early this morning and were unsuccessful after deflating the balloon. I discussed with Mr. Villagomez this is likely related to encrustation or partial inflation of his Espinosa catheter balloon, informed that after balloon has been inflated for a prolonged amount of time, it becomes somewhat floppy and forms a small ridge when trying to be removed, and we will likely just need to put more pressure in the removal. I also discussed with him the possibility of having to place a wire in the Councill catheter to control access if a significant amount of force or trauma were needed to remove his catheter. He voiced understanding of this and agreed to this procedure. IMPRESSION Inability to remove Espinosa catheter , likely secondary to encrustation. PLAN We will perform a bedside manipulation of Espinosa catheter with injection of lidocaine jelly around the catheter to aid in removal with possible need for a safety wire if it becomes more difficult to do so. AMADOR
[2018-10-16] MEDS: TERAZOSIN HCL 1 MG CAP PO SCH (20:18)
[2018-10-17 07:30] VITALS: BP 135/58
[2018-10-17] MEDS: ENOXAPARIN 30 MG/0.3 ML SYR SC SCH (09:00)
[2018-10-17] MEDS: predniSONE 5 MG TAB PO SCH (09:00)
--- NOTE | 2018-10-17 12:53 | NUR ---
Occupational Therapy Impression CGA ambulation in hallway with RW. Incorporating various turns and change in surface. SpO2 WNL on 2L. ADLs completed prior to session. Continue POC. Occupational Therapy Goals Short Term Goals: 1. Pt. to perform LB dressing activities with Min A. 2. Pt. to perform toileting activities with Mod I. 3. Pt. to perform showering activities with Min A. 4. Pt. to improve Jayme Index of ADL score by 2 points. 5. Pt. to grooming activities with I. Patient's Goal
[2018-10-17] MEDS ORDERED: BARIUM SULFATE 148 GM POWDER ONE (15:19)
[2018-10-17] MEDS ORDERED: BARIUM SULFATE 240 ML ORAL SUS (NECTAR) ONE (15:19)
--- NOTE | 2018-10-17 15:48 | NUR ---
Physical Therapy Impression Pt ambulated on/off carpet, around obstacles, and through tight spaces with CGA and wheelchair follow. Physical Therapy Goals 1: Pt to complete bed mobility with SBA and no use of bed rail 2: Pt to complete transfers with SBA and least restrictive AD from a variety of surfaces. 3: Pt to ambulate 3x100' with SBA and least restrictive AD 4: Pt to asc/desc 4 steps with railing and CGA 5: Pt to asc/desc 1 platform step with CGA. Patient's Goals
[2018-10-17 15:55] VITALS: BP 99/59
--- NOTE | 2018-10-17 16:04 | RADIOLOGY IMAGING REPORT ---
FACILITY: [facility] PATIENT NAME: Leon Villagomez : 1950 MR: [id number] V: [id number] EXAM DATE: ORDERING PHYSICIAN: VENKATESH HUERTA TECHNOLOGIST: Location: [facility] Patient: Leon Villagomez : 1950 Visit/Account:[id number] Date of Sevice: 10/17/2018 Exam type: ESOPH VIDEO SWALLOWING History: aspiration Comparison: None. Findings: The video esophagram was performed by the speech pathologist. Patient received various liquids and m ixed consistency substances and a barium tablet. Please see the speech pathologist report for comple te details. The fluoroscopy dose area product was 212.56 micro-Giang per meter squared IMPRESSION: 1. As above Report Dictated By: Donna Espinoza MD at 10/17/2018 3:58 PM Report E-Signed By: Donna Espinoza MD at 10/17/2018 3:59 PM WSN:[id number]
[2018-10-17] MEDS: ACETAMINOPHEN ADULT 160 MG/5ML 160 MG/5 ML UDBTL FT PRN ×2 (17:04→20:58)
--- NOTE | 2018-10-17 17:17 | SLP MODIFIED BARIUM SWALLOW ---
Speech Language Pathology Modified Barium Swallow Evaluation Report Date of Evaluation: 10-17-18 Patient Name: Leon Villagomez Patient :1950 Physician: Hospitalist Clinician: Josselin Paredes M.S., CCC-SUPPLY ANALYST BACKGROUND The patient is a 68yr old male who was recently transferred back to the [facility] following admission to the ICU with pneumonia. The pt initially participated in an MBSS on 10-03-29 to assess swallow structure and function for recommendation for return to PO intake following tracheostomy. The pt now presents for a repeat MBSS due to concern for aspiration pneumonia. Oxygen Supplementation: Yes, 10L trans-tracheal. 45.0 FiO2. Level of Consciousness: Non altered Cognitive/Linguistic: WNL Orientation: x4 Language: -expressive: nonaphasic -receptive: nonaphasic Speech: -non-apraxic -non-dysarthric Voice aphonic Non-verbal Oral Structure and Function: Edentulous. Pt without dentures during MBS, limiting ability to participate in trials of solid textures. MODIFIED BARIUM SWALLOW In conjunction with radiology, lateral view with trials of the following consistencies: thin barium liquid (noncarbonated), nectar thick barium liquid, barium marked pureed, mechanical soft solids, and a 1 cm barium pill. ORAL STAGE Thin Liquids: no evidence of dysphagia . WNL Wyocena Thick Liquids: no evidence of dysphagia. WNL. Pureed Foods: no evidence of dysphagia. WNL. Mechanical Soft Foods: mild dysphagia secondary to edentulism. Pt unable to masticate. Material expectorated. PHARYNGEAL STAGE Thin Liquid: stasis in pyriform sinus and penetration with residue in laryngeal vestibule. Aspiration of sips via straw. Residue cleared with 2 effortful swallows. Pt reported no sensory awareness of stasis. Pt was encouraged to view images to promote awareness of material. Compensatory: 2-3 effortful swallows Wyocena Thick Liquids: stasis in pyriform sinus and penetration with residue in laryngeal vestibule. Quantity of stasis is reduced as compared to thin liquid trials. Majority cleared with 2-3 cued effortful swallows. Pt reported no sensory awareness of stasis. Compensatory: 2-3 effortful swallows Pureed Food: stasis in pyriform sinus with quantity reduced as compared to liquid trials. Majority cleared with 1-2 cued effortful swallows. Remainder cleared with nectar thick liquid wash. Compensatory: 1-2 effortful swallows, alternation of consistencies. Mechanical Soft Foods: Unable to assess. Pt expectorated material secondary to edentulism and inability to masticate material. Prior results: stasis in pyriform sinus. Quantity similar to pureed trails. Clears with 2-3 cued effortful swallows Cleared with 1-2 cued effortful swallows Compensatory :1-2 effortful swallows. Regular Food Consistency: not trialed Successful Compensatory: multiple effortful swallows Unsuccessful Compensatory: chin tuck, occlusion of trach Pt exhibits decreased epiglottic inversion as a result of diminished hyolaryngeal movement, resulting in incomplete closure of and penetration into the laryngeal vestibule with liquid trials. The pt also demonstrates decreased tongue base retraction and suspected reduction in pharyngeal pressure generation as a result of open trach. UES relaxation also reduced, correlated to reduction in hyolaryngeal movement. Deficits in epiglottic inversion, tongue base retraction, pharyngeal pressure generation, and UES relaxation all contribute to quantity of residue in pharynx. Aspiration of residual material was witnessed twice, occurring immediately after the swallow. Aspiration first occurred silently and without trach occlusion. Attempts to occlude trach were unsuccessful, and in fact coincided with additional aspiration of thin liquids. The pt successfully cleared residue with execution of 2-3 swallows per bite/sip, with successful minimization of aspiration risk. Penetration/Aspiration Scale (Rosenaustink et al. 1996) Thin liquids via cup: 3, 3 Thin liquids via straw: 8, 7 Wyocena thick liquids via cup: 3, 3, 3 Pureed solids: 1, 1 1 Material does not enter airway 2 Material enters airway, but remains above vocal folds; Ejected from airway; no stasis 3 Material remains above vocal folds; visible stasis remains 4 Material contacts vocal folds, but is ejected; no stasis 5 Material contacts vocal folds, and is not ejected; visible stasis remains 6 Material passes glottis, but is ejected from airway; No visible subglottic stasis 7 Material passes glottis, but is not ejected from airway; visible Subglottic stasis despite patients response 8 Material passes glottis, and is not ejected; visible subglottic stasis; Absent patient response ESOPHAGEAL STAGE Cervical Esophagus: Materials witnessed clearing from cervical esophagus WNL. Thoracic Esophagus: Stenosis in middle 1/3 of esphagus. Materials cleared with additional time and multiple swallows. GRACE: none witnessed. BARIUM PILL: 1/2 of 1cm barium pill taken with pureed solids. No oral. Cleared pharynx with cued 2nd swallows. Narrowing in middle 1/3 of esophagus caused pill and puree to hang. Cleared with cued 2-3 swallows, including additional bite of puree. SUMMARY Aspiration Risk: Elevated d/t significant stasis in pyriform sinus consistent with decreased UES opening d/t reduced anterior hyolaryngeal complex movement. Reduced hyolaryngeal complex movement further results in decreased epiglottic inversion with incomplete closure of the laryngeal vestible. Patient reported no sensory awareness of stasis. Clears with cued 1-3 effortful swallows. Occlusion of trach did not improve swallow function. Penetration consistently witnessed with liquid trials. Aspiration witnessed with thin liquids administered via straw. Straw use resulted in larger volume trials with difficulty controlling size of bolus. Dysphagia Severity Rating Scale (Gramigna, 2006; Juan Luis et. al., 1990): 4- Moderate Dysphagia: significant potential for aspiration exists. Patient may eat certain consistencies (soft mechanical, wet, small bite size) by using specific techniques (multiple effortful swallows) to minimize potential for aspiration Supervision at mealtimes required to cue pt for multiple effortful swallows until he demonstrates consistent independence with this. Time for eating is significantly increased thus supplemental nutrition may be indicated. RECOMMENDATIONS 1. Diet Modifications: Food: Soft Mechanical: Soft/wet foods. Small bite size. Liquids: Wyocena thick 2. Pills: with purees, one at a time 3. Supervision at mealtimes required to cue pt for multiple effortful swallows until he demonstrates consistent independence with this. 4. Speech Therapy: 4x week for pharyngeal dysphagia therapy program and pt education of compensatory strategies. Verbal and written education provided to pt and staff following evaluation. PLAN OF CARE Short Term Goals 1. Patient will receive education regarding safe swallow precautions, diet modification, and compensatory techniques and provide verbal demonstration of comprehension. 2.The patient will participate in pharyngeal dysphagia exercise based therapy program to address to improve swallow function and decrease penetration/aspiration risk as demonstrated on repeat MBS. Thank you for this referral. Please call [phone] (outpatient rehab) or [phone] (inpatient rehab) to contact the SUPPLY ANALYST. Respectfully, Josselin Paredes M.S., [facility]-SUPPLY ANALYST [*] AMADOR
--- NOTE | 2018-10-17 17:20 | NUR ---
ST ENCOUNTER MBSS complete. Please see report. The pt continues to be at an elevated risk for aspiration with witnessed aspiration of thin liquids during the study. The pt also continues with large amount of residue in the pharynx, and penetration of liquid material into the laryngeal vestibule. Discussed results/recs with the pt and RN. Written handouts provided. The pt expressed fear associated with PO intake, and is concerned re: repeat aspiration pneumonia. Discussed risks vs benefits of resuming PO intake including explanation of inability to completely eliminate aspiration risk by avoiding oral nutrition/hydration. The pt may still be at risk for aspirating saliva, mucus, and reflux from tube feeds. Emphasis placed on the importance of consistent adherence to compensatory swallow strategies and diet modification recommendations. Also acknowledged the option to elect tube feedings for primary nutrition/hydration. Agreement verbalized. ST will continue discussion and plan of care. Diet: mechanically altered solids, nectar thick liquids Medications: 1 at a time, immersed in puree Supervision: supervise with meals until the pt can demonstrate independence with compensations Compensatory strategies: no straws, upright positioning during PO intake, remain upright 30 min after PO, small bites/sips, one bite/sip at a time, swallow 2-3x per bite/sip
[2018-10-17] MEDS: TERAZOSIN HCL 1 MG CAP PO SCH (20:32)
[2018-10-18] MEDS: ACETAMINOPHEN ADULT 160 MG/5ML 160 MG/5 ML UDBTL FT PRN ×3 (04:58→19:19)
[2018-10-18 07:40] VITALS: BP 105/55
[2018-10-18] MEDS: predniSONE 5 MG TAB PO SCH (08:48)
[2018-10-18] MEDS: ENOXAPARIN 30 MG/0.3 ML SYR SC SCH (08:48)
--- NOTE | 2018-10-18 10:35 | NUR ---
Dr. Kirkpatrick called, wantin) To get patient on Flomax 2) To either end Hytrin, or get the dose increased, depending on what the hospitalist said about the flomax. 3) Start patient on Finasteride 5mg 4) Obtain PSA with next lab draw Discussed with Marguerite Aemzcua NP. Flomax cannot be given VIA PEG tube. Hytrin dose increased from 1mg to 5mg. Finasteride started. She said she'd order labs and put in a PSA test with them.
[2018-10-18] MEDS: FINASTERIDE 5 MG TAB FT SCH (12:37)
--- NOTE | 2018-10-18 13:22 | NUR ---
Physical Therapy Impression Pt requires encouragement for participation in therapy session today.CGA for STS transfers with use of RW. Pt with fair tolerance to ambulation today, reporting fatigue requesting to sit after 90'. SPO2 dropped to 86% on 2L O2, returned to WNL on 3L and seated rest break. Pt with increased difficulty with 180 degree turn. Continue with POC. Physical Therapy Goals 1: Pt to complete bed mobility with SBA and no use of bed rail 2: Pt to complete transfers with SBA and least restrictive AD from a variety of surfaces. 3: Pt to ambulate 3x100' with SBA and least restrictive AD 4: Pt to asc/desc 4 steps with railing and CGA 5: Pt to asc/desc 1 platform step with CGA. Patient's Goals
--- NOTE | 2018-10-18 14:26 | NUR ---
Occupational Therapy Impression Pt. participated in UB ther. exercises with 1# weight. Pt. performed stand step pivot transfer with use of FWW with CGA. Continue with POC. Occupational Therapy Goals Short Term Goals: 1. Pt. to perform LB dressing activities with Min A. 2. Pt. to perform toileting activities with Mod I. 3. Pt. to perform showering activities with Min A. 4. Pt. to improve Jayme Index of ADL score by 2 points. 5. Pt. to grooming activities with I. Patient's Goal
[2018-10-18 16:00] VITALS: BP 111/64
[2018-10-18 20:14] VITALS: BP 96/60
[2018-10-18] MEDS: TERAZOSIN HCL 1 MG CAP PO SCH (20:15)
[2018-10-19] MEDS: ACETAMINOPHEN ADULT 160 MG/5ML 160 MG/5 ML UDBTL FT PRN ×3 (01:01→18:28)
[2018-10-19 07:40] VITALS: BP 119/73
[2018-10-19] MEDS: predniSONE 5 MG TAB PO SCH (08:53)
[2018-10-19] MEDS: ENOXAPARIN 30 MG/0.3 ML SYR SC SCH (08:53)
[2018-10-19] MEDS: FINASTERIDE 5 MG TAB FT SCH (08:53)
[2018-10-19 15:40] VITALS: BP 115/73
--- NOTE | 2018-10-19 16:17 | NUR ---
Physical Therapy Impression Pt politely declined PT today but is agreeable to do the LE bike. Pt set up and is to call nursing when he is done. Physical Therapy Goals 1: Pt to complete bed mobility with SBA and no use of bed rail 2: Pt to complete transfers with SBA and least restrictive AD from a variety of surfaces. 3: Pt to ambulate 3x100' with SBA and least restrictive AD 4: Pt to asc/desc 4 steps with railing and CGA 5: Pt to asc/desc 1 platform step with CGA. Patient's Goals
[2018-10-19 20:25] VITALS: BP 123/75
[2018-10-19] MEDS: NYSTATIN 100,000 U/GM PWD 15GM TP SCH (21:00)
[2018-10-19] MEDS: TERAZOSIN HCL 1 MG CAP PO SCH (21:00)
[2018-10-20] MEDS: ACETAMINOPHEN ADULT 160 MG/5ML 160 MG/5 ML UDBTL FT PRN ×3 (07:28→20:24)
[2018-10-20 07:40] VITALS: BP 145/80
[2018-10-20] MEDS: NYSTATIN 100,000 U/GM PWD 15GM TP SCH ×2 (09:00→20:24)
[2018-10-20] MEDS: predniSONE 5 MG TAB PO SCH (09:10)
[2018-10-20] MEDS: ENOXAPARIN 30 MG/0.3 ML SYR SC SCH (09:11)
[2018-10-20] MEDS: FINASTERIDE 5 MG TAB FT SCH (09:11)
[2018-10-20 15:15] VITALS: BP 120/87
[2018-10-20] MEDS ORDERED: TAMSULOSIN HCL 0.4 MG CAP PO SCH (21:00)
[2018-10-21 07:30] VITALS: BP 138/77
[2018-10-21] MEDS: predniSONE 5 MG TAB PO SCH (08:58)
[2018-10-21] MEDS: FINASTERIDE 5 MG TAB FT SCH (08:58)
[2018-10-21] MEDS: ENOXAPARIN 30 MG/0.3 ML SYR SC SCH (08:58)
[2018-10-21] MEDS: NYSTATIN 100,000 U/GM PWD 15GM TP SCH ×2 (08:58→21:12)
[2018-10-21] MEDS: ACETAMINOPHEN ADULT 160 MG/5ML 160 MG/5 ML UDBTL FT PRN ×3 (08:59→22:41)
[2018-10-21] MEDS ORDERED: HYDROGEN PEROXID 3% 473 ML BTL TP PRN (12:35)
[2018-10-21] MEDS ORDERED: TAMS0.4C70 PO (14:18)
[2018-10-21 15:15] VITALS: BP 113/66
[2018-10-21] MEDS ORDERED: DOXAZOSIN MESYLATE 2 MG TAB PO SCH (21:00)
[2018-10-22] MEDS: ACETAMINOPHEN ADULT 160 MG/5ML 160 MG/5 ML UDBTL FT PRN ×3 (04:56→21:20)
[2018-10-22 06:29] LABS: PLATELET COUNT, AUTOMATED 293 K/uL (150-450)
[2018-10-22 07:50] VITALS: BP 108/60
[2018-10-22] MEDS: NYSTATIN 100,000 U/GM PWD 15GM TP SCH ×3 (08:30→21:20)
[2018-10-22] MEDS: predniSONE 5 MG TAB PO SCH (08:30)
[2018-10-22] MEDS: ENOXAPARIN 30 MG/0.3 ML SYR SC SCH (08:31)
[2018-10-22] MEDS: FINASTERIDE 5 MG TAB FT SCH (08:31)
[2018-10-22] MEDS: LORazepam 0.5 MG TAB PO PRN (11:26)
--- NOTE | 2018-10-22 11:41 | NUR ---
Occupational Therapy Impression Pt. sitting up in chair, shaking his head "no" when asked if he would like to participate in therapy. Occupational Therapy Goals Short Term Goals: 1. Pt. to perform LB dressing activities with Min A. 2. Pt. to perform toileting activities with Mod I. 3. Pt. to perform showering activities with Min A. 4. Pt. to improve Jayme Index of ADL score by 2 points. 5. Pt. to grooming activities with I. Patient's Goal
--- NOTE | 2018-10-22 12:50 | NUR ---
Pt refused radiation tx Pt had Ativan about 1130hrs this morning in preparation for going to have radiation therapy. Per report from Evagnelina Carrera, pt refused to go to radiation tx, and the plan is now that Dr. Cleveland will come see patient tomorrow morning to discuss radiation tx.
--- NOTE | 2018-10-22 13:23 | NUR ---
ST ENCOUNTER Pt declining participation, withdrawn and fatigued. Briefly reviewed free water protocol. Per RN, the pt has been relying on tube feeds for primary nutrition/hydration with no food taken by mouth since MBSS. No liquids taken by mouth apart from water (after oral care). Will cont to follow and provide support as appropriate.
--- NOTE | 2018-10-22 15:15 | NUR ---
Contacted Dr. Corbett regarding urinalysis, low grade fevers, etc. States he had looked at the ua results but will wait for the culture before starting any IV antibiotics. Informed that resident refused radiation therapy and is generally not feeling well
--- NOTE | 2018-10-22 15:26 | Miscellaneous Provider Note ---
Miscellaneous Provider Note Note The patient has a low grade fever and is more tachycardic. UA has many WBC and he has an elevated WBC on CBC. Will start levofloxacin and follow labs and urine culture. Dr. Kirkpatrick wants the patient on Flomax (which cannot go through the FT) or Hytrin at least 5mg (which was started). EPIFANIO RBOWN MD Oct 22, 2018 15:26
--- NOTE | 2018-10-22 15:40 | NUR ---
Physical Therapy Impression Please see Machine Operator Picker note dated 10/22 (today) for additional details. Pt is declining participation in physical therapy today. Physical Therapy Goals 1: Pt to complete bed mobility with SBA and no use of bed rail 2: Pt to complete transfers with SBA and least restrictive AD from a variety of surfaces. 3: Pt to ambulate 3x100' with SBA and least restrictive AD 4: Pt to asc/desc 4 steps with railing and CGA 5: Pt to asc/desc 1 platform step with CGA. Patient's Goals
[2018-10-22 16:15] VITALS: BP 113/70
[2018-10-22] MEDS: LEVOFLOXACIN 750 MG TAB PO SCH (16:19)
[2018-10-22] MEDS ORDERED: DOXAZOSIN MESYLATE 2 MG TAB PO SCH (21:00)
[2018-10-22] MEDS: TERAZOSIN HCL 1 MG CAP FT SCH ×2 (21:00→21:53)
--- NOTE | 2018-10-22 21:58 | NUR ---
Patient refusing Hytrin this evening shift and is questioning dosage increase. Pt informed this nurse that this medication has caused his blood pressure drop when he has taken it in the past. This nurse explained to patient (Per Dr. Corbett) that a dose increase is necessary for this medication to be effective on prostate, for which it has been prescribed. Pt would like to speak with MD prior to taking this medication.
[2018-10-23] MEDS: ACETAMINOPHEN ADULT 160 MG/5ML 160 MG/5 ML UDBTL FT PRN ×2 (04:28→14:28)
[2018-10-23 06:06] LABS: PLATELET COUNT, AUTOMATED 280 K/uL (150-450)
--- NOTE | 2018-10-23 08:53 | Medical Nutrition Therapy ---
Nutrition Anthropometrics Height (Inches): 64.00 Height (Calculated Centimeters: 162.233185 Weight (Pounds): 93 Weight (Calculated Kilograms): 42.411 BMI: 16.3 Ezio Nutrition Score: Probably Inadequate Ezio Nutrition Risk Score: 17 Dietary Referral Nutrition Risk Factors: Unplanned Loss >10lbs, Diff. Swallowing, Recent Nutrition Impact, Tube Feeding Nutrition Risk Comment: Has tracheostomy; has PEG tube for continuous Jevity feeding Physical Findings Physical Appearance: Underweight BMI<19 Skin Appearance Skin Appearance: Edema Edema Location Modifier: Right Edema Location: Foot Type of Edema: Degree of Edema: 2+ Gastrointestinal Symptoms GI Symtoms: Weight Changes Tube Present: PEG Bowel Sounds: Recent Bowel Pattern: Stool Characteristics: Brown, Soft Nutritional Diagnosis Nutritional Risk Acuity 1: %IBW < 74% Nutritional Risk Acuity 2: Pr Appetite > 3d, Head/Neck/GI Cancer, Tube Feed Stable, Swallowing Problem Nutritional Risk Acuity 3: Cancer Past Medical History: BPH (benign prostatic hyperplasia), Scoliosis, Hyperlipidemia, GERD, Poliomyelitis, carcinoma of larynx Nutritional Acuity: 1-High Nutrition Diagnosis: Swallowing Difficulties Nutrition Etiology: Physiological Causes Nutrition Problem/Etiology/Sym: R/t carcinoma of larynx AEB poor intake > 3 days, and on enteral nutrition Energy Requirement: 2035 (M- StJ X 1.5) Protein Requirement: 86 (2gm/kg) Fluid Requirement: 1300 (30ml/kg) Diet Type: NPO (Nothing by Mouth), Tube Feeding (TF) Nutrition Intervention: Nutrition support Nutritional Support Current Enteral / Parental: Tube Feeding Tube Feeding Formulas: Jevity 1cal/ml-Standard Tube Feeding Supplement Streng: Full Feeding Route: PEG Rate: 80 ml/hr Current Duration: 24 Current Calories: 2035 Current Protein: 80 Nutrition Monitoring & Eval Nutritional Goals Comment: Enteral nutrition will meet nutr needs until oral intake can meet needs. Nutrition Follow-Up: Poor Intake RD Patient Assessment Time: [address] Assessment Type: RD Assessment Patient Nutrition Acuity: 1-High Follow Up Date: Oct 30, 2018 Nutritional Comment: 10/16 Pt readmitted s/p pneumonia. Pt cont on TF, tolerating well with minimum residuals. TF is meeting 100% est kcal and 93% est protein needs based on 2gm/kg. Pt is NPO and awaiting SPL eval for oral intake. BMI cont in underwt range but wt is up from initial admitting wt of 82# (16%) . Goal is to stablize wt and encourage contued wt gain. A Alb/prealbumin cont low at 2.1/17.4. Will cont to monitor. CURLY 10/23 Diet advanced to dysphagia 2 s/p SPL eval however pt has been refusing oral intake. Nursing reports pt expressed fear of eating d/t risk of aspiration pneumonia. Will ask SPL to work with pt to allieviate fears. Enteral nutrition is meeting 100% kcal and 93% protein needs based on 2gm/kg. Will cont to monitor and encourage intake. CHLOE MONTES Oct 23, 2018 08:53
[2018-10-23] MEDS: ENOXAPARIN 30 MG/0.3 ML SYR SC SCH (08:56)
[2018-10-23] MEDS: predniSONE 5 MG TAB PO SCH (08:56)
[2018-10-23] MEDS: FINASTERIDE 5 MG TAB FT SCH (08:57)
[2018-10-23] MEDS: NYSTATIN 100,000 U/GM PWD 15GM TP SCH ×2 (09:00→21:00)
--- NOTE | 2018-10-23 13:42 | ECF History & Physical ---
Transfer Summary (ECF/B) Problems: (1) Hospital-acquired pneumonia Status: Acute Assessment & Plan: He was on ECF for ongoing radiation of his laryngeal cancer when he developed rigors and fever. He also had worsening of his tachycardia and hypoxia. A CXR showed a new infiltrate in the right base and possibly left base as well. He was initially transferred to the ICU and was started on IV cefepime, which has been completed. He has since stabilized and transferred to medical floor. Blood cultures show no growth currently. He will transfer back to ECF for ongoing radiation treatments. (2) COPD (chronic obstructive pulmonary disease) Status: Chronic Assessment & Plan: He is on treatment with Xopenex. He received a dose of IV steroids on admission, but is now back on his chronic dose of oral prednisone. 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 CT scan showed a mass to be centered in the right vocal cord. He underwent biopsy on 09/07 and was found to have squamous cell carcinoma. He decided to have a tracheostomy/PEG which was done on 09/08/18. Dr. Curran (oncology) and Dr. Johnson (Radiation Oncology) met with the patient/family. The patient started radiation treatment September 24. It may have contributed to his aspiration. Will have the cuff on his tracheostomy inflated for now, while recovering from the aspiration pneumonia (and possibly while receiving remainder of radiation). (4) Urine retention Status: Chronic Assessment & Plan: He did develop urinary retention and gross hematuria. Nursing tried to pass a Espinosa cath without success. Dr. Kirkpatrick was consulted and ended up having to take him to the OR for cystoscopy guided catheter placement on 09/07. Dr. Kirkpatrick recommended that we continue levofloxacin for a 3 day period through 09/10, which was done. The patient's Flomax can not be put through PEG, will begin terazosin. The catheter remains in place for now, but will try removal on Monday - Dr. Kirkpatrick has been notified. (5) Dysphagia Status: Chronic Assessment & Plan: Speech therapy evaluated him and recommended an MBS, which was ordered, but Mr. Villagomez did not wish to pursue. PEG was placed. He did start eating some food prior to developing pneumonia on 10/10/18. Will keep him NPO for now, inflate tracheostomy cuff, and ask ST to see him on ECF. (6) Poliomyelitis Status: Chronic Assessment & Plan: Chronic bilateral weakness. He will need to have OT/PT start seeing him again. (7) Tachycardia Status: Acute Assessment & Plan: Improved/improving with treatment of his pneumonia. Latest Vital Signs Vital Signs Date Time Temp Pulse Resp B/P (MAP) Pulse Ox O2 Delivery O2 Flow Rate FiO2 10/15/18 10:29 Trans-Tracheal 10/15/18 06:55 99.4 115 16 120/80 (93) 95 10/15/18 03:53 10.0 60.0 Result Diagram: 10/13/1851710/15/18 0533 Condition: Improved Disposition: SNF/NH Treatment Goals and Plan The above acute care issues are resolving and/or stable. Patient requires jail and/or skilled rehabilitation and is ready for admission to Extended Care. Any change in condition is described below. Any change in condition is described below. Services Required: PT, OT, SUPPORT SERVICES SPECIALIST VENKATESH HUERTA Oct 15, 2018 11:10 <Electronically signed by CHAI HUMMEL> D/ 1110 1110 1110 DOUGIE/REBECCA CC: AMADOR
--- NOTE | 2018-10-23 14:33 | Medical Nutrition Therapy ---
Nutrition Anthropometrics Height (Inches): 64.00 Height (Calculated Centimeters: 162.691217 Weight (Pounds): 93 Weight (Calculated Kilograms): 42.411 BMI: 16.3 Ezio Nutrition Score: Probably Inadequate Ezio Nutrition Risk Score: 17 Dietary Referral Nutrition Risk Factors: Unplanned Loss >10lbs, Diff. Swallowing, Recent Nutrition Impact, Tube Feeding Nutrition Risk Comment: Has tracheostomy; has PEG tube for continuous Jevity feeding Physical Findings Physical Appearance: Underweight BMI<19 Skin Appearance Skin Appearance: Edema Edema Location Modifier: Right Edema Location: Foot Type of Edema: Degree of Edema: 2+ Gastrointestinal Symptoms GI Symtoms: Weight Changes Tube Present: PEG Bowel Sounds: Recent Bowel Pattern: Stool Characteristics: Brown, Soft Nutritional Diagnosis Nutritional Risk Acuity 1: %IBW < 74% Nutritional Risk Acuity 2: Pr Appetite > 3d, Head/Neck/GI Cancer, Tube Feed Stable, Swallowing Problem Nutritional Risk Acuity 3: Cancer Past Medical History: BPH (benign prostatic hyperplasia), Scoliosis, Hyperlipidemia, GERD, Poliomyelitis, carcinoma of larynx Nutritional Acuity: 1-High Nutrition Diagnosis: Swallowing Difficulties Nutrition Etiology: Physiological Causes Nutrition Problem/Etiology/Sym: R/t carcinoma of larynx AEB poor intake > 3 days, and on enteral nutrition Energy Requirement: 5 (M- StJ X 1.5) Protein Requirement: 86 (2gm/kg) Fluid Requirement: 1300 (30ml/kg) Diet Type: NPO (Nothing by Mouth), Tube Feeding (TF) Nutrition Intervention: Nutrition support Nutritional Support Current Enteral / Parental: Tube Feeding Tube Feeding Formulas: Jevity 1cal/ml-Standard Tube Feeding Supplement Streng: Full Feeding Route: PEG Rate: 80 ml/hr Current Duration: 24 Current Calories: 2035 Current Protein: 80 Recommended Enteral / Parental: Tube Feeding Recommended Tube Feeding Formu: for home: Jevity 1.5, 1can 5 X/day flush with 80 ml water Tube Feeding Supplement Streng: Full Recommended Feeding Route: PEG Recommended Calories: 1775 Recommended Protein: 75 Nutrition Monitoring & Eval RD Patient Assessment Time: [address] Assessment Type: RD Assessment Patient Nutrition Acuity: 1-High Follow Up Date: Oct 30, 2018 Nutritional Comment: 10/16 Pt readmitted s/p pneumonia. Pt cont on TF, tolerating well with minimum residuals. TF is meeting 100% est kcal and 93% est protein needs based on 2gm/kg. Pt is NPO and awaiting SPL eval for oral intake. BMI cont in underwt range but wt is up from initial admitting wt of 82# (16%) . Goal is to stablize wt and encourage contued wt gain. Alb/prealbumin cont low at 2.1/17.4. Will cont to monitor. BK 2/5 Diet advanced to dysphagia 2 s/p SPL eval however pt has been refusing oral intake. Nursing reports pt expressed fear of eating d/t risk of aspiration pneumonia. Pt may benefit working with SPL to allieviate fears. Enteral nutrition is meeting 100% kcal and 93% protein needs based on 2gm/kg. Will cont to monitor and encourage intake. BK 2/5 Pt planning on going to [place] with daughter. Bolus feedings may be easier to handle during the move. Recommend 1 can jevity 1.5 divided into 5 feedings with 80ml water flush. This would provide1.8gm protein/kg and 42gm kcal/kg which should meet nutrtional needs and possibly additional kcal for wt gain. BK Copies To Copies to: IVORY STEELE MD ; CHLOE HIGGINS Oct 23, 2018 14:33
--- NOTE | 2018-10-23 15:23 | NUR ---
Physical Therapy Impression The patient was re-evaluated on 10/16/18 for PT services, he has demonstrated inconsistent participation in therapy services and has refused PT services multiple times. At this time, PT will d/c therapy services until the patient reports increased desire to participate and is appropriate medically. Pt is encouraged to mobilize with nursing staff. Physical Therapy Goals 1: Pt to complete bed mobility with SBA and no use of bed rail 2: Pt to complete transfers with SBA and least restrictive AD from a variety of surfaces. 3: Pt to ambulate 3x100' with SBA and least restrictive AD 4: Pt to asc/desc 4 steps with railing and CGA 5: Pt to asc/desc 1 platform step with CGA. Patient's Goals
--- NOTE | 2018-10-23 15:27 | PT ECF NOTE ---
Type of Note: Discharge Summary Primary Medical Diagnosis: Acute respiratory failure, squamous cell carcinoma with laryngeal mass, pneumonia Physical Therapy Evaluation Date: 10/16/18 SUBJECTIVE: Prior Hospitalization: [facility] med surg 09/02/18-09/20/18 , ECF 09/20/18-10/10/18, [facility] med surg 10/10/18-10/15/18 Prior Level of Function: I) with no AD Prior Living Status: Multilevel house, Alone Community Services: Support adequate Home Accessibility: One step into home, 2 steps in home Equipment Owned: None per patient report Medical Complications/Past Medical History: Poliomyelitis, COPD, see EMR for details Psychosocial Support: Supportive daughter, living in [place] OBJECTIVE: Strength: Right Lower Extremity: DF: 3+/4 Knee flexion: 3+/5 Knee extension: 3+/5 Hip flexion: <3/5 Left Lower Extremity: DF: lacking AROM Knee flexion: 3+/5 Knee extension: 3+/5 Hip flexion: <3/5 ROM: WFL, pt reports frequent hyperextension of R) knee at baseline Sensation: WNL Other Neuro findings: Poliomyelitis Bed Mobility: Not tested Transfers: CGA with RW Gait: 100' with RW and CGA Stairs: Not tested ASSESSMENT: The patient was re-evaluated on 10/16/18 for PT services, he has demonstrated inconsistent participation in therapy services and has refused PT services multiple times. At this time, PT will d/c therapy services until the patient reports increased desire to participate and is appropriate medically. Pt is encouraged to continue to mobilize with nursing staff. Problem List/Current Limitations: Decreased activity doroteo Decreased strength Decreased ROM Decreased balance Short Term Goals: (not met) 1: Pt to complete bed mobility with SBA and no use of bed rail 2: Pt to complete transfers with SBA and least restrictive AD from a variety of surfaces. 3: Pt to ambulate 3x100' with SBA and least restrictive AD 4: Pt to asc/desc 4 steps with railing and CGA 5: Pt to asc/desc 1 platform step with CGA. Train Clerk Goals: Pt to demonstrate increased independence with functional mobility and decreased need of assistance from others Patient Goals: "Complete radiation and transfer to a facility in [place]" -- PLAN: The patient is discharged from PT services at this time, PT available to re-evaluate if appropriate in the future. The [place] to continue treatment and live nearer to his daughter. Thank you for this referral. If you have any questions, concerns, or comments about this report or plan, please contact me at . Merary Jorge, PT, DPT MTDD
[2018-10-23] MEDS: LEVOFLOXACIN 750 MG TAB PO SCH (16:02)
[2018-10-23 16:15] VITALS: BP 118/72
--- NOTE | 2018-10-23 18:08 | NUR ---
Occupational Therapy Impression The patient was re-evaluated on 10/16/18 for OT services, he refused engagement in OT services multiple times consecutively. He is (I) with UB HEP. At this time, OT will d/c therapy services until the patient reports increased desire to participate and is medically appropriate. Pt is encouraged to continue engaging in ADLs with nursing staff. Please contact OT with any further questions/concerns. Occupational Therapy Goals Short Term Goals: 1. Pt. to perform LB dressing activities with Min A. 2. Pt. to perform toileting activities with Mod I. 3. Pt. to perform showering activities with Min A. 4. Pt. to improve Jayme Index of ADL score by 2 points. 5. Pt. to grooming activities with I. Patient's Goal
--- NOTE | 2018-10-23 18:12 | OT ECF NOTE ---
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 Occupational Therapy Evaluation Date: 09-20-18 SUBJECTIVE: Prior Hospitalization: [facility] Med/ICU from 09/02/18 to 09/20/18. Prior Level of Function: Pt. states that he was living alone prior to admission to [facility] Med/ ICU. Prior Living Status: Multilevel house, Alone Community Services: Support adequate Home Accessibility: One step into home Equipment Owned: Unknown at this time. Medical Complications/Past Medical History: Please refer to reports for details. Psychosocial Support: Supportive daughter in [place]. Pain Scale (0-10): No pain noted during OT tx throughout POC. OBJECTIVE: Strength: MMT: Right Left Shoulder Flexion 3/5 3/5 Elbow Flexion WFL WFL Wrist Extension WFL WFL Paste Mixing Supervisor WFL WFL (5= normal, 4= good, 3= fair, 2= poor, 1= trace) ROM: Both upper extremities, Significantly limited secondary to hx of polio Functional Transfer: Assistive Device: Front wheeled walker, Gait belt Transfer Ability: CGAx1. Ambulation with RW. ADL: Upper body dressing: Assistive device: None Upper body dressing ability: Set-up Lower body dressing: Assistive device: None Lower body dressing ability: Independent threading LB clothing and donning/doffing shoes. Toileting: Assistive device: Bedside Commode Toileting ability: Minimum assistance Grooming/hygiene: Assistive device: Seated Grooming ability: Minimum Assistance Bathing: Assistive device: Bathing ability: N/T Standardized Assessment: Jayme Index of Activities of Daily Living- Pt. scored 9/20 upon initial evaluation (10/16/18). Pt. scored 9/20 upon discharge (10/23/18). ASSESSMENT: Pt. is a 68 year old male who has recently been diagnosed with squamous cell carcinoma (laryngeal mass). Pt. was admitted to [facility] ICU on 09/02/18 and has undergone a PEG tube placement and a tracheostomy. Pt. admitted to [facility] for continued rehab and to undergo 7 weeks of radiation through the [facility]. Pt developed fever and rigors on ECF 10/10/18. Pt was transferred to [facility] acute floor for further medical care. He returned to [facility] 10/15/18 for continued radiation and PT/OT to improve strength/endurance for engagement in ADLs. Dileep has refused engagement in OT services multiple times consecutively. He is (I) with [facility]. At this time, OT will d/c therapy services until the patient reports increased desire to participate and is medically appropriate. Pt is encouraged to continue engaging in ADLs with nursing staff. Please contact OT with any further questions/concerns. Problem List/Current Limitations: Decreased activity tolerance Decreased strength Decreased ROM Decreased balance Generalized weakness Short Term Goals: 1. Pt. to perform LB dressing activities with Min A. Progressing towards. 2. Pt. to perform toileting activities with Mod I. Progressing towards. 3. Pt. to perform showering activities with Min A. Progressing towards. 4. Pt. to improve Jayme Index of ADL score by 2 points. Progressing towards. 5. Pt. to grooming activities with I.Progressing towards. Retirement Goals: Return home. Patient Goals: Discharge to [place] to be closer to family. Rehabilitation Prognosis: Fair Barriers to Discharge: Medical issues PLAN: Discharge skilled OT services at this time. Thank you for this referral. If you have any questions, concerns, or comments about this report or plan, please contact me at . Rocio Paredes MS, OTR/L Occupational Therapist [facility]
[2018-10-23] MEDS: TERAZOSIN HCL 1 MG CAP FT SCH (21:00)
[2018-10-23] MEDS ORDERED: LIDOCAINE 2% 200MG/10ML UROJET ONE (21:40)
--- NOTE | 2018-10-23 22:04 | NUR ---
patient noted to have no urine in dietrich cath bag. He stated he was feeling like he had to void. Bladder scan showed 410cc. This Rn attempted to irrigate FC X2 and was unable to irrigate. Hospitalist notified. Order to DC FC noted. After dietrich was pulled patient was incontinent of a large amt of yellow urine. MD again notified of patient's ability to void. Will continue to monitor UOP and bladder scan PRN.
[2018-10-24 08:00] VITALS: BP 118/80
[2018-10-24 08:30] VITALS: BP 147/76
[2018-10-24] MEDS: ENOXAPARIN 30 MG/0.3 ML SYR SC SCH (08:37)
[2018-10-24] MEDS: FINASTERIDE 5 MG TAB FT SCH (08:37)
[2018-10-24] MEDS: predniSONE 5 MG TAB PO SCH (08:37)
[2018-10-24] MEDS: ACETAMINOPHEN ADULT 160 MG/5ML 160 MG/5 ML UDBTL FT PRN ×2 (08:47→13:57)
[2018-10-24] MEDS: NYSTATIN 100,000 U/GM PWD 15GM TP SCH ×2 (09:00→21:00)
[2018-10-24] MEDS: TRIMETHOPRIM/SULFA SUSP 5 ML FT SCH ×2 (15:30→21:00)
--- NOTE | 2018-10-24 15:30 | Antimicrobial Stewardship ---
Antimicrobial Stewardship Support empiric regimen: Yes (Bactrim DS BID, suspension secondary to feeding tube) Comment UTI- growing MRSA, resistant to levofloxacin --->switch to Bactrim Approriate Cultures done: Yes Gram stain show Microbs: Yes (growing GPC, MRSA) Organism identified: Yes (MRSA) Review the antibiotic sensitiv: Yes (Resistant to levofloxacin, switch to Bactrim) Appropriate dose for site: Yes Determine cumulative duration: Today is day 1 of therapy, prior two days not covered Determine standard duration: 10-14 days of antibiotics Verified plan for regimen: Yes Comment 68 yo M who is currently undergoing treatment for laryngeal cancer, s/p peg tube, s/p tracheostomy who now has a UTI. WBCs elevated Febrile UA showed >900 WBC, leuk esterase Urine Cx grew MRSA R to levofloxacin Switch to Bactrim suspension per tube BID x 10-14 days. Jerri Whitfield, PharmD, OP JERRI WHITFIELD Oct 24, 2018 15:30
--- NOTE | 2018-10-24 15:52 | Hospitalist Progress Note ---
Subjective Progress Notes Subjective Nursing staff is concerned about the patient's mood. He was "down" over the weekend. The patient states he is feeling better now but would consider trying an antidepressant. Was started on Levaquin for a UTI after he had recurrent fever. Culture results now back and show Staph aureus sensitive to Bactrim. Physical Exam Vital Signs Date Time Temp Pulse Resp B/P (MAP) Pulse Ox O2 Delivery O2 Flow Rate FiO2 10/24/18 08:30 90 Heated Aerosol 10.0 21.0 10/24/18 08:00 98.8 110 16 118/80 (93) Intake and Output 10/24/18 07:00 Intake Total 3165 ml Output Total 400 ml Balance 2765 ml Intake Oral 120 ml Tube Feeding 2000 ml Tube Irrigant 1045 ml Output Urine Total 400 ml # Voids 7 # Bowel Movements 3 General Appearance: Alert, Awake, No Acute Distress Neuro: No Gross deficits Neck: Other (Trach site clean and dry without redness or drainage.) Cardiovascular: Other (Tachy, regular.) Respiratory: Other (Decreased BS throughout without rales, rhonchi, or wheezing.) GI: Soft and Non-Tender, Other (G-tube site looks good.) Extremities: Warm, Perfused Psych: Appropriate Mood & Affect Result Diagram: 10/23/1854010/23/18540 Assessment and Plan Problems: (1) Hospital-acquired pneumonia Status: Acute Assessment & Plan: The patient was on ECF for ongoing radiation of his laryngeal cancer when he developed rigors and fever. He also had worsening of his tachycardia and hypoxia. A CXR showed a new infiltrate in the right base and possibly left base as well. He was initially transferred to the ICU and was started on IV cefepime, which has been completed. He stabilized and was transferred to medical floor. Blood cultures showed no growth. He was transferred back to ECF for ongoing radiation treatments. (2) COPD (chronic obstructive pulmonary disease) Status: Chronic Assessment & Plan: He is on treatment with Xopenex. He received a dose of IV steroids on admission, but is now back on his chronic dose of oral prednisone. 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 CT scan showed a mass to be centered in the right vocal cord. He underwent biopsy on 09/07 and was found to have squamous cell carcinoma. He decided to have a tracheostomy/PEG which was done on 09/08/18. Dr. Curran (oncology) and Dr. Johnson (Radiation Oncology) met with the patient/family. The patient started radiation treatment September 24. It may have contributed to his aspiration. The patient's family is looking to move him closer to them in [place]. Arrangements are being made for a facility and transportation. (4) Urine retention Status: Chronic Assessment & Plan: He did develop urinary retention and gross hematuria. Nursing tried to pass a Espinosa cath without success. Dr. Kirkpatrick was consulted and ended up having to take him to the OR for cystoscopy guided catheter placement on 09/07. Dr. Kirkpatrick recommended that we continue levofloxacin for a 3 day period through 09/10, which was done. The patient's Flomax could not be put through PEG, so terazosin was started, but his blood pressure was low so he did not receive it regularly. The catheter was removed and he was restarted on Flomax orally. (5) Dysphagia Status: Chronic Assessment & Plan: Speech therapy evaluated him and recommended an MBS, which was ordered, but Mr. Villagomez did not wish to pursue. PEG was placed. He did start eating some food prior to developing pneumonia on 10/10/18. ST reevaluated and he is back on a dysphagia 2 diet. (6) Poliomyelitis Status: Chronic Assessment & Plan: Chronic bilateral weakness. The patient had OT/PT ordered, but refused therapy so this was discontinued. (7) Tachycardia Status: Acute Assessment & Plan: Persistent. Time Spent on Plan of Care: < 30 min IVORY STEELE MD Oct 24, 2018 15:52
--- NOTE | 2018-10-24 16:08 | NUR ---
ST ENCOUNTER Pt continues to decline PO intake, apart from small sips of water throughout the day (following oral care). Relies on PEG for primary nutrition and hydration. Pt reporting high level of fear associated with PO intake. Initiated discussions re: aspiration risks, in addition to recommended diet compensations and aspiration precautions to minimize risk. Pt continues with fear, declining PO. Pt also declining exercises. Does not wish to pursue PMSV for voicing. ST services will be discontinued at this time. Will be readily available for further consult as pt is willing and medically appropriate. Per RN, RT remains involved for trach mgmt.
[2018-10-24 18:35] VITALS: BP 124/72
[2018-10-24] MEDS: TERAZOSIN HCL 1 MG CAP FT SCH (21:00)
[2018-10-24] MEDS ORDERED: MIRTAZAPINE 15 MG TAB FT SCH (21:00)
[2018-10-24] MEDS: LORazepam 0.5 MG TAB PO PRN (21:46)
--- NOTE | 2018-10-25 02:35 | NUR ---
At 0133 this AM a rapid response event was called as resident slumped over in chair during staff performance of routine cleaning of his tracheostomy inner cannula. As rapid response team began arriving, a code was called as the resident was found to not be wearing a DNR/DNI bracelet. Resident was moved from chair to floor in preparation of code measures. It was confirmed that he was, in fact, a no code resident, and no compressions or any other resuscitative measures were performed. Code Blue was cancelled at 0136. Resident was moved to the bed and this RN and the resource technician from Cardiopulmonary suctioned the resident. The cardiopulmonary tech was able to apply saline and suctioned a mucous plug out of the resident's tracheostomy. Resident was placed on 100% oxygen via heated aerosol and oxygen saturation returned to normal limits. Resident was able to return to sleep comfortably on his side in the bed with three rails up and call light within reach. Will continue to closely monitor.
[2018-10-25 02:55] VITALS: BP 120/85
--- NOTE | 2018-10-25 07:30 | NUR ---
Resident demanding his dietrich catheter be reinserted "I just can't do this". Dr. Corbett contacted, orders received.
[2018-10-25] MEDS ORDERED: LIDOCAINE 2% 200MG/10ML UROJET TP ONE (07:40)
[2018-10-25 08:00] VITALS: BP 134/70
--- NOTE | 2018-10-25 08:53 | NUR ---
Ventilator - asked Bill if he needed to temporarily be placed on a ventilator would he want that. He nodded yes. Asked the question again to ensure he was understood the question and he nodded yes again.
[2018-10-25] MEDS: NYSTATIN 100,000 U/GM PWD 15GM TP SCH ×2 (09:00→20:35)
--- NOTE | 2018-10-25 09:00 | NUR ---
Daughter Brandyn called, updated her on her father's status and episode last night. She is questioning the feasibility of him flying to [place] "I don't want him on a ventilator, but it's his decision". She reported she did order a suction machine for the flight this morning.
--- NOTE | 2018-10-25 09:18 | RADIOLOGY IMAGING REPORT ---
[place] [facility] [place] NAME: Leon Villagomez : 1950 MR: [id number] V: [id number] EXAM DATE: ORDERING PHYSICIAN: JEANNE STEELE TECHNOLOGIST: Location: [facility] [place] Patient: Leon Villagomez : 1950 Visit/Account:[id number] Date of Sevice: 10/25/2018 Exam type: CHEST SINGLE AP History: o2 sats dropping Comparison: October 10, 2018. Findings: The patchy airspace consolidation in the right lung base has partially improved when compared to the prior study although remains unchanged in the left lung base. There has been overall interstitial pr ominence of the lungs since the prior study. There is chronic blunting of left costophrenic angle. The cardiac silhouette remains unchanged. There is moderate ectasia the thoracic aorta. Tracheostom y tube again noted. S-shaped scoliosis of the thoracolumbar spine IMPRESSION: 1. Overall interstitial prominence of the lungs is increased when compared the prior study. The dif ferential diagnosis would include interstitial pulmonary edema or interstitial pneumonia. Patchy airspace consolidation in the right lung base has partially improved when compared the prior s tudy although remains unchanged in the left lung base Report Dictated By: Donna Espinoza MD at 10/25/2018 9:11 AM Report E-Signed By: Donna Espinoza MD at 10/25/2018 9:14 AM WSN:[id number]
[2018-10-25] MEDS: guaiFENesin SYR 200MG/10ML UDC FT SCH ×2 (09:34→20:35)
[2018-10-25] MEDS: predniSONE 5 MG TAB PO SCH (09:34)
[2018-10-25] MEDS: FINASTERIDE 5 MG TAB FT SCH (09:34)
[2018-10-25] MEDS: TRIMETHOPRIM/SULFA SUSP 5 ML FT SCH (09:36)
--- NOTE | 2018-10-25 10:15 | NUR ---
CAM Mohr and I met with Dileep to discuss what he wants to do. Discussed comfort care, concerns about flight. Resident stated he would think about it, rolled over.
--- NOTE | 2018-10-25 10:41 | Miscellaneous Provider Note ---
Miscellaneous Provider Note Note Mr. Villagomez has had increased respiratory difficulties this AM with increased respiratory rate/O2 requirement. He has dark sputum from his tracheostomy. His CXR shows diffuse interstitial prominence. It appears he has a recurrent pneumonia/probable aspiration. I discussed this with Mr. Villagomez. At this time, he confirmed he does not want to have any aggressive interventions, such as transfer to the ICU and placed on the ventilator. He does want to have comfort measures/end-of-life care instituted. He does understand it may mean he would probably in the next few days. I also discussed this with his daughter, Brandyn, and she is in agreement with his decision. JEANNE STEELE MD Oct 25, 2018 10:40
--- NOTE | 2018-10-25 14:20 | NUR ---
Pt repositioned, linens changed. Pt asleep most of this shift, has brown colored discharge from mouth and trach. Pt repositioned as tolerated, tube feed on hold at this time. Pt suctioned as needed, Pt declined morphine and Ativan with use of thumbs down, denies pain or respiratory discomfort. Will continue to monitor.
[2018-10-25] MEDS: MORPHINE 10 MG/5 ML UDC FT PRN ×2 (15:55→20:36)
[2018-10-25] MEDS: LORazepam 0.5 MG TAB FT PRN (16:50)
[2018-10-26] MEDS: MORPHINE 10 MG/5 ML UDC FT PRN ×2 (01:10→13:21)
[2018-10-26] MEDS: LORazepam 0.5 MG TAB FT PRN ×4 (01:10→15:10)
[2018-10-26] MEDS: predniSONE 5 MG TAB PO SCH (08:31)
[2018-10-26] MEDS: guaiFENesin SYR 200MG/10ML UDC FT SCH (08:31)
[2018-10-26] MEDS: NYSTATIN 100,000 U/GM PWD 15GM TP SCH (09:00)
[2018-10-26] MEDS ORDERED: MORPHINE 10 MG/5 ML UDC FT PRN (15:30)
--- NOTE | 2018-10-26 19:15 | NUR ---
Patient without respirations at 1905. Family at bedside at time of . Nursing pattern marking supervisor and Hospitalist notified @ 191. Family remains in the room at this time.
--- NOTE | 2018-10-26 19:55 | Death Summary ---
Pronounced Date: Oct 26, 2018 Pronounced Time: 19:05 Preliminary Cause of : Hospital acquired pneumonia Assessment: Squamous cell carcinoma of larynx COPD History of Present Illness Please see admission history and physical for details. ROMAN SKELTON DO Oct 26, 2018 19:55
== END 2018-10-26 22:05 | disposition expired | DRG 194 ==
LOC: ECF 01:30
PROVIDERS: ADMIT Family Medicine; ATTEND Family Medicine
PROC: 0TPBX0Z Removal of Drainage Device from Bladder, External Approach (ICD-10-PCS; principal; 2018-10-16)
DX: J18.9 Pneumonia, unspecified organism (principal); J44.0 Chronic obstructive pulmonary disease with (acute) lower respiratory infection; N39.0 Urinary tract infection, site not specified; Z51.5 Encounter for palliative care; C32.9 Malignant neoplasm of larynx, unspecified; R13.10 Dysphagia, unspecified; B91 Sequelae of poliomyelitis; T83.098A Other mechanical complication of other urinary catheter, initial encounter; B95.61 Methicillin susceptible Staphylococcus aureus infection as the cause of diseases classified elsewhere; R00.0 Tachycardia, unspecified; Z93.0 Tracheostomy status
CPT/HCPCS: 36415; 71045; 74230; 81001; 82040; 82247; 82310; 82374; 82435; 82565; 82947; 84075; 84132; 84153; 84155; 84295; 84450; 84460; 84520; 85025; 87088; 87186; 97161; 97166; 99212; J1650; J7512

== ENCOUNTER 2018-10-23 13:00 | Outpatient (RCR) | payer MEDICARE, BC ==
--- NOTE | 2018-09-13 15:32 | PURVIANCE CONSULTATION ---
EVENT DATE: September 13, 2018 DIAGNOSIS Squamous cell carcinoma of the larynx. REFERRING PHYSICIAN Alex Mitchell DO CHIEF COMPLAINT Discussion of definitive radiotherapy. HISTORY OF PRESENT ILLNESS The patient is a 68-year-old gentleman with a significant tobacco history who was diagnosed with a squamous cell carcinoma of the larynx after he presented with dysphagia and cough symptoms consistent with aspiration. [place] [facility] [place]. The patient underwent CT scan of the neck, which showed an enhancing mass of the larynx measuring 2.9 x 1.7 x 1.6 cm centered in the right vocal cord with extension across the anterior commissure to the left vocal cord as well as extension into the right laryngeal ventricle and through the thyroid cartilage anterior bilaterally. There was no evidence of metastatic lymph node spread. The patient underwent a CT scan of the chest, which showed extensive background emphysematous changes with scarring of both lungs. There is no evidence of metastatic spread. The patient has undergone tracheostomy placement as well as PEG tube placement. He is now NPO. The patient has been seen by Dr. Hernandez from Oncology, who feels he is not a candidate for systemic chemotherapy. The patient has been referred to Radiation Oncology to discuss definitive radiotherapy for treatment of his T4 N0 squamous cell carcinoma of the larynx. On presentation today, the patient denies ear pain, throat pain or trismus. The patient states that he was able to swallow prior to his admission and was eating all foods, although he does have mild dysphagia as a baseline dating back to his polio diagnosis. The patient reports shortness of breath at baseline. PAST MEDICAL HISTORY 1. Trigeminal neuralgia. 2. Poliomyelitis as a child. 3. Hyperlipidemia. 4. GERD. PAST SURGICAL HISTORY Status post bilateral hernia repair. SOCIAL HISTORY The patient is a former smoker who quit in December 2016. No significant alcohol or drug use. Patient lives alone. He has two daughters, one in [place] and one in [place]. 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 FAMILY HISTORY Noncontributory. REVIEW OF SYSTEMS 14-point review of systems is documented in the chart. PHYSICAL EXAMINATION VITAL SIGNS: Temperature 97.7, pulse 116, blood pressure 108/83, respiratory rate 15, pulse ox 95% on supplemental oxygen. CONSTITUTIONAL AND GENERAL APPEARANCE: The patient is a cachectic appearing male sitting comfortably in the chair in no acute distress. HEENT: Pupils are equal, round and reactive to light and accommodation. Extraocular movements are intact. On inspection of the oral cavity, the patient has evidence of thrush on his soft palate and posterior pharyngeal wall. The patient has intact dentition. There are no palpable lesions within the oral cavity. NECK: Supple. Trachea is midline. Tracheostomy tube is patent with no significant surrounding erythema or pus. The patient has no palpable neck masses bilaterally. LYMPHATIC SURVEY: No palpable supraclavicular lymphadenopathy bilaterally. LUNGS: Notable for coarse rhonchi bilaterally. There is no dullness to percussion. ABDOMEN: Remarkable for PEG tube without significant erythema or pus. Abdomen is soft and nontender with active bowel sounds. No hepatosplenomegaly. EXTREMITIES: No edema, clubbing or cyanosis. NEUROLOGIC: The patient is alert and oriented x3. Motor strength is 5/5 in upper and lower extremities bilaterally. IMPRESSION The patient is a cachectic 68-year-old gentleman, former smoker, recently diagnosed with a squamous cell carcinoma of the larynx, T4 N0 based on CT staging. The patient does have significant thyroid cartilage involvement, making him a T4 primary. The patient has been seen by medical oncology, who feels he is not a candidate for radiosensitizing chemotherapy. The patient presents today to discuss definitive radiotherapy. PLAN The patient was apprised that he is a candidate to proceed with definitive radiotherapy for treatment of his T4 N0 squamous cell carcinoma of the larynx. Definitive radiotherapy alone has an approximate 60% chance of disease-free survival at five years. The side effect profile of definitive radiotherapy was discussed at length with the patient. The patient has signed written informed consent to undergo this treatment. The patient will undergo CT scan tomorrow for planning simulation purposes. We will plan to proceed with daily radiotherapy treatment to a dose of approximately 70 Gy. This will likely entail somewhere on the order of 35 fractions. MTDD
[2018-09-21 08:20] VITALS: BMI 14.4
[~2018-10-23 13:00] MED LIST changes: +NS 0.9% NEB 3 ML SOLN INH PRN
--- NOTE | 2018-10-23 14:23 | ONCOLOGY COMPLETION NOTE ---
EVENT DATE: October 23, 2018 DIAGNOSIS Squamous cell carcinoma of the larynx. Patient presenting with acute laryngeal obstruction requiring emergent trach placement. Baseline CT scan demonstrating a 2.9 x 1.7 x 1.6 cm mass at the level of the anterior commissure extending along to the laryngeal ventricles and through the thyroid cartilage. No evidence of regional lymphadenopathy. STAGE T4 N0 M0. TREATMENT PLAN External beam radiation therapy. Patient was seen by medical oncology. However, was in no clinical condition to receive system therapy. TREATMENT DETAILS Date radiation therapy was started was September 25, 2018, date completed October 18, 2018. DOSE AND TECHNIQUE Patient received combined dose of 2800 cGy in 14 fractions, delivered at 200 cGy/fraction. Treatment was delivered with 6 MV photons with an IMRT multifield treatment technique. The initial mcclelland were set up by my partner, Dr. Johnson, and appropriate water quality specialist was provided by the physics team prior to therapy. TOLERANCE Radiation therapy course was stopped early at 2800 cGy. The patient initially received radiation therapy from September 25, 2018 to October 10, 2018 in a consecutive fashion. However, at that juncture, the patient experienced an aspiration episode, which caused us to hold radiation course for a week before it could be resumed. When the treatment did resume, the patient had considerable anxiety regarding potential of secretions and, unfortunately, appeared to have anxiety related to the stabilization mask as well when the radiation course was re-started. He was given a single dose of Ativan last week in attempt to calm his nerves. However, he then declined to have further therapy. I saw the patient with the patient navigator, Lour[facility], radiation and nursing crew this morning. His daughter was in attendance, who is visiting from [place]. I explained the rationale for the radiation course with the patient. For T4 malignancy, there is typically a 60% probability that the cancer would respond significantly and would potentially allow for trach removal 8 to 12 weeks after the radiation course is complete. That would be the therapeutic goal certainly. The alternative to the radiation program would be to stop all treatment and pursue comfort care. The patient mouthed clearly that he would like to resume the radiation course out of state. He feels he has been in the hospital too long at this time in [place] and that is certainly understandable as he has spent the entire treatment course in the Subacute Unit of the [facility]. [facility]our[facility] is making arrangements for radiation therapy to be delivered in [employer], [place]. We are looking for a hospital or residential facility to accept the patient at this time. As soon as those arrangements are solidified, the patient will be transferred. I will ask the staff to photocopy pertinent radiation records to accompany the patient and we can electronically also push images as needed. Treatment planning was performed on [employer] system. I also spoke to the patient about potential of taking an antidepressant since he is emotionally labile over the last five days. He initially was resistant but he stated at the end of our conversation that he certainly would be willing to take the medications to see if he could feel better. I will see if the hospitalist team would like to start the medications while he is here or the medication could be started when he is transferred. [*] MTDD
== END 2018-10-26 11:49 | disposition home or self-care (01) ==
LOC: RAON 13:00
PROVIDERS: ATTEND Radiology Radiation Oncology
DX: Z51.0 Encounter for antineoplastic radiation therapy (principal); C32.9 Malignant neoplasm of larynx, unspecified
CPT/HCPCS: 77280; 77290; 77300; 77301; 77334; 77336; 77338; 77385; 77386